=== PATIENT | female | born 1985 | race Caucasian/White ===

== ENCOUNTER → 2018-05-17 18:55 | Outpatient (CLI) | payer OTHER, SELFPAY ==
[2018-05-17 21:41] LABS: Chlamydia Trachomatis by PCR Negative (Negative); Neisserai gonorrhoeae by PCR Negative (Negative); Probe Check PASS; Sample Adequacy Control PASS; Specimen Processing Control PASS
[2018-05-26 11:52] LABS: HPV APTIMA, High Risk Positive (Negative)
== END ==
PROVIDERS: Family Provider Family Medicine; PCP Family Medicine; Visit Provider Nurse Practitioner Women's Health
DX: Z12.4 Encounter for screening for malignant neoplasm of cervix (principal); Z11.3 Encounter for screening for infections with a predominantly sexual mode of transmission
CPT/HCPCS: 87491; 87591; 88175; G0145

== ENCOUNTER → 2018-05-22 16:33 | Outpatient (CLI) | payer OTHER, SELFPAY ==
--- NOTE | 2018-05-22 16:36 | RAD_ITS ---
STUDY: X-RAY - ABDOMEN/PELVIS REASON FOR EXAM: Female, 33 years old. Lower abdominal pain. Bloating and cramping. TECHNIQUE: AP supine and upright views of the abdomen and pelvis. COMPARISON: None. FINDINGS: Normal visualized lung bases. There is an unremarkable bowel gas pattern. Air is seen throughout the colon. There is no small bowel dilatation. There is no demonstrated free abdominal air. The visualized liver, spleen and kidneys are grossly normal in size and morphology. Normal soft tissue structures. Normal visualized osseous structures. RAD/Abd Inc Decub and/or Erect IMPRESSION: Normal x-ray examination of the abdomen and pelvis. Electronically Signed: Vladimir Mead DO at 22:23 EDT Tel [phone], Service support ,
== END ==
PROVIDERS: Family Provider Family Medicine; PCP Family Medicine; Visit Provider Family Medicine
DX: K58.9 Irritable bowel syndrome, unspecified (principal)
CPT/HCPCS: 74019

== ENCOUNTER → 2018-06-23 14:40 | Outpatient (CLI) | payer OTHER, SELFPAY ==
--- NOTE | 2018-06-23 14:40 | CER_PTH ---
PATIENT: DEJA FRANZ LOC: [facility] U#:[id number] AGE/SX: 40/F ROOM: RE06/23/[address]: Dr. Sparkle Santiago MD : 1985 BED: DIS: SPEC #: [id number] RECD: 06/23/18 18:18 STATUS: DALTON BETO #: [id number] JULIAN: 06/23/18 14:[address]: Sparkle Santiago DEPT: SURGICAL PATHOLOGY RECD BY: Bao Del Angel ENTERED: 06/26/18 13:31 SP TYPE: CERV OTHR DR: Dr. Christian Roa MD Tissues: Endocervical Procedures: Surgery Specimen Level IV HEADER OPERATION: Colposcopy PRE-OP DIAGNOSIS: LGSIL TISSUE SUBMITTED: Cervical biopsy 6 o?clock MICROSCOPIC DIAGNOSIS Cervix at 6 o?clock, biopsy: Endocervix with squamous metaplasia and minimal chronic inflammation. No evidence of dysplasia. AM:jerica 06/27/18 MICROSCOPIC DESCRIPTION Slides are reviewed. GROSS DESCRIPTION Received in fixative is one container labeled with the patient's name and designated 6 o'clock. The specimen consists of two irregular fragments of light brennan soft tissue that in aggregate measure 0.3 x 0.3 x <0.1 cm. The specimen is totally submitted in one cassette. / AM:jerica 06/26/18 TC:5 CPT: 01679
== END ==
PROVIDERS: Family Provider Family Medicine; PCP Family Medicine; Visit Provider Obstetrics & Gynecology
DX: R87.622 Low grade squamous intraepithelial lesion on cytologic smear of vagina (LGSIL) (principal)
CPT/HCPCS: 88305

== ENCOUNTER 2018-08-13 17:47 | Emergency (ER) | payer OTHER, SELFPAY ==
[2018-08-13 17:47] VITALS: BP 107/64; PULSE 73; RESP 15; TEMP 36.7; O2SAT 98; BMI 22.8
--- NOTE | 2018-08-13 18:00 | RAD_ITS ---
STUDY: X-RAY LEFT FOOT, FIRST TOE REASON FOR EXAM: Female, 33 years old. Tripped TECHNIQUE: 3 view(s) of the toe were obtained. COMPARISON: None. FINDINGS: Normal visualized metatarsus. Normal metatarsophalangeal (M.T.P) joint. Normal interphalangeal joints. There is a indeterminate defect within the tuft of the distal phalanx. There is soft tissue swelling. RAD/Toe(s) Min 2 Views IMPRESSION: Possible distal phalanx tuft fracture. Electronically Signed: Norma Elizabeth MD at 19:01 EDT Tel , Service support ,
--- NOTE | 2018-08-13 19:28 | ED.DCSUM_ITS ---
- ER Visit Summary Date of Service: 08/13/18 Chief Complaint: [Injury to left great toe] History of Present Illness: The patient is a 33 F [presents the emergency department complaint of injury to her left great toe that occurred while she was at a jump yard. Patient was walking up some steps in her socks when she thinks she struck the stair with her foot and rolled the foot. Patient felt a pop or crack. Patient having a hard time bearing weight secondary to pain.] Physical Examination: [Left foot-patient has some tenderness palpation over the IP joint of the great toe. There is no obvious deformity. There is some faint erythema noted at the base of the nail. She is neurovascular intact.] Test Results: [X-rays of the left foot obtained showed a questionable fracture of the tuft of the left great toe.] Emergency Department Course and Treatment: [Patient was given crutches and a postop shoe and had the great toe brittany taped to the second toe.] Treatment Plan: [Patient to ice and elevate the extremity and follow-up with primary care physician in 5-7 days. Patient given a prescription for [place] for pain] Disposition: [Discharged home in stable condition] Impression: [Left great toe fracture] This note was generated with [employer] dictation software. It may contain incorrect words, spelling, and punctuation that were not noted in review of the chart prior to signing ED Disposition - Plan for ED Patient: Chief Complaint: Lower Extremity Injury Referrals: Christian Roa MD [Primary Care Provider] -
--- NOTE | 2018-08-13 19:28 | ED.DEP ---
ED Disposition - Plan for ED Patient: Chief Complaint: Lower Extremity Injury Instructions: ED Fx Toe Closed Prescriptions: Hydrocodone Bitart/Apap 5-325 [[place] 5MG-325MG] 1 tab PO Q4H PRN PRN 2 Days #10 tab PRN Reason: Pain Referrals: Christian Roa MD [Primary Care Provider] - 5-7 Days
[2018-08-13 19:45] VITALS: RESP 16
== END 2018-08-13 19:46 | disposition home or self-care (01) ==
LOC: ED 19:12
PROVIDERS: Emergency Provider Emergency Medicine; Family Provider Family Medicine; PCP Family Medicine
DX: S92.402A Displaced unspecified fracture of left great toe, initial encounter for closed fracture (principal); X50.1XXA Overexertion from prolonged static or awkward postures, initial encounter; Y93.9 Activity, unspecified; Y92.9 Unspecified place or not applicable
CPT/HCPCS: 73660; 99284

== ENCOUNTER → 2019-02-15 11:52 | Outpatient (CLI) | payer OTHER, SELFPAY ==
[2019-02-15 11:33] VITALS: BMI 22.8
[2019-02-15 12:09] LABS: Absolute Lymphocyte Count 2.43 X10^3/ul (0.83-4.51); Absolute Neutrophil Count 5.1 X10^3/uL (2.0-7.7); Basophil# 0.01 X10^3/uL; Basophil% 0.1 % (0-1); Eosinophil# 0.11 X10^3/uL; Eosinophils% 1.3 % (0-5); Hematocrit 37.9 % (37-47); Hemoglobin 12.1 g/dl (12.0-15.0); Lymphocyte # 2.43 X10^3/ul (4.0); Lymphocyte % 29.3 % (19-41); Mean Corp Hgb Conc 31.9 g/gl (32-36); Mean Corpuscular Hgb 25.4 pg (27.0-32.0); Mean Corpuscular Volume 79.6 fL (81-99); Mean Platelet Vol. 9.4 fl (6.2-12.0); Monocyte# 0.64 X10^3/uL; Monocyte% 7.7 % (0-10); Neutrophil % 61.5 % (47-70); Platelet Count 232 K/mm3 (150-450); RBC Distribution Width CV 13.1 % (11.6-14.6); RBC Distribution Width SD 37.8 fl (35.1-43.9); Red Blood Count 4.76 M/mm3 (4.2-5.4); White Blood Count 8.3 K/mm3 (4.4-11.0)
[2019-02-15 12:11] LABS: POSITIVE COUNT NO; POSITIVE DIFFERENTIAL NO; POSITIVE MORPHOLOGY NO
[2019-02-15 13:07] LABS: Thyroid Stim Hormone (TSH) 2.02 uIU/mL (0.358-3.74)
== END ==
PROVIDERS: Family Provider Family Medicine; PCP Family Medicine; Visit Provider Nurse Practitioner Women's Health
DX: R53.83 Other fatigue (principal)
CPT/HCPCS: 36415; 84443; 85025

== ENCOUNTER → 2019-02-16 | Outpatient (CLI) | payer OTHER, SELFPAY ==
[2019-02-15 11:33] VITALS: BMI 22.8
--- NOTE | 2019-02-16 16:42 | RAD_ITS ---
STUDY: X-RAY - LUMBAR SPINE REASON FOR EXAM: Female, 33 years old. Back pain TECHNIQUE: 5 view(s) of the lumbar spine were obtained. COMPARISON: None FINDINGS: Normal lumbar lordosis. There is no substantial scoliosis. There is a normal alignment of the vertebrae. Normal vertebral bodies and endplates. Normal disc space heights. The soft tissue structures are unremarkable. RAD/L/S Spine Min 4 Views IMPRESSION: Normal x-ray examination of the lumbar spine. Electronically Signed: Octavio Louise MD at 20:18 EDT Tel , Service support ,
== END | disposition home or self-care (01) ==
LOC: MTRAD 16:40
PROVIDERS: Family Provider Family Medicine; PCP Family Medicine; Referring Provider Family Medicine; Visit Provider Family Medicine
DX: M54.9 Dorsalgia, unspecified (principal)
CPT/HCPCS: 72110

== ENCOUNTER 2019-07-04 17:30 | Outpatient (RCR) | payer OTHER, SELFPAY ==
[2019-02-15 11:33] VITALS: BMI 22.8
--- NOTE | 2019-03-14 19:05 | HP.PTEVAL ---
Patient's Visit Information DEJA FRANZ is a 34 year old F referred to Physical Therapy by Christian Roa MD with a diagnosis of Back Pain. Date of Evaluation: 03/14/19 Physical Therapist: TEX Hinds - Visit Plan Frequency: 1-2x /Week Duration: 6 Weeks Plan: 1-2X/ week for 4-6 weeks for centralization of symptoms using extension principle, possible leg length, core stability, with HEP and postural exercises. - Subjective Findings: Her son was born in 2013 and breastfed for a year and she thinks that the culmination of positioning and not being as physically fit. She is sensitive when she pushe along her back/Psis area and along the the top of her hips and after she massages it, it hurts. Always a dull ache across her LB. She is in a car for 2 hours and 18 min per day. In the morning she feel that her back is so tight in the morning. SHe tries to stretch is and she does not get relief. She is on her feet constantly and she is shifting more through out the day to get relief. She did get an x-ray.... She has not seen a chiropractor. She has not run lately.... She has no N&T. She has no weakness in her legs. SHe wakes up with pain in her back at night and the pillow seems to help a little bit. - Pain back pain Pain Intensity (Out of 10): 3 - Objective Gait: Walks with a normal gait pattern. Trunk AROM: Flexion 100%, Ext 50%, SB B 100%, Rot B 100%. LE MMT: B hip flex 4-/5 B, B knee flex 4-/5, B knee ext 4/5, Pt is able to walk on heels and toes, B hip abd 4/5, B hip ext 4-/5. Tight B HS and HIp flexors. SLR: - B ( on the R she felt a little pulling when coming down from a SLR). SLUMP test: -B. Patellar DTR's 2+/3 B. Prone lying X 5 min: increase center of back pain after lying there. Prone lying to OSMANY X 10.... felt a little looser.... 2 X 10 additional she felt more of a grabbing sensation. Prone to press up 3 X 10.... when up at end range she feels pain that radiates into buttock and out laterally but when she comes back to prone lying she feels the pain just in the center of the back. Prone press ups 3 X 10 again..... L leg is slightly shorter than the R. - Goals Goal 1:: I HEP Goal Time Frame: 4-6 Weeks Goal 2:: Decrease LBP to 1/10 with ADL's Goal Time Frame: 4-6 Weeks Goal 3:: Be able to complete 3 X 10 press ups without pain. Goal Time Frame: 4-6 Weeks Goal 4:: Be able to drive to and from work without having back pain Goal Time Frame: 4-6 Weeks - Rehabilitation Potential Rehabilitation Potential: Good - Anticipated Interventions Patient/Client Instruction: Educate patient on: Condition, Plan of Care For the Purpose of:: To decrease pain, To increase ROM, To improve nutrient delivery to tissue, To improve muscle performance and motor function, To improve ability to perform ADL's, To increase tolerance to activity/condition/position, To improve performance and independence with ADL's Therapeutic Exercise to Include: Strength training, Postural training, Flexibilty training, Neuromotor development, Dynamic Lumbar Stabilization, Barron Exercises, Scapular Strength/Stabilization For the Purpose of:: To decrease pain, To decrease swelling/inflammation, To increase ROM, To improve nutrient delivery to tissue, To improve muscle performance and motor function, To improve ability to perform ADL's, To increase tolerance to activity/condition/position, To improve performance and independence with ADL's, To decrease level of supervision to perform tasks IF ES: Yes Cryotherapy (ice pack, ice massage): Yes Thermo therapy (hot pack): Yes Ultrasound (thermal/non thermal): Yes For the Purpose of:: To decrease pain, To decrease swelling/inflammation, To improve nutrient delivery to tissue Thank you for the opportunity to evaluate your patient. For Medicare and Medicare HMO plans, please review the plan of care and approve it. It will need to be FAXED BACK to us at [phone] for Medicare purposes. For Medicare only, by signing this I certify the plan of care. Please let me know if there are questions or concerns regarding this plan of care. Physician Signature: Date:
--- NOTE | 2019-07-04 17:53 | HP.PTDCSUM ---
HP - PT D/C Summary It has been my pleasure to treat DEJA FRANZ under orders from Christian Roa MD, for the diagnosis of Back Pain for a total of 19 visit(s). Discharge Date: 07/04/19 Please see the following information for a summary of their discharge status. - Subjective Subjective: Past 2 weeks have not been able to do much.... she is too exhausted with school done. Its a little bit tight but no pain. - Pain back pain Pain Intensity (Out of 10): 0 - Overall Improvement % Improvement: 95 - Objective Objective/Function: ALL PT goals have been met and pt is I with gym routine, only needs to find the time to do the exercises. - Goals Goal 1:: I HEP Goal Progress: Goal Met Goal 2:: Decrease LBP to 1/10 with ADL's Goal Progress: Goal Met Goal 3:: Be able to complete 3 X 10 press ups without pain. Goal Progress: Goal Met Goal 4:: Be able to drive to and from work without having back pain Goal Progress: Goal Met - Plan Plan: DC PT to - D/C Information Discharge Comments: DC PT to I gym routine If there are questions or concerns regarding this patient's physical therapy, please feel free to call me at [phone]. Thank you for the referral of this patient. Sincerely, Laura Melton, TEX
== END 2019-07-04 19:00 | disposition home or self-care (01) ==
LOC: PT 17:30
PROVIDERS: Family Provider Family Medicine; PCP Family Medicine; Visit Provider Family Medicine
DX: M54.9 Dorsalgia, unspecified (principal)
CPT/HCPCS: 97014; 97110; 97161; 97530; G0283

== ENCOUNTER → 2020-01-21 | Outpatient (CLI) | payer OTHER, SELFPAY ==
[2020-01-21 13:58] VITALS: BMI 22.8
[2020-01-21 18:21] LABS: Chlamydia Trachomatis by PCR Negative (Negative); Neisserai gonorrhoeae by PCR Negative (Negative); Probe Check PASS; Sample Adequacy Control PASS; Specimen Processing Control PASS
[2020-01-23 20:34] LABS: HPV APTIMA, High Risk Negative (Negative)
== END | disposition home or self-care (01) ==
LOC: LABSPEC 16:12
PROVIDERS: PCP Family Medicine; Visit Provider Nurse Practitioner Women's Health
DX: A64 Unspecified sexually transmitted disease (principal); Z12.4 Encounter for screening for malignant neoplasm of cervix
CPT/HCPCS: 87491; 87591; 87624; 88175; G0145

== ENCOUNTER 2020-02-06 17:53 | Emergency (ER) | payer OTHER, SELFPAY ==
[2020-01-21 13:58] VITALS: BMI 22.8
[2020-02-06 17:54] VITALS: BP 118/76; PULSE 70; RESP 15; TEMP 36.7; O2SAT 99; BMI 24.0
--- NOTE | 2020-02-06 18:01 | NURSING ---
NO OLD EKGS
--- NOTE | 2020-02-06 18:22 | EKG12_ITS ---
Test Reason : CP Blood Pressure : / mmHG Vent. Rate : 069 BPM Atrial Rate : 069 BPM P-R Int : 120 ms QRS Dur : 080 ms QT Int : 394 ms P-R-T Axes : 058 023 031 degrees QTc Int : 422 ms Normal sinus rhythm Normal ECG Confirmed by YANETH GILMORE, NADER ([id number]), purchasing expeditor DOYLE AUGUSTIN ([id number]) on 02/08/2020 9:36:56 AM Referred By: PEREZ Confirmed By:GUILLERMO WOLFE MD
--- NOTE | 2020-02-06 18:25 | ED.VISSUMM ---
- ER Visit Summary Date of Service: 02/06/20 Chief Complaint: Chest pain History of Present Illness: The patient is a 34 F who presents with chest pain that began yesterday. Patient states the pain is been waxing and waning since yesterday. Patient states it feels like a tightness. Patient states the pain is over the substernal area and radiates across his chest. Patient states nothing makes it better or worse. Patient admits to nausea but denies any vomiting. Patient admits to some shortness of breath and cough but denies any fevers. Patient admits to some lightheadedness but denies any palpitations or diaphoresis. Patient denies any cardiac or PE risk factors. Physical Examination: Vital signs are stable. Patient is afebrile. Patient is in no acute distress. Oral mucosa is pink and moist. Neck is supple. Trachea is midline. There is no JVD noted. Heart was regular rate and rhythm. Lungs are clear and equal bilaterally. Abdomen is soft. Bowel sounds are normal. There is no tenderness. There is no rebound or guarding noted. Skin is warm dry. Cranial nerves II through XII are intact. There are no focal motor or sensory deficits noted. Extremities are intact. There is no calf tenderness or edema. Test Results: EKG showed normal sinus rhythm with a rate of 69. There are no acute ST or T wave changes. Portable chest x-ray was obtained. There is no acute cardiopulmonary process. This was interpreted by the radiologist and myself. CBC, basic metabolic profile, and troponin were obtained within normal limits. Emergency Department Course and Treatment: Patient was given aspirin here. Patient was given 1 sublingual nitroglycerin tablet. Patient's blood pressure dropped to 88 but improved to 125. Patient developed a headache after the sublingual nitroglycerin but it resolved. Patient was feeling better on reevaluation. Patient was advised of her findings. Patient has a HEART score of 1. Patient has a MARIO risk score of 0. Patient was advised that this is low risk for acute cardiac event. Patient was instructed to follow-up with her primary care physician in 5 to 7 days. Patient understood and was agreeable with the plan. All questions were answered. Disposition: Discharge home Impression: Chest pain This note was generated with [employer] dictation software. It may contain incorrect words, spelling, and punctuation that were not noted in review of the chart prior to signing ED Disposition - Plan for ED Patient: Disposition: Home or Assisted Living Diagnosis: Chest pain of uncertain etiology Instructions: ED Chest Pain Atypical Unkn Cause Referrals: Christian Roa MD [Primary Care Provider] - 5-7 Days
[2020-02-06] MEDS: Aspirin 81 MG TAB.CHEW 324 MG PO (19:22)
[2020-02-06 19:23] VITALS: BP 128/83; PULSE 77
[2020-02-06] MEDS: Nitroglycerin SL (ED/IMG/CATH) 0.4 MG TABLET SUBLINGUAL (19:23)
[2020-02-06 19:28] VITALS: BP 128/83; PULSE 77; RESP 14; O2SAT 98
--- NOTE | 2020-02-06 19:32 | RAD_ITS ---
STUDY: X-RAY CHEST REASON FOR EXAM: Female, 34 years old. PT ARRIVES TO ED WITH CHEST PAIN THAT STARTED YESTERDAY. NO CARDIAC HX. MINIMAL CARDIAC RISK FACTORS. TECHNIQUE: Single frontal view of the chest. COMPARISON: None. FINDINGS: Lungs are hyperaerated. The lungs are clear and expanded. There is no demonstrated pleural abnormality. Normal size heart. Normal mediastinum and dimitris. Normal visualized pulmonary arteries. Normal visualized aortic arch and descending thoracic aorta. Normal visualized thoracic spine. Normal visualized ribs, clavicles, and shoulders. There is no demonstrated abnormality of the visualized soft tissue structures of the upper abdomen. RAD/Chest 1 View (Portable) IMPRESSION: Small airways disease Electronically Signed: Charanjit Silva MD at 19:48 EDT , Service support ,
[2020-02-06 19:38] VITALS: O2SAT 100
--- NOTE | 2020-02-06 19:39 | ED.RN ---
PATIENT'S PAIN REMAINS 5/10 AFTER 1ST NITRO, BP DROPS DOWN TO 84/73, DR. DURAN MADE AWARE, NO FURTHER ORDERS OBTAINED.
[2020-02-06 19:46] LABS: Absolute Lymphocyte Count 2.86 X10^3/uL (0.83-4.51); Absolute Neutrophil Count 3.9 X10^3/uL (2.0-7.7); Basophil# 0.02 X10^3/uL; Basophil% 0.3 % (0-1); Eosinophil# 0.17 X10^3/uL; Eosinophils% 2.3 % (0-5); Hematocrit 38.3 % (37-47); Hemoglobin 12.2 g/dL (12.0-15.0); Lymphocyte # 2.86 X10^3/ul (4.0); Mean Corp Hgb Conc 31.9 g/dL (32-36); Mean Corpuscular Hgb 25.7 pg (27.0-32.0); Mean Corpuscular Volume 80.6 fL (81-99); Monocyte# 0.61 X10^3/uL; Monocyte% 8.1 % (0-10); NRBC Flagged by Analyzer 0 % (0-5); Neutrophil # 3.85 X10^3/uL (2.7-7.7); Neutrophil % 51.2 % (47-70); Platelet Count 184 K/mm3 (150-450); RBC Distribution Width CV 14.6 % (11.6-14.6); RBC Distribution Width SD 42.5 fl (35.1-43.9); Red Blood Count 4.75 M/mm3 (4.2-5.4); White Blood Count 7.5 K/mm3 (4.4-11.0)
[2020-02-06 19:57] LABS: Anion Gap 3 (5-15); BUN 14 mg/dL (7-18); Calcium,Total 9.1 mg/dL (8.5-10.1); Chloride 109 mmol/L (98-107); Creatinine, Serum 0.88 mg/dL (0.55-1.02); EST Glomerular Filtration Rate 79 mL/min (>60); Est Glom Filt Rate - Afr Amer 95 mL/min (>60); Estimated Creatinine Clearance 78.52 ml/min; Glucose 91 mg/dL (74-106); Potassium 3.7 mmol/L (3.5-5.1); Sodium Level 140 mmol/L (136-145)
[2020-02-06 19:59] VITALS: BP 110/75; PULSE 64; RESP 13; O2SAT 100
[2020-02-06 20:48] VITALS: BP 125/76; PULSE 68; RESP 18; O2SAT 100
== END 2020-02-06 20:49 | disposition home or self-care (01) ==
PROVIDERS: Emergency Provider Emergency Medicine; PCP Family Medicine
DX: R07.89 Other chest pain (principal); R11.0 Nausea; R06.00 Dyspnea, unspecified; R05 Cough; R42 Dizziness and giddiness; J34.89 Other specified disorders of nose and nasal sinuses; J02.9 Acute pharyngitis, unspecified; R51 Headache; K58.9 Irritable bowel syndrome, unspecified
CPT/HCPCS: 71045; 80048; 84484; 85025; 93005; 99285

== ENCOUNTER 2020-04-13 15:56 | Emergency (ER) | payer OTHER, SELFPAY ==
[2020-04-13 15:57] VITALS: BP 133/84; PULSE 87; RESP 18; TEMP 36.2; O2SAT 97; BMI 23.6
--- NOTE | 2020-04-13 16:09 | RAD_ITS ---
STUDY: X-RAY - RIGHT ANKLE REASON FOR EXAM: Female, 35 years old. CAT BITE/SCRATCH ACROSS ANTERIOR PART OF ANKLE TECHNIQUE: 3 view(s) of the ankle. COMPARISON: None. FINDINGS: Normal visualized distal tibia and fibula. Normal medial and lateral malleoli. Normal tibiotalar articulation and ankle mortise. Normal visualized talus and calcaneus. The visualized subtalar, talonavicular, calcaneocuboid and tarsal articulations are normal. The soft tissue structures are unremarkable. RAD/Ankle min 3 Views IMPRESSION: Normal x-ray examination of the ankle. Electronically Signed: Arminda Webster, at 16:39 EDT Tel , Service support ,
--- NOTE | 2020-04-13 16:12 | ED.VIS.GEN ---
History of Present Illness Chief Complaint: Bite Informant: Patient Onset: Today Narrative: Patient states that she brought a cat into the house and the cat ended up scratching and biting her right ankle. Unknown last tetanus. Past Medical History - Allergies and Home Meds Allergies/Adverse Reactions: Allergies ceftriaxone [From Rocephin] Allergy (Mild, Verified 04/13/20 15:59) hives Latex, Natural Rubber Adverse Reaction (Unknown, Verified 04/13/20 15:59) itching/irritation Primary Care Physician: Christian Roa MD [Primary Care Provider] - As Needed Smoking Status: Never smoker Review of Systems General: Denies: Chills, Fever, Sweats Eyes: Denies: Visual changes - bilaterally, Diplopia ENT: Denies: Rhinorrhea, Sore throat Cardiovascular: Denies: Chest pain, Palpitations Respiratory: Denies: Dyspnea, Cough, Dyspnea on exertion Gastrointestinal: Denies: Abdominal pain, Nausea, Vomiting, Diarrhea, Melena, Hematochezia Genitourinary: Denies: Dysuria, Hematuria, Frequency Musculoskeletal: Denies: Back pain, Extremity Pain Skin: Denies: Rash, Wounds Neurological: Denies: Headache, Weakness, Numbness Physical Exam Vital Signs/Narrative: Vital Signs Temp Pulse Resp BP Pulse Ox 04/13/20 15:57 97.1 F L 87 18 133/84 H 97 General: Well nourished, Well developed, No Acute Distress Head: Normocephalic, Atraumatic Eyes: Perrl, EOMI ENT: Moist mucous membranes, No rhinorrhea Neck: Supple, Nontender Cardiovascular: Regular rate, Regular rhythm, No murmurs Respiratory: No distress, CTA bilaterally, Chest nontender Abdomen: Soft, Nontender, Nondistended, Normal bowel sounds Back: Nontender, Normal Inspection Extremities: No edema, Tenderness - There is tenderness around the cat scratches and the cat bite. There are bite guevara to both the medial and lateral aspects just anterior to the Achilles Skin: Normal color, No rash Neurological: Alert, Oriented x3, Cranial nerves II-XII grossly intact, Normal Strength, Normal Sensation Psychological: Normal affect, Normal Mood Diagnostic/Tx/Re-eval - Medical Decision Making X-rays of the ankle were obtained and no radiopaque foreign body were seen. Her tetanus was updated with Adacel. She will be placed on Augmentin. ED Disposition - Plan for ED Patient: Disposition: Home or Assisted Living Diagnosis: Cat bite of ankle Instructions: ED Bite Cat Prescriptions: Amox/Clavulanate Tablet [Augmentin Tablet] 875 mg PO Q12H #10 tab Transmission Status: Received by [id number] Referrals: Christian Roa MD [Primary Care Provider] - As Needed
[2020-04-13] MEDS: Diphth,Pertuss(Acell),Tet Vac 0.5 ML Vial IM (16:22)
[2020-04-13] MEDS: Amox/Clavulanate 875 MG Tablet PO (16:23)
== END 2020-04-13 16:52 | disposition home or self-care (01) ==
LOC: ED 16:42
PROVIDERS: Emergency Provider Emergency Medicine; PCP Family Medicine
DX: S90.571A Other superficial bite of ankle, right ankle, initial encounter (principal); W55.01XA Bitten by cat, initial encounter; Y93.9 Activity, unspecified; Y92.9 Unspecified place or not applicable
CPT/HCPCS: 73610; 90715; 99283

== ENCOUNTER → 2020-09-29 15:27 | Outpatient (CLI) | payer OTHER, SELFPAY ==
[2020-09-29 11:21] VITALS: BMI 23.1
== END ==
PROVIDERS: PCP Family Medicine; Referring Provider Obstetrics & Gynecology; Visit Provider Obstetrics & Gynecology
DX: N76.0 Acute vaginitis (principal); N39.0 Urinary tract infection, site not specified
CPT/HCPCS: 87070; 87086; 87205

== ENCOUNTER → 2020-11-06 | Outpatient (CLI) | payer OTHER, SELFPAY ==
[2020-09-29 11:21] VITALS: BMI 23.1
== END | disposition home or self-care (01) ==
LOC: LABSPEC 14:51
PROVIDERS: PCP Family Medicine; Referring Provider Family Medicine; Visit Provider Family Medicine
DX: U07.1 COVID-19 (principal)
CPT/HCPCS: 87635; U0005; U0003

== ENCOUNTER → 2021-01-21 | Outpatient (CLI) | payer OTHER, SELFPAY ==
[2021-01-21 14:42] VITALS: BMI 23.2
[2021-01-23 20:07] LABS: Chlamydia By Nucleic Acid AMP Negative (Negative)
[2021-01-23 20:39] LABS: Gonococcus By Nucleic Acid AMP Negative (Negative)
[2021-01-28 12:37] LABS: HPV APTIMA, High Risk Positive (Negative)
== END | disposition home or self-care (01) ==
LOC: LABSPEC 16:20
PROVIDERS: PCP Family Medicine; Referring Provider Nurse Practitioner Women's Health; Visit Provider Nurse Practitioner Women's Health
DX: Z11.3 Encounter for screening for infections with a predominantly sexual mode of transmission (principal); Z12.4 Encounter for screening for malignant neoplasm of cervix
CPT/HCPCS: 87491; 87591; 87624; 88175; G0145

== ENCOUNTER → 2021-03-12 | Outpatient (CLI) | payer OTHER, SELFPAY ==
--- NOTE | 2021-03-12 | CER_PTH ---
PATIENT: DEJA FRANZ LOC: [facility]#:[id number] AGE/SX: 35/F ROOM: RE03/12/[address]: Dr. Cecilia Luz MD : 1985 BED: DIS: 03/12/2021 SPEC #: [id number] RECD: 03/12/21 16:23 STATUS: DALTON RERamandeep #: [id number] JULIAN: 03/12/21 00:[address]: Cecilia Luz DEPT: SURGICAL PATHOLOGY RECD BY: Modesto Moody ENTERED: 03/13/21 08:17 SP TYPE: CERV OTHR DR: Dr. Christian Roa MD Tissues: A - Endocervical B - Uterine cervix, NOS Procedures: Surgery Specimen Level IV HEADER OPERATION: Colposcopy PRE-OP DIAGNOSIS: ASCUS, HPV positive TISSUE SUBMITTED: A ? ECC, B ? 3 & 9 o?clock MICROSCOPIC DIAGNOSIS A. ECC: Fragments of benign endocervical epithelium and desquamated benign squamous epithelial cells, negative for dysplasia. B. Cervix, 3 & 9 o?clock, biopsy: Fragments of benign ecto- and endocervical mucosa with acute and chronic inflammation. Negative for dysplasia. SJ:rg 03/16/2021 COMMENT Please make reference to previous specimen ([id number]) cervix at 6 o?clock, biopsy with diagnosis of ?endocervix with squamous metaplasia and minimal chronic inflammation and no evidence of dysplasia.? Case has been reviewed in consultation with Dr. Ortiz who concurs with the above diagnosis. IDC:AM MICROSCOPIC DESCRIPTION Slides are reviewed. GROSS DESCRIPTION A - Received in fixative is one container labeled with the patient's name and designated ECC. The specimen consists of a scant amount of soft tissue. The specimen is totally submitted for cell block preparation. B - Received in fixative is one container labeled with the patient's name and designated 3 & 9 o'clock. The specimen consists of multiple irregular fragments of brennan soft tissue that in aggregate measure 0.8 x 0.5 x 0.1 cm. The specimen is totally submitted in one cassette. / BERNADETTE:jerica 03/13/21 TC:3 CPT: 66114 x2
[2021-03-12 11:13] VITALS: BMI 23.6
== END | disposition home or self-care (01) ==
LOC: LABSPEC 16:29
PROVIDERS: PCP Family Medicine; Referring Provider Obstetrics & Gynecology; Visit Provider Obstetrics & Gynecology
DX: R87.620 Atypical squamous cells of undetermined significance on cytologic smear of vagina (ASC-US) (principal)
CPT/HCPCS: 88305

== ENCOUNTER → 2021-07-09 | Outpatient (CLI) | payer OTHER, SELFPAY | END | disposition home or self-care (01) | LOC: LABSPEC 15:16 | PROVIDERS: PCP Family Medicine; Referring Provider Family Medicine; Visit Provider Family Medicine | DX: Z71.89 Other specified counseling (principal) | CPT/HCPCS: 87635; U0005; U0003 ==

== ENCOUNTER → 2021-09-18 | Outpatient (CLI) | payer OTHER, SELFPAY | END | disposition home or self-care (01) | LOC: LABSPEC 09:26 | PROVIDERS: PCP Family Medicine; Visit Provider Family Medicine | DX: Z20.822 Contact with and (suspected) exposure to COVID-19 (principal) | CPT/HCPCS: 87635; U0005; U0003 ==

== ENCOUNTER 2021-11-19 11:52 | Outpatient (CLI) | payer OTHER, SELFPAY ==
[2021-11-23 02:06] LABS: Chlamydia By Nucleic Acid AMP Negative (Negative)
[2021-11-23 11:18] LABS: Gonococcus By Nucleic Acid AMP Negative (Negative)
== END 2021-11-19 23:59 | disposition short-term general hospital (02) ==
LOC: LABSPEC 11:54
PROVIDERS: PCP Family Medicine; Visit Provider Obstetrics & Gynecology
DX: N89.8 Other specified noninflammatory disorders of vagina (principal)
CPT/HCPCS: 87070; 87205; 87491; 87591

== ENCOUNTER 2022-01-06 16:49 | Outpatient (CLI) | payer OTHER, SELFPAY ==
--- NOTE | 2022-01-06 16:57 | US_ITS ---
STUDY: RENAL ULTRASOUND - COMPLETE REASON FOR EXAM: Female, 36 years old. back pain- r/o stones TECHNIQUE: Ultrasound evaluation of the kidneys was performed with real-time and static britton-scale imaging. COMPARISON: None. FINDINGS: RIGHT KIDNEY: Normal location of the right kidney, which is normal in size. The right kidney measures 9.7 x 4.7 cm. . There is a normal cortex of the right kidney. There is no right renal mass or cyst. There are no right renal calculi. There is no right hydronephrosis. DISTAL RIGHT URETER: There is non-visualization of the distal right ureter. There is no demonstrated right ureterovesical junction calculus. There is no demonstrated right ureteral jet. LEFT KIDNEY: Normal location of the left kidney, which is normal in size. The left kidney measures 11 x 4.4 cm. . There is a normal cortex of the left kidney. There is no left renal mass or cyst. There are no left renal calculi. There is no left hydronephrosis. DISTAL LEFT URETER: There is non-visualization of the distal left ureter. There is no demonstrated left ureterovesical junction calculus. There is no demonstrated left ureteral jet. AORTA: There is obscuration of the abdominal aorta by overlying bowel gas I.V.C.: It is not visualized. There is too much overlying bowel gas. BLADDER: The distended urinary bladder has a volume in cc of 59. There is a normal wall thickness of the distended urinary bladder. There is no demonstrated mass within the urinary bladder. There are no demonstrated bladder calculi. US/Kidney and Bladder IMPRESSION: No acute findings of the ultrasound of the kidneys and urinary bladder. Note: Renal size measurements and size measurements of other organs etc may vary depending on modality and strike off machine operator dependent variations in measurements. (i.e. Measuring a kidney on an US does not correlate with an exact same measurement on a CT.) Electronically Signed: Sai Peña MD at 19:05 EST ,
== END 2022-01-06 23:59 | disposition home or self-care (01) ==
PROVIDERS: PCP Family Medicine; Referring Provider Obstetrics & Gynecology; Visit Provider Obstetrics & Gynecology
DX: M54.50 Low back pain, unspecified (principal)
CPT/HCPCS: 76770; 76775; 87086; 87088

== ENCOUNTER 2022-01-21 08:10 | Outpatient (CLI) | payer OTHER, SELFPAY ==
[2022-01-21 14:47] LABS: Amphetamine Urine VISTA NEGATIVE (<1000 ng/mL); Barbiturate Urine VISTA NEGATIVE (< 200 ng/mL); Benzodiazepine Urine VISTA NEGATIVE (< 200 ng/mL); Cocaine Urine VISTA NEGATIVE (< 300 ng/mL); Ecstacy Urine VISTA NEGATIVE (< 500 ng/mL); Methadone Urine VISTA NEGATIVE (< 300 ng/mL); PCP Urine VISTA NEGATIVE (< 25 ng/mL); THC Urine VISTA NEGATIVE (< 50 ng/mL); Vista UDS pH Range 6
[2022-01-24 07:07] LABS: Chlamydia By Nucleic Acid AMP Negative (Negative)
[2022-01-24 09:24] LABS: Gonococcus By Nucleic Acid AMP Negative (Negative)
[2022-01-29 16:50] LABS: HPV APTIMA, High Risk Positive (Negative)
== END 2022-01-21 23:59 | disposition home or self-care (01) ==
PROVIDERS: PCP Family Medicine; Visit Provider Obstetrics & Gynecology
DX: Z34.90 Encounter for supervision of normal pregnancy, unspecified, unspecified trimester (principal)
CPT/HCPCS: 80307; 87086; 87491; 87591; 87624; 88175; G0145

== ENCOUNTER 2022-01-27 16:53 | Outpatient (CLI) | payer OTHER, SELFPAY ==
[2022-01-27 18:02] LABS: NATERA MAILED SPECIMEN
== END 2022-01-27 23:59 | disposition home or self-care (01) ==
PROVIDERS: PCP Family Medicine; Visit Provider Obstetrics & Gynecology
DX: R82.90 Unspecified abnormal findings in urine (principal)
CPT/HCPCS: 87086; 87088

== ENCOUNTER → 2022-02-26 | Outpatient (CLI) | payer OTHER, SELFPAY ==
[2022-02-26 15:22] LABS: Absolute Lymphocyte Count 2.59 X10^3/uL (0.83-4.51); Basophil# 0.03 X10^3/uL; Basophil% 0.3 % (0-1); Eosinophils% 0.9 % (0-5); Hemoglobin 12.4 g/dL (12.0-15.0); Lymphocyte # 2.59 X10^3/ul (0.83-4.51); Lymphocyte % 24.3 % (19-41); Mean Corp Hgb Conc 33.5 g/dL (32-36); Mean Corpuscular Hgb 28.2 pg (27.0-32.0); Mean Corpuscular Volume 84.3 fL (81-99); Mean Platelet Vol. 10.1 fl (6.2-12.0); Monocyte# 0.87 X10^3/uL; Monocyte% 8.2 % (0-10); NRBC Flagged by Analyzer 0 % (0-5); Neutrophil # 6.99 X10^3/uL (2.7-7.7); Neutrophil % 65.6 % (47-70); Platelet Count 190 K/mm3 (150-450); RBC Distribution Width CV 13.2 % (11.6-14.6); RBC Distribution Width SD 40.8 fl (35.1-43.9); Red Blood Count 4.39 M/mm3 (4.2-5.4); White Blood Count 10.7 K/mm3 (4.4-11.0)
[2022-03-01 09:52] LABS: HIV - WCH Non-Reactive (Nonreactive); Hepatitis B Surface Antigen Non-Reactive (Nonreactive); Hepatitis C Antibody Non-Reactive (Nonreactive); Rubella IgG Reactive (Nonreactive); Syphilis Antibodies Non-reactive
== END | disposition home or self-care (01) ==
LOC: LAB 14:39
PROVIDERS: PCP Family Medicine; Visit Provider Obstetrics & Gynecology
DX: Z34.90 Encounter for supervision of normal pregnancy, unspecified, unspecified trimester (principal)
CPT/HCPCS: 36415; 85025; 86703; 86762; 86780; 86803; 86850; 86900; 86901; 87340

== ENCOUNTER → 2022-05-20 | Outpatient (CLI) | payer OTHER, SELFPAY ==
[2022-05-20 10:32] LABS: Absolute Neutrophil Count 6.4 X10^3/uL (2.0-7.7); Basophil# 0.02 X10^3/uL; Basophil% 0.2 % (0-1); Hematocrit 34.1 % (37-47); Hemoglobin 11.3 g/dL (12.0-15.0); Lymphocyte % 27.6 % (19-41); Mean Corp Hgb Conc 33.1 g/dL (32-36); Mean Corpuscular Hgb 28.2 pg (27.0-32.0); Mean Platelet Vol. 9.6 fl (6.2-12.0); Monocyte% 6.9 % (0-10); NRBC Flagged by Analyzer 0 % (0-5); Neutrophil # 6.42 X10^3/uL (2.7-7.7); Neutrophil % 63.2 % (47-70); Platelet Count 170 K/mm3 (150-450); RBC Distribution Width CV 12.6 % (11.6-14.6); RBC Distribution Width SD 38.6 fl (35.1-43.9); Red Blood Count 4.01 M/mm3 (4.2-5.4); White Blood Count 10.2 K/mm3 (4.4-11.0)
[2022-05-20 10:47] LABS: Glucose Challenge Gest 1H 50g 107 mg/dL (70-140)
== END | disposition home or self-care (01) ==
LOC: PAVLAB 10:06
PROVIDERS: PCP Family Medicine; Referring Provider Obstetrics & Gynecology; Visit Provider Obstetrics & Gynecology
DX: O09.90 Supervision of high risk pregnancy, unspecified, unspecified trimester (principal); Z3A.00 Weeks of gestation of pregnancy not specified
CPT/HCPCS: 36415; 82950; 85025

== ENCOUNTER → 2022-07-28 | Outpatient (CLI) | payer OTHER, SELFPAY | END | disposition home or self-care (01) | PROVIDERS: PCP Family Medicine; Visit Provider Obstetrics & Gynecology | DX: O09.90 Supervision of high risk pregnancy, unspecified, unspecified trimester (principal); Z3A.00 Weeks of gestation of pregnancy not specified | CPT/HCPCS: 87081 ==

== ENCOUNTER → 2022-08-02 | Outpatient (CLI) | payer OTHER, SELFPAY ==
--- NOTE | 2022-08-02 08:00 | US_ITS ---
STUDY: SECOND AND THIRD TRIMESTER OBSTETRICAL ULTRASOUND - LIMITED REASON FOR EXAM: Female, 37 years old. growth. LMP: 11/16/2021. PRIOR ULTRASOUND: None. TECHNIQUE: Transabdominal TECHNICAL QUALITY: Adequate. FINDINGS: There is a single intrauterine fetus. The fetus is in a cephalic presentation. There is demonstrated cardiac activity with a heart rate of 143 bpm. There is a normal amniotic fluid volume. The largest amniotic fluid pocket measures 4.12 cm. The amniotic fluid index (RIKA) is 11.67 cm. The placenta is fundal in location. There are Grade 2 placental changes. The cervix is obscured. BIOMETRY: BPD: 8.98 cm: 36 weeks, 3 days HC: 32.34 cm: 36 weeks, 4 days AC: 33.47 cm: 37 weeks, 3 days FL: 6.41 cm: 33 weeks, 1 days Age by LMP: 37 weeks, 0 days. ZOEY by LMP: 08/23/2022. age by current US: 36 weeks, 0 days. ZOEY by current US: 08/30/2022. Estimated weight: 2880 grams, +/- 432 grams, 36 percentile. Gender: Indeterminant US/OB Limited With Biometrics IMPRESSION: 1. Live single intrauterine at 36 weeks, 0 days. ZOEY is 08/30/2022. This is a week behind expected gestational age by provided LMP. 2. EFW of 2880 g. 3. RIKA of 11.67 cm. 4. Fundal grade 2 placenta. 5. Vertex presentation. Electronically Signed: Vladimir Mead DO at 17:12 EDT ,
== END | disposition home or self-care (01) ==
PROVIDERS: PCP Family Medicine; Visit Provider Obstetrics & Gynecology
DX: O09.513 Supervision of elderly primigravida, third trimester (principal); Z3A.36 36 weeks gestation of pregnancy
CPT/HCPCS: 76816

== ENCOUNTER 2022-08-26 18:10 | Inpatient (IN) | payer OTHER, SELFPAY ==
[2022-08-26] VITALS (7 sets, daily range): BP systolic 124–142; BP diastolic 75–86; PULSE 68–101; TEMP 36.4–36.9; O2SAT 98–100; BMI 26.4
[2022-08-26] MEDS: Lactated Ringers 1,000 ML 50 ML IV (18:45)
[2022-08-26 19:13] LABS: Absolute Lymphocyte Count 2.38 X10^3/uL (0.83-4.51); Basophil# 0.03 X10^3/uL; Basophil% 0.3 % (0-1); Eosinophils% 1.1 % (0-5); Hematocrit 33.2 % (37-47); Lymphocyte # 2.38 X10^3/ul (0.83-4.51); Lymphocyte % 25.8 % (19-41); Mean Corp Hgb Conc 33.1 g/dL (32-36); Mean Corpuscular Hgb 26.1 pg (27.0-32.0); Mean Corpuscular Volume 78.9 fL (81-99); Monocyte% 7.6 % (0-10); NRBC Flagged by Analyzer 0 % (0-5); Neutrophil # 5.96 X10^3/uL (2.7-7.7); Neutrophil % 64.7 % (47-70); Platelet Count 148 K/mm3 (150-450); RBC Distribution Width CV 15.8 % (11.6-14.6); RBC Distribution Width SD 44.7 fl (35.1-43.9); Red Blood Count 4.21 M/mm3 (4.2-5.4); White Blood Count 9.2 K/mm3 (4.4-11.0)
[2022-08-26] MEDS: Oxytocin 15 Units/NS 250ml 15 UNITS/250 ML IV.SOLN 2 UNITS IV (19:24)
--- NOTE | 2022-08-26 22:23 | HP.PCM.OB_ITS ---
HPI - General General Date of Admission: 08/26/22 HPI Narrative SULTANA FRANZ, is a 37 F who presents for IOL secondary to oligo 4 cm in the office, no vb lof some dec fm no regular ctx. Maternal Data Information ZOEY Calculator Estimated Delivery Date Method Current WG Current Estimate 08/23/22 Ultrasound #1 40w 3d Other Estimates 08/30/22 LMP (Certain) 39w 3d PFSH PFSH Medical History (Updated 08/26/22 @ 22:[address] Sparkle Santiago MD) Anxiety ASCUS with positive high risk HPV cervical History of vaccination against human papillomavirus Home Medications prenat.vits,efra,tud-dwyd-yoipy 1 tab PO DAILY 01/11/22 [History Last Taken 08/26/22 07:00] sertraline 25 mg tablet (Zoloft) 25 mg PO QHS anxiety 08/26/22 [History Last Taken 08/25/22 22:00] Allergy/AdvReac Type Severity Reaction Status Date / Time ceftriaxone [From Rocephin] Allergy Mild hives Verified 08/26/22 18:32 Latex, Natural Rubber AdvReac Unknown itching/irr Verified 08/26/22 18:32 itation Family History Grandmother Diabetes CVA (cerebral vascular accident) Breast cancer Grandfather Myocardial infarction Aunt Ovarian cancer Breast cancer Skin cancer Father Diabetes Surgical History History of ankle surgery S/P lumpectomy, left breast [place] teeth extracted Social History Smoking Status: Never smoker alcohol intake: current alcohol intake frequency: holidays/special occasions only substance use type: does not use caffeine: Yes what type of physical activity do you participate in: running, aerobics and weight training frequency: 3-4 times per week seatbelt use: always do you feel safe at home: Yes additional social history: 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 Date Name GA/Weeks Outcome Route Bth Weight Infant Gen Labor Lgth Anesthesia Del Locatn Provider FOB 05/23/14 Ned 40 live - full term 7 lbs 14 oz Male 4 8 hours epidural [facility] Delivery Date: 05/23/14 Last Updated by: Naz Alonzo No issues during or delivery. Visit Details Expected Delivery Route/Plan Labor Preferences- labor support person: mom- Brittany, and FOB Hadley will be there unless he is difficult labor intervention preferences: prefers epidural pain management options preferred: prefer epidural cut cord/dad catch: NO : yes PP control planned: [] discussed possible routes of delivery and associated risks: [] special requests: [] Plans Covid status: discussed Flu vaccine: discussed Tdap vaccine: given Rhogam: na LARC form signed: movement and labor precautions reviewed. Problem list reviewed and updated with the most current plan of care details and appropriate orders placed. Relevant counseling for the gestational age provided. Continue routine care and follow up unless otherwise noted in visit notes/problem list details OB Flowsheet Initial Weight: Not Recorded Date -?-?-?-?-?-?-?-?--?-?-?-?- EGA Weight BP Urine Prot -?-?-?-?-?-?-?-?-?-?-?-?- Glucose FHR FuHt Pres Dilation -?-?-?-?-?-?-?-?-?-?-?-?- Effaced St Visit Note 01/21/22 -?-?-?-?-?-?-?-?-?-?-?-?- 9w 3d 137 lb 104/80 -?-?-?-?-?-?-?-?-?-?-?-?- 170 -?-?-?-?-?-?-?-?-?-?-?-?- SM- CRL NOT cons with LMP 2.69cm 01/27/22 -?-?-?-?-?-?-?-?-?-?-?-?- 10w 2d 137 lb 4 oz 120/80 Nega tive -?-?-?-?-?-?-?-?-?-?-?-?- Negative 163 -?-?-?-?-?-?-?-?-?-?-?-?- JV- no KIMBERLY on sc an today. patient reassured. rto in 4 weeks 02/26/22 -?-?-?-?-?-?-?-?--?-?-?-?- 14w 4d 138 lb 120/62 120/62 Negative -?-?-?-?-?-?-?-?-?-?-?-?- Negative 155 -?-?-?-?-?-?-?-?-?-?-?-?- SM- no vb lof go od fm n oregular ctx SM- no vb crmaping 03/25/22 -?-?-?-?-?-?-?-?-?-?-?-?- 18w 3d 140 lb -?-?-?-?-?-?-?-?-?-?-?-?- 154 -?-?-?-?-?-?-?-?-?-?-?-?- JV- here for col poscopy. needs anatomy ultrasound. order in 04/21/22 -?-?-?-?-?-?-?-?-?-?-?-?- 22w 2d 144 lb 110/80 Negative -?-?-?-?-?-?-?-?-?-?-?-?- Negative 155 -?-?-?-?-?-?-?-?-?-?-?-?- JV- fob not invo lved and giving her anxiety abut being involved. she may bring him with her next visit so we can drop hints about how to care for a baby and importance of maternal bonding/breast feeding. 05/20/22 -?-?-?-?-?-?-?-?-?-?-?-?- 26w 3d 146 lb 4 oz 128/66 Nega tive -?-?-?--?-?-?-?-?-?-?-?-?- Negative 156 -?-?-?-?-?-?-?-?-?-?-?-?- JV- FOB is here today and long discussion about bonding and breast feeding. Sultana feels as though he is being controlling and shows me txt messages from him asking her to switch to [facility] for peds. She is somewhat upset about some of the things said in the office but is not tearful. She is requesting some thing for anxiety and depression. starting zoloft low dose. 06/02/22 -?-?-?-?-?-?-?-?-?-?-?-?- 28w 2d 146 lb 4 oz 123/69 Nega tive -?-?-?-?-?-?-?-?-?-?-?-?- Negative 155 28 Cephalic -?-?-?-?-?-?-?-?-?-?-?-?- JV- no lof, vaga inal bleeding, or dec fm. 06/14/22 -?-?-?-?-?-?-?-?-?-?-?-?- 30w 0d 147 lb 120/62 Negative -?-?-?-?-?-?-?-?-?-?-?-?- Negative 145 31 Cephalic -?-?-?-?-?-?-?-?-?-?-?-?- SM- no vb lof go od fm no regular ctx 06/28/22 -?-?-?-?-?-?-?-?-?-?-?-?- 32w 0d 150 lb 118/64 Negative -?-?-?-?-?-?-?-?-?-?-?-?- Negative 145 32 Cephalic -?-?-?-?-?-?-?-?-?-?-?-?- SM- no vb lof go od fm no regular ctx 07/12/22 -?-?-?-?-?-?-?-?-?-?-?-?- 34w 0d 150 lb 6 oz 113/66 Nega tive -?-?-?-?-?-?-?-?-?-?-?-?- Negative 140 34 Cephalic -?-?-?-?-?-?-?-?-?-?-?-?- SM- no vb lof go od fm no regular ctx 07/28/22 -?-?-?-?-?-?-?-?-?-?-?-?- 36w 2d 152 lb 4 oz 118/68 Nega tive -?-?-?-?-?-?-?-?-?-?-?-?- Negative 135 36 Cephalic 1 .5 -?-?-?-?-?-?-?-?-?-?-?-?- 50 -3 JV- no lof ,v aginal bleeding, or dec fm. gbs collected. 08/03/22 -?-?-?-?-?-?-?-?-?-?-?-?- 37w 1d 154 lb 118/70 Negative -?-?-?-?-?-?-?-?-?-?-?-?- Negative 135 36 Cephalic 1 .5 -?-?-?-?-?-?-?-?-?-?-?-?- SM- no vb lof go od fm no regualr ctx 08/10/22 -?-?-?-?-?-?-?-?-?-?-?-?- 38w 1d 153 lb 120/78 Negative -?-?-?-?-?-?-?-?-?-?-?-?- Negative 135 36 Cephalic -?-?-?-?-?-?-?-?-?-?-?-?- LC- no vb.lof,ct x. good FM. LC- no vb.lof,ctx. good FM. discussed IOL for AMA, will have IOL between 40-[address] Gallagher who agrees with poc. declines VE today. 08/16/22 -?-?-?-?-?-?-?-?-?-?-?-?- 39w 0d 155 lb 6 oz 119/81 -?-?-?-?-?-?-?-?-?-?-?-?- 135 39 Cephalic -?-?-?-?-?-?-?-?-?-?-?-?- SM- no vb lof g ood fm no regular ctx 08/26/22 -?-?-?-?-?-?-?-?-?-?-?-?- 40w 3d 154 lb 120/62 Negative -?-?-?-?-?-?-?-?-?-?-?-?- Negative 135 40 Cephalic 2 .5 -?-?-?-?-?-?-?-?-?-?-?-?- 60 -2 SM- no vb lof good fm no regular ctx FH low and bedside RIKA only 4 cm recommend IOL for oligo 08/26/22 -?-?-?-?-?-?-?-?-?-?-?-?- 40w 3d 153 lb 9.6 oz 132/78 124/77 142/75 135/86 -?-?-?-?-?-?-?-?-?-?-?-?- -?-?-?--?-?-?-?-?-?-?-?-?- NST FHR Rate Baby A Baseline: 130 Variability:: Moderate Accelerations:: 15 x 15 Decelerations:: None NST Reactive:: Yes FHR Category:: Category I Uterine Activity:: irregular ROS Constitutional Constitutional: Reports systems reviewed and no addt'l complaints, except as d ocumented Eyes Eyes: Denies change in vision ENT HEENT: Reports systems reviewed and no addt'l complaints, except as documented; Denies headache(s) Cardiovascular Cardiovascular: Reports systems reviewed and no addt'l complaints, except as documented; Denies chest pain or dyspnea Respiratory/Chest Respiratory/Chest: Reports systems reviewed and no addt'l complaints, except as documented Gastrointestinal Gastrointestinal: Reports systems reviewed and no addt'l complaints, except as documented; Denies abdominal pain Genitourinary Genitourinary: Reports systems reviewed and no addt'l complaints, except as documented, contractions Details: present (irregular) and movement Details: present; Denies dysuria or genital lesions Musculoskeletal Musculoskeletal: Reports systems reviewed and no addt'l complaints, except as documented Neurologic Neurologic: Reports systems reviewed and no addt'l complaints, except as documented Endocrine Endocrinology: Reports systems reviewed and no addt'l complaints, except as documented Vital Signs Vital Signs Vital Signs: 08/26/22 19:10 08/26/22 19:12 08/26/22 19:12 Temperature 98.1 F Temperature Source Pulse Rate 82 Blood Pressure 132/78 H BP Systolic 132 BP Diastolic 78 Pulse Ox 08/26/22 19:10 08/26/22 19:10 08/26/22 19:10 Temperature Temperature Source Temporal Pulse Rate 101 H Blood Pressure BP Systolic BP Diastolic Pulse Ox 98 08/26/22 19:10 08/26/22 19:34 08/26/22 19:34 Temperature 98.0 F Temperature Source Pulse Rate 86 Blood Pressure 124/77 H BP Systolic 124 BP Diastolic 77 Pulse Ox 08/26/22 19:34 08/26/22 19:34 08/26/22 20:33 Temperature 98.4 F Temperature Source Pulse Rate Blood Pressure 142/75 H BP Systolic 142 BP Diastolic 75 Pulse Ox 100 08/26/22 20:33 08/26/22 20:33 08/26/22 20:33 Temperature 98.4 F Temperature Source Pulse Rate 79 Blood Pressure BP Systolic BP Diastolic Pulse Ox 100 08/26/22 21:21 08/26/22 21:21 08/26/22 21:20 Temperature Temperature Source Pulse Rate 79 Blood Pressure 135/86 H BP Systolic 135 BP Diastolic 86 Pulse Ox 100 08/26/22 21:20 Temperature 98.2 F Temperature Source Pulse Rate Blood Pressure BP Systolic BP Diastolic Pulse Ox Weight Weight: 153 lb 9.6 oz Body Mass Index (BMI) 26.4 Physical Exam Const alert, oriented x3, no apparent distress and healthy appearing HEENT normocephalic and moist oral mucous membranes Head and Scalp: atraumatic Neck full ROM, no lymphadenopathy, supple and thyroid normal General: trachea midline Lymph Lymphatic: no lymphadenopathy noted Chest inspection of chest normal Resp normal respiratory effort Cardio regular rate GI normal to inspection, nondistended, normoactive bowel sounds, soft to palpation and non-tender Inspection: gravid external exam normal Manual OB Exam: estimated gestational size appropriate, presentation cephalic, dilated, effaced and station Extremity normal to inspection General Extremity: Negative for edema Skin no rashes or lesions noted Neuro no focal motor deficits and deep tendon reflexes 2+ bilaterally Motor Exam: strength 5/5 throughout and clonus absent Psych mental status grossly normal Labs Labs Labs: Blood Type O POSITIVE Antibody Screen NEGATIVE Hct 33.2 % (37-47) L Hgb 11.0 g/dL (12.0-15.0) L Pap Smear Negative Obstetrics US Syphilis Total Ab Non-reactive Rubella IgG Antibody Reactive (Nonreactive) Hep Bs Antigen Non-Reactive (Nonreactive) Chlamydia DNA ([facility]YD) Negative (Negative) Neisseria gonorrhoeae DNA ([facility]YD) Negative (Negative) HIV 1&2 Antibody Non-Reactive (Nonreactive) Glucose 1 Hr 50 gm 107 mg/dL (70-140) Assessment & Plan (1) Family history of congenital heart defect: COMMENT: FOB niece. discussed anatomy scan with MFM planned. (2) Supervision of high risk , antepartum: COMMENT: PRR ZOEY:08/23/22. girl PC:Ned FOB:Hadley(unsure if will be involved) (3) Advanced maternal age in : COMMENT: NIPT low risk 36 week growth us and delivery by 39-40, 36 wk nl growth (4) : QUALIFIERS: Weeks of gestation: 40 weeks Qualified Code(s): Z3A.40 - 40 weeks gestation of COMMENT: GBS neg. DOESN'T WANT DAD TO CUT UMBILICAL CORD. nipt low risk. carrier and ntd declined. nl anatomy. (5) ROHAN I (cervical intraepithelial neoplasia I): COMMENT: 2018 LGSIL. 2019 neg pap and HPV. LGSIL HPV+ 2021-Arjay needed repeat pap post (6) Dysthymia: COMMENT: celexyasir in past, counseling (7) Oligohydramnios in third trimester: COMMENT: pit IOL epi PRN
[2022-08-26] MEDS: Sertraline 50 MG Tablet 25 MG PO (23:47)
[2022-08-27] VITALS (70 sets, daily range): BP systolic 98–150; BP diastolic 56–93; PULSE 41–123; RESP 16; TEMP 36.1–36.7; O2SAT 85–100
[2022-08-27] MEDS: LACTATED RINGERS 500 ML 999 ML IV (03:24)
[2022-08-27] MEDS: fentaNYL-bupivacaine (epidural) 100 ML BAG EPIDURAL (04:40)
[2022-08-27] MEDS: Ondansetron 4 MG/2 ML Vial IV (05:25)
--- NOTE | 2022-08-27 07:20 | NURSING ---
This RN in to adjust ultrasound. Patient states, I am going to throw this monitor out the window. Provided reassurance for patient and adjusted monitor.
--- NOTE | 2022-08-27 08:37 | EX.PCM.OBRPT ---
Assessment & Plan (1) Oligohydramnios in third trimester: COMMENT: pit IOL epi PRN (2) Dysthymia: COMMENT: celexa in past, counseling (3) ROHAN I (cervical intraepithelial neoplasia I): COMMENT: 2017 LGSIL. 2019 neg pap and HPV. LGSIL HPV+ 2021-[place] needed repeat pap post (4) : QUALIFIERS: Weeks of gestation: 40 weeks Qualified Code(s): Z3A.40 - 40 weeks gestation of COMMENT: GBS neg. DOESN'T WANT DAD TO CUT UMBILICAL CORD. nipt low risk. carrier and ntd declined. nl anatomy. (5) Advanced maternal age in : COMMENT: NIPT low risk 36 week growth us and delivery by 39-40, 36 wk nl growth (6) Supervision of high risk , antepartum: COMMENT: PRR ZOEY:08/23/22. girl PC:Ned FOB:Bill(unsure if will be involved) (7) Family history of congenital heart defect: COMMENT: FOB niece. discussed anatomy scan with MFM planned. (8) Vaginal delivery: COMMENT: iol oligo girl Jada 40 SM Maternal Data Information ZOEY Calculator Estimated Delivery Date Method Current WG Current Estimate 08/23/22 Ultrasound #1 40w 4d Other Estimates 08/30/22 LMP (Certain) 39w 4d Vaginal Delivery Operative Information Date of Procedure: 08/27/22 Pre-Operative Diagnosis: IOL Post-Operative Diagnosis: same Surgery / Procedure Performed: Spontaneous Vaginal Delivery Type of Anesthesia: Epidural Special Medications: none Estimated Blood Loss: 400 Fluids Replaced: crystalloid Findings Description of Procedure: Patient began pushing and delivered the head in the RIRI presentation. The head was delivered atraumatically. The anterior and posterior shoulders delivered without complication followed by the rest of the and the infant was placed on the maternal abdomen. Delayed cord clamping was employed for approximately 60 seconds. Cord was clamped and cut and gentle traction was applied to the cord and the placenta delivered spontaneously immediately following it was noted to be intact with three-vessel cord. The perineum and vagina were inspected and noted to have no laceration. EBL was 400. the cervix was noted to be very low and was evaluted for possible tear but was noted to be stable and WNL Patient and infant tolerated delivery well. Presentation: RIRI Amniotic Membrane Rupture Type: Artificial Amniotic Fluid Description: Clear Placental Delivery Description: Spontaneous Placenta Disposition: [facility] Cord Vessel Description: 3 Vessels Cord Entanglement: None Delayed Cord Clamping: Yes Post Vaginal Delivery Medications Given After Delivery: IV Pitocin Episiotomy Description: None Laceration: None Complication Complications: None Procedures Urinary/Genital [id number]: [id number] Vaginal Delivery [facility]
[2022-08-27] MEDS: 0.9% Saline Lock 10 ML Syringe IV ×2 (10:34→15:36)
[2022-08-27] MEDS: Prenatal Vits Tablet 1 TABLET PO (11:56)
--- NOTE | 2022-08-27 15:21 | NURSING ---
Report given to Lucas Buchanan, who will assume care of the patient at this time.
[2022-08-27] MEDS: Naproxen 500 MG Tablet PO (15:54)
[2022-08-27] MEDS: Acetaminophen 500 MG Tablet 1000 MG PO (17:00)
[2022-08-27] MEDS: Sertraline 50 MG Tablet 25 MG PO (21:50)
[2022-08-28] VITALS (10 sets, daily range): BP systolic 116–150; BP diastolic 68–83; PULSE 67–129; RESP 14–18; TEMP 36.3–36.6; O2SAT 98–99
--- NOTE | 2022-08-28 02:53 | NURSING ---
MOB stated that she was worried that the father of the knew she was on Zoloft. She did not want him to be able to use it against her in court because that is where she sees it going.
--- NOTE | 2022-08-28 06:32 | PCM.PN.OB ---
Subjective Subjective Patient doing well without complaints. Tolerating PO. Ambulating and voiding without difficulty. feeding well. Denies chest pain, shortness of breath, calf pain/swelling, fevers, chills, lightheadedness. Objective Data Objective Data Vital Signs: Vital Signs Temp Pulse Resp BP Pulse Ox O2 Del Method 97.3 F L 70 14 116/69 99 Room Air 08/28/22 03:52 08/28/22 03:52 08/28/22 03:52 08/28/22 03:52 08/28/22 03:52 08/28/22 03:52 Oxygen Delivery Method Room Air Weight: 153 lb 9.6 oz Body Mass Index (BMI) 26.4 Intake & Output: Intake and Output for Last 24 Hours 08/26/22 08/27/22 08/28/22 23:59 23:59 23:59 Intake Total 6.20 / 6.20 1444.63 / 1444.63 Output Total 1800 / 1800 Balance 6.20 / 6.20 -355.37 / -355.37 Lab / Micro Data Result Diagrams: 08/26/22 18:45 ROS Constitutional Constitutional: Reports systems reviewed and no addt'l complaints, except as documented Cardiovascular Cardiovascular: Reports systems reviewed and no addt'l complaints, except as documented Respiratory/Chest Respiratory/Chest: Reports systems reviewed and no addt'l complaints, except as documented Gastrointestinal Gastrointestinal: Reports systems reviewed and no addt'l complaints, except as documented Physical Exam Const alert, oriented x3 and no apparent distress HEENT Head and Scalp: atraumatic Resp normal respiratory effort GI soft to palpation and non-tender Bimanual Exam - Vag & Uterus: uterus non-tender Uterus Palpation: uterus fundus firm (below Umbilicus) Assessment & Plan (1) Vaginal delivery: COMMENT: iol oligo girl Jada 40 SM PLAN: Plan s/p PPD # 1 1. routine post delivery care 2. breast feeding- support given 3. rh positive 4. rubella immune
--- NOTE | 2022-08-28 06:33 | DCINST_ITS ---
Discharge Instructions Diet Discharge Diet: No restrictions Activity Discharge Activity: Return to Normal Activity, May Drive, May Shower and May Take a Tub Bath (in 4 weeks) May resume sexual activity in: 6-8 weeks (after seen by OB provider) Weight Bearing Status: Full weight bearing Lifting Restrictions: none Dressing / Incision Call your doctor if you observe: Fever of 101 or Higher, Inability to urinate, Using more than 1 pad per hour (for more than 2 hours in a row or more), Shortness of breath, Dizziness, Chest pain and - (headache not controlled with tylenol, change in vision) Follow Up Care When: in 6 weeks for visit, call the office to make the appointment. If you had elevated blood pressures call the office to be seen within 1 week. Test Results: Test results from this visit will be discussed in further detail at your follow- up appointment, if applicable. Discharge Plan Admission Admit Date/Time: 08/26/22 18:10 Attending Provider: Sparkle Santiago Primary Care Provider: Christian Roa Discharge Orders/Prescriptions Prescriptions: No Action prenat.vits,efra,ild-hsag-awsug Tablet 1 tab PO DAILY sertraline [Zoloft] 25 mg tablet 25 mg PO QHS Referrals / Follow Up: Christian Roa MD [Primary Care Provider] - Disposition Disposition (needs filled in before D/C Order can be placed): Home, Self Care
[2022-08-28] MEDS: Naproxen 500 MG Tablet PO (09:49)
--- NOTE | 2022-08-28 14:01 | CASEMGMT ---
Social Work Social Work Assessment Labor and Delivery Unit Date/Time of Referral: 08/27/22, 11:48am Referred by: Aaron Hawkins Reason for referral: history of maternal anxiety History obtained from: MOB, CHONG's mother in room also, asleep(snoring), MOB okay w/SW speaking w/her w/her mother present Household Composition: MOB, CHONG's first son Elvia(who is 8) and now this baby girl(name not yet determined) CHONG and KATHE Velez are not together. He has a house in [place] and is renting an apartment in [place] nearby Parent/Guardian Status: MOB is guardian of the baby Medical History: MOB--anxiety, ROHAN I, Baby: Born 08/27/22. 3360 grams, Apgars 8 and 9 at one and five minutes. 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 Financial Concerns: None. FOB also works, works for [employer] from home. CHONG does plan to return to work after 8 weeks of maternity leave. Infant Supplies: They have all needed supplies for baby including car seat, crib/bassinet, clothing, diapers, wipes. Childcare/Caregivers: CHONG states she and FOB are still working this out when she returns to work, so far they have not agreed on what to do. Once CHONG returns to work FOAri will have paternity leave, however MOB is concerned about FOB caring for child. She states that FOB is a first time dad and is concerned about if he can care for the baby. She is also concerned as KATHE has a Irish Pandey. Behavioral Health Issues: MOB--anxiety. FOB--MOB suspects he has anxiety, and may be a narcissist. Substance abuse history: MOB denies for FOB or MOB. Safety: MOB is not concerned for her safety, her concerns are again about whether or not FOB can care for their child. CHONG is in therapy at [facility], plans to return. She has not been there the last couple of weeks. MOB also on Zoloft through her OB. She has already spoken with her about increasing the dose if needed. CHONG reports that FOB is also in counseling. Family/Social Stressors: CHONG is very stressed in regard to care of child and FOB's involvement, and coming up with a plan together on how to coparent. Support Systems: MOB reports to have good support including her parents, cousin, aunt and sister. Depression and Anxiety/Shaken Baby/Safe Sleeping/[facility] Resources/Mental Health Resources/Crisis Hotline/Help Me Grow: SW gave information and reviewed information on all of these topics. SW reviewed in particular information about depression and anxiety, reviewed warning signs. Pt did not experience PPD with the first and . We spoke about her risk for this however, especially given her stress about the current circumstances. SW also pointed out the hotline number for [facility], and the Number for [facility] if any concerns about safety do arise. MOB states understanding. Assessment: MILLIE spoke w/CHONG at length in regard to relationship w/FOB. She explains they met online, have been on and off a couple of times over the last couple of years. CHONG explains that he is not always forthcoming in speaking w/her. For example, she is concerned about how FOB will manage the introduction of the baby to his Irish Pandey. Instead of explaining to her what his plan is, he tells her I got it and won't elaborate. MOB explains he is a first time dad and she is concerned about his ability to care for the baby on his own. She wants to control when he comes to visit, and for how long. She explains that he makes everything about him, she believes he is narcissistic. MOB explains that she needs to be the one in control as she is the baby's mom and primary machine learning intern. She states that both she and FOB have barmaid already, should it be needed. CHONG states they have not been able to agree on a name, let alone how to move forward with coming up with a coparenting plan. MOB seems to want to have full control of the situation, however MOB also describes that FOB is trying to control the situation. CHONG states that FOB won't listen to her. CHONG states she does try to include him, however it still is problematic. For example, she had an OB appt and invited him to come. The appt got changed and she let him know the new appt time, and he was upset w/her for not telling him sooner about the appt change. MILLIE suggested to her that they use a outpatient interviewing clerk or the attorneys to come up w/a plan together, as it does not seem from her description that they are going to be able to come to an agreement on how to coparent. MOB states understanding and does seem to acknowledge that this may be necessary. MOB seems very capable of caring for the baby but is definitely stressed due to the strained relationship with the FOB, and her concern about his ability to work with her to come up with a plan and his ability to care for the baby. MOB does plan to return to therapy, and will ask for an increase in medication if needed. She also is open to the idea of a outpatient interviewing clerk or of working with the attorneys if needed to come up with a plan to coparent. Plan: Baby to go home w/CHONG at discharge. No further social service needs anticipated at this time. CHRIS Mosqueda
== END 2022-08-28 22:05 | disposition home or self-care (01) | DRG 807 ==
PROVIDERS: Admitting Provider Obstetrics & Gynecology; PCP Family Medicine; Visit Provider Obstetrics & Gynecology
DX: O41.03X0 Oligohydramnios, third trimester, not applicable or unspecified (principal); Z37.0 Single live birth; O99.344 Other mental disorders complicating childbirth; F34.1 Dysthymic disorder; O48.0 Post-term pregnancy; Z3A.40 40 weeks gestation of pregnancy; N87.0 Mild cervical dysplasia
CPT/HCPCS: 59025; 59050; 85025; 86850; 86900; 86901; 99218; J7120; A4216; G0378; J2405

== ENCOUNTER → 2024-04-20 | Outpatient (CLI) | payer OTHER, SELFPAY ==
[2024-04-25 00:07] LABS: HPV APTIMA, High Risk Positive (Negative); HPV Genotype 16, Aptima Negative (Negative); HPV Genotype 18,45 Aptima Negative (Negative)
== END | disposition home or self-care (01) ==
LOC: LABSPEC 12:14
PROVIDERS: PCP Family Medicine; Referring Provider Nurse Practitioner Family; Visit Provider Nurse Practitioner Family
DX: N87.0 Mild cervical dysplasia (principal)
CPT/HCPCS: 87624; 88175; G0145

== ENCOUNTER → 2024-06-25 | Outpatient (CLI) | payer OTHER, SELFPAY ==
--- NOTE | 2024-06-25 | CER_PTH ---
PATIENT: DEJA FRANZ LOC: [facility] U#:[id number] AGE/SX: 39/F ROOM: RE06/25/[address]: Dr. Janet Gallagher DO : 1985 BED: DIS: 06/25/2024 SPEC #: [id number] RECD: 06/25/24 14:06 STATUS: NATHALIE PÉREZ #: [id number] JULIAN: 06/25/24 00:[address]: Janet Gallagher DEPT: SURGICAL PATHOLOGY RECD BY: Modesto Moody ENTERED: 06/26/24 09:50 SP TYPE: CERV OTHR DR: Dr. Christian Roa MD Tissues: A - Uterine cervix, NOS B - Endocervical Procedures: Surgery Specimen Level IV HEADER OPERATION: Colposcopy PRE-OP DIAGNOSIS: HPV+ TISSUE SUBMITTED: A- 7o'clock cervix, B- ECC ADDENDUM ADDENDUM ADDENDUM ADDENDUM ADDENDUM ADDENDUM ADDENDUM ADDENDUM ADDENDUM 06/28/2024 11:41 ADDENDUM 06/28/2024 11:41 ADDENDUM 06/28/2024 11:41 ADDENDUM 06/28/2024 11:41 ADDENDUM 06/28/2024 11:41 A. Cervix, 7o'clock, biopsy: Changes suspicious for HPV cytopathic effects. Chronic inflammation. See comment. B. Endocervix, curettings: Scant strips of benign superficial endocervix. No evidence of dysplasia. / 06/28/2024 MICROSCOPIC DIAGNOSIS A. 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 Chronic inflammation. See comment. B. Endocervix, curettings: Scant strips of benign superficial endocervix. No evidence of dysplasia. / 06/27/2024 COMMENT A. Immunohistochemistry ([id number]) for surrogate HPV marker (p16) supports the above diagnosis. Case has been reviewed in consultation with Dr. Truong who concurs with the above diagnosis. IDC:SJ MICROSCOPIC DESCRIPTION Slides are reviewed. GROSS DESCRIPTION A. Received in fixative is one container labeled with the patient's name and designated 7o'clock. The specimen consists of one irregular fragment of light brennan soft tissue that measures 0.4 x 0.4 x 0.1 cm. The specimen is totally submitted in one cassette. B. Received in fixative is a metallic brush with adherent minute fragments of brennan-red tissue and labeled with the patient's name and and designated per the requisition as ECC BRUSH. The material is dislodged from the brush and submitted for cell block preparation in one cassette. BERNADETTE/ 06/26/2024 TC:0CPT:[id number] ADDENDUM ADDENDUM ADDENDUM ADDENDUM ADDENDUM ADDENDUM ADDENDUM ADDENDUM ADDENDUM 06/28/2024 11:41 ADDENDUM 06/28/2024 11:41 ADDENDUM 06/28/2024 11:41 ADDENDUM 06/28/2024 11:41 ADDENDUM 06/28/2024 11:41 A. Cervix, 7o'clock, biopsy: Changes suspicious for HPV cytopathic effects. Chronic inflammation. See comment. B. Endocervix, curettings: Scant strips of benign superficial endocervix. No evidence of dysplasia. AM/mr 06/28/2024
--- NOTE | 2024-06-25 | IMM_PTH ---
PATIENT: DEJA FRANZ LOC: [facility] U#:[id number] AGE/SX: 39/F ROOM: RE06/25/[address]: Dr. Janet Gallagher DO : 1985 BED: DIS: 06/25/2024 SPEC #: [id number] RECD: 06/27/24 12:06 STATUS: DALTON RERamandeep #: [id number] JULIAN: 06/25/24 00:[address]: Janet Gallagher DEPT: IMMUNOHISTOCHEMISTRY RECD BY: Nasir Gore ENTERED: 06/27/24 12:06 SP TYPE: IMMUNO OTHR DR: Dr. Chritsian Roa MD Tissues: A - Uterine cervix, NOS Procedures: p16 (initial) KI-67 (add) PHYSICIAN & INSTITUTION [facility] [id number] SPECIMEN INFORMATION: Tissue Source: A- 7o'clock Clinical Info: HPV+ Specimen Number: [id number] CPT code: 02239,87447 METHODOLOGY: Deparaffinized sections of prefer/formalin-fixed tissue or PAP/DQ stained slides are incubated with monoclonal/polyclonal antibodies/oligonucleotide probes. Localization is made via biotin free immunoperoxidase method. Appropriate controls are performed and reacted as expected. Results on target cell population are indicated in the following table: RESULTS: ANTIBODY / CLONE RESULT Block A P16 (E6H4) positive, rare cells Ki-67 (30-9) positive, low These tests were developed and their performance characteristics determined by [facility]. They may not have been cleared or approved by the U.[place]. Food and Drug Administration. The FDA has determined that such clearance or approval is not necessary. The above immunohistochemical/dualISH markers are ordered and reviewed by the Pathologist. INTERPRETATION: A. Cervix, 7o'clock, biopsy: Suspicious for HPV cytopathic effects. AM/ 06/28/2024
--- NOTE | 2024-06-25 | CER_PTH ---
[facility]: [id number] AGE[facility]SX: 39/F ROOM: RE06/25/[address]: Dr. Janet Gallagher DO : 1985 BED: DIS: 06/25/2024 SPEC #: [id number] RECD: 06/25/24 14:06 STATUS: DALTON PÉREZ #: [id number] JULIAN: 06/25/24 00:[address]: Janet Gallagher DEPT: SURGICAL PATHOLOGY RECD BY: Modesto Moody ENTERED: 06/26/24 09:50 SP TYPE: CERV OTHR DR: Dr. Christian Roa MD Tissues: A - Uterine cervix, NOS B - Endocervical Procedures: Surgery Specimen Level IV HEADER OPERATION: Colposcopy PRE-OP DIAGNOSIS: HPV+ TISSUE SUBMITTED: A- 7o'clock cervix, B- ECC MICROSCOPIC DIAGNOSIS A. 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 Chronic inflammation. See comment. B. Endocervix, curettings: Scant strips of benign superficial endocervix. No evidence of dysplasia. AM/mr 06/27/2024 COMMENT A. Immunohistochemistry ([id number]) for surrogate HPV marker (p16) supports the above diagnosis. Case has been reviewed in consultation with Dr. Truong who concurs with the above diagnosis. IDC:SJ MICROSCOPIC DESCRIPTION Slides are reviewed. GROSS DESCRIPTION A. Received in fixative is one container labeled with the patient's name and designated 7o'clock. The specimen consists of one irregular fragment of light brennan soft tissue that measures 0.4 x 0.4 x 0.1 cm. The specimen is totally submitted in one cassette. B. Received in fixative is a metallic brush with adherent minute fragments of brennan-red tissue and labeled with the patient's name and and designated per the requisition as ECC BRUSH. The material is dislodged from the brush and submitted for cell block preparation in one cassette. BERNADETTE/ 06/26/2024 TC:0CPT:[id number]
--- NOTE | 2024-06-25 | CER_PTH ---
[facility]: [id number] AGE/SX: 39/F ROOM: RE06/25/[address]: Dr. Janet Gallagher DO : 1985 BED: DIS: 06/25/2024 SPEC #: [id number] RECD: 06/25/24 14:06 STATUS: DALTON PÉREZ #: [id number] JULIAN: 06/25/24 00:[address]: Janet Gallagher DEPT: SURGICAL PATHOLOGY RECD BY: Modesto Moody ENTERED: 06/26/24 09:50 SP TYPE: CERV OTHR DR: Dr. Christian Roa MD Tissues: A - Uterine cervix, NOS B - Endocervical Procedures: Surgery Specimen Level IV HEADER OPERATION: Colposcopy PRE-OP DIAGNOSIS: HPV+ TISSUE SUBMITTED: A- 7o'clock cervix, B- ECC MICROSCOPIC DIAGNOSIS A. Cervix, 7o'clock, biopsy: Changes suspicious for with HPV cytopathic effect. Chronic inflammation. See comment. B. Endocervix, curettings: Scant strips of benign superficial endocervix. No evidence of dysplasia. / 06/27/2024 COMMENT A. Immunohistochemistry ([id number]) for surrogate HPV marker (p16) supports the above diagnosis. Case has been reviewed in consultation with Dr. Truong who concurs with the above diagnosis. IDC:BERNADETTE MICROSCOPIC DESCRIPTION Slides are reviewed. GROSS DESCRIPTION A. Received in fixative is one container labeled with the patient's name and designated 7o'clock. The specimen consists of one irregular fragment of light brennan soft tissue that measures 0.4 x 0.4 x 0.1 cm. The specimen is totally submitted in one cassette. B. Received in fixative is a metallic brush with adherent minute fragments of brennan-red tissue and labeled with the patient's name and and designated per the requisition as ECC BRUSH. The material is dislodged from the brush and submitted for cell block preparation in one cassette. / 06/26/2024 TC:0CPT:[id number]
== END | disposition home or self-care (01) ==
LOC: LABSPEC 16:03
PROVIDERS: PCP Family Medicine; Referring Provider Obstetrics & Gynecology; Visit Provider Obstetrics & Gynecology
DX: Z11.51 Encounter for screening for human papillomavirus (HPV) (principal)
CPT/HCPCS: 88305; 88341; 88342

== ENCOUNTER → 2024-09-26 | Outpatient (CLI) | payer OTHER, SELFPAY ==
--- NOTE | 2024-09-26 14:37 | BI_ITS ---
MAMMOGRAPHY - BILATERAL DIAGNOSTIC REASON FOR EXAM: Female, 39 years old. Left breast and axillary pain PERTINENT HISTORY: Grandmother with breast cancer. Just stopped nursing 2 months ago TECHNIQUE: Digital examination. Mediolateral oblique (MLO) and craniocaudad (CC) views of both breasts were obtained, along with 3-D tomographic views. CAD: CAD was performed on this study. COMPARISON: 2010 FINDINGS: Breast Composition: The breasts are heterogeneously dense, which may obscure small masses. There are no dominant masses or suspicious calcifications. No other significant abnormalities are identified. There has been no significant change since the prior study. BI/DIAG MAMM W/CAD, BILAT IMPRESSION: Stable bilateral diagnostic mammogram. ASSESSMENT CATEGORY: BIRADS Category 2: Benign. A letter regarding these results will be sent to the patient by the facility within 30 days. FOLLOW UP RECOMMENDATION: Yearly follow up mammogram recommended. (A) Approximately 10% of breast cancers are not detected by mammography. A normal mammogram should not delay biopsy of a clinically suspicious abnormality. Electronically Signed: Wu Lopez MD at 15:11 EST ,
== END | disposition home or self-care (01) ==
PROVIDERS: PCP Family Medicine; Referring Provider Nurse Practitioner Women's Health; Visit Provider Nurse Practitioner Women's Health
DX: N64.4 Mastodynia (principal)
CPT/HCPCS: 77062; 77066; G0279

== ENCOUNTER → 2025-05-01 | Outpatient (CLI) | payer OTHER, SELFPAY ==
--- OUTSIDE RECORDS SUMMARY | 2025-05-01 21:33 | XMS RPT_ITS | CCD ---
Author Organization [facility] CliniSymd Care Team Providers Care Keno Attendant Name Role Phone Laura Palafox LPN Unavailable Unavailab le Laura Palafox LPN Unavailable Unavailab le MISSAEL JANETTE (IT GENERALIST) Unavailable Unavailable Janina, Dr. Gonzales Primary Care Provider Janina, Dr. Gonzales Referring Provider [phone] Janet Gallagher Attending Provider [phone] [place] BENNETT, MIGUEL Salmeron Attending Provider [phone] Dr. Sparkle Santiago Attending Provider [phone] Janina, Dr. Gonzales Primary Care Provider Janina, Dr. Gonzales Referring Provider [phone] Janet Gallagher Attending Provider [phone] Dr. Sparkle Santiago Attending Provider [phone] Janina, Dr. Gonzales Primary Care Provider Janina, Dr. Gonzales Referring Provider Dr. Janet Gallagher Attending Provider [phone] Dr. Sparkle Santiago Attending Provider [phone] Christian Roa Referring Unavailable Karo Heath Attending Unavailable Christian Roa Primary Care Unavailable Christian Roa Primary Care Unavailable Janet Gallagher Referring Unavaildavid e Janet Gallagher Attending Unavailabl e Janina, Christian Primary Care Unavailable Janet Gallagher Attending Unavaildavid e Christian Roa Referring Unavailable Janina, Christian Referring Unavailable Idalia Paulino Attending Unavailable Janina, Christian Primary Care Unavailable Janina, Christian Primary Care Unavailable Faviola Barahona NP Attending Unavailable RoaChristian ann Referring Unavailable [place] TREADLE CUT OFF SAW OPERATOR, Faviola Referring Unavailable [place] BENNETT, Faviola Attending Unavailable Christian Roa Primary Care Unavailable Janina GILMORE, Dr. Gonzales Primary Care Provider Dr. Christian Roa MD Referring Provider Kumar TREADLE CUT OFF SAW OPERATOR-C, Karo Attending Provider [phone] Allergies Allergy Classification Reported Allergen(s) Allergy Type Date of Onset Reaction(s) Facility (2 sources) ceftriaxone drug allergy 7 [facility] Work Phone: (8 sources) ceftriaxone; Translations: [CEFTRIAXONE] Drug Allergy 6 AOF, hives [facility] Repository (1 source) Latex; Translations: [LATEX] Propensity to adverse reactions to drug (disorder) 9 [facility] Repository (7 sources) natural latex rubber; Translations: [Latex, Natural Rubber] Propensity to adverse reactions 2 itching/irritat ion [facility] Repository Medications Current Medications Medication Drug Class(es) Dates Sig (Normalized) Sig (Original) ALPRAZolam 0.25 mg oral tablet (1 source) Benzodiazepine Start: 09-07-2022 take 1 tablet by mouth at bedtime as needed for anxiety Alprazolam (Xanax) 0.25 mg tablet Active 0.25 mg PO AT BEDTIME as needed for anxiety 20 0 September 07, 2022 1:00am Anxiety Anxiety disorder, unspecified [place] 0-Mec-Old-Fish Oil (1 source) Start: 10-26-2024 [place] 6-Ief-Vgr-Fish Oil (Fish Oil) 300-1,000 mg capsule Active 1 NMA PO daily October 26, 2024 1:00am lysine 1000 mg oral tablet (1 source) Start: 10-26-2024 take 1 tablet by mouth once daily Lysine 1,000 mg tablet Active 1000 mg PO daily October 26, 2024 1:00am Iwhiryku-Hle-Bmwq Fum-Folic Ac (One Daily Women's) 18 mg iron- 400 mcg tablet (1 source) Start: 05-01-2025 Avwqpqbd-Lqy-Ycry Fum-Folic Ac (One Daily Women's) 18 mg iron- 400 mcg tablet Active {tbl} PO May 01, 2025 12:00am Prenat.Vits,Efra,Mi y-Ifmp-Cvlep (5 sources) Start: 01-11-2022 take 1 tablet by mouth once daily Prenat.Vits,Efra,Min -Iron-Folic Active 1 TABLET PO DAILY January 11, 2022 4:14pm Start: 01-11-2022 take 1 tablet by laurent th once daily Prenat.Vits,Efra,Bef-Vuuw-Swzrf Active 1 TABLET PO DAILY January 11, 2022 12:00am sertraline 25 mg oral tablet (12 sources) Serotonin Reuptake Inhibitor Start: 05-20-2022 End: 10-26-2024 take 1 tablet by mouth once daily Sertraline 25 mg tablet Active 25 mg PO daily 15 September 25, 2024 1:00am thiamine 500 mg oral tablet (1 source) Start: 10-26-2024 take 1 tablet by mouth once daily Thiamine Hcl (Vitamin B1) 500 mg tablet Active 500 mg PO daily October 26, 2024 1:00am zinc gluconate 100 mg oral tablet (1 source) Start: 10-26-2024 take 1 tablet by mouth once daily Zinc Gluconate 100 mg tablet Active 100 mg PO daily October 26, 2024 1:00am Completed/Discontinued Medications Medication Drug Class(es) Dates Sig (Normalized) Sig (Original) acetaminophen 325 mg / HYDROcodone bitartrate 5 mg oral tablet (6 sources) Opioid Agonist Start: 08-13-2018 End: 08-15-2018 Hydrocodone-Acetami nophen 1 TABLET tablet Discontinued 1 {tbl} PO EVERY 4 HOURS NEEDED as needed for Pain August 13, 2018 12:00am August 14, 2018 12:00am August 15, 2018 12:08am Fracture of phalanx of toe of left foot Unspecified fracture of left toe(s), initial encounter for closed fracture Start: 08-13-2018 End: 08-15-2018 take 1 tablet by mouth every four hours as needed Hydrocodone-Acetaminophen Discontinued 1 TABLET PO EVERY 4 HOURS NEEDED 08 01August 13, 2018 12:00am August 15, 2018 12:08am amoxicillin 500 mg oral tablet (6 sources) Penicillin-class Antibacterial Start: 01-11-2022 End: 01-21-2022 take 1 tablet by mouth twice daily Amoxicillin 500 mg tablet Discontinued 500 mg PO TWICE A DAY January 11, 2022 12:00am January 21, 2022 9:30am amoxicillin 875 mg / clavulanate 125 mg oral tablet (6 sources) Penicillin-class Antibacterial Start: 04-13-2020 End: 09-29-2020 take 1 tablet by mouth every twelve hours Amoxicillin-Pot Clavulanate 875 MG tablet Discontinued 875 mg PO Q12H 10 0 April 13, 2020 12:00am September 29, 2020 12:29pm azithromycin 250 mg oral tablet (1 source) Macrolide Antimicrobial Start: 10-26-2024 End: 05-01-2025 Azithromycin 250 mg tablet Discontinued 0 PO .COMPLEX 6 0 October 26, 2024 1:00am May 01, 2025 9:25am Ethmoid sinusitis Chronic ethmoidal sinusitis For 250 mg dose pack: take 500 mg today (day 1), then 250 mg for 4 days (days 2-5) PO benzonatate 100 mg oral capsule (1 source) Non-narcotic Antitussive Start: 10-27-2024 End: 05-01-2025 take 1 capsule by mouth three times daily Benzonatate 100 mg capsule Discontinued 100 mg PO THREE TIMES A DAY October 27, 2024 1:00am May 01, 2025 9:25am cholecalciferol 0.025 mg oral capsule (6 sources) Vitamin D Start: 06-23-2018 End: 11-08-2018 take 1 capsule by mouth once daily Cholecalciferol (Vitamin D3) 1,000 unit capsule Discontinued 1000 U PO DAILY June 23, 2018 12:00am November 08, 2018 11:07am citalopram 40 mg oral tablet (18 sources) Serotonin Reuptake Inhibitor Start: 11-08-2018 End: 10-29-2019 Citalopram 40 mg tablet Discontinued 20 mg PO daily November 08, 2018 11:34am October 29, 2019 3:17pm Start: 11-08-2018 End: 10-29-2019 take 20 mg by mouth once daily Citalopram Discontinued 20 MG PO daily November 08, 2018 11:34am October 29, 2019 3:17pm Start: 07-24-2018 End: 11-08-2018 take 1 tablet by mouth once daily Citalopram 40 mg tablet Discontinued 40 mg PO daily 29 10July 24, 2018 1:06pm November 08, 2018 11:34am Start: 06-23-2018 End: 07-24-2018 take 1 tablet by mouth once daily Citalopram (Celexa) 20 mg tablet Discontinued 20 mg PO daily 30 June 23, 2018 12:00am July 24, 2018 1:07pm Levonorgestrel-Ethinyl Estrad (6 sources) Progestin, Estrogen, Progestin-containing Intrauterine Device Start: 11-08-2018 End: 10-29-2019 take 1 tablet by mouth once daily Levonorgestrel-Ethinyl Estrad (Aviane) 0.1-20 mg-mcg tablet Discontinued 1 TABLET PO daily 84 November 08, 2018 11:32am October 29, 2019 3:17pm Start: 11-08-2018 End: 10-29-2019 take 1 tablet by mouth once daily Levonorgestrel-Ethinyl Estrad (Aviane) 0.1-20 mg-mcg tablet Discontinued 1 {tbl} PO daily 84 2 November 08, 2018 1:00am October 29, 2019 3:17pm Start: 11-08-2018 End: 10-29-2019 take 1 tablet by mouth once daily Levonorgestrel-Ethinyl Estrad (Aviane) 0.1-20 mg-mcg tablet Discontinued 1 TABLET PO daily 84 November 08, 2018 1:00am October 29, 2019 3:17pm 168 hr ethinyl estradiol 0.68344 mg/hr / norelgestromin 0.70301 mg/hr transdermal system (18 sources) Progestin, Estrogen Start: 10-29-2019 End: 11-19-2021 Norelgestromin-Ethin.Estradi ol (Xulane) 150-35 mcg/24 hr patch weekly Discontinued 1 NMA TD EVERY WEEK 9 January 21, 2021 2:49pm November 19, 2021 11:27am apply once weekly for 3 weeks of a 4-week cycle Start: 10-29-2019 End: 11-19-2021 Norelgestromin-Ethin.Estradi ol (Xulane) 150-35 mcg/24 hr patch weekly Discontinued 1 PATCH TD EVERY WEEK January 21, 2021 2:49pm November 19, 2021 11:27am apply once weekly for 3 weeks of a 4-week cycle fluconazole 150 mg oral tablet (6 sources) Azole Antifungal Start: 09-29-2020 End: 01-21-2021 Fluconazole (Diflucan) 150 mg tablet Discontinued 150 mg PO Every 3 Days 2 0 0 September 29, 2020 1:00am January 21, 2021 2:45pm may repeat second dose 72 hrs after first dose if symptoms persist metroNIDAZOLE 500 mg oral tablet (6 sources) Nitroimidazole Antimicrobial Start: 11-23-2021 End: 01-11-2022 take 1 tablet by mouth twice daily Metronidazole 500 mg tablet Discontinued 500 mg PO TWICE A DAY 14 0 November 23, 2021 1:00am January 11, 2022 4:14pm Miconazole Nitrate (Monistat 7) 2 % (100 mg)- 2 % (9 gram) comb pack,prefill appl, cream (6 sources) Start: 09-29-2020 End: 01-21-2021 Miconazole Nitrate (Monistat 7) 2 % (100 mg)- 2 % (9 gram) comb pack,prefill appl, cream Discontinued EACH VAGINAL September 29, 2020 12:29pm January 21, 2021 2:45pm Start: 09-29-2020 End: 01-21-2021 Miconazole Nitrate (Monistat 7) 2 % (100 mg)- 2 % (9 gram) comb pack,prefill appl, cream Discontinued NMA VAGINAL September 29, 2020 1:00am January 21, 2021 2:45pm Start: 09-29-2020 End: 01-21-2021 Miconazole Nitrate (Monistat 7) 2 % (100 mg)- 2 % (9 gram) comb pack,prefill appl, cream Discontinued EACH VAGINAL September 29, 2020 1:00am January 21, 2021 2:45pm Multivitamin preparation (5 sources) Start: 05-17-2018 End: 11-08-2018 take 1 tablet by mouth once daily Multivitamin Discontinued 1 TABLET PO daily May 17, 2018 2:44pm November 08, 2018 11:07am Start: 05-17-2018 End: 11-08-2018 take 1 tablet by mouth once daily Multivitamin Discontinued 1 TABLET PO daily May 17, 2018 12:00am November 08, 2018 11:07am Multivitamin tablet (1 source) Start: 05-17-2018 End: 11-08-2018 Multivitamin tablet Discontinued 1 {tbl} PO daily May 17, 2018 12:00am November 08, 2018 11:07am Mushroom Complex (6 sources) Start: 02-06-2020 End: 09-29-2020 take 1 capsule by mouth once daily Mushroom Complex Discontinued 1 CAP PO DAILY February 06, 2020 7:25pm September 29, 2020 12:29pm Start: 02-06-2020 End: 09-29-2020 Mushroom Complex Discontinue d 1 NMA PO DAILY February 06, 2020 12:00am September 29, 2020 12:29pm Start: 02-06-2020 End: 09-29-2020 take 1 capsule by mouth once daily Mushroom Complex Discontinued 1 CAP PO DAILY February 06, 2020 12:00am September 29, 2020 12:29pm norethindrone 0.35 mg oral tablet (6 sources) Start: 05-17-2018 End: 11-08-2018 take 1 tablet by mouth once daily Norethindrone (Contraceptive) (Tangela) 0.35 mg tablet Discontinued 0.35 mg PO daily 27 10May 17, 2018 12:00am November 08, 2018 11:32am start day 1 of menstrual cycle [place]-3 Fatty Acids (5 sources) Start: 06-23-2018 End: 11-08-2018 take 1000 mg by mouth once daily [place]-3 Fatty Acids Discontinued 1000 MG PO DAILY June 23, 2018 3:02pm November 08, 2018 11:08am Start: 06-23-2018 End: 11-08-2018 take 1000 mg by mouth once daily [place]-3 Fatty Acids Discontinued 1000 MG PO DAILY June 23, 2018 12:00am November 08, 2018 11:08am [place]-3 Fatty Acids 1,000 mg capsule (1 source) Start: 06-23-2018 End: 11-08-2018 take 1 capsule by mouth once daily [place]-3 Fatty Acids 1,000 mg capsule Discontinued 1000 mg PO DAILY June 23, 2018 12:00am November 08, 2018 11:08am ondansetron 4 mg disintegrating oral tablet (6 sources) Serotonin-3 Receptor Antagonist Start: 01-21-2021 End: 11-19-2021 take 1 tablet by mouth every four hours as needed for nausea and vomiting Ondansetron 4 mg tablet,disintegrat ing Discontinued 4 mg PO Q4H as needed for nausea and vomiting 60 2 January 21, 2021 12:00am November 19, 2021 11:27am Prenat.Vits,Efra,Min-I megan-Folic tablet (1 source) Start: 01-11-2022 End: 05-01-2025 Prenat.Vits,Efra,Mi h-Tktk-Zuzbs tablet Discontinued 1 {tbl} PO DAILY January 11, 2022 12:00am May 01, 2025 9:25am Rhodiola Extract (6 sources) Start: 02-06-2020 End: 09-29-2020 take 340 mg by mouth once daily Rhodiola Extract Discontinued 340 MG PO DAILY February 06, 2020 7:25pm September 29, 2020 12:28pm Start: 02-06-2020 End: 09-29-2020 take 340 mg by mouth once daily Rhodiola Extract Discontinued 340 mg PO DAILY February 06, 2020 12:00am September 29, 2020 12:28pm Start: 02-06-2020 End: 09-29-2020 take 340 mg by mouth once daily Rhodiola Extract Discontinued 340 MG PO DAILY February 06, 2020 12:00September 29, 2020 12:28pm thioctic acid 600 mg oral capsule (6 sources) Start: 02-06-2020 End: 09-29-2020 take 1 capsule by mouth once daily Alpha Lipoic Acid 600 MG capsule Discontinued 600 mg PO DAILY February 06, 2020 12:00am September 29, 2020 12:29pm Threonine (6 sources) Start: 02-06-2020 End: 09-29-2020 take 200 g by mouth once daily Threonine Discontinued 200 GM PO DAILY February 06, 2020 7:pm September 29, 2020 12:28pm Start: 02-06-2020 End: 09-29-2020 take 50 g by mouth once daily Threonine 50 GM powder Discontinued 200 g PO DAILY February 06, 2020 12:00am September 29, 2020 12:28pm Start: 02-06-2020 End: 09-29-2020 take 200 g by mouth once daily Threonine Discontinued 200 GM PO DAILY February 06, 2020 12:00September 29, 2020 12:28pm Tumeric (6 sources) Start: 02-06-2020 End: 09-29-2020 take 1 tablet by mouth once daily Tumeric Discontinued 1 TABLET PO DAILY February 06, 2020 7:25pm September 29, 2020 12:28pm Start: 02-06-2020 End: 09-29-2020 Tumeric Discontinued 1 {tbl} PO DAILY February 06, 2020 12:00am September 29, 2020 12:28pm Start: 02-06-2020 End: 09-29-2020 take 1 tablet by mouth once daily Tumeric Discontinued 1 TABLET PO DAILY February 06, 2020 12:00am September 29, 2020 12:28pm ubidecarenone 100 mg oral capsule (6 sources) Start: 02-06-2020 End: 09-29-2020 take 10 capsules by mouth once daily Coenzyme Q10 100 MG capsule Discontinued 400 mg PO DAILY February 06, 2020 12:00am September 29, 2020 12:29pm Problems Active Problems Problem Classification Problem Date Documented Da te Episodic/Chronic Anxiety disorders (1 source) Anxiety; Translations: [Anxiety disorder, unspecified] 09-07-2022 Chronic Comment on above: low dose, infrequent use of xanax for occasional breakthrough anxiety. understands can make baby sleepy if she is using more than 3x a week. will return for 6 week pp visit. Cancer of cervix (20 sources) Atypical squamous cells of undetermined significance on cervical Papanicolaou smear; Translations: [Atypical squamous cells of undetermined significance on cytologic smear of cervix (ASC-US)] Episodic Comment on above: [place] 2020 negative. Pap in 2021 Mood disorders (20 sources) Premenstrual dysphoric disorder; Translations: [Premenstrual dysphoric disorder] Chronic Comment on above: tangela, celexa celexa in past, coun seling Nonmalignant breast conditions (2 sources) Mastodynia; Translations: [Pain of left breast] Onset: 4 09-05-2024 Episodic Nonspecific chest pain (6 sources) Chest pain; Translations: [Chest pain, unspecified] 02-07-2020 Episodic Open wounds of extremities (6 sources) Cat bite - wound; Translations: [Open bite, unspecified ankle, initial encounter] 04-14-2020 Episodic Other complications of ; puerperium affecting management of mother (20 sources) Advanced maternal age ; Translations: [Advanced maternal age during ] Episodic Comment on above: NIPT low risk 36 wee k growth us and delivery by 39-40, 36 wk nl growth Other complications of (6 sources) High risk ; Translations: [Supervision of high risk , unspecified, unspecified trimester] 08-28-2022 Episodic Comment on above: PRR ZOEY: 2. girl PC:Ned FOB:Bill(unsure if will be involved) Other complications of (20 sources) Supervision of high risk , unspecified, unspecified trimester; Translations: [Supervision of unspecified high-risk ] Episodic Other female genital disorders (6 sources) Cervical intraepithelial neoplasia grade 1; Translations: [Mild cervical dysplasia] 03-25-2022 Episodic Comment on above: 2018 LGSIL. 2020 neg pap and HPV. LGSIL HPV+ 2021-Scobey neededrepeat pap post Other female genital disorders (20 sources) Mild cervical dysplasia; Translations: [Mild dysplasia of cervix] Episodic Other gastrointestinal disorders (6 sources) Irritable bowel syndrome; Translations: [Irritable bowel syndrome without diarrhea] 01-21-2022 Chronic Other and delivery including normal (20 sources) ; Translations: [Encounter for supervision of normal , unspecified, unspecified trimester] Episodic Comment on above: iol oligo girl Jada 4 0 SM GBS neg. DOESN'T WAN T DAD TO CUT UMBILICAL CORD. nipt low risk. carrier and ntd declined. nl anatomy. Other upper respiratory infections (2 sources) Chronic ethmoidal sinusitis; Translations: [Ethmoidal sinusitis] Onset: 4 10-26-2024 Chronic Polyhydramnios and other problems of amniotic cavity (20 sources) Subchorionic hematoma; Translations: [Other specified disorders of amniotic fluid and membranes, unspecified trimester, not applicable or unspecified] Episodic Comment on above: pit IOL epi PRN 1.5cm seen over cerv ix, fu 1 week Residual codes; unclassified (12 sources) History of vaccination; Translations: [Personal history of other drug therapy] 01-21-2022 Episodic Residual codes; unclassified (5 sources) FH: Congenital heart disease; Translations: [Family history of other congenital malformations, deformations and chromosomal abnormalities] 08-28-2022 Episodic Comment on above: FOB niece. discussed anatomy scan with M planned. Residual codes; unclassified (20 sources) Family history of other congenital malformations, deformations and chromosomal abnormalities; Translations: [Family history of congenital anomalies] Episodic Sexually transmitted infections (not HIV or hepatitis) (1 source) Human papillomavirus deoxyribonucleic acid test positive, high risk on cervical specimen; Translations: [Cervical high risk human papillomavirus (HPV) DNA test positive] 06-25-2024 Episodic Spondylosis; intervertebral disc disorders; other back problems (1 source) Low back pain; Translations: [Lumbar back pain] 05-01-2025 Episodic Unclassified (2 sources) History and physical examination, school ; Translations: [Encounter for examination for admission to educational institution] Onset: 7 06-02-2017 Unclassified (1 source) Lumbar back pain Unclassified (2 sources) M54.50 - Low back pain, unspecified Past or Other Problems Problem Classification Problem Date Documented Date Episodic/Chronic Immunizations and screening for infectious disease (1 source) Encounter for screening for human papillomavirus (HPV); Translations: [Encounter for screening for human papillomavirus (HPV)] Onset: 07-05-2024 Episodic Other screening for suspected conditions (not mental disorders or infectious disease) (1 source) Other abnormal cytological findings on specimens from cervix uteri; Translations: [Other abnormal cytological findings on specimens from cervix uteri] Onset: 06-25-2024 Episodic Results Test Name Value Interpretation Reference Range Facility Urgent Care Visit Reporton 1 12-27-2023 Urgent Care Visit Report [facility] [address], [address] [place] [address] OFFICE VISIT Date of Service: 10/26/24 MR#: [id number] Acct: [id number] Name: SULTANA NAVARRETE Rep #: [id number] 16 : 1985 Provider: MIGUEL silverman Age/Sex: 39/F Location: [facility] Status: Signed Intake Vital Signs 09/05/24 15:10 10/26/24 17:30 Height 5 ft 4 in 5 ft 4 in Weight: 138 lb BMI 23.6 BP 124/60 H Blood Pressure Location Lt brachial Position Sitting Respiration 16 Pulse 85 Pulse Source NIBP Temp 98.6 F Temp Source Oral Pulse Oximetry (%) 97 Oxygen Delivery Method room air Intake Visit Reasons: CONCERN FOR UPPER Respiratory INFECTION Chief Complaint: chest congest, cough, fatigue, LEMUS, BA, ST Printing Table Hand Required: No Is patient in pain?: No Allergies ceftriaxone (From Rocephin) Allergy (Mild, Verified 10/26/24 16:59) hives Latex, Natural Rubber Adverse Reaction (Unknown, Verified 10/26/24 16:59) itching/irritation Medications ???Medication ???Instructions ???Recorded ???Confirmed ???Type prenat.vits,efra,min-iron -folic 1 tab PO DAILY 01/11/22 10/26/24 History alprazolam 0.25 mg tablet (Xanax) 0.25 mg PO QHS PRN anxiety #20 tabs 09/07/22 10/26/24 Rx sertraline 25 mg tablet 25 mg PO QDAY #15 tabs 09/25/24 10/26/24 Rx azithromycin 250 mg tablet See Rx Instructions PO .COMPLEX #6 10/26/24 10/26/24 Rx tabs lysine 1,000 mg tablet 1,000 mg PO QDAY 10/26/24 10/26/24 History omega 7-ewy-jjf-fish oil 300 1 cap PO QDAY 10/26/24 10/26/24 History mg-1,000 mg capsule (Fish Oil) thiamine HCl (vitamin B1) 500 mg 500 mg PO QDAY 10/26/24 10/26/24 History tablet zinc gluconate 100 mg tablet 100 mg PO QDAY 10/26/24 10/26/24 History Is last menstrual period known: No Post menopausal: No Patient : No Have you fallen in the past year?: No Nurse's Note: chest congest, cough, fatigue, LEMUS, BA, ST x 2 days after flying for the holidays. [facility] Medical History Anxiety History of vaccination against human papillomavirus ASCUS with positive high risk HPV cervical Surgical History History of ankle surgery S/P lumpectomy, left breast Garber teeth extracted Family History Grandmother Diabetes CVA (cerebral vascular accident) Breast cancer Grandfather Myocardial infarction Aunt Ovarian cancer Breast cancer Skin cancer Father Diabetes Social History Smoking Status: Never smoker alcohol intake: current alcohol intake frequency: holidays/special occasions only substance use type: does not use caffeine: Yes what type of physical activity do you participate in: running, aerobics and weight training frequency: 3-4 times per week seatbelt use: always do you feel safe at home: Yes 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 Patient reports for the last 2 weeks she has had congestion with yellow nasal drainage. Reports she has been blowing nose and noticing yellow chunks to discharge. The last two days she reports worsening of symptoms. Denies any fevers or SOB. 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 She has not tried any OTC. Denies any aggravating or alleviating factors. Denies any hx of asthma, she is not a smoker. ROS Const Constitutional: Positive for body ache, fatigue and headache(s) ENT ENT: Positive for headache(s) Resp Respiratory: Positive for cough and chest congestion Neuro Neurology: Positive for headache(s) Endo Endocrine: Positive for fatigue Exam Const General: cooperative, healthy appearing, comfortable and no acute distress HENMT Head: normal to inspection Ears: hearing grossly normal bilaterally and TM's normal bilaterally Nose: external nose normal and mucous membranes and turbinates abnormal erythematous bilaterally Face and sinus: sinus tenderness ethmoid Eyes General: appearance normal, both eyes and all related structures Chest Chest palpation inspection: normal inspection of the chest Resp Effort Inspection: normal respiratory effort, able to speak in complete sentences, symmetric chest movement, normal respiratory pattern, no audible wheezes and cough Quality of cough: dry Auscultation: Bilateral: Clear to Auscultation Cardio Rate: regular rate Rhythm: regular rhythm Heart Sounds: S1 normal and S2 normal Neuro (more content not included)... Normal [facility] DIAG MAMM W/CAD, [facility]AT[facility] DIAG MAMM W/CAD, BILAT [facility] Services [address] [place] [address] DIAG MAMM W/CAD, BILAT MR#: [id number] Acct: [id number] Name: SULTANA NAVARRETE Rep #: [id number] : 1985 F 39 From: Maciel Lopez MD PCP: Dr. Christian Roa MD Status: [facility] Study: DIAG MAMM W/CAD, BILAT Date of Exam: 09/26/24 Exam# [id number] Ordering Dr: Faviola Barahona TREADLE CUT OFF SAW OPERATOR TREADLE CUT OFF SAW OPERATOR -C [id number] MAMMOGRAPHY - BILATERAL DIAGNOSTIC REASON FOR EXAM: Female, 39 years old. Left breast and axillary pain PERTINENT HISTORY: Grandmother with breast cancer. Just stopped nursing 2 months ago TECHNIQUE: Digital examination. Mediolateral oblique (MLO) and craniocaudad (CC) views of both breasts were obtained, along with 3-D tomographic views. CAD: CAD was performed on this study. COMPARISON: 2010 FINDINGS: Breast Composition: The breasts are heterogeneously dense, which may obscure small masses. There are no dominant masses or suspicious calcifications. No other significant abnormalities are identified. There has been no significant change since the prior study. BI/DIAG MAMM W/CAD, BILAT IMPRESSION: Stable bilateral diagnostic mammogram. ASSESSMENT CATEGORY: BIRADS Category 2: Benign. A letter regarding these results will be sent to the patient by the facility within 30 days. FOLLOW UP RECOMMENDATION: Yearly follow up mammogram recommended. (A) Approximately 10% of breast cancers are not detected by mammography. A normal mammogram should not delay biopsy of a clinically suspicious abnormality. Electronically Signed: Wu Lopez MD at 15:11 EST , CC: MIGUEL Barahona; Dr. 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: Signed Normal [facility] Trophy Assembler Office Visit Reporton 09-05-2024 Trophy Assembler Office Visit Report [facility] [address], [address] [place] [address] OFFICE VISIT Date of Service: 09/05/24 MR#: [id number] Acct: [id number] Name: SULTANA NAVARRETE Rep #: [id number] : 1985 Provider: MIGUEL luna Age/Sex: 39/F [place] [facility] [place]: S[place] Intake Vital Signs 06/25/24 10:44 09/05/24 15:09 09/05/24 15:10 Height 5 ft 4 in 5 ft 4 in 5 ft 4 in Weight: 143 lb BMI 24.5 BP 107/71 Intake Visit Reasons: left breast pain Printing Table Hand Required: No Is patient in pain?: No Allergies ceftriaxone (From Rocephin) Allergy (Mild, Verified 09/05/24 15:09) hives Latex, Natural Rubber Adverse Reaction (Unknown, Verified 09/05/24 15:09) itching/irritation Medications ???Medication ???Instructions ???Recorded ???Confirmed ???Type prenat.vits,efra,min-iron -folic 1 tab PO DAILY 01/11/22 09/05/24 History alprazolam 0.25 mg tablet (Xanax) 0.25 mg PO QHS PRN anxiety #20 tabs 09/07/22 09/05/24 Rx sertraline 25 mg tablet (Zoloft) 25 mg PO QHS anxiety #90 tabs 04/30/24 09/05/24 Rx PFSH Medical History Anxiety History of vaccination against human papillomavirus ASCUS with positive high risk HPV cervical Surgical History History of ankle surgery S/P lumpectomy, left breast Garber teeth extracted Family History Grandmother Diabetes CVA (cerebral vascular accident) Breast cancer Grandfather Myocardial infarction Aunt Ovarian cancer Breast cancer Skin cancer Father Diabetes Social History Smoking Status: Never smoker alcohol intake: current alcohol intake frequency: holidays/special occasions only substance use type: does not use caffeine: Yes what type of physical activity do you participate in: running, aerobics and weight training frequency: 3-4 times per week seatbelt use: always do you feel safe at home: Yes 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 History 2 Elective abortions Hx Para 2 Spontaneous abortions Hx # Term Pregnancies Ectopic pregnancies Hx # Pregnancies Multiple births # of living children 2 Past Pregnancies Del. Date Name GA/Weeks Outcome Route Bth Weight Infant Gen Labor Lgth Anesthesia Del Locatn Provider FOB 05/23/14 Ned 40 live - full term 7 lbs 14 oz Male 48 hours ep idural [facility] 08/27/22 Ezlyn 40 live - full term 7lbs 7oz Female [facility] Laura guillen Delivery Date: 05/23/14 Last Updated by: Naz Alonzo No issues during or delivery. Delivery Date: 08/27/22 Last Updated by: Elizabeth Rivera IOL oligo SM ROS Const Constitutional: Reports system reviewed and no additional complaints, except as documented : Reports system reviewed and no additional complaints, except as documented Skin Skin/Breast: Reports as per HPI Psych Psych: Reports system reviewed and no additional complaints, except as documented Exam Const General: cooperative and no acute distress Orientation: oriented x3 HENMT Head: normal to inspection Neck Neck: normal visual inspection Chest Breast inspection: normal inspection of the breasts and normal inspection of the axillae Breast palpation: normal palpation of the breasts (right), normal palpation of the axillae (bilateral) and abnormal palpation of the breast (left outer lateral breast and tail up to axilla is tender to touch. ) Other: No masses are appreciated bilaterally. Resp Effort Inspection: normal respiratory effort Coding Level of Care Code Off vis,est,level 3 Diagnoses Breast pain, left N64.4 Assessment and Plan Assessment and Plan (1) Breast pain, left: Status: Acute Orders: Orders Breast Limited Unilateral Today N64.4 - Mastodynia DIAG MAMM W/CAD, BILAT Today N64.4 - Mastodynia Plan Imaging and management dependent on that We did discuss mirena vs paragard IUD for contraception and she will call if wishes to proceed. 09/05/24 1528 Date Faviola Borger TREADLE CUT OFF SAW OPERATOR TREADLE CUT OFF SAW OPERATOR-C Cosigner Signature: Date (if applicable) CC: Normal [facility] Trophy Assembler Office Visit Reporton 06-25-2024 Trophy Assembler Office Visit Report [facility] [address], [address] [place] [address] OFFICE VISIT Date of Service: 06/25/24 MR#: [id number] Acct: [id number] Name: SULTANA NAVARRETE Rep #: [id number] : 1985 Provider: Dr. Janet Floyd DO Age/Sex: 39/F [place] [facility] [place]: Signed Intake Vital Signs 04/20/24 09:59 06/25/24 10:44 06/25/24 10:44 Height 5 ft 4 in 5 ft 4 in 5 ft 4 in Weight: 139 lb 140 lb BMI 23.8 24.0 BP 112/74 121/87 H Blood Pressure Location Lt brachial Position Sitting Intake Visit Reasons: [place] Printing Table Hand Required: No Is patient in pain?: No Allergies ceftriaxone (From Rocephin) Allergy (Mild, Verified 06/25/24 10:44) hives Latex, Natural Rubber Adverse Reaction (Unknown, Verified 06/25/24 10:44) itching/irritation Medications ???Medication ???Instructions ???Recorded ???Confirmed ???Type prenat.vits,efra,min-iron -folic 1 tab PO DAILY 01/11/22 06/25/24 History alprazolam 0.25 mg tablet (Xanax) 0.25 mg PO QHS PRN anxiety #20 tabs 09/07/22 06/25/24 Rx sertraline 25 mg tablet (Zoloft) 25 mg PO QHS anxiety #90 tabs 04/30/24 06/25/24 Rx Post menopausal: No Patient : No : No PFSH PFSH Medical History Anxiety History of vaccination against human papillomavirus ASCUS with positive high risk HPV cervical Surgical History History of ankle surgery S/P lumpectomy, left breast Garber teeth extracted Family History Grandmother Diabetes CVA (cerebral vascular accident) Breast cancer Grandfather Myocardial infarction Aunt Ovarian cancer Breast cancer Skin cancer Father Diabetes Social History Smoking Status: Never smoker alcohol intake: current alcohol intake frequency: holidays/special occasions only substance use type: does not use caffeine: Yes what type of physical activity do you participate in: running, aerobics and weight training frequency: 3-4 times per week seatbelt use: always do you feel safe at home: Yes 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 Date Name GA/Weeks Outcome Route Bth Weight Infant Gen Labor Lgth Anesthesia Del Locatn Provider FOB 05/23/14 Ned 40 live - full term 7 lbs 14 oz Male 48 hours ep idural [facility] 08/27/22 Ezlyn 40 live - full term 7lbs 7oz Female [facility] Laura guillen Delivery Date: 05/23/14 Last Updated by: Naz Alonzo No issues during or delivery. Delivery Date: 08/27/22 Last Updated by: Elizabeth Rivera IOL oligo SM HPI [place] Details: SULTANA NAVARRETE is a 39 year old who presents for colposcopy for persistent positive HPV + normal pap. She would also like to have her 3rd HPV vaccine. ROS Const ROS Unobtainable: All systems reviewed are unremarkable except as noted in H Resp Resp: Reports system reviewed and no additional complaints, except as documented; Denies cough GI GI: Reports as per HPI Psych Psych: Reports system reviewed and no additional complaints, except as documented Exam Const General: cooperative, healthy appearing, comfortable and no acute distress Resp Effort Inspection: normal respiratory effort General: bimanual renal exam normal bilaterally External Female Exam: normal appearance of the urethra Urethra: normal appearance of the urethra Speculum Exam - Vagina: normal appearance of the vagina Speculum Exam - Cervix: normal appearance of the cervix Bimanual Exam- Adnexa, other: normal adnexae and normal Pelvic Support: normal Skin General: no rashes or lesions noted Psych Appearance: grossly normal Speech and Movement: speech and movement normal Office Procedures Colposcopy Colposcopy Reason for colposcopy: positive HR HPV types Pap/ROHAN history: no prior abnormal pap Consent Signed: Yes Time out performed: Yes Acetowhite epithelium (cervix): 6 o'clock, 7 o'clock, 8 o'clock, 11 o'clock and 12 o'clock Punctation (cervix): none Mosaicism (cervix): none Abnormal vessels (cervix): none Biopsies (cervix): 7 o'clock biopsy Details: an ECC was collected as well as biopsy at the 7:00 position after acetic acid was applied to the cervix. silver nitrite was used for hemostasis. Office Meds Gardasil 9 (PF) 0.5 mL intramuscular syringe Performing Provider: Janet Gallagher DO Performing Location: [facility] (more content not included)... Normal [facility] Surgery Specimen Level Becca 06-25-2024 Surgery Specimen Level IV Patient Age/Sex Location Account Attending Physician SULTANA NAVARRETE 39/F LABSPEC [id number] Dr. Janet Gallagher, [place] Specimen: [id number] Received: 06/25/24 Status: DALTON Reyes Num: [id number] Spec Type: CERV Subm Dr: Dr. Janet Gallagher, THIS IS A CORRECTED REPORT 06/28/241142 HEADER OPERATION: Colposcopy PRE-OP DIAGNOSIS: HPV+ TISSUE SUBMITTED: A- 7o'clock cervix, B- ECC MICROSCOPIC DIAGNOSIS A. Cervix, 7o'clock, biopsy: Changes suspicious for with HPV cytopathic effect. Chronic inflammation. See comment. B. Endocervix, curettings: Scant strips of benign superficial endocervix. No evidence of dysplasia. AM/mr 06/27/2024 COMMENT A. Immunohistochemistry ([id number]) for surrogate HPV marker (p16) supports the above diagnosis. Case has been reviewed in consultation with Dr. Truong who concurs with the above diagnosis. IDC:BERNADETTE MICROSCOPIC DESCRIPTION Slides are reviewed. GROSS DESCRIPTION A. Received in fixative is one container labeled with the patient's name and designated 7o'clock. The specimen consists of one irregular fragment of light brennan soft tissue that measures 0.4 x 0.4 x 0.1 cm. The specimen is totally submitted in one cassette. B. Received in fixative is a metallic brush with adherent minute fragments of brennan-red tissue and labeled with the patient's name and and designated per the requisition as ECC BRUSH. The material is dislodged from the brush and submitted for cell block preparation in one cassette. BERNADETTE/ 06/26/2024 [id number] Patient Age/Sex Location Account Attending Physician SULTANA NAVARRETE 39/F LABSPEC [id number] Kaz Meza Signed (signature on file) Dr. Orion Ortiz DO 06/28/24 1152 Normal [facility] Comment on above: Performed By: #### P SUIV #### [facility] [address] [place], [place], [address] p16 (initial)on 06-25-2024 p16 (initial) ---- Patient Age/Sex Location Account Attending Physician SULTANA NAVARRETE 39/F LABSPEC [id number] [place] Meza Specimen: [id number] Received: 08/28/24-1206 Status: DALTON Reyes Num: [id number] Spec Type: IMMUNO Subm Dr: Dr. Janet Gallagher, DO PHYSICIAN INSTITUTION [address] [address] SPECIMEN INFORMATION: Tissue Source: A- 7o'clock Clinical Info: HPV+ Specimen Number: [id number] CPT code: 38977,24232 METHODOLOGY: Deparaffinized sections of prefer/formalin-fixed tissue or PAP/DQ stained slides are incubated with monoclonal/polyclonal antibodies/oligonucleoti de probes. Localization is made via biotin free immunoperoxidase method. Appropriate controls are performed and reacted as expected. Results on target cell population are indicated in the following table: RESULTS: ANTIBODY / CLONE RESULT Block A P16 (E6H4) positive, rare cells Ki-67 (30-9) positive, low These tests were developed and their performance characteristics determined by [facility]. They may not have been cleared or approved by the U.S. Food and Drug Administration. The FDA has determined that such clearance or approval is not necessary. The above immunohistochemical/dual CLEMENTINE markers are ordered and reviewed by the Pathologist. INTERPRETATION: A. Cervix, 7o'clock, biopsy: Suspicious for HPV cytopathic effects. AM/mr 06/28/2024 Signed (signature on file) Dr. Orion Ortiz, DO 06/28/24 1138 Normal [facility] Comment on above: Performed By: #### P P16 #### [facility] [address] [place] [address], [address] Laboratory - Chemistry and C hemistry - challengeon 07-28-2022 Glucose Ql (U) Negative [facility] Work Phone: Laboratory - Urinalysison Protein Ql (U) Negative [facility] Work Phone: Laboratory - Chemistry and C hemistry - challengeon 07-12-2022 Glucose Ql (U) Negative [facility] Work Phone: [phone] Laboratory - Urinalysison Protein Ql (U) Negative [facility] Work Phone: Laboratory - Chemistry and C hemistry - challengeon 06-28-2022 Glucose Ql (U) Negative [facility] Work Phone: Laboratory - Urinalysison Protein Ql (U) Negative [facility] Work Phone: Laboratory - Chemistry and C hemistry - challengeon 06-14-2022 Glucose Ql (U) Negative [facility] Work Phone: Laboratory - Urinalysison Protein Ql (U) Negative [facility] Work Phone: Laboratory - Chemistry and C hemistry - challengeon 06-02-2022 Glucose Ql (U) Negative [facility] Work Phone: Laboratory - Urinalysison Protein Ql (U) Negative [facility] Work Phone: [phone] Absolute lymphocyte counton 05-20-2022 Lymphocytes Auto (Unsp spec) [#/Vol] 2.80 10*3/uL 0.83-4.51 [facility] Work Phone: [phone] Basophil percentageon 2021 Basophils/100 WBC (Bld) 0.2 % 0-1 [facility] Work Phone: [phone] Eosinophils/100 WBC (Bld) 1.0 % 0-5 [facility] Work Phone: [phone] Neutrophils (Bld) [#/Vol] 6.4 10*3/uL 2.0-7.7 [facility] Work Phone: Neutrophils/100 WBC (Bld) 63.2 % 47-70 [facility] Work Phone: WBC (Bld) [#/Vol] 10.2 10*3/uL 4.4-11.0 [facility] Work Phone: Blood erythrocytes count (nu mber/volume)on 05-20-2022 RBC (Bld) [#/Vol] 4.01 10*6/uL 4.2-5.4 [facility] Work Phone: Blood hemoglobin measurement (mass/volume)on 05-20-2022 Hemoglobin (Bld) [Mass/Vol] 11.3 g/dL 12.0-15.0 [facility] Work Phone: Blood lymphocytes/100 leukoc yteson 05-20-2022 Lymphocytes/100 WBC (Bld) 27.6 % 19-41 [facility] Work Phone: Blood monocytes/100 leukocyt eson 05-20-2022 Monocytes/100 WBC (Bld) 6.9 % 0-10 [facility] Work Phone: Blood platelet mean volumeon 05-20-2022 Platelet mean volume (Bld) [Entitic vol] 9.6 fL 6.2-12.0 [facility] Work Phone: Determination of erythrocyte mean corpuscular volume (MCV)on 05-20-2022 MCV (RBC) [Entitic vol] 85.0 fL 81-99 [facility] Work Phone: Gestational diabetes screen 1-hour screen with 50g oral glucose loadon 05-20-2022 Glucose 1 Hr post 50 g glucose PO [Mass/Vol] 107 mg/dL 70-140 [facility] Work Phone: Hematocrit Auto (Bld) [Volum e fraction]on 05-20-2022 Hematocrit (Bld) [Volume fraction] 34.1 % 37-47 [facility] Work Phone: Laboratory - Chemistry and C hemistry - challengeon 05-20-2022 Glucose Ql (U) Negative [facility] Work Phone: Laboratory - Hematology and Cell countson 05-20-2022 Erythrocyte distribution width (RBC) [Entitic vol] 38.6 fL 35.1-43.9 [facility] Work Phone: Erythrocyte distribution width (RBC) [Ratio] 12.6 % 11.6-14.6 [facility] Work Phone: Immature granulocytes/100 WBC (Bld) 1.100 % 0.0-0.9 [facility] Work Phone: Comment on above: IG% - Immature Granu locytes (promyelocytes, myelocytes and metamyelocytes) > 1% indicates that a LEFT SHIFT is Present. MCH (RBC) [Entitic mass] 28.2 pg 27.0-32.0 [facility] Work Phone: Nucleated RBC/100 WBC (Bld) [Ratio] 0 % 0-5 [facility] Work Phone: Laboratory - Urinalysison Protein Ql (U) Negative [facility] Work Phone: MCHC Auto (RBC) [Mass/Vol]on 05-20-2022 MCHC (RBC) [Mass/Vol] 33.1 g/dL 32-36 [facility] Work Phone: Platelets bldon 05-20-2022 Platelets (Bld) [#/Vol] 170 10*3/uL 150-450 [facility] Work Phone: Laboratory - Chemistry and C hemistry - challengeon 04-21-2022 Glucose Ql (U) Negative [facility] Work Phone: Laboratory - Urinalysison Protein Ql (U) Negative [facility] Work Phone: Absolute lymphocyte counton 02-26-2022 Lymphocytes Auto (Unsp spec) [#/Vol] 2.59 10*3/uL 0.83-4.51 [facility] Work Phone: [phone] Basophil percentageon 2021 Basophils/100 WBC (Bld) 0.3 % 0-1 [facility] Work Phone: [phone] Eosinophils/100 WBC (Bld) 0.9 % 0-5 [facility] Work Phone: Neutrophils (Bld) [#/Vol] 7.0 10*3/uL 2.0-7.7 [facility] Work Phone: Neutrophils/100 WBC (Bld) 65.6 % 47-70 [facility] Work Phone: WBC (Bld) [#/Vol] 10.7 10*3/uL 4.4-11.0 [facility] Work Phone: Blood erythrocytes count (nu mber/volume)on 02-26-2022 RBC (Bld) [#/Vol] 4.39 10*6/uL 4.2-5.4 [facility] Work Phone: Blood hemoglobin measurement (mass/volume)on 02-26-2022 Hemoglobin (Bld) [Mass/Vol] 12.4 g/dL 12.0-15.0 [facility] Work Phone: Blood lymphocytes/100 leukoc yteson 02-26-2022 Lymphocytes/100 WBC (Bld) 24.3 % 19-41 [facility] Work Phone: Blood monocytes/100 leukocyt eson 02-26-2022 Monocytes/100 WBC (Bld) 8.2 % 0-10 [facility] Work Phone: Blood platelet mean volumeon 02-26-2022 Platelet mean volume (Bld) [Entitic vol] 10.1 fL 6.2-12.0 [facility] Work Phone: Determination of erythrocyte mean corpuscular volume (MCV)on 02-26-2022 MCV (RBC) [Entitic vol] 84.3 fL 81-99 [facility] Work Phone: HIV 1 and HIV-2 antibody ass ay with HIV-1 p24 antigen detectionon 02-26-2022 HIV 1+2 Ab+HIV1 p24 Ag IA Ql Non-Reactive Nonreactive [facility] Work Phone: Hematocrit Auto (Bld) [Volum e fraction]on 02-26-2022 Hematocrit (Bld) [Volume fraction] 37.0 % 37-47 [facility] Work Phone: Laboratory - Chemistry and C hemistry - challengeon 02-26-2022 Glucose Ql (U) Negative [facility] Work Phone: Laboratory - Hematology and Cell countson 02-26-2022 Erythrocyte distribution width (RBC) [Entitic vol] 40.8 fL 35.1-43.9 [facility] Work Phone: Erythrocyte distribution width (RBC) [Ratio] 13.2 % 11.6-14.6 [facility] Work Phone: Immature granulocytes/100 WBC (Bld) 0.700 % 0.0-0.9 [facility] Work Phone: Comment on above: IG% - Immature Granu locytes (promyelocytes, myelocytes and metamyelocytes) > 1% indicates that a LEFT SHIFT is Present. MCH (RBC) [Entitic mass] 28.2 pg 27.0-32.0 [facility] Work Phone: Nucleated RBC/100 WBC (Bld) [Ratio] 0 % 0-5 [facility] Work Phone: Laboratory - Urinalysison Protein Ql (U) Negative [facility] Work Phone: MCHC Auto (RBC) [Mass/Vol]on 02-26-2022 MCHC (RBC) [Mass/Vol] 33.5 g/dL 32-36 [facility] Work Phone: No Panel Informationon 02-26 Hepatitis B Surface Antigen Non-Reactive Nonreactive [facility] Work Phone: Hepatitis C Antibody Non-Reactive Nonreactive [facility] Work Phone: Comment on above: Non Reactive: < 0.8 Equivocal: >/= 0.8 to < 1.0 Reactive: >/= 1.0The CDC recommends that a reactive/equivocal HCV antibody result be followed up by the HCV Nucleic Acid Amplificationtest (437380) Rubella IgG Antibody Reactive Nonreactive [facility] Work Phone: Comment on above: Antibody Results Int erpretation of Immune Status Non Reactive Presumed Non-Immune Equivocal Equivocal Reactive Presumed Immune Platelets bldon 02-26-2022 Platelets (Bld) [#/Vol] 190 10*3/uL 150-450 [facility] Work Phone: Serum Treponema species anti body detectionon 02-26-2022 Treponema sp Ab Ql (S) Non-Reactive [facility] Work Phone: Culture, urineon 01-27-2022 Bacteria identified Cx Nom (U) Positive [facility] Work Phone: Laboratory - Chemistry and C hemistry - challengeon 01-27-2022 Bilirubin Ql (U) Negative [facility] Work Phone: [phone] Glucose Ql (U) Negative [facility] Work Phone: Ketones Ql (U) Negative [facility] Work Phone: pH (U) 5.0 [pH] [facility] Work Phone: Specific gravity (U) [Rel density] 1.005 [facility] Work Phone: Urobilinogen (U) [Mass/Vol] 0.7192466 mg/dL [facility] Work Phone: Laboratory - Hematology and Cell countson 01-27-2022 Hemoglobin Ql (U) Negative [facility] Work Phone: Laboratory - Specimen inform ationon 01-27-2022 Clarity (U) Clear [facility] Work Phone: Color (U) Yellow [facility] Work Phone: Laboratory - Urinalysison Nitrite Ql (U) Negative [facility] Work Phone: Protein Ql (U) Negative [facility] Work Phone: No Panel Informationon 01-27 Miscellaneous Test Comment MAILED SPECIMEN [facility] Work Phone: Urine Leukocytes Negatve [facility] Work Phone: Cervical or vagninal specime n microscopic examination by cytology stain (reported ason 01-21-2022 Cytology report Cyto stain Doc (Cvx/Vag) Comment [facility] Work Phone: Comment on above: The Pap smear is a s creening test designed to aid in thedetection of premalignant and malignant conditions of theuterine cervix. It is not a diagnostic procedure andshould not be used as the sole means of detecting cervicalcancer. Both false-positive and false-negative reports dooccur. Chlamydia trachomatis rRNA d etection by probe and target amplification methodon 01-21-2022 C. trachomatis rRNA LOYD+probe Ql (Unsp spec) Negative Negative [facility] Work Phone: Culture, urineon 01-21-2022 Bacteria identified Cx Nom (U) Culture exhibits no growth. [facility] Work Phone: Detection in cervical specim en of any of human papilloma virus (HPV) 16, 18, 31, 33,on 01-21-2022 HPV 16+18+31+33+35+39+45+ 51+52+56+58+59+66+68 DNA Probe+sig amp Ql (Cvx) Positive Negative [facility] Work Phone: Comment on above: This nucleic acid am plification test detects fourteen high- risk HPV types (16,18,31,33,35,39,45,51,52,56,58,59,66,68)without differentiation.Performed at: - [facility] [id number] Director: Jelly Barnett MD, Phone: [phone] at: = - [facility] [id number] Director: Jelly Barnett MD, Phone: [phone] Laboratory - Cytologyon 12-30 Bottom Painter Cyto stain Nom (Cvx/Vag) [ID] Comment [facility] Work Phone: Comment on above: Emily Sarmiento, Cyto technologist (ASCP) Pathologist Cyto stain Nom (Cvx/Vag) [ID] Comment [facility] Work Phone: Comment on above: Jelly Barnett MD, Pathologist Recommended follow-up Cyto stain Nom (Cvx/Vag) Comment [facility] Work Phone: Comment on above: Suggest follow up as clinically appropriate. Laboratory - Drug toxicology on 01-21-2022 Amphetamines Ql (U) Negative [facility] Work Phone: Benzodiazepines Ql (U) Negative [facility] Work Phone: Cannabinoids Screen Ql (U) Negative [facility] Work Phone: Cocaine Ql (U) Negative [facility] Work Phone: Opiates Ql (U) Negative [facility] Work Phone: Laboratory - Microbiology an d Antimicrobial susceptibilityon 01-21-2022 N. gonorrhoeae DNA LOYD+probe Ql (Unsp spec) Negative Negative [facility] Work Phone: Comment on above: Performed at: =G - L [address] [id number] Director: Jelly Barnett MD, Phone: [phone] Laboratory - Miscellaneous t estson 01-21-2022 Service comment (Unsp spec) [Interp] Comment [facility] Work Phone: Comment on above: This liquid based Th inPrep(R) pap test was screened withthe use of an image guided system. Service comment (Unsp spec) [Interp] . [facility] Work Phone: No Panel Informationon 01-21 MDMA (Ecstasy) Screen Negative [facility] Work Phone: Pathology report final diagnosis Narrative Comment [facility] Work Phone: Comment on above: EPITHELIAL CELL ABNO RMALITY.LOW GRADE SQUAMOUS INTRAEPITHELIAL LESION (LSIL). R87.612 Urine Barbiturates Screen Negative [facility] Work Phone: Urine Drug Screen Comment [facility] Work Phone: Comment on above: CONFIRMATORY TESTING FOR ALL POSITIVE URINE DRUG SCREENRESULTS WILL ONLY BE SENT OUT UPON PHYSICIAN ORDER. VISTA Urine Drug Screen methods provide only preliminaryanalytical test results. A more specific alternate chemicalmethod must be used in order to obtain a confirmedanalytical result. Gas chromatography/mass spectrometery(GC/MS) is the preferred confirmatory method. Clinicalconsideration and professional judgement should be appliedto any drug of abuse test result, particularly whenpreliminary positive results are used. URINE TCA TESTING MUST BE ORDERED SEPARATELY. USE TESTMNEMONIC: [facility] Urine Methadone Screen Negative [facility] Work Phone: Urine phencyclidine (PCP) de tectionon 01-21-2022 Phencyclidine Ql (U) Negative [facility] Work Phone: Culture, urineon 01-06-2022 Bacteria identified Cx Nom (U) Positive [facility] Work Phone: Chlamydia trachomatis rRNA d etection by probe and target amplification methodon 11-19-2021 C. trachomatis rRNA LOYD+probe Ql (Unsp spec) Negative Negative [facility] Work Phone: Gram stain for investigation of transfusion reactionon 11-19-2021 Microscopic observation Gram stain Nom (Unsp spec) [facility] Work Phone: Laboratory - Microbiology an d Antimicrobial susceptibilityon 11-19-2021 N. gonorrhoeae DNA LOYD+probe Ql (Unsp spec) Negative Negative [facility] Work Phone: Comment on above: Performed at: =G - L [address] [id number] Director: Jelly Barnett MD, Phone: [phone] No Panel Informationon 11-19 POC Bacterial Vaginitis (Rapid) Negative [facility] Work Phone: POC Trichomonas (Rapid) Negative [facility] Work Phone: Thin prep Papanicolaou smear with manual screeningon 11-19-2021 Genital Culture G. vaginalis (Presumptive) [facility] Work Phone: Serum or plasma choriogonado tropin detectionon 11-17-2021 HCG ( test) Ql < 1 mIU/mL <4 [facility] Work Phone: Comment on above: hCG levels with Gest ational AgeGestational Age hCG mIU/mL (IU/L)0.2 - 1 week 5 - 501-2 weeks 50 - 5002-3 weeks 100 - 03790-4 weeks 500 - 843758-0 weeks 1000 - 993701-7 weeks 97437 - 100,0006-8 weeks 26505 - 200,0002-3 months 47470 - 100,000 Office Visit: [facility] [facility] 06-02-2017 blood in urine (hemoglobin) by dipstick Negative Invalid Interpretation Code [facility] Work Phone: Documentation of current medications (procedure) Done Invalid Interpretation Code [facility] Work Phone: [phone] Documentation of current medications (procedure) T Invalid Interpretation Code [facility] Work Phone: Fall risk assessment No Invalid Interpretation Code [facility] Work Phone: specific gravity, urine 1.010 Invalid Interpretation Code [facility] Work Phone: Tobacco use HS Never smoker Invalid Interpretation Code [facility] Work Phone: [phone] Urine, appearance clear Invalid Interpretation Code [facility] Work Phone: Urine, bilirubin presence Negative Invalid Interpretation Code [facility] Work Phone: Urine, color yellow Invalid Interpretation Code [facility] Work Phone: [phone] Urine, glucose presence Negative Invalid Interpretation Code [facility] Work Phone: [phone] Urine, ketones presence Negative Invalid Interpretation Code [facility] Work Phone: Urine, leukocyte esterase presence Negative Invalid Interpretation Code [facility] Work Phone: Urine, nitrite presence Negative Invalid Interpretation Code [facility] Work Phone: Urine, pH 5.0 [pH] Invalid Interpretation Code [facility] Work Phone: Urine, protein Negative Invalid Interpretation Code [facility] Work Phone: Urine, urobilinogen presence Negative Invalid Interpretation Code [facility] Work Phone: KIMOVon 04-27-2017 CNOV Office Visit (INTMWS) SULTANA NAVARRETE ([id number]) 1985 FDate Time Provider Department04/27/17 10:20 AM JANETTE CANAS (AMISH) INTMWS During your visit today, we recorded the following information about you: Temperature Pulse Respiration Blood pressure 97.1 degrees 89/minute 14/minute 104/60 Weight 54 kgNaz AMISH Canas 04/27/2017 11:13 AM SignedCC: Patient presents with:Sore ThroatHPI:Sultana Navarrete is a 32 year old female who presents to the office withcomplaint of sore throat since yesterday. Described as severe, hard to swallow.Other associated symptoms includes fatigue, post nasal drip, headache andfever. Denies cough, wheezing, SOB, nasal congestion or rhinorrhea. Treatmentstried include Acetaminophen and Ibuprofen with minor relief of symptoms.Sick contacts: no. without a history of seasonal allergies.The ROS is otherwise negative.The patient's pmh, medications, allergies, and past visits are reviewed.PHYSICAL EXAM:BP 104/60 Pulse 89 Temp 36.2 ?C (97.1 ?F) (Temporal Artery) Resp 14 Wt54 kg (119 lb) SpO2 97% BMI 20.81 kg/s5Pqalxgj appearance: tired/ill appearing, in no acute distressHead: NormocephalicEyes: conjunctiva pink and moist, no icterus, sclera white, non-injectedEars: Right ear: Normal, TM - clear with good landmarks, air/fluid interface.Left ear: Normal, TM - clear with good landmarksNose: clear.Oropharynx:moderat e erythema, with exudates present, tonsillar hypertrophy: 1+Neck:supple and positive findings: moderate tonsillar nodesHeart: Negative. RRR without obvious murmur, gallop, or rubs. No ectopy.Lungs: clear to auscultation, without rales or wheeze, good air exchangeASSESSMENT/PLAN: 1. Viral pharyngitis - ICD9: 462, ICD10: J02.9 (primary diagnosis)- suspect viral- Rapid Strep negative in the office today and Throat culture pending- Discussed supportive care treatment with fluids, rest and analgesia.- The patient may also use warm salt water gargles, throat lozenges and/or OTCthroat spray as needed.- The patient should follow up in 5-7 days if symptoms persist or worsen2. Sore throat - ICD9: 462, ICD10: J02.9As above- RAPID STREP TEST B/O- GROUP A STREPTOCOCCUS BY Javier Rdz CNP 04/27/2017 10:58 AM SignedGeneral:- Home care is usually sufficient.- Use gargles to relieve throat pain. Prepare double-strength tea, hot or cold,or a salt-water solution (1 teaspoon salt in 8 oz. warm water). Use to gargleas often as you wish.- Use a cool-mist, ultrasonic humidifier to increase air moisture. This willrelieve the dry, tight feeling in the throat. Clean humidifier daily.- Replace your toothbrush. It may harbor germs.- Until infection is gone, use separate washcloths; don't share food.- It is not abnormal for a viral infection to be symptomatic for a week.Medication:- For minor discomfort, you may use non-prescription drugs such asacetaminophen. Don't give aspirin to a child for any viral illness. Studieslink its use with the development of Ashtyn's syndrome.- Non-prescription throat lozenges may help ease discomfort.Activity:-Barrientos ited activity is necessary until symptoms disappear.Diet:- Extra fluids are necessary. Drink at least 8 glasses of fluid daily, more forhigh fevers.- If swallowing solid food is painful, try a liquid or soft diet for a few days.Notify our office if the following occur during treatment: breathing orswallowing difficulty, fever or severe headache, thick mucus drainage from thenose, skin rash, dark urine, chest pain, or cough that produces green, yellow,brown, or bloody sputum.Referring Provider: SELF [200]Allergies As of Date: 04/27/2017 Noted Allergy ReactionLATEX 11/27/2008 Comments: yeast infectionROCEPHIN (CEFTRIAXONE) 05/10/2006 4 - HivesDate Reviewed: 04/27/2017Reviewed by: Faviola Schaefer Assistant Broker - Fully AssessedReason for Visit: Sore Throat [200]Primary Visit Diagnosis:Viral pharyngitis [J02.9] Other Visit Diagnosis:Sore throat [J02.9]Order(s):RAPID STREP TEST B/O [8589752] Order #: [id number] GROUP A STREPTOCOCCUS BY PCR [SQGASPCR] Order #: [id number] List As Of Date 04/27/2017 Noted Resolved CONTRACEPT PILL SURVEILL [Z30.41] INVALID FOR* IRREGULAR MENSTRUATION [N92.6] INVALID FOR* Lump or mass in breast [N63] INVALID FOR* Other instructions from your clinician: General: - Home care is usually sufficient. - Use gargles to relieve throat pain. Prepare double-strength tea, hot or cold, or a salt-water solution (1 teaspoon salt in 8 oz. warm water). Use to gargle as often as you wish. - Use a cool-mist, ultrasonic humidifier to increase air moisture. This will relieve the dry, tight feeling in the throat. Clean humidifier daily. - Replace your toothbrush. It may harbor germs. - Until infection is gone, use separate washcloths; don't share food. - It is not abnormal for a viral infection to be symptomatic for a week. Medication: - For minor discomfort, you may use non-prescription drugs such as acetaminophen. Don't give aspirin to a child for any viral illness. Studies link its use with the development of Ashtyn's syndrome. - Non-prescription throat lozenges may help ease discomfort. Activity: -Limited activity is necessary until symptoms disappear. Diet: - Extra fluids are necessary. Drink at least 8 glasses of fluid daily, more for high fevers. - If swallowing solid food is painful, try a liquid or soft diet for a few days. Notify our office if the following occur during treatment: breathing or swallowing difficulty, fever or severe headache, thick mucus drainage from the nose, skin rash, dark urine, chest pain, or cough that produces green, yellow, brown, or bloody sputum. Status:Closed by JANETTE CANAS CNP on 04/27/17 Normal [facility] Group A Strep by PCRon 04-27 GAS Specimen Source Throat Swab Normal [facility] Comment on above: Performed By: #### G ASPCR ####[facility] [address] [place], [place] [phone] Group A Strep PCR Negative Normal [facility] Comment on above: Result Comment: This test was developed and its performance characteristics determined by [facility] [place] ([facility]).It has not been cleared or approved by the FDA. [facility] is regulated under CLIA as qualified to perform high-complexity testing. This test is used for clinical purposes. It should not be regarded as investigational or for research. Performed By: #### G ASPCR ####[facility] [address] [place], [place] [phone] PROGRESSon 04-27-2017 PROGRESS HNO ID: [id number]: Janette (Amish) MissaelService: (none)Author Type: Nurse PractitionerType: Progress NotesFiled: 04/27/2017 11:13 AMNote Text:CC: Patient presents with:Sore ThroatHPI:Sultana Navarrete is a 32 year old female who presents to the office withcomplaint of sore throat since yesterday. Described as severe, hard toswallow. Other associated symptoms includes fatigue, post nasal drip,headache and fever. Denies cough, wheezing, SOB, nasal congestion orrhinorrhea. Treatments tried include Acetaminophen and Ibuprofen withminor relief of symptoms.Sick contacts: no. without a history of seasonal allergies.The ROS is otherwise negative.The patient's pmh, medications, allergies, and past visits are reviewed.PHYSICAL EXAM:BP 104/60 Pulse 89 Temp 36.2 ?C (97.1 ?F) (Temporal Artery) Resp 14 Wt 54 kg (119 lb) SpO2 97% BMI 20.81 kg/n2Lodcdve appearance: tired/ill appearing, in no acute distressHead: NormocephalicEyes: conjunctiva pink and moist, no icterus, sclera white, non-injectedEars: Right ear: Normal, TM - clear with good landmarks, air/fluidinterface. Left ear: Normal, TM - clear with good landmarksNose: clear.Oropharynx:moderat e erythema, with exudates present, tonsillarhypertrophy: 1+Neck:supple and positive findings: moderate tonsillar nodesHeart: Negative. RRR without obvious murmur, gallop, or rubs. No ectopy.Lungs: clear to auscultation, without rales or wheeze, good air exchangeASSESSMENT/PLAN: 1. Viral pharyngitis - ICD9: 462, ICD10: J02.9 (primary diagnosis)- suspect viral- Rapid Strep negative in the office today and Throat culture pending- Discussed supportive care treatment with fluids, rest and analgesia.- The patient may also use warm salt water gargles, throat lozengesand/or OTC throat spray as needed.- The patient should follow up in 5-7 days if symptoms persist or worsen2. Sore throat - ICD9: 462, ICD10: J02.9As above- RAPID STREP TEST B/O- GROUP A STREPTOCOCCUS BY Nan Canas CNP Normal [facility] Culture, urine Bacteria identified Cx Nom (U) Positive [facility] Work Phone: No Panel Information Group B Streptococcus Culture Group B Beta Streptococcus is not isolated. [facility] Work Phone: Vital Signs Date Time Vital Sign Value Performing Clinician Lloyd crum 05-01-2025 09: Body height 162.[address] Christian Roa MD Work Phone: [facility] 05-01-2025 09: Body mass index (BMI) [Ratio] 25.6 kg/m2 Dr. Christian Roa MD Work Phone: [facility] 05-01-2025 09:040 Body weight 67.[address] Christian Roa MD Work Phone: [facility] 05-01-2025 09:21-0400 Diastolic blood pressure 73 mm[Hg] Dr. Christian Roa MD Work Phone: [facility] 05-01-2025 09:21-0400 Systolic blood pressure 108 mm[Hg] Dr. Christian Roa MD Work Phone: [facility] 08-03-2022 16:18-0400 Body height 162.[address] Christian Roa Work Phone: [facility] Work Phone: 08-03-2022 16:18-0400 Body mass index (BMI) [Ratio] 26.4 kg/m2 Dr. Christian Roa Work Phone: [facility] Work Phone: 08-03-2022 16:18-0400 Body weight 69.[address] Christian Roa Work Phone: [facility] Work Phone: 08-03-2022 16:18-0400 Diastolic blood pressure 70 mm[Hg] Dr. Christian Roa Work Phone: [facility] Work Phone: 08-03-2022 16:18-0400 Systolic blood pressure 118 mm[Hg] Dr. Christian Roa Work Phone: [facility] Work Phone: 07-28-2022 16:05-0400 Body height 162.[address] Christian Roa Work Phone: [facility] Work Phone: 07-28-2022 16:05-0400 Body mass index (BMI) [Ratio] 26.1 kg/m2 Dr. Christian Roa Work Phone: [facility] Work Phone: 07-28-2022 16:05-0400 Body weight 69.[address] Christian Roa Work Phone: [facility] Work Phone: 07-28-2022 16:05-0400 Diastolic blood pressure 68 mm[Hg] Dr. Christian Roa Work Phone: [facility] Work Phone: 07-28-2022 16:05-0400 Systolic blood pressure 118 mm[Hg] Dr. Christian Roa Work Phone: [facility] Work Phone: 07-12-2022 10:43-0400 Body mass index (BMI) [Ratio] 25.8 kg/m2 Dr. Christian Roa Work Phone: [facility] Work Phone: 07-12-2022 10:43-0400 Body weight 68.[address] Christian Roa Work Phone: [facility] Work Phone: 07-12-2022 10:43-0400 Diastolic blood pressure 66 mm[Hg] Dr. Christian Roa Work Phone: [facility] Work Phone: 07-12-2022 10:43-0400 Systolic blood pressure 113 mm[Hg] Dr. Christian Roa Work Phone: [facility] Work Phone: 06-28-2022 15:57-0400 Body mass index (BMI) [Ratio] 25.7 kg/m2 Dr. hCristian Roa Work Phone: [facility] Work Phone: 06-28-2022 15:57-0400 Body weight 68.[address] Christian Roa Work Phone: [facility] Work Phone: 06-28-2022 15:57-0400 Diastolic blood pressure 64 mm[Hg] Dr. Christian Roa Work Phone: [facility] Work Phone: 06-28-2022 15:57-0400 Systolic blood pressure 118 mm[Hg] Dr. Christian Roa Work Phone: [facility] Work Phone: 06-14-2022 14:07-0400 Body mass index (BMI) [Ratio] 25.2 kg/m2 Dr. Christian Roa Work Phone: [facility] Work Phone: 06-14-2022 14:07-0400 Body weight 66.[address] Christian Roa Work Phone: [facility] Work Phone: 06-14-2022 14:07-0400 Diastolic blood pressure 62 mm[Hg] Dr. Christian Roa Work Phone: [facility] Work Phone: 06-14-2022 14:07-0400 Systolic blood pressure 120 mm[Hg] Dr. Christian Roa Work Phone: [facility] Work Phone: 06-02-2022 10:32-0400 Body mass index (BMI) [Ratio] 25.1 kg/m2 Dr. Christian Roa Work Phone: [facility] Work Phone: 06-02-2022 10:32-0400 Body weight 66.[address] Christian Roa Work Phone: [facility] Work Phone: 06-02-2022 10:32-0400 Diastolic blood pressure 69 mm[Hg] Dr. Christian Roa Work Phone: [facility] Work Phone: 06-02-2022 10:32-0400 Systolic blood pressure 123 mm[Hg] Dr. Christian Roa Work Phone: [facility] Work Phone: 05-20-2022 10:27-0400 Body height 162.[address] Christian Roa Work Phone: [facility] Work Phone: 05-20-2022 10:27-0400 Body mass index (BMI) [Ratio] 25.1 kg/m2 Dr. Christian Roa Work Phone: [facility] Work Phone: 05-20-2022 10:27-0400 Body weight 66.[address] Christian Roa Work Phone: [facility] Work Phone: 05-20-2022 10:27-0400 Diastolic blood pressure 66 mm[Hg] Dr. Christian Roa Work Phone: [facility] Work Phone: 05-20-2022 10:27-0400 Systolic blood pressure 128 mm[Hg] Dr. Christian oRa Work Phone: [facility] Work Phone: 04-21-2022 10:57-0400 Body mass index (BMI) [Ratio] 24.7 kg/m2 Dr. Christian Roa Work Phone: [facility] Work Phone: 04-21-2022 10:57-0400 Body weight 65.[address] Christian Roa Work Phone: [facility] Work Phone: 04-21-2022 10:57-0400 Diastolic blood pressure 80 mm[Hg] Dr. Christian Roa Work Phone: [facility] Work Phone: 04-21-2022 10:57-0400 Systolic blood pressure 110 mm[Hg] Dr. Christian Roa Work Phone: [facility] Work Phone: 03-25-2022 15:04-0400 Body mass index (BMI) [Ratio] 24 kg/m2 Dr. Christian Roa Work Phone: [facility] Work Phone: 03-25-2022 15:04-0400 Body weight 63.[address] Christian Roa Work Phone: [facility] Work Phone: 02-26-2022 14:33-0400 Body mass index (BMI) [Ratio] 23.6 kg/m2 Dr. Christian Roa Work Phone: [facility] Work Phone: 02-26-2022 14:33-0400 Diastolic blood pressure 62 mm[Hg] Dr. Christian Roa Work Phone: [facility] Work Phone: 02-26-2022 14:33-0400 Systolic blood pressure 120 mm[Hg] Dr. Christian Roa Work Phone: [facility] Work Phone: 02-26-2022 14:33-0400 Body mass index (BMI) [Ratio] 23.6 kg/m2 Dr. Christian Roa Work Phone: [facility] Work Phone: 02-26-2022 14:33-0400 Diastolic blood pressure 62 mm[Hg] Dr. Christian Roa Work Phone: [facility] Work Phone: 02-26-2022 14:33-0400 Systolic blood pressure 120 mm[Hg] Dr. Christian Roa Work Phone: [facility] Work Phone: 02-26-2022 14:02-0400 Body weight 62.[address] Christian Roa Work Phone: [facility] Work Phone: 02-26-2022 14:02-0400 Body height 162.[address] Christian Roa Work Phone: [facility] Work Phone: 02-26-2022 14:02-0400 Body weight 62.[address] Christian Roa Work Phone: [facility] Work Phone: 01-27-2022 16:25-0400 Body mass index (BMI) [Ratio] 23.6 kg/m2 Dr. Christian Roa Work Phone: [facility] Work Phone: 01-27-2022 16:25-0400 Body weight 62.[address] Christian Roa Work Phone: [facility] Work Phone: 01-27-2022 16:25-0400 Diastolic blood pressure 80 mm[Hg] Dr. Christian Roa Work Phone: [facility] Work Phone: 01-27-2022 16:25-0400 Systolic blood pressure 120 mm[Hg] Dr. Christian Roa Work Phone: [facility] Work Phone: 01-27-2022 16:25-0400 Body height 162.[address] Christian Roa Work Phone: [facility] Work Phone: 01-27-2022 16:25-0400 Body mass index (BMI) [Ratio] 23.6 kg/m2 Dr. Christian Roa Work Phone: [facility] Work Phone: 01-27-2022 16:25-0400 Body weight 62.[address] Christian Roa Work Phone: [facility] Work Phone: 01-27-2022 16:25-0400 Diastolic blood pressure 80 mm[Hg] Dr. Christian Roa Work Phone: [facility] Work Phone: 01-27-2022 16:25-0400 Systolic blood pressure 120 mm[Hg] Dr. Christian Roa Work Phone: [facility] Work Phone: 01-21-2022 09:30-0400 Body mass index (BMI) [Ratio] 23.5 kg/m2 Dr. Christian Roa Work Phone: [facility] Work Phone: 01-21-2022 09:30-0400 Body weight 62.[address] Christian Roa Work Phone: [facility] Work Phone: 01-21-2022 09:30-0400 Diastolic blood pressure 80 mm[Hg] Dr. Christian Roa Work Phone: [facility] Work Phone: 01-21-2022 09:30-0400 Systolic blood pressure 104 mm[Hg] Dr. Christian Roa Work Phone: [facility] Work Phone: 01-06-2022 08:15-0500 Body mass index (BMI) [Ratio] 24 kg/m2 Dr. Christian Roa Work Phone: [facility] Work Phone: 01-06-2022 08:15-0500 Body weight 63.[address] Christian Roa Work Phone: [facility] Work Phone: 01-06-2022 08:15-0500 Diastolic blood pressure 80 mm[Hg] Dr. Christian Roa Work Phone: [facility] Work Phone: 01-06-2022 08:15-0500 Systolic blood pressure 124 mm[Hg] Dr. Christian Roa Work Phone: [facility] Work Phone: 11-19-2021 08:52-0500 Body mass index (BMI) [Ratio] 23.3 kg/m2 Dr. Christian Roa Work Phone: [facility] Work Phone: 11-19-2021 08:52-0500 Body weight 61.[address] Christian Roa Work Phone: [facility] Work Phone: 11-19-2021 08:52-0500 Diastolic blood pressure 70 mm[Hg] Dr. Christian Roa Work Phone: [facility] Work Phone: 11-19-2021 08:52-0500 Systolic blood pressure 114 mm[Hg] Dr. Christian Roa Work Phone: [facility] Work Phone: 06-02-2017 16:25-0400 BMI (Body Mass Index) 20.66 kg/m2 Laura Palafox LPN [facility] Work Phone: 06-02-2017 16:25-0400 Body Temperature 98.5 [degF] Laura Palafox [facility] Work Phone: 06-02-2017 16:25-0400 BP Diastolic 78 mm[Hg] Laura Palafox LPN [facility] Work Phone: 06-02-2017 16:25-0400 BP Systolic 130 mm[Hg] Laura Palafox LPN [facility] Work Phone: 06-02-2017 16:25-0400 Height 162.56 cm Laura Palafox LPN [facility] Work Phone: 06-02-2017 16:25-0400 Pulse (Heart Rate) 75 /min Laura Palafox LPN [facility] Work Phone: 06-02-2017 16:25-0400 Respiratory Rate 12 /min Laura Palafox LPN [facility] Work Phone: 06-02-2017 16:25-0400 Weight 54.61 kg Laura Palafox LPN [facility] Work Phone: Encounters Encounter Date Encounter Type Care Provider Facility Start: 05-01-2025 End: 05-01-2025 Patient encounter procedure Karo RIVERA -[facility] Work Phone: Start: 05-01-2025 End: 05-01-2025 Patient encounter status Karo RIVERA [facility] Start: 05-01-2025 End: 05-01-2025 ambulatory Christian Roa Facility:[facility] Start: 10-26-2024 End: 10-26-2024 ambulatory Christian Roa Facility:[facility] Start: 09-26-2024 End: 09-26-2024 ambulatory Faviola Barahona DONALD Facility:[facility] Start: 09-05-2024 End: 09-05-2024 ambulatory Christian Roa Facility:[facility] Start: 06-25-2024 End: 06-25-2024 ambulatory Christian Roa Facility:[facility] Start: 06-25-2024 End: 06-25-2024 ambulatory Christian Roa Facility:[facility] Start: 08-03-2022 End: 08-03-[address] Christian Roa Work Phone: [facility] Start: 08-02-2022 End: 08-02-[address] Christian Roa Work Phone: [facility] Work Phone: Start: 08-02-2022 End: 08-02-[address] Christian Roa Work Phone: [facility]-Ultrasound, [facility] Start: 07-28-2022 End: 07-28-[address] Christian Roa Work Phone: [facility] Work Phone: Start: 07-28-2022 End: 07-28-[address] Christian Roa Work Phone: [facility]-Laboratory, Specimen Start: 07-28-2022 End: 07-28-[address] Christian Roa Work Phone: [facility] Start: 07-12-2022 End: 07-12-[address] Christian Roa Work Phone: [facility] Start: 06-28-2022 End: 06-28-[address] Christian Roa Work Phone: [facility] Start: 06-14-2022 End: 06-14-[address] Christian Roa Work Phone: [facility] Start: 06-02-2022 End: 06-02-[address] Christian Roa Work Phone: [facility] Start: 05-20-2022 End: 05-20-[address] Christian Roa Work Phone: [facility] Start: 04-21-2022 End: 04-21-[address] Christian Roa Work Phone: [facility] Start: 03-25-2022 End: 03-25-[address] Christian Roa Work Phone: [facility] Start: 02-26-2022 End: 02-26-[address] Christian Roa Work Phone: [facility] Start: 01-27-2022 End: 01-27-[address] Christian Roa Work Phone: [facility] Start: 01-21-2022 End: 01-21-[address] Christian Roa Work Phone: [facility]-Laboratory, Specimen Start: 01-11-2022 Non-patient / Non-visit Dr. Shayne Roa Work Phone: [facility] Start: 01-06-2022 End: 01-06-[address] Christian Roa Work Phone: [facility]Ultrasound, [facility] Start: 01-06-2022 End: 01-06-[address] Christian Roa Work Phone: [facility] Start: 11-19-2021 End: 11-19-[address] Christian Roa Work Phone: [facility]-Laboratory, Specimen Start: 11-19-2021 End: 11-19-[address] Christian Roa Work Phone: [facility] Start: 11-17-2021 End: 11-17-[address] Christian Roa Work Phone: [facility] Start: 04-27-2017 End: 04-28-2017 Ambulatory JANETTE (IT GENERALIST) [facility] Blank Procedures Date Procedure Procedure Detail Performing Clinician Start: 08-02-2022 Ultrasound scan for growth Dr. Christian Roa Work Phone: Start: 01-27-[address] Christian Roa Work Phone: Start: 01-21-[address] Christian Roa Work Phone: Start: 01-06-[address] Shayne Roa Work Phone: Start: 01-06-[address] Christian Roa Work Phone: Start: 11-19-2021 Cytopathology proced ure, preparation of smear, genital source Dr. Christian Roa Work Phone: Start: 11-19-2021 Investigation of transfusion reaction Dr. Christian Roa Work Phone: Group B Streptococcu s Culture Dr. Christian Roa Work Phone: Urine culture Dr. Christian Muro en Work Phone: Plan of Treatment Date Care Activity Detail Author Start: 01-27-2022 Bacteria identified in Urine by Culture Urine Culture [facility] Work Phone: Start: 06-02-2017 End: 06-02-2017 Appointment Appointment [facility] Work Phone: Liquid based cervica l cytology screening [facility] MG Breast - bilatera l Screening [facility] Ultrasound scan for growth [facility] Work Phone: [facility] Work Phone: Immunizations Immunization Date Immunization Notes Care Provider Fa alin 06-28-2022 tetanus toxoid, redu philippe diphtheria toxoid, and acellular pertussis vaccine, adsorbed Dr. Christian Roa Work Phone: [facility] 07-01-2021 HPV, unspecified formulation Dr. Christian Roa Work Phone: [facility] Work Phone: 01-15-2021 Covid (Pfizer) Dr. Christian petit MD Work Phone: [facility] 12-25-2020 Covid (Pfizer) Dr. Christian petit MD Work Phone: [facility] 04-13-2020 tetanus toxoid, redu philippe diphtheria toxoid, and acellular pertussis vaccine, adsorbed Dr. Christian Roa Work Phone: [facility] Payers Date Payer Category Payer Self-pay [id number] 2024 Unknown [id number] [id number] Unknown [id number] Unknown [id number] [id number] Unknown [id number] Unknown [id number] Unknown [id number] Social History Date Type Detail Facility Start: 01-27-2022 End: 08-03-2022 Tobacco smoking status NHIS Unknown if ever smoked [facility] Work Phone: Start: 1985 Sex Assigned At Female W [facility] Start: 09-07-2022 Tobacco smoking stat us NHIS Never smoked tobacco (finding) [facility] Clinical Note 01-21-2022 Note Date & Type Note Facility 01-21-2022 Note [facility] Work Phone: Pap Smear Specimen Adequacy January 21, 2022 2:28pm Comment Satisfactory for evaluation. Endocervical and/or squamous metaplasticcells (endocervical component) are present. Comment on above: Satisfactory for beronica luation. Endocervical and/or squamous metaplasticcells (endocervical component) are present. Evaluation note Note Date & Type Note Facility Evaluation note Diagnosis Onset Date Advanced maternal age in acute ASCUS with positive high risk HPV cervical acute ROHAN I (cervical intraepithelial neoplasia I) acute Dysthymia acute acute Subchorionic hematoma acute Supervision of high risk pre gnancy, antepartum acute Advanced maternal age in acute ASCUS with positive high risk HPV cervical acute ROHAN I (cervical intraepithelial neoplasia I) acute Dysthymia acute acute Subchorionic hematoma acute Supervision of high risk pre gnancy, antepartum acute [facility] Work Phone: Evaluation note Note Date & Type Note Facility Evaluation note Diagnosis Onset Date Advanced maternal age in acute ASCUS with positive high risk HPV cervical acute ROHAN I (cervical intraepithelial neoplasia I) acute Dysthymia acute acute Subchorionic hematoma acute Supervision of high risk pre gnancy, antepartum acute Advanced maternal age in acute ASCUS with positive high risk HPV cervical acute ROHAN I (cervical intraepithelial neoplasia I) acute Dysthymia acute acute Subchorionic hematoma acute Supervision of high risk pre gnancy, antepartum acute Advanced maternal age in acute ASCUS with positive high risk HPV cervical acute ROHAN I (cervical intraepithelial neoplasia I) acute Dysthymia acute Family history of congenital heart defect acute acute Subchorionic hematoma acute Supervision of high risk pre gnancy, antepartum acute [facility] Work Phone: Evaluation note Note Date & Type Note Facility Evaluation note Diagnosis Onset Date Advanced maternal age in acute ASCUS with positive high risk HPV cervical acute ROHAN I (cervical intraepithelial neoplasia I) acute Dysthymia acute acute Subchorionic hematoma acute Supervision of high risk pre gnancy, antepartum acute Advanced maternal age in acute ASCUS with positive high risk HPV cervical acute ROHAN I (cervical intraepithelial neoplasia I) acute Dysthymia acute Family history of congenital heart defect acute acute Subchorionic hematoma acute Supervision of high risk pre gnancy, antepartum acute Advanced maternal age in acute ASCUS with positive high risk HPV cervical acute ROHAN I (cervical intraepithelial neoplasia I) acute Dysthymia acute Family history of congenital heart defect acute acute Subchorionic hematoma acute Supervision of high risk pre gnancy, antepartum acute Advanced maternal age in acute ASCUS with positive high risk HPV cervical acute ROHAN I (cervical intraepithelial neoplasia I) acute Dysthymia acute Family history of congenital heart defect acute acute Subchorionic hematoma acute Supervision of high risk pre gnancy, antepartum acute Advanced maternal age in acute ASCUS with positive high risk HPV cervical acute ROHAN I (cervical intraepithelial neoplasia I) acute Dysthymia acute Family history of congenital heart defect acute acute Subchorionic hematoma acute Supervision of high risk pre gnancy, antepartum acute [facility] Work Phone: Evaluation note Note Date & Type Note Facility Evaluation note Diagnosis Onset Date Advanced maternal age in acute ROHAN I (cervical intraepithelial neoplasia I) acute Dysthymia acute Family history of congenital heart defect acute acute Supervision of high risk pre gnancy, antepartum acute ASCUS with positive high risk HPV cervical resolved Subchorionic hematoma resolv ed Advanced maternal age in acute ROHAN I (cervical intraepithelial neoplasia I) acute Dysthymia acute Family history of congenital heart defect acute acute Supervision of high risk pre gnancy, antepartum acute ASCUS with positive high risk HPV cervical resolved Subchorionic hematoma resolv ed Advanced maternal age in acute ROHAN I (cervical intraepithelial neoplasia I) acute Dysthymia acute Family history of congenital heart defect acute acute Supervision of high risk pre gnancy, antepartum acute ASCUS with positive high risk HPV cervical resolved Subchorionic hematoma resolv ed Advanced maternal age in acute ROHAN I (cervical intraepithelial neoplasia I) acute Dysthymia acute Family history of congenital heart defect acute acute Supervision of high risk pre gnancy, antepartum acute Advanced maternal age in acute ROHAN I (cervical intraepithelial neoplasia I) acute Dysthymia acute Family history of congenital heart defect acute acute Supervision of high risk pre gnancy, antepartum acute Advanced maternal age in acute ROHAN I (cervical intraepithelial neoplasia I) acute Dysthymia acute Family history of congenital heart defect acute acute Supervision of high risk pre gnancy, antepartum acute Advanced maternal age in acute ROHAN I (cervical intraepithelial neoplasia I) acute Dysthymia acute Family history of congenital heart defect acute acute Supervision of high risk pre gnancy, antepartum acute [facility] Work Phone: Evaluation note Note Date & Type Note Facility Evaluation note Diagnosis Onset Date Advanced maternal age in acute ROHAN I (cervical intraepithelial neoplasia I) acute Dysthymia acute Family history of congenital heart defect acute acute Supervision of high risk pre gnancy, antepartum acute ASCUS with positive high risk HPV cervical resolved Subchorionic hematoma resolv ed Advanced maternal age in acute ROHAN I (cervical intraepithelial neoplasia I) acute Dysthymia acute Family history of congenital heart defect acute acute Supervision of high risk pre gnancy, antepartum acute ASCUS with positive high risk HPV cervical resolved Subchorionic hematoma resolv ed Advanced maternal age in acute ROHAN I (cervical intraepithelial neoplasia I) acute Dysthymia acute Family history of congenital heart defect acute acute Supervision of high risk pre gnancy, antepartum acute ASCUS with positive high risk HPV cervical resolved Subchorionic hematoma resolv ed Advanced maternal age in acute ROHAN I (cervical intraepithelial neoplasia I) acute Dysthymia acute Family history of congenital heart defect acute acute Supervision of high risk pre gnancy, antepartum acute Advanced maternal age in acute ROHAN I (cervical intraepithelial neoplasia I) acute Dysthymia acute Family history of congenital heart defect acute acute Supervision of high risk pre gnancy, antepartum acute Advanced maternal age in acute ROHAN I (cervical intraepithelial neoplasia I) acute Dysthymia acute Family history of congenital heart defect acute acute Supervision of high risk pre gnancy, antepartum acute Advanced maternal age in acute ROHAN I (cervical intraepithelial neoplasia I) acute Dysthymia acute Family history of congenital heart defect acute acute Supervision of high risk pre gnancy, antepartum acute Advanced maternal age in acute ROHAN I (cervical intraepithelial neoplasia I) acute Dysthymia acute Family history of congenital heart defect acute acute Supervision of high risk pre gnancy, antepartum acute [facility] Work Phone: Evaluation note Note Date & Type Note Facility Evaluation note Diagnosis Onset Date Resolution Encounter for routine gynecological examination noneactive May 01, 2025 9:18am [facility] Work Phone: Hospital Discharge instructions Note Date & Type Note Facility Hospital Discharge instructions Ambulatory OrdersPhysical Therapy Referral Location: None Selected [facility] Work Phone: Summary Purpose Family History Relationship Condition Age at Onset Recorded Date/[place] grandmother Diabetes mellitus Unknown Cerebrovascular accident (CVA) Unknown Malignant neoplasm of breast Unknown grandfather Myocardial infarction Unknown aunt Malignant neoplasm of ovary Unknown Malignant neoplasm of skin Unknown father Diabetes mellitus Unknown Advance Directives Advance Directive Response Recorded Date/ Time Living Will No April 13, 2020 4:50pm Power of Assembler For Puller Over Machine No April 13 0 4:50pm Chief Complaint and Reason for Visit Chief Complaint STD screening dysuria, lower back pain R/O KIDNEY STONE Amb Documentation NOB LMP 11/23/21 est ob f/u u/s per SM ALSO E ORDERS Reason for Visit Advanced maternal ag e in ASCUS with positive high risk HPV cervical ROHAN I (cervical intraepithelial neoplasia I) Dysthymia Subchorionic hematoma Supervision of high risk , antepartum Advanced maternal age in ASCUS with positive high risk HPV cervical ROHAN I (cervical intraepithelial neoplasia I) Dysthymia Subchorionic hematoma Supervision of high risk , antepartum Chief Complaint STD screening dysuria, lower back pain R/O KIDNEY STONE Amb Documentation NOB LMP 11/23/21 est ob f/u u/s per SM ALSO E ORDERS OB E [id number] Reason for Visit Advanced maternal ag e in ASCUS with positive high risk HPV cervical ROHAN I (cervical intraepithelial neoplasia I) Dysthymia Subchorionic hematoma Supervision of high risk , antepartum Advanced maternal age in ASCUS with positive high risk HPV cervical ROHAN I (cervical intraepithelial neoplasia I) Dysthymia Subchorionic hematoma Supervision of high risk , antepartum Advanced maternal age in ASCUS with positive high risk HPV cervical ROHAN I (cervical intraepithelial neoplasia I) Dysthymia Family history of congenital heart defect Subchorionic hematoma Supervision of high risk , antepartum Chief Complaint est ob f/u u/s per S M ALSO E ORDERS OB E [id number] 18WK OB / COLPOSCOPY 22 WK OB 26 WK OB Reason for Visit Advanced maternal ag e in ASCUS with positive high risk HPV cervical ROHAN I (cervical intraepithelial neoplasia I) Dysthymia Subchorionic hematoma Supervision of high risk , antepartum Advanced maternal age in ASCUS with positive high risk HPV cervical ROHAN I (cervical intraepithelial neoplasia I) Dysthymia Family history of congenital heart defect Subchorionic hematoma Supervision of high risk , antepartum Advanced maternal age in ASCUS with positive high risk HPV cervical ROHAN I (cervical intraepithelial neoplasia I) Dysthymia Family history of congenital heart defect Subchorionic hematoma Supervision of high risk , antepartum Advanced maternal age in ASCUS with positive high risk HPV cervical ROHAN I (cervical intraepithelial neoplasia I) Dysthymia Family history of congenital heart defect Subchorionic hematoma Supervision of high risk , antepartum Advanced maternal age in ASCUS with positive high risk HPV cervical ROHAN I (cervical intraepithelial neoplasia I) Dysthymia Family history of congenital heart defect Subchorionic hematoma Supervision of high risk , antepartum Chief Complaint 22 WK OB 26 WK OB 28 WK OB 30 WK OB 32 WK OB 34 WK OB 36 WK OB Reason for Visit Advanced maternal ag e in ROHAN I (cervical intraepithelial neoplasia I) Dysthymia Family history of congenital heart defect Supervision of high risk , antepartum ASCUS with positive high risk HPV cervical Subchorionic hematoma Advanced maternal age in ROHAN I (cervical intraepithelial neoplasia I) Dysthymia Family history of congenital heart defect Supervision of high risk , antepartum ASCUS with positive high risk HPV cervical Subchorionic hematoma Advanced maternal age in ROHAN I (cervical intraepithelial neoplasia I) Dysthymia Family history of congenital heart defect Supervision of high risk , antepartum ASCUS with positive high risk HPV cervical Subchorionic hematoma Advanced maternal age in ROHAN I (cervical intraepithelial neoplasia I) Dysthymia Family history of congenital heart defect Supervision of high risk , antepartum Advanced maternal age in ROHAN I (cervical intraepithelial neoplasia I) Dysthymia Family history of congenital heart defect Supervision of high risk , antepartum Advanced maternal age in ROHAN I (cervical intraepithelial neoplasia I) Dysthymia Family history of congenital heart defect Supervision of high risk , antepartum Advanced maternal age in ROHAN I (cervical intraepithelial neoplasia I) Dysthymia Family history of congenital heart defect Supervision of high risk , antepartum Chief Complaint 22 WK OB 26 WK OB 28 WK OB 30 WK OB 32 WK OB 34 WK OB 36 WK OB GROWTH 37 WK OB Reason for Visit Advanced maternal ag e in ROHNA I (cervical intraepithelial neoplasia I) Dysthymia Family history of congenital heart defect Supervision of high risk , antepartum ASCUS with positive high risk HPV cervical Subchorionic hematoma Advanced maternal age in [place]OH[place] I (cervical intraepithelial neoplasia I) Dysthymia Family history of congenital heart defect Supervision of high risk , antepartum ASCUS with positive high risk HPV cervical Subchorionic hematoma Advanced maternal age in [place] I (cervical intraepithelial neoplasia I) Dysthymia Family history of congenital heart defect Supervision of high risk , antepartum ASCUS with positive high risk HPV cervical Subchorionic hematoma Advanced maternal age in [place] I (cervical intraepithelial neoplasia I) Dysthymia Family history of congenital heart defect Supervision of high risk , antepartum Advanced maternal age in [place] I (cervical intraepithelial neoplasia I) Dysthymia Family history of congenital heart defect Supervision of high risk , antepartum Advanced maternal age in [place] I (cervical intraepithelial neoplasia I) Dysthymia Family history of congenital heart defect Supervision of high risk , antepartum Advanced maternal age in [place] I (cervical intraepithelial neoplasia I) Dysthymia Family history of congenital heart defect Supervision of high risk , antepartum Advanced maternal age in [place] I (cervical intraepithelial neoplasia I) Dysthymia Family history of congenital heart defect Supervision of high risk , antepartum Chief Complaint Admit Date 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) May 01, 2025 9:18a m Reason for Visit Admit Date Encounter for routine gynecological exam ination May 01, 2025 9:18am Additional Source Comments INFORMATION SOURCE (unrecogn ized section and content) DATE CREATED AUTHOR 04/26/2018 [facility] DATE CREATED AUTHOR AUTHOR'S ORGANIZ ATION 04/25/2025 [facility] Goals (unrecognized section and content) Goals may be documented in a n alternate sectionGoals may be documented in an alternate sectionGoals may be documented in an alternate sectionGoals may be documented in an alternate sectionGoals may be documented in an alternate sectionGoals may be documented in an alternate section Care Teams (unrecognized sec tion and content) Team Status: Active Member Role/Relationship Status Dates Dr. Christian Roa MD Family Provider Active Dr. Christian Roa MD Primary Care Provider Active Team Status: Inactive Member Role/Relationship Status Dates Dr. Christian Roa MD Primary Care Provider Active Start: May 01, 2025 End: May 01, 2025 Dr. Christian Roa MD Referring Provider Active Start: May 01, 2025 End: May 01, 2025 MIGUEL Murguia Attending Provider Active Start: May 01, 2025 End: May 01, 2025 FOR RECORDS PERTAINING TO PATIENTS WHO ARE OR HAVE BEEN ENROLLED IN A CHEMICAL DEPENDENCY/SUBSTANCEABUSE PROGRAM, SOME INFORMATION MAY BE OMITTED. This clinical summary was aggregated from multiple sources. Caution should be exercised in using it in the provision of clinical care. This summary normalizes information from multiple sources, and as a consequence, information in this document may materially change the coding, format and clinical context of patient data. In addition, data may be omitted in some cases. CLINICAL DECISIONS SHOULD BE BASED ON THE PRIMARY CLINICAL RECORDS. [facility] [employer], [facility]. provides no warranty or guarantee of the accuracy or completeness of information in this document.
--- OUTSIDE RECORDS SUMMARY | 2025-05-01 21:33 | XMS RPT_ITS | CCD ---
Author Organization [facility] CliniSyak Care Team Providers Care Water Resource Engineer Name Role Phone Laura Palafox LPN Unavailable Unavailab le Laura Palafox LPN Unavailable Unavailab le MISSAEL JANETTE (TYPE INSPECTOR) Unavailable Unavailable Janina, Dr. Gonzales Primary Care Provider Janina, Dr. Gonzales Referring Provider Dr. Janet Gallagher Attending Provider [phone] [place] BENNETT, MIGUEL Salmeron Attending Provider [phone] Dr. Sparkle Santiago Attending Provider [phone] Janina, Dr. Gonzales Primary Care Provider Janina, Dr. Gonzales Referring Provider Dr. Janet Gallagher Attending Provider [phone] Dr. Sparkle Santiago Attending Provider [phone] Janina, Dr. Gonzales Primary Care Provider [phone] Janina, Dr. Gonzales Referring Provider Dr. Janet Gallagher Attending Provider [phone] Dr. Sparkle Santiago Attending Provider [phone] Christian Roa Referring Unavailable Karo Heath Attending [...] Attending Unavailable RoaChristian ann Referring Unavailable Brooklyn CONTACT LENS CURVE GRINDER, Faviola Referring Unavailable [place] BENNETT, Faviola Attending Unavailable Christian Roa Primary Care Unavailable Janina GILMORE, Dr. Gonzales Primary Care Provider [phone] Dr. Christian Roa MD Referring Provider [phone] Kumar CONTACT LENS CURVE GRINDER-C, Karo Attending Provider Allergies Allergy Classification Reported Allergen(s) Allergy Type Date of Onset Reaction(s) Facility (2 sources) ceftriaxone drug allergy 7 [facility] Work Phone: (8 sources) ceftriaxone; Translations: [CEFTRIAXONE] Drug Allergy 6 AOF, hives [facility] Repository (1 source) Latex; Translations: [LATEX] Propensity to adverse reactions to drug (disorder) 9 [facility] Repository (7 sources) natural latex rubber; Translations: [Latex, Natural Rubber] Propensity to adverse reactions 2 itching/irritat ion [facility] Repository Medications Current Medications Medication Drug Class(es) Dates Sig (Normalized) Sig (Original) ALPRAZolam 0.25 mg oral tablet (1 source) Benzodiazepine Start: 09-07-2022 take 1 tablet by mouth at bedtime as needed for anxiety Alprazolam (Xanax) 0.25 mg tablet Active 0.25 mg PO AT BEDTIME as needed for anxiety 20 0 September 07, 2022 1:00am Anxiety Anxiety disorder, unspecified Alder 8-Nbt-Lob-Fish Oil (1 source) Start: 10-26-2024 Alder 6-Gqa-Ekv-Fish Oil (Fish Oil) 300-1,000 mg capsule Active 1 NMA PO daily October 26, 2024 1:00am lysine 1000 mg oral tablet (1 source) Start: 10-26-2024 take 1 tablet by mouth once daily Lysine 1,000 mg tablet Active 1000 mg PO daily October 26, 2024 1:00am Blyxhpkz-Xlq-Zlfk Fum-Folic Ac (One Daily Women's) 18 mg iron- 400 mcg tablet (1 source) Start: 05-01-2025 Flsuyivm-Xon-Jyrn Fum-Folic Ac (One Daily Women's) 18 mg iron- 400 mcg tablet Active {tbl} PO May 01, 2025 12:00am Prenat.Vits,Efra,Mi k-Vaiq-Hrzte (5 sources) Start: 01-11-2022 take 1 tablet by mouth once daily Prenat.Vits,Efra,Min -Iron-Folic Active 1 TABLET PO DAILY January 11, 2022 4:14pm Start: 01-11-2022 take 1 tablet by laurent th once daily Prenat.Vits,Efra,Jkg-Jees-Hzghk Active 1 TABLET PO DAILY January 11, [...] 29, 2019 3:17pm 168 hr ethinyl estradiol 0.70015 mg/hr / norelgestromin 0.13330 mg/hr transdermal system (18 sources) Progestin, Estrogen [...] 11:32am start day 1 of menstrual cycle Alder-3 Fatty Acids (5 sources) Start: 06-23-2018 End: 11-08-2018 take 1000 mg by mouth once daily Alder-3 Fatty Acids Discontinued 1000 MG PO DAILY June 23, 2018 3:02pm November 08, 2018 11:08am Start: 06-23-2018 End: 11-08-2018 take 1000 mg by mouth once daily Alder-3 Fatty Acids Discontinued 1000 MG PO DAILY June 23, 2018 12:00am November 08, 2018 11:08am Alder-3 Fatty Acids 1,000 mg capsule (1 source) Start: 06-23-2018 End: 11-08-2018 take 1 capsule by mouth once daily Alder-3 Fatty Acids 1,000 mg capsule Discontinued 1000 [...] (1 source) Start: 01-11-2022 End: 05-01-2025 Prenat.Vits,Efra,Mi q-Vsdk-Lueuo tablet Discontinued 1 {tbl} PO DAILY January [...] of cervix (ASC-US)] Episodic Comment on above: [place] 2020 negative. Pap in 2021 Mood disorders [...] 2020 neg pap and HPV. LGSIL HPV+ 2021-[place] neededrepeat pap post Other female genital disorders [...] Reporton 1 12-27-2023 Urgent Care Visit Report [facility] [address], [address] [place] [address] OFFICE VISIT Date of Service: 10/26/24 MR#: [id number] Acct: [id number] Name: SULTANA NAVARRETE Rep #: [id number] : 1985 Provider: MIGUEL silverman Age/Sex: 39/F Location[place] [facility] [place] Status: Signed Intake Vital Signs 09/05/24 15:10 [...] chest congest, cough, fatigue, LEMUS, BA, ST Manufacturing Production Technician Required: No Is patient in pain?: No [...] mg PO QDAY 10/26/24 10/26/24 History omega 0-fyh-zsm-fish oil 300 1 cap PO QDAY 10/26/24 [...] 2 days after flying for the holidays. 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 Normal [facility] DIAG MAMM W/CAD, BILATogenia DIAG MAMM W/CAD, BILAT [facility] [address] [place] [address] DIAG MAMM W/CAD, BILAT MR#: [id number] Acct: [id number] Name: SULTANA NAVARRETE Rep #: [id number] : 1985 F 39 From: Maciel Lopez MD PCP: Dr. Christian Roa MD Status: [facility] Study: DIAG MAMM W/CAD, BILAT Date of Exam: 09/26/24 Exam# [id number] Ordering Dr: Faviola Barahona CONTACT LENS CURVE GRINDER CONTACT LENS CURVE GRINDER -C [id number] MAMMOGRAPHY - BILATERAL DIAGNOSTIC REASON FOR EXAM: [...] CC: MIGUEL Barahona; Dr. Christian Roa MD Applications Analyst: Signed Normal [facility] X Ray Tech Office Visit Reporton 09-05-2024 X Ray Tech Office Visit Report [facility] [address], [address] [place] [address] OFFICE VISIT Date of Service: 09/05/24 MR#: [id number] Acct: [id number] Name: SULTANA NAVARRETE Rep #: [id number] : 1985 Provider: MIGUEL luna Age/Sex: 39/F [place] [facility] [place]: Signed Intake Vital Signs 06/25/24 10:44 09/05/24 15:09 09/05/24 15:10 Height 5 ft 4 in 5 ft 4 in 5 ft 4 in Weight: 143 lb BMI 24.5 BP 107/71 Intake Visit Reasons: left breast pain Manufacturing Production Technician Required: No Is patient in pain?: No [...] of ankle surgery S/P lumpectomy, left breast Catherine teeth extracted Family History Grandmother Diabetes CVA [...] home: Yes 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 09/05/24 1528 Date Faviola [place] CONTACT LENS CURVE GRINDER CONTACT LENS CURVE GRINDER-C Cosigner Signature: Date (if applicable) CC: Normal [facility] X Ray Tech Office Visit Reporton 06-25-2024 X Ray Tech Office Visit Report [facility] [address], [address] [place] [address] OFFICE VISIT Date of Service: 06/25/24 MR#: [id number] Acct: [id number] Name: SULTANA NAVARRETE Rep #: [id number] : 1985 Provider: Dr. 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 Date Name GA/Weeks Outcome Route Bth Weight Infant Gen Labor Lgth Anesthesia Del Locatn Provider FOB 05/23/14 Ned 40 live - full term 7 lbs 14 oz Male 48 hours ep idural [facility] 08/27/22 Ezlyn 40 live - full term 7lbs 7oz Female [facility] Laura guillen Delivery Date: 05/23/14 Last Updated by: Naz Alonzo No issues during or delivery. Delivery Date: 08/27/22 Last Updated by: Elizabeth Rivera IOL oligo SM HPI [place] Details: SULTANA NAVARRETE is a 39 year [...] Performing Provider: Janet Gallagher DO Performing Location: [facility] (more content not included)... Normal [facility] Surgery Specimen Level Bceca 06-25-2024 Surgery Specimen Level IV Patient Age/Sex Location Account Attending Physician SULTANA NAVARRETE 39/F [facility] [id number] Dr. Janet Gallagher, Kaz Specimen: [id number] Received: 06/25/24 Status: DALTON Reyes Num: [id number] Spec Type: CERV Subm Dr: Dr. Janet Gallagher, THIS IS A CORRECTED REPORT 06/28/241141 HEADER OPERATION: Colposcopy PRE-OP DIAGNOSIS: HPV+ TISSUE SUBMITTED: A- 7o'clock cervix, B- ECC MICROSCOPIC DIAGNOSIS A. Cervix, 7o'clock, biopsy: Changes suspicious for with HPV cytopathic effect. Chronic inflammation. See comment. B. Endocervix, curettings: Scant strips of benign superficial endocervix. No evidence of dysplasia. AM/mr 06/27/2024 COMMENT A. Immunohistochemistry ([id number]) for surrogate HPV marker (p16) supports the [...] block preparation in one cassette. BERNADETTE/ 06/26/2024 [id number] Patient Age/Sex Location Account Attending Physician SULTANA NAVARRETE 39/F [facility] [id number] Kaz Meza Signed (signature on file) Dr. Orion Ortiz DO 06/28/24 1152 Normal [facility] Comment on above: Performed By: #### P SUIV #### [facility] [address] [place], [place], [address] p16 (initial)on 06-25-2024 p16 (initial) ---- Patient Age/Sex Location Account Attending Physician SULTANA NAVARRETE 39/F [facility] [id number] Kaz Meza Specimen: [id number] Received: 08/28/24-1206 Status: DALTON Reyes Num: [id number] Spec Type: IMMUNO Subm Dr: Dr. Janet Gallagher, DO [facility]YS[facility] INSTIT[facility] [address] [address] SPECIMEN INFORMATION: Tissue Source: A- 7o'clock Clinical Info: HPV+ Specimen Number: [id number] CPT code: 85264,86751 METHODOLOGY: Deparaffinized sections of prefer/formalin-fixed tissue or [...] developed and their performance characteristics determined by [facility]. They may not have been [...] Dr. Orion Ortiz, DO 06/28/24 1138 Normal [facility] Comment on above: Performed By: #### P P16 #### [facility] [address] [place] [address], [address] Laboratory - Chemistry and C hemistry - challengeon 07-28-2022 Glucose Ql (U) Negative [facility] Work Phone: Laboratory - Urinalysison Protein Ql (U) Negative [facility] Work Phone: Laboratory - Chemistry and C hemistry - challengeon 07-12-2022 Glucose Ql (U) Negative [facility] Work Phone: [phone] Laboratory - Urinalysison Protein Ql (U) Negative [facility] Work Phone: [phone] Laboratory - Chemistry and C hemistry - challengeon 06-28-2022 Glucose Ql (U) Negative [facility] Work Phone: Laboratory - Urinalysison Protein Ql (U) Negative [facility] Work Phone: Laboratory - Chemistry and C hemistry - challengeon 06-14-2022 Glucose Ql (U) Negative [facility] Work Phone: Laboratory - Urinalysison Protein Ql (U) Negative [facility] Work Phone: Laboratory - Chemistry and C hemistry - challengeon 06-02-2022 Glucose Ql (U) Negative [facility] Work Phone: Laboratory - Urinalysison Protein Ql (U) Negative [facility] Work Phone: Absolute lymphocyte counton 05-20-2022 Lymphocytes Auto (Unsp spec) [#/Vol] 2.80 10*3/uL 0.83-4.51 [facility] Work Phone: Basophil percentageon 2021 Basophils/100 WBC (Bld) 0.2 % 0-1 [facility] Work Phone: [phone] Eosinophils/100 WBC (Bld) 1.0 % 0-5 [facility] Work Phone: [phone] Neutrophils (Bld) [#/Vol] 6.4 10*3/uL 2.0-7.7 [facility] Work Phone: Neutrophils/100 WBC (Bld) 63.2 % 47-70 [facility] Work Phone: WBC (Bld) [#/Vol] 10.2 10*3/uL 4.4-11.0 [facility] Work Phone: Blood erythrocytes count (nu mber/volume)on 05-20-2022 RBC (Bld) [#/Vol] 4.01 10*6/uL 4.2-5.4 [facility] Work Phone: Blood hemoglobin measurement (mass/volume)on 05-20-2022 Hemoglobin (Bld) [Mass/Vol] 11.3 g/dL 12.0-15.0 [facility] Work Phone: Blood lymphocytes/100 leukoc yteson 05-20-2022 Lymphocytes/100 WBC (Bld) 27.6 % 19-41 [facility] Work Phone: Blood monocytes/100 leukocyt eson 05-20-2022 Monocytes/100 WBC (Bld) 6.9 % 0-10 [facility] Work Phone: Blood platelet mean volumeon 05-20-2022 Platelet mean volume (Bld) [Entitic vol] 9.6 fL 6.2-12.0 [facility] Work Phone: Determination of erythrocyte mean corpuscular volume (MCV)on 05-20-2022 MCV (RBC) [Entitic vol] 85.0 fL 81-99 [facility] Work Phone: Gestational diabetes screen 1-hour screen with 50g oral glucose loadon 05-20-2022 Glucose 1 Hr post 50 g glucose PO [Mass/Vol] 107 mg/dL 70-140 [facility] Work Phone: Hematocrit Auto (Bld) [Volum e fraction]on 05-20-2022 Hematocrit (Bld) [Volume fraction] 34.1 % 37-47 [facility] Work Phone: Laboratory - Chemistry and C hemistry - challengeon 05-20-2022 Glucose Ql (U) Negative [facility] Work Phone: Laboratory - Hematology and Cell countson 05-20-2022 Erythrocyte distribution width (RBC) [Entitic vol] 38.6 fL 35.1-43.9 [facility] Work Phone: Erythrocyte distribution width (RBC) [Ratio] 12.6 % 11.6-14.6 [facility] Work Phone: Immature granulocytes/100 WBC (Bld) 1.100 % 0.0-0.9 [facility] Work Phone: Comment on above: IG% - Immature Granu locytes (promyelocytes, myelocytes and metamyelocytes) > 1% indicates that a LEFT SHIFT is Present. MCH (RBC) [Entitic mass] 28.2 pg 27.0-32.0 [facility] Work Phone: Nucleated RBC/100 WBC (Bld) [Ratio] 0 % 0-5 [facility] Work Phone: Laboratory - Urinalysison Protein Ql (U) Negative [facility] Work Phone: MCHC Auto (RBC) [Mass/Vol]on 05-20-2022 MCHC (RBC) [Mass/Vol] 33.1 g/dL 32-36 [facility] Work Phone: Platelets bldon 05-20-2022 Platelets (Bld) [#/Vol] 170 10*3/uL 150-450 [facility] Work Phone: Laboratory - Chemistry and C hemistry - challengeon 04-21-2022 Glucose Ql (U) Negative [facility] Work Phone: Laboratory - Urinalysison Protein Ql (U) Negative [facility] Work Phone: Absolute lymphocyte counton 02-26-2022 Lymphocytes Auto (Unsp spec) [#/Vol] 2.59 10*3/uL 0.83-4.51 [facility] Work Phone: [phone] Basophil percentageon 2021 Basophils/100 WBC (Bld) 0.3 % 0-1 [facility] Work Phone: [phone] Eosinophils/100 WBC (Bld) 0.9 % 0-5 [facility] Work Phone: Neutrophils (Bld) [#/Vol] 7.0 10*3/uL 2.0-7.7 [facility] Work Phone: Neutrophils/100 WBC (Bld) 65.6 % 47-70 [facility] Work Phone: WBC (Bld) [#/Vol] 10.7 10*3/uL 4.4-11.0 [facility] Work Phone: Blood erythrocytes count (nu mber/volume)on 02-26-2022 RBC (Bld) [#/Vol] 4.39 10*6/uL 4.2-5.4 [facility] Work Phone: Blood hemoglobin measurement (mass/volume)on 02-26-2022 Hemoglobin (Bld) [Mass/Vol] 12.4 g/dL 12.0-15.0 [facility] Work Phone: Blood lymphocytes/100 leukoc yteson 02-26-2022 Lymphocytes/100 WBC (Bld) 24.3 % 19-41 [facility] Work Phone: Blood monocytes/100 leukocyt eson 02-26-2022 Monocytes/100 WBC (Bld) 8.2 % 0-10 [facility] Work Phone: Blood platelet mean volumeon 02-26-2022 Platelet mean volume (Bld) [Entitic vol] 10.1 fL 6.2-12.0 [facility] Work Phone: Determination of erythrocyte mean corpuscular volume (MCV)on 02-26-2022 MCV (RBC) [Entitic vol] 84.3 fL 81-99 [facility] Work Phone: HIV 1 and HIV-2 antibody ass ay with HIV-1 p24 antigen detectionon 02-26-2022 HIV 1+2 Ab+HIV1 p24 Ag IA Ql Non-Reactive Nonreactive [facility] Work Phone: Hematocrit Auto (Bld) [Volum e fraction]on 02-26-2022 Hematocrit (Bld) [Volume fraction] 37.0 % 37-47 [facility] Work Phone: Laboratory - Chemistry and C hemistry - challengeon 02-26-2022 Glucose Ql (U) Negative [facility] Work Phone: Laboratory - Hematology and Cell countson 02-26-2022 Erythrocyte distribution width (RBC) [Entitic vol] 40.8 fL 35.1-43.9 [facility] Work Phone: Erythrocyte distribution width (RBC) [Ratio] 13.2 % 11.6-14.6 [facility] Work Phone: Immature granulocytes/100 WBC (Bld) 0.700 % 0.0-0.9 [facility] Work Phone: Comment on above: IG% - Immature Granu locytes (promyelocytes, myelocytes and metamyelocytes) > 1% indicates that a LEFT SHIFT is Present. MCH (RBC) [Entitic mass] 28.2 pg 27.0-32.0 [facility] Work Phone: Nucleated RBC/100 WBC (Bld) [Ratio] 0 % 0-5 [facility] Work Phone: Laboratory - Urinalysison Protein Ql (U) Negative [facility] Work Phone: MCHC Auto (RBC) [Mass/Vol]on 02-26-2022 MCHC (RBC) [Mass/Vol] 33.5 g/dL 32-36 [facility] Work Phone: No Panel Informationon 02-26 Hepatitis B Surface Antigen Non-Reactive Nonreactive [facility] Work Phone: Hepatitis C Antibody Non-Reactive Nonreactive [facility] Work Phone: Comment on above: Non Reactive: < 0.8 Equivocal: >/= 0.8 to < 1.0 Reactive: >/= 1.0The CDC recommends that a reactive/equivocal HCV antibody result be followed up by the HCV Nucleic Acid Amplificationtest (515532) Rubella IgG Antibody Reactive Nonreactive [facility] Work Phone: Comment on above: Antibody Results Int erpretation of Immune Status Non Reactive Presumed Non-Immune Equivocal Equivocal Reactive Presumed Immune Platelets bldon 02-26-2022 Platelets (Bld) [#/Vol] 190 10*3/uL 150-450 [facility] Work Phone: Serum Treponema species anti body detectionon 02-26-2022 Treponema sp Ab Ql (S) Non-Reactive [facility] Work Phone: Culture, urineon 01-27-2022 Bacteria identified Cx Nom (U) Positive [facility] Work Phone: Laboratory - Chemistry and C hemistry - challengeon 01-27-2022 Bilirubin Ql (U) Negative [facility] Work Phone: Glucose Ql (U) Negative [facility] Work Phone: Ketones Ql (U) Negative [facility] Work Phone: pH (U) 5.0 [pH] [facility] Work Phone: Specific gravity (U) [Rel density] 1.005 [facility] Work Phone: Urobilinogen (U) [Mass/Vol] 0.9110497 mg/dL [facility] Work Phone: Laboratory - Hematology and Cell countson 01-27-2022 Hemoglobin Ql (U) Negative [facility] Work Phone: Laboratory - Specimen inform ationon 01-27-2022 Clarity (U) Clear [facility] Work Phone: Color (U) Yellow [facility] Work Phone: Laboratory - Urinalysison Nitrite Ql (U) Negative [facility] Work Phone: [phone] Protein Ql (U) Negative [facility] Work Phone: No Panel Informationon 01-27 Miscellaneous Test Comment MAILED SPECIMEN [facility] Work Phone: Urine Leukocytes Negatve [facility] Work Phone: Cervical or vagninal specime n microscopic examination by cytology stain (reported ason 01-21-2022 Cytology report Cyto stain Doc (Cvx/Vag) Comment [facility] Work Phone: Comment on above: The [...] rRNA LOYD+probe Ql (Unsp spec) Negative Negative [facility] Work Phone: Culture, urineon 01-21-2022 Bacteria identified Cx Nom (U) Culture exhibits no growth. [facility] Work Phone: Detection in cervical specim en of any of human papilloma virus (HPV) 16, 18, 31, 33,on 01-21-2022 HPV 16+18+31+33+35+39+45+ 51+52+56+58+59+66+68 DNA Probe+sig amp Ql (Cvx) Positive Negative [facility] Work Phone: Comment on above: This nucleic acid am plification test detects fourteen high- risk HPV types (16,18,31,33,35,39,45,51,52,56,58,59,66,68)without differentiation.Performed at: - [facility] [id number] Director: Jelly Barnett MD, Phone: [phone] at: = - [facility] [id number] Director: Jelly Barnett MD, Phone: [phone] Laboratory - Cytologyon 12-30 [employer] Cyto stain Nom (Cvx/Vag) [ID] Comment [facility] Work Phone: Comment on above: Emily Sarmiento, Cyto technologist (ASCP) Pathologist Cyto stain Nom (Cvx/Vag) [ID] Comment [facility] Work Phone: Comment on above: Jelly Barnett MD, Pathologist Recommended follow-up Cyto stain Nom (Cvx/Vag) Comment [facility] Work Phone: Comment on above: Suggest follow up as clinically appropriate. Laboratory - Drug toxicology on 01-21-2022 Amphetamines Ql (U) Negative [facility] Work Phone: Benzodiazepines Ql (U) Negative [facility] Work Phone: Cannabinoids Screen Ql (U) Negative [facility] Work Phone: Cocaine Ql (U) Negative [facility] Work Phone: Opiates Ql (U) Negative [facility] Work Phone: Laboratory - Microbiology an d Antimicrobial susceptibilityon 01-21-2022 N. gonorrhoeae DNA LOYD+probe Ql (Unsp spec) Negative Negative [facility] Work Phone: Comment on above: Performed at: =G - L [address] [id number] Director: Jelly Barnett MD, Phone: [phone] Laboratory - Miscellaneous t estson 01-21-2022 Service comment (Unsp spec) [Interp] Comment [facility] Work Phone: Comment on above: This liquid based Th inPrep(R) pap test was screened withthe use of an image guided system. Service comment (Unsp spec) [Interp] . [facility] Work Phone: No Panel Informationon 01-21 MDMA (Ecstasy) Screen Negative [facility] Work Phone: Pathology report final diagnosis Narrative Comment [facility] Work Phone: Comment on above: EPITHELIAL CELL ABNO RMALITY.LOW GRADE SQUAMOUS INTRAEPITHELIAL LESION (LSIL). R87.612 Urine Barbiturates Screen Negative [facility] Work Phone: Urine Drug Screen Comment [facility] Work Phone: Comment on above: CONFIRMATORY [...] USE TESTMNEMONIC: [facility] Urine Methadone Screen Negative [facility] Work Phone: Urine phencyclidine (PCP) de tectionon 01-21-2022 Phencyclidine Ql (U) Negative [facility] Work Phone: Culture, urineon 01-06-2022 Bacteria identified Cx Nom (U) Positive [facility] Work Phone: Chlamydia trachomatis rRNA d etection by probe and target amplification methodon 11-19-2021 C. trachomatis rRNA LOYD+probe Ql (Unsp spec) Negative Negative [facility] Work Phone: Gram stain for investigation of transfusion reactionon 11-19-2021 Microscopic observation Gram stain Nom (Unsp spec) [facility] Work Phone: Laboratory - Microbiology an d Antimicrobial susceptibilityon 11-19-2021 N. gonorrhoeae DNA LOYD+probe Ql (Unsp spec) Negative Negative [facility] Work Phone: Comment on above: Performed at: =G - L [address] [id number] Director: Jelly Barnett MD, Phone: [phone] No Panel Informationon 11-19 POC Bacterial Vaginitis (Rapid) Negative [facility] Work Phone: POC Trichomonas (Rapid) Negative [facility] Work Phone: Thin prep Papanicolaou smear with manual screeningon 11-19-2021 Genital Culture G. vaginalis (Presumptive) [facility] Work Phone: Serum or plasma choriogonado tropin detectionon 11-17-2021 HCG ( test) Ql < 1 mIU/mL <4 [facility] Work Phone: Comment on above: hCG levels with Gest ational AgeGestational Age hCG mIU/mL (IU/L)0.2 - 1 week 5 - 501-2 weeks 50 - 5002-3 weeks 100 - 56145-7 weeks 500 - 601057-2 weeks 1000 - 162085-3 weeks 22184 - 100,0006-8 weeks 45091 - 200,0002-3 months 23190 - 100,000 Office Visit: [facility] [employer] merissa 06-02-2017 blood in urine (hemoglobin) by dipstick Negative Invalid Interpretation Code [facility] Work Phone: Documentation of current medications (procedure) Done Invalid Interpretation Code [facility] Work Phone: [phone] Documentation of current medications (procedure) T Invalid Interpretation Code [facility] Work Phone: Fall risk assessment No Invalid Interpretation Code [facility] Work Phone: specific gravity, urine 1.010 Invalid Interpretation Code [facility] Work Phone: Tobacco use HS Never smoker Invalid Interpretation Code [facility] Work Phone: [phone] Urine, appearance clear Invalid Interpretation Code [facility] Work Phone: Urine, bilirubin presence Negative Invalid Interpretation Code [facility] Work Phone: Urine, color yellow Invalid Interpretation Code [facility] Work Phone: [phone] Urine, glucose presence Negative Invalid Interpretation Code [facility] Work Phone: [phone] Urine, ketones presence Negative Invalid Interpretation Code [facility] Work Phone: Urine, leukocyte esterase presence Negative Invalid Interpretation Code [facility] Work Phone: Urine, nitrite presence Negative Invalid Interpretation Code [facility] Work Phone: Urine, pH 5.0 [pH] Invalid Interpretation Code [facility] Work Phone: Urine, protein Negative Invalid Interpretation Code [facility] Work Phone: Urine, urobilinogen presence Negative Invalid Interpretation Code [facility] Work Phone: KIMOVon 04-27-2017 CNOV Office Visit (INTMWS) SULTANA NAVARRETE ([id number]) 1985 FDate Time Provider Department04/27/17 10:20 AM [...] kg (119 lb) SpO2 97% BMI 20.81 kg/j3Hfukqec appearance: tired/ill appearing, in no acute distressHead: [...] - HivesDate Reviewed: 04/27/2017Reviewed by: Faviola Schaefer Brick Carrier - Fully AssessedReason for Visit: Sore Throat [200]Primary Visit Diagnosis:Viral pharyngitis [J02.9] Other Visit Diagnosis:Sore throat [J02.9]Order(s):RAPID STREP TEST B/O [7531354] Order #: [id number] GROUP A STREPTOCOCCUS BY PCR [SQGASPCR] Order #: [id number] List As Of Date 04/27/2017 Noted Resolved [...] by JANETTE CANAS CNP on 04/27/17 Normal [facility] Group A Strep by PCRon 04-27 GAS Specimen Source Throat Swab Normal [facility] Comment on above: Performed By: #### G ASPCR ####[facility] [address] [place], [place] [phone] Group A Strep PCR Negative Normal [facility] Comment on above: Result Comment: This test was developed and its performance characteristics determined by [facility]'s [facility] [place] ([facility]).It has not been cleared or approved by the FDA. [facility] is regulated under CLIA as qualified to perform high-complexity testing. This test is used for clinical purposes. It should not be regarded as investigational or for research. Performed By: #### G ASPCR ####[facility] [address] [place], [place] [phone] PROGRESSon 04-27-2017 PROGRESS HNO ID: [id number]: Janette (Amish) MissaelService: (none)Author Type: Nurse PractitionerType: [...] kg (119 lb) SpO2 97% BMI 20.81 kg/s8Vttsxpc appearance: tired/ill appearing, in no acute distressHead: [...] A STREPTOCOCCUS BY Nan Canas CNP Normal [facility] Culture, urine Bacteria identified Cx Nom (U) Positive [facility] Work Phone: No Panel Information Group B Streptococcus Culture Group B Beta Streptococcus is not isolated. [facility] Work Phone: Vital Signs Date Time Vital Sign Value Performing Clinician Lloyd crum 05-01-2025 09: Body height 162.[address] Christian Roa MD Work Phone: [facility] 05-01-2025 09: Body mass index (BMI) [Ratio] 25.6 kg/m2 Dr. Christian Roa MD Work Phone: [facility] 05-01-2025 09:040 Body weight 67.[address] Christian Roa MD Work Phone: [facility] 05-01-2025 09:21-0400 Diastolic blood pressure 73 mm[Hg] Dr. Christian Roa MD Work Phone: [facility] 05-01-2025 09:21-0400 Systolic blood pressure 108 mm[Hg] Dr. Christian Roa MD Work Phone: [facility] 08-03-2022 16:18-0400 Body height 162.[address] Christian Roa Work Phone: [facility] Work Phone: 08-03-2022 16:18-0400 Body mass index (BMI) [Ratio] 26.4 kg/m2 Dr. Christian Roa Work Phone: [facility] Work Phone: 08-03-2022 16:18-0400 Body weight 69.[address] Christian Roa Work Phone: [facility] Work Phone: 08-03-2022 16:18-0400 Diastolic blood pressure 70 mm[Hg] Dr. Christian Roa Work Phone: [facility] Work Phone: 08-03-2022 16:18-0400 Systolic blood pressure 118 mm[Hg] Dr. Christian Roa Work Phone: [facility] Work Phone: 07-28-2022 16:05-0400 Body height 162.[address] Christian Roa Work Phone: [facility] Work Phone: 07-28-2022 16:05-0400 Body mass index (BMI) [Ratio] 26.1 kg/m2 Dr. Christian Roa Work Phone: [facility] Work Phone: 07-28-2022 16:05-0400 Body weight 69.[address] Christian Roa Work Phone: [facility] Work Phone: 07-28-2022 16:05-0400 Diastolic blood pressure 68 mm[Hg] Dr. Christian Roa Work Phone: [facility] Work Phone: 07-28-2022 16:05-0400 Systolic blood pressure 118 mm[Hg] Dr. Christian Roa Work Phone: [facility] Work Phone: 07-12-2022 10:43-0400 Body mass index (BMI) [Ratio] 25.8 kg/m2 Dr. Christian Roa Work Phone: [facility] Work Phone: 07-12-2022 10:43-0400 Body weight 68.[address] Christian Roa Work Phone: [facility] Work Phone: 07-12-2022 10:43-0400 Diastolic blood pressure 66 mm[Hg] Dr. Christian Roa Work Phone: [facility] Work Phone: 07-12-2022 10:43-0400 Systolic blood pressure 113 mm[Hg] Dr. Christian Roa Work Phone: [facility] Work Phone: 06-28-2022 15:57-0400 Body mass index (BMI) [Ratio] 25.7 kg/m2 Dr. Christian Roa Work Phone: [facility] Work Phone: 06-28-2022 15:57-0400 Body weight 68.[address] Christian Roa Work Phone: [facility] Work Phone: 06-28-2022 15:57-0400 Diastolic blood pressure 64 mm[Hg] Dr. Christian Roa Work Phone: [facility] Work Phone: 06-28-2022 15:57-0400 Systolic blood pressure 118 mm[Hg] Dr. Christian Roa Work Phone: [facility] Work Phone: 06-14-2022 14:07-0400 Body mass index (BMI) [Ratio] 25.2 kg/m2 Dr. Christian Roa Work Phone: [facility] Work Phone: 06-14-2022 14:07-0400 Body weight 66.[address] Christian Roa Work Phone: [facility] Work Phone: 06-14-2022 14:07-0400 Diastolic blood pressure 62 mm[Hg] Dr. Christian Roa Work Phone: [facility] Work Phone: 06-14-2022 14:07-0400 Systolic blood pressure 120 mm[Hg] Dr. Christian Roa Work Phone: [facility] Work Phone: 06-02-2022 10:32-0400 Body mass index (BMI) [Ratio] 25.1 kg/m2 Dr. Christian Roa Work Phone: [facility] Work Phone: 06-02-2022 10:32-0400 Body weight 66.[address] Christian Roa Work Phone: [facility] Work Phone: 06-02-2022 10:32-0400 Diastolic blood pressure 69 mm[Hg] Dr. Christian Roa Work Phone: [facility] Work Phone: 06-02-2022 10:32-0400 Systolic blood pressure 123 mm[Hg] Dr. Christian Roa Work Phone: [facility] Work Phone: 05-20-2022 10:27-0400 Body height 162.[address] Christian Roa Work Phone: [facility] Work Phone: 05-20-2022 10:27-0400 Body mass index (BMI) [Ratio] 25.1 kg/m2 Dr. Christian Roa Work Phone: [facility] Work Phone: 05-20-2022 10:27-0400 Body weight 66.[address] Christian Roa Work Phone: [facility] Work Phone: 05-20-2022 10:27-0400 Diastolic blood pressure 66 mm[Hg] Dr. Christian Roa Work Phone: [facility] Work Phone: 05-20-2022 10:27-0400 Systolic blood pressure 128 mm[Hg] Dr. Christian Roa Work Phone: [facility] Work Phone: 04-21-2022 10:57-0400 Body mass index (BMI) [Ratio] 24.7 kg/m2 Dr. Christian Roa Work Phone: [facility] Work Phone: 04-21-2022 10:57-0400 Body weight 65.[address] Christian Roa Work Phone: [facility] Work Phone: 04-21-2022 10:57-0400 Diastolic blood pressure 80 mm[Hg] Dr. Christian Roa Work Phone: [facility] Work Phone: 04-21-2022 10:57-0400 Systolic blood pressure 110 mm[Hg] Dr. Christian Roa Work Phone: [facility] Work Phone: 03-25-2022 15:04-0400 Body mass index (BMI) [Ratio] 24 kg/m2 Dr. Christian Roa Work Phone: [facility] Work Phone: 03-25-2022 15:04-0400 Body weight 63.[address] Christian Roa Work Phone: [facility] Work Phone: 02-26-2022 14:33-0400 Body mass index (BMI) [Ratio] 23.6 kg/m2 Dr. Christian Roa Work Phone: [facility] Work Phone: 02-26-2022 14:33-0400 Diastolic blood pressure 62 mm[Hg] Dr. Christian Roa Work Phone: [facility] Work Phone: 02-26-2022 14:33-0400 Systolic blood pressure 120 mm[Hg] Dr. Christian Roa Work Phone: [facility] Work Phone: 02-26-2022 14:33-0400 Body mass index (BMI) [Ratio] 23.6 kg/m2 Dr. Christian Roa Work Phone: [facility] Work Phone: 02-26-2022 14:33-0400 Diastolic blood pressure 62 mm[Hg] Dr. Christian Roa Work Phone: [facility] Work Phone: 02-26-2022 14:33-0400 Systolic blood pressure 120 mm[Hg] Dr. Christian Roa Work Phone: [facility] Work Phone: 02-26-2022 14:02-0400 Body weight 62.[address] Christian Roa Work Phone: [facility] Work Phone: 02-26-2022 14:02-0400 Body height 162.[address] Christian Roa Work Phone: [facility] Work Phone: 02-26-2022 14:02-0400 Body weight 62.[address] Christian Roa Work Phone: [facility] Work Phone: 01-27-2022 16:25-0400 Body mass index (BMI) [Ratio] 23.6 kg/m2 Dr. Christian Roa Work Phone: [facility] Work Phone: 01-27-2022 16:25-0400 Body weight 62.[address] Christian Roa Work Phone: [facility] Work Phone: 01-27-2022 16:25-0400 Diastolic blood pressure 80 mm[Hg] Dr. Christian Roa Work Phone: [facility] Work Phone: 01-27-2022 16:25-0400 Systolic blood pressure 120 mm[Hg] Dr. Christian Roa Work Phone: [facility] Work Phone: 01-27-2022 16:25-0400 Body height 162.[address] Christian Roa Work Phone: [facility] Work Phone: 01-27-2022 16:25-0400 Body mass index (BMI) [Ratio] 23.6 kg/m2 Dr. Christian Roa Work Phone: [facility] Work Phone: 01-27-2022 16:25-0400 Body weight 62.[address] Christian Roa Work Phone: [facility] Work Phone: 01-27-2022 16:25-0400 Diastolic blood pressure 80 mm[Hg] Dr. Christian Roa Work Phone: [facility] Work Phone: 01-27-2022 16:25-0400 Systolic blood pressure 120 mm[Hg] Dr. Christian Roa Work Phone: [facility] Work Phone: 01-21-2022 09:30-0400 Body mass index (BMI) [Ratio] 23.5 kg/m2 Dr. Christian Roa Work Phone: [facility] Work Phone: 01-21-2022 09:30-0400 Body weight 62.[address] Christian Roa Work Phone: [facility] Work Phone: 01-21-2022 09:30-0400 Diastolic blood pressure 80 mm[Hg] Dr. Christian Roa Work Phone: [facility] Work Phone: 01-21-2022 09:30-0400 Systolic blood pressure 104 mm[Hg] Dr. Christian Roa Work Phone: [facility] Work Phone: 01-06-2022 08:15-0500 Body mass index (BMI) [Ratio] 24 kg/m2 Dr. Christian Roa Work Phone: [facility] Work Phone: 01-06-2022 08:15-0500 Body weight 63.[address] Christian Roa Work Phone: [facility] Work Phone: 01-06-2022 08:15-0500 Diastolic blood pressure 80 mm[Hg] Dr. Christian Roa Work Phone: [facility] Work Phone: 01-06-2022 08:15-0500 Systolic blood pressure 124 mm[Hg] Dr. Christian Roa Work Phone: [facility] Work Phone: 11-19-2021 08:52-0500 Body mass index (BMI) [Ratio] 23.3 kg/m2 Dr. Christian Roa Work Phone: [facility] Work Phone: 11-19-2021 08:52-0500 Body weight 61.[address] Christian Roa Work Phone: [facility] Work Phone: 11-19-2021 08:52-0500 Diastolic blood pressure 70 mm[Hg] Dr. Christian Roa Work Phone: [facility] Work Phone: 11-19-2021 08:52-0500 Systolic blood pressure 114 mm[Hg] Dr. Christian Roa Work Phone: [facility] Work Phone: 06-02-2017 16:25-0400 BMI (Body Mass Index) 20.66 kg/m2 Laura Palafox LPN [facility] Work Phone: 06-02-2017 16:25-0400 Body Temperature 98.5 [degF] Laura Palafox [facility] Work Phone: 06-02-2017 16:25-0400 BP Diastolic 78 mm[Hg] Laura Palafox LPN [facility] Work Phone: 06-02-2017 16:25-0400 BP Systolic 130 mm[Hg] Laura Palafox LPN [facility] Work Phone: 06-02-2017 16:25-0400 Height 162.56 cm Laura Palafox LPN [facility] Work Phone: 06-02-2017 16:25-0400 Pulse (Heart Rate) 75 /min Laura Palafox LPN [facility] Work Phone: 06-02-2017 16:25-0400 Respiratory Rate 12 /min Laura Palafox LPN [facility] Work Phone: 06-02-2017 16:25-0400 Weight 54.61 kg Laura Palafox LPN [facility] Work Phone: Encounters Encounter Date Encounter Type Care Provider Facility Start: 05-01-2025 End: 05-01-2025 Patient encounter procedure Karo RIVERA [facility] Work Phone: Start: 05-01-2025 End: 05-01-2025 Patient encounter status Karo RIVERA [facility] Start: 05-01-2025 End: 05-01-2025 ambulatory Christian Roa Facility:[facility] Start: 10-26-2024 End: 10-26-2024 ambulatory Christian Roa Facility:[facility] Start: 09-26-2024 End: 09-26-2024 ambulatory Faviola Barahona DONALD Facility:[facility] Start: 09-05-2024 End: 09-05-2024 ambulatory Christian Roa Facility:[facility] Start: 06-25-2024 End: 06-25-2024 ambulatory Christian Roa Facility:[facility] Start: 06-25-2024 End: 06-25-2024 ambulatory Christian Roa Facility:[facility] Start: 08-03-2022 End: 08-03-[address] Christian Roa Work Phone: [facility] Start: 08-02-2022 End: 08-02-[address] Christian Roa Work Phone: [facility] Work Phone: Start: 08-02-2022 End: 08-02-[address] Christian Roa Work Phone: [facility] Start: 07-28-2022 End: 07-28-[address] Christian Roa Work Phone: [facility] Work Phone: Start: 07-28-2022 End: 07-28-[address] Christian Roa Work Phone: [facility]-Laboratory, Specimen Start: 07-28-2022 End: 07-28-[address] Christian Roa Work Phone: [facility] Start: 07-12-2022 End: 07-12-[address] Christian Roa Work Phone: [facility] Start: 06-28-2022 End: 06-28-[address] Christian Roa Work Phone: [facility] Start: 06-14-2022 End: 06-14-[address] Christian Roa Work Phone: [facility] Start: 06-02-2022 End: 06-02-[address] Christian Roa Work Phone: [facility] Start: 05-20-2022 End: 05-20-[address] Christian Roa Work Phone: [facility] Start: 04-21-2022 End: 04-21-[address] Christian Roa Work Phone: [facility] Start: 03-25-2022 End: 03-25-[address] Christian Roa Work Phone: [facility] Start: 02-26-2022 End: 02-26-[address] Christian Roa Work Phone: [facility] Start: 01-27-2022 End: 01-27-[address] Christian Roa Work Phone: [facility] Start: 01-21-2022 End: 01-21-[address] Christian Roa Work Phone: [facility]Laboratory, Specimen Start: 01-11-2022 Non-patient / Non-visit Dr. Shayne Roa Work Phone: [facility] Start: 01-06-2022 End: 01-06-[address] Christian Roa Work Phone: [facility] Start: 01-06-2022 End: 01-06-[address] Christian Roa Work Phone: [facility] Start: 11-19-2021 End: 11-19-[address] Christian Roa Work Phone: [facility]-Laboratory, Specimen Start: 11-19-2021 End: 11-19-[address] Christian Roa Work Phone: [facility] Start: 11-17-2021 End: 11-17-[address] Christian Roa Work Phone: [facility] Start: 04-27-2017 End: 04-28-2017 Ambulatory JANETTE (TYPE INSPECTOR) OLDER [facility] Blank Procedures Date Procedure Procedure Detail [...] identified in Urine by Culture Urine Culture [facility] Work Phone: Start: 06-02-2017 End: 06-02-2017 Appointment Appointment [facility] Work Phone: Liquid based cervica l cytology screening [facility] MG Breast - bilatera l Screening [facility] Ultrasound scan for growth [facility] Work Phone: [facility] Work Phone: Immunizations Immunization Date Immunization Notes Care Provider Fa alin 06-28-2022 tetanus toxoid, redu philippe diphtheria toxoid, and acellular pertussis vaccine, adsorbed Dr. Christian Roa Work Phone: [facility] 07-01-2021 HPV, unspecified formulation Dr. Christian Roa Work Phone: [facility] Work Phone: 01-15-2021 Covid (Pfizer) Dr. Christian petit MD Work Phone: [facility] 12-25-2020 Covid (Pfizer) Dr. Christian petit MD Work Phone: [facility] 04-13-2020 tetanus toxoid, redu philippe diphtheria toxoid, and acellular pertussis vaccine, adsorbed Dr. Christian Roa Work Phone: [facility] Payers Date Payer Category Payer Self-pay [id number] 2024 Unknown [id number] Unknown [id number] Unknown [id number] [id number] [id number] Unknown [id number] [id number] Unknown [id number] [id number] [id number] Unknown [id number] [id number] [id number] Unknown [id number] [id number] [id number] Unknown [id number] [id number] [id number] Social History Date Type Detail Facility Start: 01-27-2022 End: 08-03-2022 Tobacco smoking status NHIS Unknown if ever smoked [facility] Work Phone: Start: 1985 Sex Assigned At Female [facility] Start: 09-07-2022 Tobacco smoking stat us NHIS Never smoked tobacco (finding) [facility] Clinical Note 01-21-2022 Note Date & Type Note Facility 01-21-2022 Note [facility] Work Phone: Pap Smear Specimen Adequacy [...] of high risk pre gnancy, antepartum acute [facility] Work Phone: Evaluation note Note Date [...] of high risk pre gnancy, antepartum acute [facility] Work Phone: Evaluation note Note Date [...] of high risk pre gnancy, antepartum acute [facility] Work Phone: Evaluation note Note Date [...] of high risk pre gnancy, antepartum acute [facility] Work Phone: Evaluation note Note Date [...] of high risk pre gnancy, antepartum acute [facility] Work Phone: Evaluation note Note Date & Type Note Facility Evaluation note Diagnosis Onset Date Resolution Encounter for routine gynecological examination noneactive May 01, 2025 9:18am [facility] Work Phone: Hospital Discharge instructions Note Date & Type Note Facility Hospital Discharge instructions Ambulatory OrdersPhysical Therapy Referral Location: None Selected [facility] Work Phone: Summary Purpose Family History Relationship Condition Age at Onset Recorded Date/T ryland grandmother Diabetes mellitus Unknown Cerebrovascular accident (CVA) Unknown Malignant neoplasm of breast Unknown grandfather Myocardial infarction Unknown aunt Malignant neoplasm of ovary Unknown Malignant neoplasm of skin Unknown father Diabetes mellitus Unknown Advance Directives Advance Directive Response Recorded Date/ Time Living Will No April 13, 2020 4:50pm Power of Associate Financial Advisor No April 13 0 4:50pm Chief Complaint [...] , antepartum Chief Complaint Admit Date Annual (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 [facility] [employer], [facility]. provides no warranty or guarantee of the accuracy or completeness of information in this document.
[2025-05-06 14:08] LABS: HPV APTIMA, High Risk Negative (Negative)
== END | disposition home or self-care (01) ==
LOC: LABSPEC 10:27
PROVIDERS: PCP Family Medicine; Visit Provider Nurse Practitioner Family
DX: Z12.4 Encounter for screening for malignant neoplasm of cervix (principal)
CPT/HCPCS: 87624; 88175; G0145

== ENCOUNTER 2025-07-19 07:00 | Outpatient (RCR) | payer OTHER, SELFPAY ==
--- NOTE | 2025-05-09 13:01 | HP.PTEVAL ---
Patient's Visit Information Visit Information Visit Information: DEJA FRANZ is a 40 year old F referred to Physical Therapy by MIGUEL Murguia with a diagnosis of LBP. Date of Evaluation: 05/09/25 Physical Therapist: Sai Archuleta, PT, ATC Visit Plan Frequency: 1x/Week Duration: 2 Weeks Plan: Pt was sent home with prone prop progression at this time. Pt was educated on proper posture and body biomechanics. Plan to schedule a followup with Che Higgins PT next visit. Subjective Subjective: Pt reports she has had LBP for approximately 3 weeks. Pt notes she was exercising at that time and wonders if that has been the cause of her pain. Pt reports sleep difficulty at this time secondary to pain. Pt reports sitting for prolonged periods increases her pain. Pt denies any B LE radiculopathy at this time. Pt reports stretching her trunk and LE's tends to aid with decreasing her pain. Pt reports she has had LBP episodes in the past. Pt notes her sx's also seemed worse while she was on her cycle, but then let up some when it was over. Pt reports no Dx testing of her LB recently. Pt notes she has a 2 year old which she has difficulty at times trying to lift her up. Pt reports she is always more stiff when she wakes up in the morning. Pt reports her LBP level is 5/10 while sitting here in the clinic, but elevates to 9/10 at worst. Pain LBP: Pain Intensity (Out of 10): 5 Pain Intensity Range: 9 Objective Objective: Neuro: B LE sensation is WNL to light touch. MMT: B LE's are grossly 5/5 and equal compared bilaterally. ROM: Pt is moderately limited with extension of the L/S. All other motions are WNL Repeated movements: RFIS 10x1 increased pain on lateral hips. SEAN 10x1 increased central LBP. Prone prop progression and REIL 10x2 increased central LBP Special tests: all neg Balance/Special Test Scores Oswestry Low Back Score: 28 Goals Goal 1:: Decrease LBP x 50% to aid with sleep Goal Time Frame: 2-4 Weeks Goal 2:: I with HEP Goal Time Frame: 2-4 Weeks Goal 3:: Increase L/S extension ROM x 1 grade to aid with decreasing LBP Goal Time Frame: 2-4 Weeks Rehabilitation Potential Physical Therapy Diagnosis: Pt has LBP and sleep difficulty secondary to L/S disc pathology Rehabilitation Potential: Good Anticipated Interventions Patient/Client Instruction: Educate patient on: Condition and Plan of Care For the Purpose of:: To improve self management Therapeutic Exercise to Include: Strength training, Body mechanics, Postural training, Active ROM, Dynamic Lumbar Stabilization and Barron Exercises For the Purpose of:: To decrease pain, To increase ROM and To improve muscle performance and motor function Text: Thank you for the opportunity to evaluate your patient. For Medicare and Medicare HMO plans, please review the plan of care and approve it. It will need to be FAXED BACK to us at [phone] for Medicare purposes. For Medicare only, by signing this I certify the plan of care. Please let me know if there are questions or concerns regarding this plan of care. Physician Signature: Date:
--- NOTE | 2025-05-14 11:52 | HP.PTREVAL_ITS ---
Re-Evaluation Intro: Karo Heath, DONALD-C, It has been my pleasure to treat DEJA FRANZ over the last 2 visits for LBP. Please see the progress note below for an update on the physical therapy plan of care! Subjective Subjective: PATIENT REPORTS COMPLIANCE WITH HOME INSTRUCTIONS FROM LAST VISIT AND SHE IS NB AND NW. REPORTS A HISTORY OF LOW BACK PAIN AFTER FIRST ABOUT 11 YEARS AGO TREATED WITH PT HERE AT [facility]. REPORTS HAVING CHIROPRACTIC ADJUSTMENTS AND STRETCHING INST 2X'S A WK X 8 MO'S STARTING JUST BEFORE SECOND AND CONTINUING DURING . DID GLOW BODY 12 WK PROGRAM FOR 3 FINGER WIDTH DIASTASIS RECTI AFTER AND WONDERING IF SHE DID TOO MUCH TOO FAST. REPORTS SOME H/O HIP TIGHTNESS FOR QUITE A WHILE BUT ONSET OF LBP JUST 4-6 WKS AGO FOR NO APPARENT REASON. REPORTS PAIN IS CURRENTLY CONSTANT RANGING 2-9/10. WORSE WITH BENDING. NOT GOOD STILL IN ANY POSITION BUT EVEN WORSE INITIATING MVMT AFTER BEING STILL. STATES TYLONOL AND IBUPROFEN DO NOT HELP. GETTING IN THE POOL GAVE SOME RELIEF BUT STATES HASN'T REALLY TRIED MUCH TO RELIEVE IT AND JUST PUSHES THROUGH AND KEEPS GOING. STATES NIGHT IS REALLY BAD. Objective Objective/Function: UPON EXAM TODAY: SENSATION: AIXA LE LIGHT TOUCH SENSATION GROSSLY INTACT AND SYMMETRICAL. LUMBAR MVMT LOSS: FLEX - MIN - INCREASES LBP - W EXT - MOD - INCREASES LBP - W R SG - MIN L SG - MOD - INCREASES LBP - W DURAL SIGNS: POSITIVE R, NEGATIVE LLE. OTHER: ABLE TO TEMPORARILY DECREASE C/O LBP TO 1-2/10 PRONE LYING AND TO 2/10 IN SITTING WITH USE OF LUMBAR SUPPORT BUT DID NOT REMAIN BETTER A RESULT. TREATMENT: REVIEW OF PRIOR HOME INST GIVEN BY TEX WEBER AT [facility] LAST VISIT: PATIENT DEMO'S SQUAT TO BEND VS LUMBAR FLEXION, ERECT SITTING POSTURE VS SLOUCH AND PRONE PROP UP STATING SHE IS DOING THIS FOR ONE MINUTE EVERY TWO HOURS AND THESE ARE THE HOME CHANGES SHE HAS MADE SINCE LAST VISIT. STATES IT IS REALLY UNCOMFORTABLE IN PRONE PROP BUT NO WORSE OVER-ALL SINCE STARTING IT. AFTER FURTHER ASSESSMENT, EDUCATED PATIENT IN POSSIBLE LUMBAR DISC INVOLVEMENT AND INFLAMMATION. RECOMMENDED USE OF LUMBAR SUPPORT IN SITTING, MINIMIZING SITTING, BENDING, LIFTING AND TWISITNG INCLUDING INST IN PROPER BODY MECHANICS FOR ADL'S. ALSO RECOMMENDED PERIODIC UNLOADING IN LYING AND OTHER APPROPRIATE ACTIVITY MODIFICATIONS ABLE TO TRY TO PROMOTE HEALING AND DECREASING INFLAMMATION AND PAIN. PATIENT DEMONSTRATED/COMMUNICATED A GOOD UNDERSTANDING OF ALL INSTRUCTIONS AFTER GIVEN TODAY. Plan Plan Plan: CONT PT 2X'S A WK X 3-4 WKS - PATIENT AGREEABLE. MODALITIES NEEDED (PATIENT HAS TENS UNIT AND MAY BRING FOR USE INST). POSTURE CORRECTION/STRENGTHENING, INSTRUCTION IN APPROPRIATE BODY MECHANICS AND ACTIVITY MODIFICATIONS. DLS STARTING WITH A NEUTRAL SPINE PROGRESSING ROM TOLERATED. AIXA LE ROM, STRETCHING AND STRENGTHENING. HEP INSTRUCTION. Balance/Gait/Functional tests Balance/Special Test Scores Oswestry Low Back Score: 28 Goals Goals Goal 1:: Decrease LBP x 50% to aid with sleep Goal Time Frame: 2-4 Weeks Goal 2:: I with HEP Goal Time Frame: 2-4 Weeks Goal 3:: Increase L/S extension ROM x 1 grade to aid with decreasing LBP Goal Time Frame: 2-4 Weeks Anticipated Interventions Anticipated Interventions Patient/Client Instruction: Educate patient on: Condition and Plan of Care For the Purpose of:: To improve self management Therapeutic Exercise to Include: Strength training, Body mechanics, Postural training, Active ROM, Dynamic Lumbar Stabilization and Barron Exercises For the Purpose of:: To decrease pain, To increase ROM and To improve muscle performance and motor function Manual Therapy Techniques to Include: Mobilization For the Purpose of:: To decrease pain, To increase ROM, To increase tolerance to activity/condition/position and To improve ability of physical actions for home/community/work/leisure TENS: Yes IF ES: Yes Cryotherapy (ice pack, ice massage): Yes Thermo therapy (hot pack): Yes Ultrasound (thermal/non thermal): Yes For the Purpose of:: To decrease pain, To decrease swelling/inflammation and To improve nutrient delivery to tissue Re-Evaluation Ending Re-evaluation ending: Please do not hesitate to contact me at [phone] by phone or if you have questions or concerns regarding this new plan of care! Sincerely, Che Higgins, PT, Cert MDT
--- NOTE | 2025-07-19 09:00 | HP.PTDCSUM_ITS ---
Discharge Summary D/C summary: It has been my pleasure to treat DEJA FRANZ referred by MIGUEL Murguia, with the diagnosis of LBP for a total of 12 visit(s). Discharge Date: 07/19/25 Please see the following information for a summary of their discharge status. Subjective Subjective: PATIENT REPORTS HER PAIN IS NOW RANGING 0-5/10. THE PAIN IS NO LONGER DISTRUBING HER SLEEP. SHE REPORTS SHE IS USING BETTER BODY MECHANICS AND MOVING DIFFERENT BUT BENDING AND LIFTING STILL INCREASES HER PAIN. SHE STATES IF SHE SITS ON THE FLOOR TOO LONG IT IS HARD TO GET UP AND SHE IS REALLY STIFF AFTER. SHE REPORTS THE POOL HAS HELPED AND THE PAIN ISN'T INTENSE BUT IT IS UNCOMFORTABLE MOST OF THE TIME. PATIENT REPORTS HER BACK IS DEFINATELY BETTER BUT NOT HEALED ALL THE WAY AND SHE HAS NOT BEEN ABLE TO RETURN TO HER NORMAL ACTIVITIES THAT SHE WAS DOING BEFORE THIS FLARE UP STARTED IN MARCH 2025. Pain LBP: Pain Intensity (Out of 10): 2 Overall Improvement % Improvement: 20 Objective Objective/Function: PATIENT WAS SEEN TODAY FOR RE-ASSESSMENT OF PROGRESS TOWARD THE SET PT GOALS AND THE NEED FOR FURTHER PHYSICAL THERAPY VS READINESS FOR DISCHARGE. THIS PATIENT HAS BENEFITED FROM PHYSICAL THERAPY (BACK OSWESTRY SCORE HAS IMPROVED FROM (28 TO 12 AND SUBJECTIVE PAIN SCALE HAS IMPROVED FROM 2- 9/10 TO 0-4 OR 5/10. LUMBAR ROM HAS ALSO IMPROVED WITH LESS PAIN AND IRRITABILITY) BUT CONTINUES TO HAVE SIGNIFICANT FUNCTIONAL LIMITATIOINS AND HAS BEEN UNABLE TO RETURN TO HER PRIOR LEVEL OF FUNCTION. SHE IS MANAGING HER CONDITION MUCH BETTER THAN WHEN SHE STARTED PT BUT HER SX'S HAVE NOT RESOLVED. PHYSICIAN RE-ASSESSMENT RECOMMENDED. PATIENT AGREEABLE. SHE IS INDEP WITH BOTH WATER AND HOME EX PROGRAMS. UPON EXAM TODAY: LUMBAR MVMT LOSS: FLEX - NIL - INCREASES LBP - NW EXT - MOD - INCREASES LBP - W R SG - MIN L SG - MOD - INCREASES LBP - NW DURAL SIGNS: POSITIVE R, NEGATIVE LLE. Goals Goal 1:: Decrease LBP x 50% to aid with sleep Goal Progress: Goal Met Goal 2:: I with HEP Goal Progress: Goal Met Goal 3:: Increase L/S extension ROM x 1 grade to aid with decreasing LBP Goal Progress: Not Progressing Plan Plan: D/C D/C Information d/c sentence: If there are questions or concerns regarding this patient's physical therapy, please feel free to call me at [phone]. Thank you for the referral of this patient. Sincerely, Che Higgins, PT, Cert MDT Balance/Gait/Functional tests Balance/Special Test Scores Oswestry Low Back Score: 12 Improvement % Improvement: 20
== END 2025-07-19 09:07 | disposition home or self-care (01) ==
LOC: PT 07:00
PROVIDERS: PCP Family Medicine; Referring Provider Nurse Practitioner Family; Visit Provider Nurse Practitioner Family
DX: M54.50 Low back pain, unspecified (principal)
CPT/HCPCS: 97035; 97113; 97161; 97530

== ENCOUNTER → 2025-08-05 | Outpatient (CLI) | payer OTHER, SELFPAY ==
--- NOTE | 2025-08-05 08:53 | RAD_ITS ---
PROCEDURE: L/S SPINE MIN 4 VIEWS 08/05/2025 REASON FOR EXAM: BACK PAIN TECHNIQUE: Procedure Code: [id number] Modality: DX Procedure: L/S SPINE MIN 4 VIEWS FINDINGS: No evidence acute fracture or dislocation. The intervertebral disc spaces and vertebral body heights are maintained. No visualized pars defects. Normal alignment. RAD/L/S Spine Min 4 Views IMPRESSION: No significant abnormality. Reading Location: [id number]
--- OUTSIDE RECORDS SUMMARY | 2025-08-05 09:41 | XMS RPT_ITS | CCD ---
Author Organization [facility] Care Team Providers Care Rag Production Worker Name Role Phone Javy BRIQUETTE MOLDER, Laura N Unavailable Unavailab le Javy LPN, Laura N Unavailable Unavailab le MISSAEL, JANETTE (LOOM FIXER) Unavailable Unavailable Dr. Christian Roa Primary Care Provider Janina, Dr. Gonzales Referring Provider Dr. Janet Gallagher Attending Provider [phone] Brooklyn BENNETT, SALES TEACHER-C Faviola Attending Provider Dr. Sparkle Santiago Attending Provider Dr. Christian Roa Primary Care Provider Dr. Christian Roa Referring Provider Dr. Janet Gallagher Attending Provider Dr. Sparkle Santiago Attending Provider Dr. Christian Roa Primary Care Provider Dr. Christian Roa Referring Provider Dr. Janet Gallagher Attending Provider Dr. Sparkle Santiago Attending Provider [phone] Dr. Christian Roa MD Primary Care Provider [phone] Dr. Christian Roa MD Referring Provider Kumar BENNETT-CKaro Attending Provider Christian Roa Primary Care Unavailable Christian Roa Referring Unavailable Karo Heath Attending Unavailable Christian Roa Primary Care Unavailable Janina, Christian Referring Unavailable Idalia Paulino Attending Unavailable Christian Roa Primary Care Unavailable Christian Roa Referring Unavailable Faviola Barahona NP Attending Unavailable Christian Roa Primary Care Unavailable Karo Heath Attending Unavailable Karo Heath Referring Unavailable Christian Roa Primary Care Unavailable Karo Heath Attending Unavailable Christian Roa Primary Care Unavailable Brooklyn SALES TEACHER, Faviola Attending Unavailable Faviola Barahona NP Referring Unavailable Dr. Christian Roa MD Primary Care Physician [phone] Kumar RIVERA, Karo Attending Physician [phone] Kumar BENNETT-C, Karo Referring Provider [phone] Allergies Allergy Classification Reported Allergen(s) Allergy Type Date of Onset Reaction(s) Facility (2 sources) ceftriaxone drug allergy 7 [facility] Work Phone: (10 sources) ceftriaxone; Translations: [CEFTRIAXONE] Drug Allergy 6 AOF, hives [facility] Repository (1 source) Latex; Translations: [LATEX] Propensity to adverse reactions to drug (disorder) 9 [facility] Repository (9 sources) natural latex rubber; Translations: [Latex, Natural Rubber] Propensity to adverse reactions 2 itching/irritat [facility] Medications Current Medications Medication Drug Class(es) Dates Sig (Normalized) Sig (Original) ALPRAZolam 0.25 mg oral tablet (3 sources) Benzodiazepine Start: 09-07-2022 take 1 tablet by mouth at bedtime as needed for anxiety Sherman 4-Rom-Epa-Fish Oil (3 sources) Start: 10-26-2024 Start: 10-26-2024 Sherman 3-Dha-Ep a-Fish Oil (Fish Oil) 300-1,000 mg capsule Active 1 NMA PO daily October 26, 2024 1:00am lysine 1000 mg oral tablet (3 sources) Start: 10-26-2024 take 1 tablet by laurent th once daily Pswyhhgh-Jjb-Xdcl Fum-Folic Ac (One Daily Women's) 18 mg iron- 400 mcg tablet (3 sources) Start: 05-01-2025 Start: 05-01-2025 Cnrnhxzg-Ihx-C megan Fum-Folic Ac (One Daily Women's) 18 mg iron- 400 mcg tablet Active {tbl} PO May 01, 2025 12:00am Prenat.Vits,Efra,Ijy-Xzba-Nfi ic (5 sources) Start: 01-11-2022 take 1 tablet by mouth once daily Prenat.Vits,Efra,Xmp-Kyas-Ruaea Active 1 TABLET PO DAILY January 11, 2022 4:14pm Start: 01-11-2022 take 1 tablet by laurent th once daily Prenat.Vits,Efra,Hhw-Pxqw-Twizk Active 1 TABLET PO DAILY January 11, 2022 12:00am sertraline 25 mg oral tablet (20 sources) Serotonin Reuptake Inhibitor Start: 05-20-2022 End: 06-17-2025 take 1 tablet by mouth at bedtime for anxiety thiamine 500 mg oral tablet (3 sources) Start: 10-26-2024 take 1 tablet by mouth once daily zinc gluconate 100 mg oral tablet (3 sources) Start: 10-26-2024 take 1 tablet by mouth once daily Completed/Discontinued Medications Medication Drug Class(es) Dates Sig (Normalized) Sig (Original) acetaminophen 325 mg / HYDROcodone bitartrate 5 mg oral tablet (8 sources) Opioid Agonist Start: 08-13-2018 End: 08-15-2018 [...] 2018 12:08am amoxicillin 500 mg oral tablet (8 sources) Penicillin-class Antibacterial Start: 01-11-2022 End: 01-21-2022 take 1 tablet by mouth twice daily Amoxicillin 500 mg tablet Discontinued 500 mg PO TWICE A DAY January 11, 2022 12:00am January 21, 2022 9:30am amoxicillin 875 mg / clavulanate 125 mg oral tablet (8 sources) Penicillin-class Antibacterial Start: 04-13-2020 End: 09-29-2020 take 1 tablet by mouth every twelve hours Amoxicillin-Pot Clavulanate 875 MG tablet Discontinued 875 mg PO Q12H 10 0 April 13, 2020 12:00am September 29, 2020 12:29pm azithromycin 250 mg oral tablet (3 sources) Macrolide Antimicrobial Start: 10-26-2024 End: 05-01-2025 Azithromycin 250 mg tablet Discontinued 0 PO .COMPLEX 6 0 October 26, 2024 1:00am May 01, 2025 9:25am Ethmoid sinusitis Chronic ethmoidal sinusitis For 250 mg dose pack: take 500 mg today (day 1), then 250 mg for 4 days (days 2-5) PO benzonatate 100 mg oral capsule (3 sources) Non-narcotic Antitussive Start: 10-27-2024 End: 05-01-2025 take 1 capsule by mouth three times daily Benzonatate 100 mg capsule Discontinued 100 mg PO THREE TIMES A DAY 20 October 27, 2024 1:00am May 01, 2025 9:25am cholecalciferol 0.025 mg oral capsule (8 sources) Vitamin D Start: 06-23-2018 End: 11-08-2018 take 1 capsule by mouth once daily Cholecalciferol (Vitamin D3) 1,000 unit capsule Discontinued 1000 U PO DAILY June 23, 2018 12:00am November 08, 2018 11:07am citalopram 40 mg oral tablet (20 sources) Serotonin Reuptake Inhibitor Start: 11-08-2018 End: [...] mg tablet Discontinued 20 mg PO daily 29 10June 23, 2018 12:00am July 24, 2018 1:07pm Levonorgestrel-Ethinyl Estrad (8 sources) Progestin, Estrogen, Progestin-containing Intrauterine Device Start: [...] 29, 2019 3:17pm 168 hr ethinyl estradiol 0.40890 mg/hr / norelgestromin 0.93614 mg/hr transdermal system (20 sources) Progestin, Estrogen Start: 10-29-2019 End: 11-19-2021 [...] 4-week cycle fluconazole 150 mg oral tablet (8 sources) Azole Antifungal Start: 09-29-2020 End: 01-21-2021 Fluconazole (Diflucan) 150 mg tablet Discontinued 150 mg PO Every 3 Days 2 0 0 September 29, 2020 1:00am January 21, 2021 2:45pm may repeat second dose 72 hrs after first dose if symptoms persist metroNIDAZOLE 500 mg oral tablet (8 sources) Nitroimidazole Antimicrobial Start: 11-23-2021 End: 01-11-2022 take 1 tablet by mouth twice daily Metronidazole 500 mg tablet Discontinued 500 mg PO TWICE A DAY 14 0 November 23, 2021 1:00am January 11, 2022 4:14pm Miconazole Nitrate (Monistat 7) 2 % (100 mg)- 2 % (9 gram) comb pack,prefill appl, cream (8 sources) Start: 09-29-2020 End: 01-21-2021 Miconazole Nitrate [...] 12:00am November 08, 2018 11:07am Multivitamin tablet (3 sources) Start: 05-17-2018 End: 11-08-2018 Multivitamin tablet Discontinued 1 {tbl} PO daily May 17, 2018 12:00am November 08, 2018 11:07am Mushroom Complex (8 sources) Start: 02-06-2020 End: 09-29-2020 take 1 [...] 2020 12:29pm norethindrone 0.35 mg oral tablet (8 sources) Start: 05-17-2018 End: 11-08-2018 take 1 tablet by mouth once daily Norethindrone (Contraceptive) (Tangela) 0.35 mg tablet Discontinued 0.35 mg PO daily 27 10May 17, 2018 12:00am November 08, 2018 11:32am start day 1 of menstrual cycle Sherman-3 Fatty Acids (5 sources) Start: 06-23-2018 End: 11-08-2018 take 1000 mg by mouth once daily Sherman-3 Fatty Acids Discontinued 1000 MG PO DAILY June 23, 2018 3:02pm November 08, 2018 11:08am Start: 06-23-2018 End: 11-08-2018 take 1000 mg by mouth once daily Sherman-3 Fatty Acids Discontinued 1000 MG PO DAILY June 23, 2018 12:00am November 08, 2018 11:08am Sherman-3 Fatty Acids 1,000 mg capsule (3 sources) Start: 06-23-2018 End: 11-08-2018 take 1 capsule by mouth once daily Sherman-3 Fatty Acids 1,000 mg capsule Discontinued 1000 mg PO DAILY June 23, 2018 12:00am November 08, 2018 11:08am ondansetron 4 mg disintegrating oral tablet (8 sources) Serotonin-3 Receptor Antagonist Start: 01-21-2021 End: 11-19-2021 take 1 tablet by mouth every four hours as needed for nausea and vomiting Ondansetron 4 mg tablet,disintegrat ing Discontinued 4 mg PO Q4H as needed for nausea and vomiting 60 2 January 21, 2021 12:00am November 19, 2021 11:27am Prenat.Vits,Efra,Min-I megan-Folic tablet (3 sources) Start: 01-11-2022 End: 05-01-2025 Prenat.Vits,Efra,Mi v-Atrg-Anrfs tablet Discontinued 1 {tbl} PO DAILY January 11, 2022 12:00am May 01, 2025 9:25am Rhodiola Extract (8 sources) Start: 02-06-2020 End: 09-29-2020 take 340 mg by mouth once daily Rhodiola Extract Discontinued 340 MG PO DAILY February 06, 2020 7:pm September 29, 2020 12:28pm Start: 02-06-2020 End: 09-29-2020 take 340 mg by mouth once daily Rhodiola Extract Discontinued 340 mg PO DAILY February 06, 2020 12:00September 29, 2020 12:28pm Start: 02-06-2020 End: 09-29-2020 take 340 mg by mouth once daily Rhodiola Extract Discontinued 340 MG PO DAILY February 06, 2020 12:00September 29, 2020 12:28pm thioctic acid 600 mg oral capsule (8 sources) Start: 02-06-2020 End: 09-29-2020 take 1 capsule by mouth once daily Alpha Lipoic Acid 600 MG capsule Discontinued 600 mg PO DAILY February 06, 2020 12:00September 29, 2020 12:29pm Threonine (8 sources) Start: 02-06-2020 End: 09-29-2020 take 200 g by mouth once daily Threonine Discontinued 200 GM PO DAILY February 06, 2020 7:pm September 29, 2020 12:28pm Start: 02-06-2020 End: 09-29-2020 take 50 g by mouth once daily Threonine 50 GM powder Discontinued 200 g PO DAILY February 06, 2020 12:00September 29, 2020 12:28pm Start: 02-06-2020 End: 09-29-2020 take 200 g by mouth once daily Threonine Discontinued 200 GM PO DAILY February 06, 2020 12:September 29, 2020 12:28pm Tumeric (8 sources) Start: 02-06-2020 End: 09-29-2020 take 1 tablet by mouth once daily Tumeric Discontinued 1 TABLET PO DAILY February 06, 2020 7:25pm September 29, 2020 12:28pm Start: 02-06-2020 End: 09-29-2020 Tumeric Discontinued 1 {tbl} PO DAILY February 06, 2020 12:00September 29, 2020 12:28pm Start: 02-06-2020 End: 09-29-2020 take 1 tablet by mouth once daily Tumeric Discontinued 1 TABLET PO DAILY February 06, 2020 12:00am September 29, 2020 12:28pm ubidecarenone 100 mg oral capsule (8 sources) Start: 02-06-2020 End: 09-29-2020 take 10 capsules by mouth once daily Coenzyme Q10 100 MG capsule Discontinued 400 mg PO DAILY February 06, 2020 12:00am September 29, 2020 12:29pm Problems Active Problems Problem Classification Problem Date Documented Da te Episodic/Chronic Anxiety disorders (3 sources) Anxiety; Translations: [Anxiety disorder, unspecified] 09-07-2022 Chronic [...] of cervix (ASC-US)] Episodic Comment on above: [place] 2020 negative. Pap in 2021 Mood disorders (20 sources) Premenstrual dysphoric disorder; Translations: [Premenstrual dysphoric disorder] Chronic Comment on above: tangela, celexa celexa in past, coun seling Nonspecific chest pain (8 sources) Chest pain; Translations: [Chest pain, unspecified] 02-07-2020 Episodic Open wounds of extremities (8 sources) Cat bite - wound; Translations: [Open bite, unspecified ankle, initial encounter] 04-14-2020 Episodic Other complications of ; puerperium affecting management of mother (20 sources) Advanced maternal age ; Translations: [Advanced maternal age during ] Episodic Comment on above: NIPT low risk 36 wee k growth us and delivery by 39-40, 36 wk nl growth Other complications of (8 sources) High risk ; Translations: [Supervision of high risk , unspecified, unspecified trimester] 08-28-2022 Episodic Comment on above: PRR ZOEY: 2. girl PC:Ned FOB:Bill(unsure if will be involved) Other complications of (20 sources) Supervision of high risk , unspecified, unspecified trimester; Translations: [Supervision of unspecified high-risk ] Episodic Other female genital disorders (10 sources) Cervical intraepithelial neoplasia grade 1; Translations: [Mild cervical dysplasia] 03-25-2022 Episodic Comment on above: 2018 LGSIL. 2019 neg pap and HPV. LGSIL HPV+ 2021-[place] neededrepeat pap post Other female genital disorders (20 sources) Mild cervical dysplasia; Translations: [Mild dysplasia of cervix] Episodic Other gastrointestinal disorders (8 sources) Irritable bowel syndrome; Translations: [Irritable bowel syndrome without diarrhea] 01-21-2022 Chronic Other nutritional; endocrine; and metabolic disorders (4 sources) Weight increased; Translations: [Abnormal weight gain] 05-01-2025 Episodic Other and delivery including normal (20 sources) ; Translations: [Encounter for supervision of normal , unspecified, unspecified trimester] Episodic Comment on above: iol oligo girl Jada 4 0 SM GBS neg. DOESN'T WAN T DAD TO CUT UMBILICAL CORD. nipt low risk. carrier and ntd declined. nl anatomy. Other screening for suspected conditions (not mental disorders or infectious disease) (2 sources) Encounter for screening for malignant neoplasm of cervix; Translations: [Encounter for screening mammogram for malignant neoplasm of breast] Onset: 5 Episodic Other upper respiratory infections (4 sources) Ethmoidal sinusitis; Translations: [Chronic ethmoidal sinusitis] Onset: 4 10-26-2024 Chronic Polyhydramnios and other problems of amniotic cavity (20 sources) Subchorionic hematoma; Translations: [Other specified disorders of amniotic fluid and membranes, unspecified trimester, not applicable or unspecified] Episodic Comment on above: pit IOL epi PRN 1.5cm seen over cerv ix, fu 1 week Residual codes; unclassified (16 sources) History of vaccination; Translations: [Personal history of other drug therapy] 01-21-2022 Episodic Residual codes; unclassified (7 sources) FH: Congenital heart disease; Translations: [Family history of other congenital malformations, deformations and chromosomal abnormalities] 08-28-2022 Episodic Comment on above: FOB niece. discussed anatomy scan with MFM planned. Residual codes; unclassified (20 sources) Family history of other congenital malformations, deformations and chromosomal abnormalities; Translations: [Family history of congenital anomalies] Episodic Sexually transmitted infections (not HIV or hepatitis) (3 sources) Human papillomavirus deoxyribonucleic acid test positive, high risk on cervical specimen; Translations: [Cervical high risk human papillomavirus (HPV) DNA test positive] 06-25-2024 Episodic Spondylosis; intervertebral disc disorders; other back problems (6 sources) Low back pain; Translations: [Lumbar back pain] 05-01-2025 Episodic Unclassified (2 sources) History and physical examination, school ; Translations: [Encounter for examination for admission to educational institution] Onset: 7 06-02-2017 Unclassified (2 sources) Lumbar back pain Unclassified (5 sources) M54.50 - Low back pain, unspecified Unclassified (1 source) Low back pain, unspecified; Translations: [Low back pain, unspecified] Onset: 5 Past or Other Problems Problem Classification Problem Date Documented Da te Episodic/Chronic Nonmalignant breast conditions (4 sources) Mastodynia; Translations: [Pain of left breast] Onset: 10-26-2024 09-05-2024 Episodic Results Test Name Value Interpretation Reference Range Facility PT D/C Summary (1)on 025 PT D/C Summary (1) [facility] [address] [place] [address] / REHABILITATION SERVICES DISCHARGE SUMMARY MR#: [id number] Acct: [id number] Name: SULTANA NAVARRETE Rep #: [id number] : 1985 40 From: Che Higgins PT, Cert. MDT Referring Dr.: MIGUEL Heath Status: REG RCR Insurance: [facility] SELF PAY INSURANCE Discharge Summary D/C summary: It has been my pleasure to treat SULTANA NAVARRETE referred by MIGUEL Murguia, with the diagnosis of LBP for a total of 12 visit(s). Discharge Date: 07/19/25 Please see the following information for a summary of their discharge status. Subjective Subjective: PATIENT REPORTS HER PAIN IS NOW RANGING 0-5/10. THE PAIN IS NO LONGER DISTRUBING HER SLEEP. SHE REPORTS SHE IS USING BETTER BODY MECHANICS AND MOVING DIFFERENT BUT BENDING AND LIFTING STILL INCREASES HER PAIN. SHE STATES IF SHE SITS ON THE FLOOR TOO LONG IT IS HARD TO GET UP AND SHE IS REALLY STIFF AFTER. SHE REPORTS THE POOL HAS HELPED AND THE PAIN ISN'T INTENSE BUT IT IS UNCOMFORTABLE MOST OF THE TIME. PATIENT REPORTS HER BACK IS DEFINATELY BETTER BUT NOT HEALED ALL THE WAY AND SHE HAS NOT BEEN ABLE TO RETURN TO HER NORMAL ACTIVITIES THAT SHE WAS DOING BEFORE THIS FLARE UP STARTED IN MARCH 2025. Pain LBP: Pain Intensity (Out of 10): 2 Overall Improvement % Improvement: 20 Objective Objective/Function: PATIENT WAS SEEN TODAY FOR RE-ASSESSMENT OF PROGRESS TOWARD THE SET PT GOALS AND THE NEED FOR FURTHER PHYSICAL THERAPY VS READINESS FOR DISCHARGE. THIS PATIENT HAS BENEFITED FROM PHYSICAL THERAPY (BACK OSWESTRY SCORE HAS IMPROVED FROM (28 TO 12 AND SUBJECTIVE PAIN SCALE HAS IMPROVED FROM 2-9/10 TO 0-4 OR 5/10. LUMBAR ROM HAS ALSO IMPROVED WITH LESS PAIN AND IRRITABILITY) BUT CONTINUES TO HAVE SIGNIFICANT FUNCTIONAL LIMITATIOINS AND HAS BEEN UNABLE TO RETURN TO HER PRIOR LEVEL OF FUNCTION. SHE IS MANAGING HER CONDITION MUCH BETTER THAN WHEN SHE STARTED PT BUT HER SX'S HAVE NOT RESOLVED. PHYSICIAN RE-ASSESSMENT RECOMMENDED. PATIENT AGREEABLE. SHE IS INDEP WITH BOTH WATER AND HOME EX PROGRAMS. UPON EXAM TODAY: LUMBAR MVMT LOSS: FLEX - NIL - INCREASES LBP - NW EXT - MOD - INCREASES LBP - W R SG - MIN L SG - MOD - INCREASES LBP - NW DURAL SIGNS: POSITIVE R, NEGATIVE LLE. Goals Goal 1:: Decrease LBP x 50% to aid with sleep Goal Progress: Goal Met Goal 2:: I with HEP Goal Progress: Goal Met Goal 3:: Increase L/S extension ROM x 1 grade to aid with decreasing LBP Goal Progress: Not Progressing Plan Plan: D/C D/C Information d/c sentence: If there are questions or concerns regarding this patient's physical therapy, please feel free to call me at [phone]. Thank you for the referral of this patient. Sincerely, Che Higgins, PT, Cert MDT Balance/Gait/Functional tests Balance/Special Test Scores Oswestry Low Back Score: 12 Improvement % Improvement: 20 07/19/25 0901 CC: MIGUEL Heath; Dr. Christian Roa MD EDILMA Signed Normal [facility] Re-Evaluation - PT (1)on Re-Evaluation - PT (1) [facility] [address] [place] [address] / REEVALUATION / MEDICARE RECERTIFICATION PHYSICAL THERAPY MR#: [id number] Acct: [id number] Name: SULTANA NAVARRETE Rep #: [id number] : 1985 40 From: Che Higgins PT, Cert. MDT Referring Dr.: MIGUEL Heath Status:REG RCR Insurance: [facility] SELF PAY INSURANCE Re-Evaluation Intro: MIGUEL Murguia, It has been my pleasure to treat SULTANA NAVARRETE over the last 2 visits for LBP. Please see the progress note below for an update on the physical therapy plan of care! Subjective Subjective: PATIENT REPORTS COMPLIANCE WITH HOME INSTRUCTIONS FROM LAST VISIT AND SHE IS NB AND NW. REPORTS A HISTORY OF LOW BACK PAIN AFTER FIRST ABOUT 11 YEARS AGO TREATED WITH PT HERE AT [facility]. REPORTS HAVING CHIROPRACTIC ADJUSTMENTS AND STRETCHING INST 2X'S A WK X 8 MO'S STARTING JUST BEFORE SECOND AND CONTINUING DURING . DID GLOW BODY 12 WK PROGRAM FOR 3 FINGER WIDTH DIASTASIS RECTI AFTER AND WONDERING IF SHE DID TOO MUCH TOO FAST. REPORTS SOME H/O HIP TIGHTNESS FOR QUITE A WHILE BUT ONSET OF LBP JUST 4-6 WKS AGO FOR NO APPARENT REASON. REPORTS PAIN IS CURRENTLY CONSTANT RANGING 2-9/10. WORSE WITH BENDING. NOT GOOD STILL IN ANY POSITION BUT EVEN WORSE INITIATING MVMT AFTER BEING STILL. STATES TYLONOL AND IBUPROFEN DO NOT HELP. GETTING IN THE POOL GAVE SOME RELIEF BUT STATES HASN'T REALLY TRIED MUCH TO RELIEVE IT AND JUST PUSHES THROUGH AND KEEPS GOING. STATES NIGHT IS REALLY BAD. Objective Objective/Function: UPON EXAM TODAY: SENSATION: AIXA LE LIGHT TOUCH SENSATION GROSSLY INTACT AND SYMMETRICAL. LUMBAR MVMT LOSS: FLEX - MIN - INCREASES LBP - W EXT - MOD - INCREASES LBP - W R SG - MIN L SG - MOD - INCREASES LBP - W DURAL SIGNS: POSITIVE R, NEGATIVE LLE. OTHER: ABLE TO TEMPORARILY DECREASE C/O LBP TO 1-2/10 PRONE LYING AND TO 2/10 IN SITTING WITH USE OF LUMBAR SUPPORT BUT DID NOT REMAIN BETTER A RESULT. TREATMENT: REVIEW OF PRIOR HOME INST GIVEN BY TEX WEBER AT [facility] LAST VISIT: PATIENT DEMO'S SQUAT TO BEND VS LUMBAR FLEXION, ERECT SITTING POSTURE VS SLOUCH AND PRONE PROP UP STATING SHE IS DOING THIS FOR ONE MINUTE EVERY TWO HOURS AND THESE ARE THE HOME CHANGES SHE HAS MADE SINCE LAST VISIT. STATES IT IS REALLY UNCOMFORTABLE IN PRONE PROP BUT NO WORSE OVER-ALL SINCE STARTING IT. AFTER FURTHER ASSESSMENT, EDUCATED PATIENT IN POSSIBLE LUMBAR DISC INVOLVEMENT AND INFLAMMATION. RECOMMENDED USE OF LUMBAR SUPPORT IN SITTING, MINIMIZING SITTING, BENDING, LIFTING AND TWISITNG INCLUDING INST IN PROPER BODY MECHANICS FOR ADL'S. ALSO RECOMMENDED PERIODIC UNLOADING IN LYING AND OTHER APPROPRIATE ACTIVITY MODIFICATIONS ABLE TO TRY TO PROMOTE HEALING AND DECREASING INFLAMMATION AND PAIN. PATIENT DEMONSTRATED/COMMUNICATE D A GOOD UNDERSTANDING OF ALL INSTRUCTIONS AFTER GIVEN TODAY. Plan Plan Plan: CONT PT 2X'S A WK X 3-4 WKS - PATIENT AGREEABLE. MODALITIES NEEDED (PATIENT HAS TENS UNIT AND MAY BRING FOR USE INST). POSTURE CORRECTION/STRENGTHENING , INSTRUCTION IN APPROPRIATE BODY MECHANICS AND ACTIVITY MODIFICATIONS. DLS STARTING WITH A NEUTRAL SPINE PROGRESSING ROM TOLERATED. AIXA LE ROM, ST RETCHING AND STRENGTHENING. HEP INSTRUCTION. Balance/Gait/Functional tests Balance/Special Test Scores Oswestry Low Back Score: 28 Goals Goals Goal 1:: Decrease LBP x 50% to aid with sleep Goal Time Frame: 2-4 Weeks Goal 2:: I with HEP Goal Time Frame: 2-4 Weeks Goal 3:: Increase L/S extension ROM x 1 grade to aid with decreasing LBP Goal Time Frame: 2-4 Weeks Anticipated Interventions Anticipated Interventions Patient/Client Instruction: Educate patient on: Condition and Plan of Care For the Purpose of:: To improve self management Therapeutic Exercise to Include: Strength training, Body mechanics, Postural training, Active ROM, Dynamic Lumbar Stabilization and Barron Exercises For the Purpose of:: To decrease pain, To increase ROM and To improve muscle performance and motor function Manual Therapy Techniques to Include: Mobilization For the Purpose of:: To decrease pain, To increase ROM, To increase tolerance to activity/condition/posit ion and To improve ability of physical actions for home/community/work/leis ure TENS: Yes IF ES: Yes Cryotherapy (ice pack, ice massage): Yes Thermo therapy (hot pack): Yes Ultrasound (thermal/non thermal): Yes For the Purpose of:: To decrease pain, To decrease swelling/inflammation and To improve nutrient delivery to tissue Re-Evaluation Ending Re-evaluation ending: Please do not hesitate to contact me at [phone] by phone or if you have questions or concerns regarding this new plan of care! Sincerely, Che Higgins, PT, Cert MDT 05/14/25 1019 (more content not included)... Normal [facility] Inital Evaluation (1) - PTon 05-09-2025 Inital Evaluation (1) - PT [facility] [address] [place] [address] / REHABILITATION SERVICES INITIAL EVALUATION MR#: [id number] Acct: [id number] Name: SULTANA NAVARRETE Rep #: [id number] : 1985 40 From: Sai Archuleta PT, ATC Referring Dr.: MIGUEL Murguia Status: REG RCR Insurance: [facility] SELF PAY INSURANCE Patient's Visit Information Visit Information Visit Information: SULTANA NAVARRETE is a 40 year old F referred to Physical Therapy by MIGUEL Murguia with a diagnosis of LBP. Date of Evaluation: 05/09/25 Physical Therapist: Sai Archuleta PT, ATC Visit Plan Frequency: 1x/Week Duration: 2 Weeks Plan: Pt was sent home with prone prop progression at this time. Pt was educated on proper posture and body biomechanics. Plan to schedule a followup with Che Higgins PT next visit. Subjective Subjective: Pt reports she has had LBP for approximately 3 weeks. Pt notes she was exercising at that time and wonders if that has been the cause of her pain. Pt reports sleep difficulty at this time secondary to pain. Pt reports sitting for prolonged periods increases her pain. Pt denies any B LE radiculopathy at this time. Pt reports stretching her trunk and LE's tends to aid with decreasing her pain. Pt reports she has had LBP episodes in the past. Pt notes her sx's also seemed worse while she was on her cycle, but then let up some when it was over. Pt reports no Dx testing of her LB recently. Pt notes she has a 2 year old which she has difficulty at times trying to lift her up. Pt reports she is always more stiff when she wakes up in the morning. Pt reports her LBP level is 5/10 while sitting here in the clinic, but elevates to 9/10 at worst. Pain LBP: Pain Intensity (Out of 10): 5 Pain Intensity Range: 9 Objective Objective: Neuro: B LE sensation is WNL to light touch. MMT: B LE's are grossly 5/5 and equal compared bilaterally. ROM: Pt is moderately limited with extension of the L/S. All other motions are WNL Repeated movements: RFIS 10x1 increased pain on lateral hips. SEAN 10x1 increased central LBP. Prone prop progression and REIL 10x2 increased central LBP Special tests: all neg Balance/Special Test Scores Oswestry Low Back Score: 28 Goals Goal 1:: Decrease LBP x 50% to aid with sleep Goal Time Frame: 2-4 Weeks Goal 2:: I with HEP Goal Time Frame: 2-4 Weeks Goal 3:: Increase L/S extension ROM x 1 grade to aid with decreasing LBP Goal Time Frame: 2-4 Weeks Rehabilitation Potential Physical Therapy Diagnosis: Pt has LBP and sleep difficulty secondary to L/S disc pathology Rehabilitation Potential: Good Anticipated Interventions Patient/Client Instruction: Educate patient on: Condition and Plan of Care For the Purpose of:: To improve self management Therapeutic Exercise to Include: Strength training, Body mechanics, Postural training, Active ROM, Dynamic Lumbar Stabilization and Barron Exercises For the Purpose of:: To decrease pain, To increase ROM and To improve muscle performance and motor function Text: Thank you for the opportunity to evaluate your patient. For Medicare and Medicare HMO plans, please review the plan of care and approve it. It will need to be FAXED BACK to us at [phone] for Medicare purposes. For Medicare only, by signing this I certify the plan of care. Please let me know if there are questions or concerns regarding this plan of care. Physician Signature: Date: ____ 05/09/25 1301 CC: MIGUEL Heath; Dr. Christian Roa MD [facility] Signed Normal [facility] PAP IG HPV APTIMA 16/18,45on 05-06-2025 ADEQ Comment Normal . [facility] Comment on above: Order Comment: Speci men Comment: [id number] Specimen Comment: No. of containers..01 ThinPrep Vial Result Comment: Sati sfactory for evaluation. Endocervical and/or squamous metaplastic cells (endocervical component) are present. Performed By: #### L 7400.0280 #### [facility] [address] [place], [address] COMM . Normal . [facility] Comment on above: Order Comment: Speci men Comment: [id number] Specimen Comment: No. of containers..01 ThinPrep Vial Performed By: #### L 7400.0280 #### [facility] [address] [place], [address] COMMENT Comment Normal . [facility] Comment on above: Order Comment: Speci men Comment: [id number] Specimen Comment: No. of containers..01 ThinPrep Vial Result Comment: This liquid based ThinPrep(R) pap test was screened with the use of an image guided system. Performed By: #### L 7400.0280 #### [facility] [address] [place], [address] DIAG Comment Normal . [facility] Comment on above: Order Comment: Speci men Comment: [id number] Specimen Comment: No. of containers..01 ThinPrep Vial Result Comment: NEGA TIVE FOR INTRAEPITHELIAL LESION OR MALIGNANCY. Performed By: #### L 7400.0280 #### [facility] [address] [place], [address] HPV APTIMA, HR Negative Normal Negative [facility] Comment on above: Order Comment: Speci men Comment: [id number] Specimen Comment: No. of containers..01 ThinPrep Vial Result Comment: This nucleic acid amplification test detects fourteen high- risk HPV types (16,18,31,33,35,39,45,51,52,56,58,59,66,68) without differentiation. Performed By: #### L 7400.0280 #### [facility] [address] [place], [address] HPV Kylah Rfx Comment Normal . [facility] Comment on above: Order Comment: Speci men Comment: [id number] Specimen Comment: No. of containers..01 ThinPrep Vial Result Comment: Crit eria not met, HPV Genotype not performed. Performed at: [facility] [address] [place] [id number] Sports Athletic Trainer: Matt Wisdom MD, Phone: [phone] Performed at: - [address] [id number] Sports Athletic Trainer: Jelly Barnett MD, Phone: [phone] Performed at: = - [facility] [id number] Sports Athletic Trainer: Jelly Barnett MD, Phone: [phone] Performed By: #### L 7400.0280 #### [facility] [address] [place], [address] PAPSMR Comment Normal . [facility] Comment on above: Order Comment: Speci men Comment: [id number] Specimen Comment: No. of containers..01 ThinPrep Vial Result Comment: The Pap smear is a screening test designed to aid in the detection of premalignant and malignant conditions of the uterine cervix. It is not a diagnostic procedure and should not be used as the sole means of detecting cervical cancer. Both false-positive and false-negative reports do occur. Performed By: #### L 7400.0280 #### [facility] [address] [place], [address] PERFORM Comment Normal . [facility] Comment on above: Order Comment: Speci men Comment: [id number] Specimen Comment: No. of containers..01 ThinPrep Vial Result Comment: Geoffrey Claire, Auto Locator (ASCP) Performed By: #### L 7400.0280 #### [facility] [address] [place], [address] Cervical or vaginal specimen microscopic examination by liquid based cytology (reportOrdered By: Karo Heath on 05-01-2025 Cytology report Cyto stain.thin prep Doc (Cvx/Vag) Comment . [facility] Comment on above: Criteria not met, HP V Genotype not performed.Performed at: [facility] [address] [place], [place] [id number] Director: Matt Wisdom MD, Phone: [phone] at: [address] [id number] Director: Jelly Barnett MD, Phone: [phone] at: = - [facility] [id number] Director: Jelly Barnett MD, Phone: [phone] Cervical or vagninal specime n microscopic examination by cytology stain (reported asOrdered By: Karo Heath on 05-01-2025 Cytology report Cyto stain Doc (Cvx/Vag) Comment . [facility] Comment on above: The Pap smear is a s creening test designed to aid in thedetection of premalignant and malignant conditions of theuterine cervix. It is not a diagnostic procedure andshould not be used as the sole means of detecting cervicalcancer. Both false-positive and false-negative reports dooccur. Detection in cervical specim en of any of human papilloma virus (HPV) 16, 18, 31, 33,Ordered By: Karo Heath on 05-01-2025 HPV 16+18+31+33+35+39+45+ 51+52+56+58+59+66+68 DNA Probe+sig amp Ql (Cvx) Negative Negative [facility] Comment on above: This nucleic acid am plification test detects fourteen high- risk HPV types (16,18,31,33,35,39,45,51,52,56,58,59,66,68)without differentiation. Laboratory - CytologyOrdered By: Karo Heath on 05-01-2025 Auto Locator Cyto stain Nom (Cvx/Vag) [ID] Comment . [facility] Comment on above: Werner Padgett tologist (ASCP) Laboratory - Miscellaneous t estsOrdered By: Karo Heath on 05-01-2025 Service comment (Unsp spec) [Interp] . . [facility] No Panel InformationOrdered By: Karo Heath on 05-01-2025 Pap Smear Specimen Adequacy Comment . [facility] Comment on above: Satisfactory for beronica luation. Endocervical and/or squamous metaplasticcells (endocervical component) are present. Signal Person Office Visit Reporton 05-01-2025 Signal Person Office Visit Report [facility] [address], [address] [place] [address] OFFICE VISIT Date of Service: 05/01/25 MR#: [id number] Acct: [id number] Name: SULTANA NAVARRETE Rep #: [id number] : 1985 Provider: MIGUEL Lance Age/Sex: 40/F Location[place] [facility] [place] Status: Signed Intake Vital Signs 10/26/24 17:30 05/01/25 09:21 Height 5 ft 4 in 5 ft 4 in Weight: 138 lb 149 lb 2 oz BMI 23.6 25.6 BP 124/60 H 108/73 Blood Pressure Location Lt brachial Position Sitting Respiration 16 Pulse 85 Pulse Source NIBP Temp 98.6 F Pulse Oximetry (%) 97 Oxygen Delivery Method room air 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) Dough Panner Required: No Is patient in pain?: No Allergies ceftriaxone (From Rocephin) Allergy (Mild, Verified 05/01/25 09:19) hives Latex, Natural Rubber Adverse Reaction (Unknown, Verified 05/01/25 09:19) itching/irritation Medications ???Medication ???Instructions ???Recorded ???Confirmed ???Type alprazolam 0.25 mg tablet (Xanax) 0.25 mg PO QHS PRN anxiety #20 ta bs 09/07/22 05/01/25 Rx sertraline 25 mg tablet 25 mg PO QDAY #15 tabs 09/25/24 Rx lysine 1,000 mg tablet 1,000 mg PO QDAY 10/26/24 05/01/25 History omega 4-kfb-fdu-fish oil 300 1 cap PO QDAY 10/26/24 05/01/25 Hi story mg-1,000 mg capsule (Fish Oil) thiamine HCl (vitamin B1) 500 mg 500 mg PO QDAY 10/26/24 05/01/25 H istory tablet zinc gluconate 100 mg tablet 100 mg PO QDAY 10/26/24 05/01/25 H istory ghwmxnzscxcx-pwtemhsx-ab on tab PO 05/01/25 05/01/25 History fumarate 18 mg-folic acid 400 mcg tablet (One Daily Women[facility]) Is last menstrual period known: Yes Last Menstrual Period: 04/06/25 Post menopausal: No Patient : No : No Control Method: none PFSH Medical History Anxiety History of vaccination against human papillomavirus ASCUS with positive high risk HPV cervical Surgical History History of ankle surgery S/P lumpectomy, left breast [place] teeth extracted Family History Grandmother Diabetes CVA [...] home: Yes additional 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 Date Name GA/Weeks Outcome Route Bth Weight Gen Labor Lgth Anesthesia Del Locatn Provider FOB 05/23/14 Nde 40 live - full term 7 lbs 14 oz Male 48 hours ep idural [facility] 08/27/22 Ezlyn 40 live - full term 7lbs 7oz Female [facility] Laura guillen Delivery Date: 05/23/14 Last Updated by: Naz Alonzo No issues during or delivery. Delivery Date: 08/27/22 Last Updated by: Elizabeth Rivera IOL oligo SM HPI Encounter for routine gynecological examination Details: SULTANA NAVARRETE is a 40 year old who presents for annual exam. She reports she feels her pelvic floor is a problem. She states since having children she has a lower back pain. She has done exercises at home for this; does not seem to be helping. Has also concern for resistant weight loss. Reports her diet is healthy; is trying to get back into doing exercise. Last PAP: 2023; normal. HPV pos. History of abnormal PAP: no. Last mammogram: 2023; normal. History of abnormal mammogram: no. Colon cancer screening: age 46. Other preventative health care screenings: Christian Roa; PCP. Female Reproductive History Last Menstrual Period: 04/06/25 Cycle Length: 21-35 Bleeding Duration: 5 Questions: metorrhagia: No, sexually active: Yes (condoms), dyspareunia: No and PCB: No ROS Const Constitutional: Reports weight gain (resistant to weight loss); Denies chills, fatigue, fever(s), headache(s) or weight loss Eyes Eyes: Denies change in vision ENT ENT: Denies dizziness Resp Resp: Denies cough or dyspnea GI GI: Denies abdominal pain, constipation or nausea : Denies difficulty voiding, dysuria, hematuria, nipple discharge, pelvic pain, (more content not included)... Normal [facility]gent Care Visit Reporton 1 12-27-2023 Urgent Care Visit Report [facility] [address] , [address] [place], [place] [address] OFFICE VISIT Date of Service: 10/26/24 MR#: [id number] Acct: [id number] Name: SULTANA NAVARRETE Rep #: [id number] : 1985 Provider: MIGUEL silverman Age/Sex: 39/F Location[place] [facility] [place] Status: Signed Intake Vital Signs 09/05/24 15:10 [...] chest congest, cough, fatigue, LEMUS, BA, ST Dough Panner Required: No Is patient in pain?: No [...] mg PO QDAY 10/26/24 10/26/24 History omega 2-lth-rzr-fish oil 300 1 cap PO QDAY 10/26/24 [...] 2 days after flying for the holidays. 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 Patient reports for the last 2 weeks she has had congestion with yellow nasal drainage. Reports she has been blowing nose and noticing yellow "chunks" to discharge. The last two days she [...] healthy appearing, comfortable and no acute distress [facility] Head: normal to inspection Ears: hearing grossly [...] normal Neuro (more content not included)... Normal [facility] DIAG MAMM W/CAD, BILATon DIAG MAMM W/CAD, BILAT [facility] [address] [place], [place] [address] DIAG MAMM W/CAD, BILAT MR#: [id number] Acct: [id number] Name: SULTANA NAVARRETE Rep #: [id number] : 1985 F 39 From: Maciel Lopez MD PCP: Dr. 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 Restaurant: Signed Normal [facility] Signal Person Office Visit Reporton 09-05-2024 Signal Person Office Visit Report [facility] [address], [address] [place] [address] OFFICE VISIT Date of Service: 09/05/24 MR#: [id number] Acct: [id number] Name: SULTANA NAVARRETE Rep #: [id number] : 1985 Provider: MIGUEL luna Age/Sex: 39/F Location: [facility] [place] Status: Signed Intake Vital Signs 06/25/24 10:44 09/05/24 15:09 09/05/24 15:10 Height 5 ft 4 in 5 ft 4 in 5 ft 4 in Weight: 143 lb BMI 24.5 BP 107/71 Intake Visit Reasons: left breast pain Dough Panner Required: No Is patient in pain?: No [...] of ankle surgery S/P lumpectomy, left breast [place] teeth extracted Family History Grandmother Diabetes CVA [...] home: Yes 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 09/05/24 1528 Date Faviola Barahona NP, NP-C Dmitryigner Signature: Date (if applicable) CC: Normal [facility] - Chemistry and C hemistry - challengeon 07-28-2022 Glucose Ql (U) Negative [facility] Work Phone: Laboratory - Urinalysison Protein Ql (U) Negative [facility] Work Phone: Laboratory - Chemistry and C hemistry - challengeon 07-12-2022 Glucose Ql (U) Negative [facility] Work Phone: Laboratory - Urinalysison Protein Ql (U) Negative [facility] Work Phone: Laboratory - Chemistry and C hemistry - challengeon 06-28-2022 Glucose Ql (U) Negative [facility] Work Phone: [phone] Laboratory - Urinalysison Protein Ql (U) Negative [facility] Work Phone: Laboratory - Chemistry and C hemistry - challengeon 06-14-2022 Glucose Ql (U) Negative [facility] Work Phone: Laboratory - Urinalysison Protein Ql (U) Negative [facility] Work Phone: [phone] Laboratory - Chemistry and C hemistry - challengeon 06-02-2022 Glucose Ql (U) Negative [facility] Work Phone: Laboratory - Urinalysison Protein Ql (U) Negative [facility] Work Phone: Absolute lymphocyte counton 05-20-2022 Lymphocytes Auto (Unsp spec) [#/Vol] 2.80 10*3/uL 0.83-4.51 [facility] Work Phone: [phone] Basophil percentageon 2021 Basophils/100 WBC (Bld) 0.2 % 0-1 [facility] Work Phone: [phone] Eosinophils/100 WBC (Bld) 1.0 % 0-5 [facility] Work Phone: [phone] Neutrophils (Bld) [#/Vol] 6.4 10*3/uL 2.0-7.7 [facility] Work Phone: [phone] Neutrophils/100 WBC (Bld) 63.2 % 47-70 [facility] Work Phone: WBC (Bld) [#/Vol] 10.2 10*3/uL 4.4-11.0 [facility] Work Phone: [phone] Blood erythrocytes count (nu mber/volume)on 05-20-2022 RBC (Bld) [#/Vol] 4.01 10*6/uL 4.2-5.4 [facility] Work Phone: Blood hemoglobin measurement (mass/volume)on 05-20-2022 Hemoglobin (Bld) [Mass/Vol] 11.3 g/dL 12.0-15.0 [facility] Work Phone: Blood lymphocytes/100 leukoc yteson 05-20-2022 Lymphocytes/100 WBC (Bld) 27.6 % 19-41 [facility] Work Phone: Blood monocytes/100 leukocyt eson 05-20-2022 Monocytes/100 WBC (Bld) 6.9 % 0-10 [facility] Work Phone: Blood platelet mean volumeon 05-20-2022 Platelet mean volume (Bld) [Entitic vol] 9.6 fL 6.2-12.0 [facility] Work Phone: Determination of erythrocyte mean corpuscular volume (MCV)on 05-20-2022 MCV (RBC) [Entitic vol] 85.0 fL 81-99 [facility] Work Phone: Gestational diabetes screen 1-hour screen with 50g oral glucose loadon 05-20-2022 Glucose 1 Hr post 50 g glucose PO [Mass/Vol] 107 mg/dL 70-140 [facility] Work Phone: Hematocrit Auto (Bld) [Volum e fraction]on 05-20-2022 Hematocrit (Bld) [Volume fraction] 34.1 % 37-47 [facility] Work Phone: Laboratory - Chemistry and C hemistry - challengeon 05-20-2022 Glucose Ql (U) Negative [facility] Work Phone: Laboratory - Hematology and Cell countson 05-20-2022 Erythrocyte distribution width (RBC) [Entitic vol] 38.6 fL 35.1-43.9 [facility] Work Phone: Erythrocyte distribution width (RBC) [Ratio] 12.6 % 11.6-14.6 [facility] Work Phone: Immature granulocytes/100 WBC (Bld) 1.100 % 0.0-0.9 [facility] Work Phone: Comment on above: IG% - Immature Granu locytes (promyelocytes, myelocytes and metamyelocytes) > 1% indicates that a LEFT SHIFT is Present. MCH (RBC) [Entitic mass] 28.2 pg 27.0-32.0 [facility] Work Phone: Nucleated RBC/100 WBC (Bld) [Ratio] 0 % 0-5 [facility] Work Phone: Laboratory - Urinalysison Protein Ql (U) Negative [facility] Work Phone: MCHC Auto (RBC) [Mass/Vol]on 05-20-2022 MCHC (RBC) [Mass/Vol] 33.1 g/dL 32-36 [facility] Work Phone: Platelets bldon 05-20-2022 Platelets (Bld) [#/Vol] 170 10*3/uL 150-450 [facility] Work Phone: Laboratory - Chemistry and C hemistry - challengeon 04-21-2022 Glucose Ql (U) Negative [facility] Work Phone: Laboratory - Urinalysison Protein Ql (U) Negative [facility] Work Phone: Absolute lymphocyte counton 02-26-2022 Lymphocytes Auto (Unsp spec) [#/Vol] 2.59 10*3/uL 0.83-4.51 [facility] Work Phone: Basophil percentageon 2021 Basophils/100 WBC (Bld) 0.3 % 0-1 [facility] Work Phone: Eosinophils/100 WBC (Bld) 0.9 % 0-5 [facility] Work Phone: Neutrophils (Bld) [#/Vol] 7.0 10*3/uL 2.0-7.7 [facility] Work Phone: Neutrophils/100 WBC (Bld) 65.6 % 47-70 [facility] Work Phone: WBC (Bld) [#/Vol] 10.7 10*3/uL 4.4-11.0 [facility] Work Phone: Blood erythrocytes count (nu mber/volume)on 02-26-2022 RBC (Bld) [#/Vol] 4.39 10*6/uL 4.2-5.4 [facility] Work Phone: Blood hemoglobin measurement (mass/volume)on 02-26-2022 Hemoglobin (Bld) [Mass/Vol] 12.4 g/dL 12.0-15.0 [facility] Work Phone: Blood lymphocytes/100 leukoc yteson 02-26-2022 Lymphocytes/100 WBC (Bld) 24.3 % 19-41 [facility] Work Phone: Blood monocytes/100 leukocyt eson 02-26-2022 Monocytes/100 WBC (Bld) 8.2 % 0-10 [facility] Work Phone: Blood platelet mean volumeon 02-26-2022 Platelet mean volume (Bld) [Entitic vol] 10.1 fL 6.2-12.0 [facility] Work Phone: Determination of erythrocyte mean corpuscular volume (MCV)on 02-26-2022 MCV (RBC) [Entitic vol] 84.3 fL 81-99 [facility] Work Phone: HIV 1 and HIV-2 antibody ass ay with HIV-1 p24 antigen detectionon 02-26-2022 HIV 1+2 Ab+HIV1 p24 Ag IA Ql Non-Reactive Nonreactive [facility] Work Phone: Hematocrit Auto (Bld) [Volum e fraction]on 02-26-2022 Hematocrit (Bld) [Volume fraction] 37.0 % 37-47 [facility] Work Phone: Laboratory - Chemistry and C hemistry - challengeon 02-26-2022 Glucose Ql (U) Negative [facility] Work Phone: Laboratory - Hematology and Cell countson 02-26-2022 Erythrocyte distribution width (RBC) [Entitic vol] 40.8 fL 35.1-43.9 [facility] Work Phone: Erythrocyte distribution width (RBC) [Ratio] 13.2 % 11.6-14.6 [facility] Work Phone: Immature granulocytes/100 WBC (Bld) 0.700 % 0.0-0.9 [facility] Work Phone: Comment on above: IG% - Immature Granu locytes (promyelocytes, myelocytes and metamyelocytes) > 1% indicates that a LEFT SHIFT is Present. MCH (RBC) [Entitic mass] 28.2 pg 27.0-32.0 [facility] Work Phone: Nucleated RBC/100 WBC (Bld) [Ratio] 0 % 0-5 [facility] Work Phone: Laboratory - Urinalysison Protein Ql (U) Negative [facility] Work Phone: MCHC Auto (RBC) [Mass/Vol]on 02-26-2022 MCHC (RBC) [Mass/Vol] 33.5 g/dL 32-36 [facility] Work Phone: No Panel Informationon 02-26 Hepatitis B Surface Antigen Non-Reactive Nonreactive [facility] Work Phone: Hepatitis C Antibody Non-Reactive Nonreactive [facility] Work Phone: Comment on above: Non Reactive: < 0.8 Equivocal: >/= 0.8 to < 1.0 Reactive: >/= 1.0The CDC recommends that a reactive/equivocal HCV antibody result be followed up by the HCV Nucleic Acid Amplificationtest (651200) Rubella IgG Antibody Reactive Nonreactive [facility] Work Phone: Comment on above: Antibody Results Int erpretation of Immune Status Non Reactive Presumed Non-Immune Equivocal Equivocal Reactive Presumed Immune Platelets bldon 02-26-2022 Platelets (Bld) [#/Vol] 190 10*3/uL 150-450 [facility] Work Phone: Serum Treponema species anti body detectionon 02-26-2022 Treponema sp Ab Ql (S) Non-Reactive [facility] Work Phone: Culture, urineon 01-27-2022 Bacteria identified Cx Nom (U) Positive [facility] Work Phone: Laboratory - Chemistry and C hemistry - challengeon 01-27-2022 Bilirubin Ql (U) Negative [facility] Work Phone: Glucose Ql (U) Negative [facility] Work Phone: Ketones Ql (U) Negative [facility] Work Phone: pH (U) 5.0 [pH] [facility] Work Phone: Specific gravity (U) [Rel density] 1.005 [facility] Work Phone: Urobilinogen (U) [Mass/Vol] 0.5421374 mg/dL [facility] Work Phone: Laboratory - Hematology and Cell countson 01-27-2022 Hemoglobin Ql (U) Negative [facility] Work Phone: Laboratory - Specimen inform ationon 01-27-2022 Clarity (U) Clear [facility] Work Phone: Color (U) [facility] Work Phone: Laboratory - Urinalysison Nitrite Ql (U) Negative [facility] Work Phone: Protein Ql (U) Negative [facility] Work Phone: No Panel Informationon 01-27 Miscellaneous Test Comment MAILED SPECIMEN [facility] Work Phone: Urine Leukocytes Negatve [facility] Work Phone: Cervical or vagninal specime n microscopic examination by cytology stain (reported ason 01-21-2022 Cytology report Cyto stain Doc (Cvx/Vag) Comment [facility] Work Phone: Comment on above: The [...] rRNA LOYD+probe Ql (Unsp spec) Negative Negative [facility] Work Phone: Culture, urineon 01-21-2022 Bacteria identified Cx Nom (U) Culture exhibits no growth. [facility] Work Phone: Detection in cervical specim en of any of human papilloma virus (HPV) 16, 18, 31, 33,on 01-21-2022 HPV 16+18+31+33+35+39+45+ 51+52+56+58+59+66+68 DNA Probe+sig amp Ql (Cvx) Positive Negative [facility] Work Phone: Comment on above: This nucleic acid am plification test detects fourteen high- risk HPV types (16,18,31,33,35,39,45,51,52,56,58,59,66,68)without differentiation.Performed at: [facility] [id number] Director: Jelly Barnett MD, Phone: [phone] at: =[facility] [id number] Director: Jelly Barnett MD, Phone: [phone] Laboratory - Cytologyon 12-30 Auto Locator Cyto stain Nom (Cvx/Vag) [ID] Comment [facility] Work Phone: Comment on above: Emily Sarmiento, Cyto technologist (ASCP) Pathologist Cyto stain Nom (Cvx/Vag) [ID] Comment [facility] Work Phone: Comment on above: Jelly Barnett MD, Pathologist Recommended follow-up Cyto stain Nom (Cvx/Vag) Comment [facility] Work Phone: Comment on above: Suggest follow up as clinically appropriate. Laboratory - Drug toxicology on 03-24-2022 Amphetamines Ql (U) Negative [facility] Work Phone: Benzodiazepines Ql (U) Negative [facility] Work Phone: [phone] Cannabinoids Screen Ql (U) Negative [facility] Work Phone: Cocaine Ql (U) Negative [facility] Work Phone: Opiates Ql (U) Negative [facility] Work Phone: Laboratory - Microbiology an d Antimicrobial susceptibilityon 01-21-2022 N. gonorrhoeae DNA LOYD+probe Ql (Unsp spec) Negative Negative [facility] Work Phone: Comment on above: Performed at: =[facility] [address] [id number] Director: Jelly Barnett MD, Phone: [phone] Laboratory - Miscellaneous t estson 01-21-2022 Service comment (Unsp spec) [Interp] Comment [facility] Work Phone: Comment on above: This liquid based Th inPrep(R) pap test was screened withthe use of an image guided system. Service comment (Unsp spec) [Interp] . [facility] Work Phone: No Panel Informationon 01-21 MDMA (Ecstasy) Screen Negative [facility] Work Phone: Pathology report final diagnosis Narrative Comment [facility] Work Phone: Comment on above: EPITHELIAL CELL ABNO RMALITY.LOW GRADE SQUAMOUS INTRAEPITHELIAL LESION (LSIL). R87.612 Urine Barbiturates Screen Negative [facility] Work Phone: Urine Drug Screen Comment [facility] Work Phone: Comment on above: CONFIRMATORY [...] USE TESTMNEMONIC: [facility] Urine Methadone Screen Negative [facility] Work Phone: Urine phencyclidine (PCP) de tectionon 01-21-2022 Phencyclidine Ql (U) Negative [facility] Work Phone: Culture, urineon 01-06-2022 Bacteria identified Cx Nom (U) Positive [facility] Work Phone: Chlamydia trachomatis rRNA d etection by probe and target amplification methodon 11-19-2021 C. trachomatis rRNA LOYD+probe Ql (Unsp spec) Negative Negative [facility] Work Phone: Gram stain for investigation of transfusion reactionon 11-19-2021 Microscopic observation Gram stain Nom (Unsp spec) [facility] Work Phone: Laboratory - Microbiology an d Antimicrobial susceptibilityon 11-19-2021 N. gonorrhoeae DNA LOYD+probe Ql (Unsp spec) Negative Negative [facility] Work Phone: Comment on above: Performed at: =[address] [id number] Director: Jelly Barnett MD, Phone: [phone] No Panel Informationon 11-19 POC Bacterial Vaginitis (Rapid) Negative [facility] Work Phone: POC Trichomonas (Rapid) Negative [facility] Work Phone: Thin prep Papanicolaou smear with manual screeningon 11-19-2021 Genital Culture G. vaginalis (Presumptive) [facility] Work Phone: Serum or plasma choriogonado tropin detectionon 11-17-2021 HCG ( test) Ql < 1 mIU/mL <4 [facility] Work Phone: Comment on above: hCG levels with Gest ational AgeGestational Age hCG mIU/mL (IU/L)0.2 - 1 week 5 - 501-2 weeks 50 - 5002-3 weeks 100 - 43270-3 weeks 500 - 945894-3 weeks 1000 - 444280-7 weeks 55995 - 100,0006-8 weeks 20966 - 200,0002-3 months 35208 - 100,000 Office Visit: Jimmy craven 06-02-2017 blood in urine (hemoglobin) by dipstick Negative Invalid Interpretation Code [facility] Work Phone: Documentation of current medications (procedure) Done Invalid Interpretation Code [facility] Work Phone: [phone] Documentation of current medications (procedure) T Invalid Interpretation Code [facility] Work Phone: Fall risk assessment No Invalid Interpretation Code [facility] Work Phone: specific gravity, urine 1.010 Invalid Interpretation Code [facility] Work Phone: [phone] Tobacco use CPHS Never smoker Invalid Interpretation Code [facility] Work Phone: [phone] Urine, appearance clear Invalid Interpretation Code [facility] Work Phone: [phone] Urine, bilirubin presence Negative Invalid Interpretation Code [facility] Work Phone: Urine, color yellow Invalid Interpretation Code [facility] Work Phone: Urine, glucose presence Negative Invalid Interpretation Code [facility] Work Phone: Urine, ketones presence Negative Invalid Interpretation Code [facility] Work Phone: [phone] Urine, leukocyte esterase presence Negative Invalid Interpretation Code [facility] Work Phone: [phone] Urine, nitrite presence Negative Invalid Interpretation Code [facility] Work Phone: [phone] Urine, pH 5.0 [pH] Invalid Interpretation Code [facility] Work Phone: [phone] Urine, protein Negative Invalid Interpretation Code [facility] Work Phone: [phone] Urine, urobilinogen presence Negative Invalid Interpretation Code [facility] Work Phone: CNOVon 04-27-2017 CNOV Office Visit (INTMWS) SULTANA NAVARRETE ([id number]) 1985 FDate Time Provider Department04/27/17 10:20 AM OLDERJANETTE (AMISH) INTMWS During your visit today, we [...] kg (119 lb) SpO2 97% BMI 20.81 kg/l6Ehfgyii appearance: tired/ill appearing, in no acute distressHead: [...] - HivesDate Reviewed: 04/27/2017Reviewed by: Faviola Schaefer Income Tax Administrator - Fully AssessedReason for Visit: Sore Throat [200]Primary Visit Diagnosis:Viral pharyngitis [J02.9] Other Visit Diagnosis:Sore throat [J02.9]Order(s):RAPID STREP TEST B/O [[id number]] Order #: [id number] GROUP A STREPTOCOCCUS BY PCR [SQGASPCR] Order #: [id number] List As Of Date 04/27/2017 Noted Resolved [...] by JANETTE CANAS CNP on 04/27/17 Normal [facility] Group A Strep by PCRon 04-27 GAS Specimen Source Throat Swab Normal [facility] Comment on above: Performed By: #### G ASPCR ####[facility] [address] [place], [place] [phone] Group A Strep PCR Negative Normal [facility] Comment on above: Result Comment: This test was developed and its performance characteristics determined by [facility]'s Nathanael Gould [facility] [place] ([facility]).It has not been cleared or approved by the FDA. -[facility] is regulated under CLIA as qualified to perform high-complexity testing. This test is used for clinical purposes. It should not be regarded as investigational or for research. Performed By: #### G ASPCR ####[facility] [place], [place] [phone] PROGRESSon 04-27-2017 PROGRESS HNO ID: [id number]: Janette (Plastic Molding Operator) OlderService: (none)Author Type: Nurse PractitionerType: Progress NotesFiled: 04/27/2017 [...] kg (119 lb) SpO2 97% BMI 20.81 kg/d4Iafnbqw appearance: tired/ill appearing, in no acute distressHead: [...] TEST B/O- GROUP A STREPTOCOCCUS BY Nan Canas, LOOM FIXER Normal [facility] Culture, urine Bacteria identified Cx Nom (U) Positive [facility] Work Phone: No Panel Information Group B Streptococcus Culture Group B Beta Streptococcus is not isolated. [facility] Work Phone: Vital Signs Date Time Vital Sign Value Performing Clinician Faci lity 05-01-2025 09:21-0400 Body height 162.[address] Christian Roa MD Work Phone: [facility] 05-01-2025 09:21-0400 Body mass index (BMI) [Ratio] 25.6 kg/m2 Dr. Christian Roa MD Work Phone: [facility] 05-01-2025 09:21-0400 Body weight 67.[address] Christian Roa MD Work Phone: [facility] 05-01-2025 09:21-0400 Diastolic blood pressure 73 mm[Hg] Dr. Christian Roa MD Work Phone: [facility] 05-01-2025 09:21-0400 Systolic blood pressure 108 mm[Hg] Dr. Christian Roa MD Work Phone: [facility] 08-03-2022 16:18-0400 Body height 162.[address] Christian Roa Work Phone: [facility] Work Phone: 08-03-2022 16:18-0400 Body mass index (BMI) [Ratio] 26.4 kg/m2 Dr. Christian Roa Work Phone: [facility] Work Phone: 08-03-2022 16:18-0400 Body weight 69.[address] Christian Roa Work Phone: [facility] Work Phone: 08-03-2022 16:18-0400 Diastolic blood pressure 70 mm[Hg] Dr. Christian Roa Work Phone: [facility] Work Phone: 08-03-2022 16:18-0400 Systolic blood pressure 118 mm[Hg] Dr. Christian Roa Work Phone: [facility] Work Phone: 07-28-2022 16:05-0400 Body height 162.[address] Christian Roa Work Phone: [facility] Work Phone: 07-28-2022 16:05-0400 Body mass index (BMI) [Ratio] 26.1 kg/m2 Dr. Christian Roa Work Phone: [facility] Work Phone: 07-28-2022 16:05-0400 Body weight 69.[address] Christian Roa Work Phone: [facility] Work Phone: 07-28-2022 16:05-0400 Diastolic blood pressure 68 mm[Hg] Dr. Christian Roa Work Phone: [facility] Work Phone: 07-28-2022 16:05-0400 Systolic blood pressure 118 mm[Hg] Dr. Christian Roa Work Phone: [facility] Work Phone: 07-12-2022 10:43-0400 Body mass index (BMI) [Ratio] 25.8 kg/m2 Dr. Christian Roa Work Phone: [facility] Work Phone: 07-12-2022 10:43-0400 Body weight 68.[address] Christian Roa Work Phone: [facility] Work Phone: 07-12-2022 10:43-0400 Diastolic blood pressure 66 mm[Hg] Dr. Christian Roa Work Phone: [facility] Work Phone: 07-12-2022 10:43-0400 Systolic blood pressure 113 mm[Hg] Dr. Christian Roa Work Phone: [facility] Work Phone: 06-28-2022 15:57-0400 Body mass index (BMI) [Ratio] 25.7 kg/m2 Dr. Christian Roa Work Phone: [facility] Work Phone: 06-28-2022 15:57-0400 Body weight 68.[address] Christian Roa Work Phone: [facility] Work Phone: 06-28-2022 15:57-0400 Diastolic blood pressure 64 mm[Hg] Dr. Christian Roa Work Phone: [facility] Work Phone: 06-28-2022 15:57-0400 Systolic blood pressure 118 mm[Hg] Dr. Christian Roa Work Phone: [facility] Work Phone: 06-14-2022 14:07-0400 Body mass index (BMI) [Ratio] 25.2 kg/m2 Dr. Christian Roa Work Phone: [facility] Work Phone: 06-14-2022 14:07-0400 Body weight 66.[address] Christian Roa Work Phone: [facility] Work Phone: 06-14-2022 14:07-0400 Diastolic blood pressure 62 mm[Hg] Dr. Christian Roa Work Phone: [facility] Work Phone: 06-14-2022 14:07-0400 Systolic blood pressure 120 mm[Hg] Dr. Christian Roa Work Phone: [facility] Work Phone: 06-02-2022 10:32-0400 Body mass index (BMI) [Ratio] 25.1 kg/m2 Dr. Christian Roa Work Phone: [facility] Work Phone: 06-02-2022 10:32-0400 Body weight 66.[address] Christian Roa Work Phone: [facility] Work Phone: 06-02-2022 10:32-0400 Diastolic blood pressure 69 mm[Hg] Dr. Christian Roa Work Phone: [facility] Work Phone: 06-02-2022 10:32-0400 Systolic blood pressure 123 mm[Hg] Dr. Christian Roa Work Phone: [facility] Work Phone: 05-20-2022 10:27-0400 Body height 162.[address] Christian Roa Work Phone: [facility] Work Phone: 05-20-2022 10:27-0400 Body mass index (BMI) [Ratio] 25.1 kg/m2 Dr. Christian Roa Work Phone: [facility] Work Phone: 05-20-2022 10:27-0400 Body weight 66.[address] Christian Roa Work Phone: [facility] Work Phone: 05-20-2022 10:27-0400 Diastolic blood pressure 66 mm[Hg] Dr. Christian Roa Work Phone: [facility] Work Phone: 05-20-2022 10:27-0400 Systolic blood pressure 128 mm[Hg] Dr. Christian Roa Work Phone: [facility] Work Phone: 04-21-2022 10:57-0400 Body mass index (BMI) [Ratio] 24.7 kg/m2 Dr. Christian Roa Work Phone: [facility] Work Phone: 04-21-2022 10:57-0400 Body weight 65.[address] Christian Roa Work Phone: [facility] Work Phone: 04-21-2022 10:57-0400 Diastolic blood pressure 80 mm[Hg] Dr. Christian Roa Work Phone: [facility] Work Phone: 04-21-2022 10:57-0400 Systolic blood pressure 110 mm[Hg] Dr. Christian Roa Work Phone: [facility] Work Phone: 03-25-2022 15:04-0400 Body mass index (BMI) [Ratio] 24 kg/m2 Dr. Christian Roa Work Phone: [facility] Work Phone: 03-25-2022 15:04-0400 Body weight 63.[address] Christian Roa Work Phone: [facility] Work Phone: 02-26-2022 14:33-0400 Body mass index (BMI) [Ratio] 23.6 kg/m2 Dr. Christian Roa Work Phone: [facility] Work Phone: 02-26-2022 14:33-0400 Diastolic blood pressure 62 mm[Hg] Dr. Christian Roa Work Phone: [facility] Work Phone: 02-26-2022 14:33-0400 Systolic blood pressure 120 mm[Hg] Dr. Christian Roa Work Phone: [facility] Work Phone: 02-26-2022 14:33-0400 Body mass index (BMI) [Ratio] 23.6 kg/m2 Dr. Christian Roa Work Phone: [facility] Work Phone: 02-26-2022 14:33-0400 Diastolic blood pressure 62 mm[Hg] Dr. Christian Roa Work Phone: [facility] Work Phone: 02-26-2022 14:33-0400 Systolic blood pressure 120 mm[Hg] Dr. Christian Roa Work Phone: [facility] Work Phone: 02-26-2022 14:02-0400 Body weight 62.[address] Christian Roa Work Phone: [facility] Work Phone: 02-26-2022 14:02-0400 Body height 162.[address] Christian Roa Work Phone: [facility] Work Phone: 02-26-2022 14:02-0400 Body weight 62.[address] Christian Roa Work Phone: [facility] Work Phone: 01-27-2022 16:25-0400 Body mass index (BMI) [Ratio] 23.6 kg/m2 Dr. Christian Roa Work Phone: [facility] Work Phone: 01-27-2022 16:25-0400 Body weight 62.[address] Christian Roa Work Phone: [facility] Work Phone: 01-27-2022 16:25-0400 Diastolic blood pressure 80 mm[Hg] Dr. Christian Roa Work Phone: [facility] Work Phone: 01-27-2022 16:25-0400 Systolic blood pressure 120 mm[Hg] Dr. Christian Roa Work Phone: [facility] Work Phone: 01-27-2022 16:25-0400 Body height 162.[address] Christian Roa Work Phone: [facility] Work Phone: 01-27-2022 16:25-0400 Body mass index (BMI) [Ratio] 23.6 kg/m2 Dr. Christian Roa Work Phone: [facility] Work Phone: 01-27-2022 16:25-0400 Body weight 62.[address] Christian Roa Work Phone: [facility] Work Phone: 01-27-2022 16:25-0400 Diastolic blood pressure 80 mm[Hg] Dr. Christian Roa Work Phone: [facility] Work Phone: 01-27-2022 16:25-0400 Systolic blood pressure 120 mm[Hg] Dr. Christian Roa Work Phone: [facility] Work Phone: 01-21-2022 09:30-0400 Body mass index (BMI) [Ratio] 23.5 kg/m2 Dr. Christian Roa Work Phone: [facility] Work Phone: 01-21-2022 09:30-0400 Body weight 62.[address] Christian Roa Work Phone: [facility] Work Phone: 01-21-2022 09:30-0400 Diastolic blood pressure 80 mm[Hg] Dr. Christian Roa Work Phone: [facility] Work Phone: 01-21-2022 09:30-0400 Systolic blood pressure 104 mm[Hg] Dr. Christian Roa Work Phone: [facility] Work Phone: 01-06-2022 08:15-0500 Body mass index (BMI) [Ratio] 24 kg/m2 Dr. Christian Roa Work Phone: [facility] Work Phone: 01-06-2022 08:15-0500 Body weight 63.[address] Christian Roa Work Phone: [facility] Work Phone: 01-06-2022 08:15-0500 Diastolic blood pressure 80 mm[Hg] Dr. Christian Roa Work Phone: [facility] Work Phone: 01-06-2022 08:15-0500 Systolic blood pressure 124 mm[Hg] Dr. Christian Roa Work Phone: [facility] Work Phone: 11-19-2021 08:52-0500 Body mass index (BMI) [Ratio] 23.3 kg/m2 Dr. Christian Roa Work Phone: [facility] Work Phone: 11-19-2021 08:52-0500 Body weight 61.[address] Christian Roa Work Phone: [facility] Work Phone: 11-19-2021 08:52-0500 Diastolic blood pressure 70 mm[Hg] Dr. Christian Roa Work Phone: [facility] Work Phone: 11-19-2021 08:52-0500 Systolic blood pressure 114 mm[Hg] Dr. Christian Roa Work Phone: [facility] Work Phone: 06-02-2017 16:25-0400 BMI (Body Mass Index) 20.66 kg/m2 Laura Palafox LPN [facility] Work Phone: 06-02-2017 16:25-0400 Body Temperature 98.5 [degF] Laura Palafox LPN [facility] Work Phone: 06-02-2017 16:25-0400 BP Diastolic 78 mm[Hg] Laura Palafox LPN [facility] Work Phone: 06-02-2017 16:25-0400 BP Systolic 130 mm[Hg] Laura Palafox LPN [facility] Work Phone: 06-02-2017 16:25-0400 Height 162.56 cm Laura Palafox LPN [facility] Work Phone: 06-02-2017 16:25-0400 Pulse (Heart Rate) 75 /min Laura Palafox LPN [facility] Work Phone: 06-02-2017 16:25-0400 Respiratory Rate 12 /min Laura Palafox LPN [facility] Work Phone: 06-02-2017 16:25-0400 Weight 54.61 kg Laura Palafox LPN [facility] Work Phone: Encounters Encounter Date Encounter Type Care Provider Facility Start: 07-19-2025 End: 07-19-2025 ambulatory Christian Roa Facility:[facility] Start: 07-19-2025 End: 07-19-2025 Discharged Recurring Karo RIVERA -Physical Therapy Work Phone: Start: 05-01-2025 End: 05-01-[address] Christian Roa MD Work Phone: -Laboratory Specimen Start: 05-01-2025 End: 05-01-2025 Patient encounter procedure Karo RIVERA -Laboratory Specimen Work Phone: Start: 05-01-2025 End: 05-01-2025 Patient encounter procedure Karo RIVERA -[facility] Work Phone: Start: 05-01-2025 End: 05-01-2025 Patient encounter [facility] Start: 05-01-2025 End: 05-01-[address] Christian Roa MD Work Phone: [facility] Start: 05-01-2025 End: 05-01-2025 ambulatory Christian Roa Facility:[facility] Start: 10-26-2024 End: 10-26-2024 ambulatory Christian Roa Facility:[facility] Start: 09-26-2024 End: 09-26-2024 ambulatory Christian Roa Facility:[facility] Start: 09-05-2024 End: 09-05-2024 ambulatory Christian Roa Facility:[facility] Start: 08-03-2022 End: 08-03-[address] Christian Roa Work Phone: [facility] Start: 08-02-2022 End: 08-02-[address] Christian Roa Work Phone: [facility] Work Phone: Start: 08-02-2022 End: 08-02-[address] [facility] Start: 07-28-2022 End: 07-28-[address] Christian Roa Work Phone: [facility] Work Phone: Start: 07-28-2022 End: 07-28-[address] Christian Roa Work Phone: [facility]-Laboratory, Specimen Start: 07-28-2022 End: 07-28-[address] Christian Roa Work Phone: [facility] Start: 07-12-2022 End: 07-12-[address] Christian Roa Work Phone: [facility] Start: 06-28-2022 End: 06-28-[address] Christian Roa Work Phone: [facility] Start: 06-14-2022 End: 06-14-[address] Christian Roa Work Phone: [facility] Start: 06-02-2022 End: 06-02-[address] Christian Roa Work Phone: [facility] Start: 05-20-2022 End: 05-20-[address] Christian Roa Work Phone: [facility] Start: 04-21-2022 End: 04-21-[address] Christian Roa Work Phone: [facility] Start: 03-25-2022 End: 03-25-[address] Christian Roa Work Phone: [facility] Start: 02-26-2022 End: 02-26-[address] Christian Roa Work Phone: [facility] Start: 01-27-2022 End: 01-27-[address] Christian Roa Work Phone: [facility] Start: 01-21-2022 End: 01-21-[address] Christian Roa Work Phone: [facility]-Laboratory, Specimen Start: 01-11-2022 Non-patient / Non-visit Dr. Shayne Roa Work Phone: [facility] Start: 01-06-2022 End: 01-06-[address] Christian Roa Work Phone: [facility]-Ultrasound, [facility] Start: 01-06-2022 End: 01-06-[address] Christian Roa Work Phone: [facility] Start: 11-19-2021 End: 11-19-[address] Christian Roa Work Phone: [facility]-Laboratory, Specimen Start: 11-19-2021 End: 11-19-[address] Christian Roa Work Phone: [facility] Start: 11-17-2021 End: 11-17-[address] Christian Roa Work Phone: [facility] Start: 04-27-2017 End: 04-28-2017 Ambulatory JANETTE (LOOM FIXER) [facility] Blank Procedures Date Procedure Procedure Detail Performing Clinician Start: 05-01-2025 Liquid based cervica l cytology screening Dr. Christian Roa MD Work Phone: Comment on above: NEGATIVE FOR INTRAEP ITHELIAL LESION OR MALIGNANCY. This liquid based Th inPrep(R) pap test was screened withthe use of an image guided system. Start: 08-02-2022 Ultrasound scan for growth Dr. [...] Roa Work Phone: Start: 11-19-2021 Investigation of tra nsfusion reaction Dr. Christian Roa Work Phone: Group B Streptococcu s Culture Dr. Christian Roa Work Phone: Urine culture Dr. Christian sweet Work Phone: Plan of Treatment Date Care Activity Detail Author Start: 01-27-2022 Bacteria identified in Urine by Culture Urine Culture [facility] Work Phone: Start: 06-02-2017 End: 06-02-2017 Appointment Appointment [facility] Work Phone: Liquid based cervica l cytology screening [facility] MG Breast - bilatera l Screening [facility] Ultrasound scan for growth [facility] Work Phone: [facility] Work Phone: Immunizations Immunization Date Immunization Notes Care Provider Fa cility 06-28-2022 tetanus toxoid, redu philippe diphtheria toxoid, and acellular pertussis vaccine, adsorbed Dr. Christian Roa Work Phone: [facility] [facility], [address] Christian Roa Work Phone: [facility] Work Phone: 01-15-2021 Covid (Pfizer) Dr. Christian petit MD Work Phone: [facility] 12-25-2020 Covid (Pfizer) Dr. Christian petit MD Work Phone: [facility] 04-13-2020 tetanus toxoid, redu philippe diphtheria toxoid, and acellular pertussis vaccine, adsorbed Dr. Christian Rao Work Phone: [facility] Payers Date Payer Category Payer Self-pay [id number] Unknown [id number] Unknown [id number] Unknown [id number] 2.16.8 [id number] Unknown [id number] 2.16.8 [id number] Unknown [id number] 2.16.8 [id number] Unknown [id number] 2.16.8 [id number] Unknown [id number] 2.16.8 [id number] Unknown [id number] 2.16.8 [id number] Social History Date Type Detail Facility Start: 01-27-2022 End: 08-03-2022 Tobacco smoking status NHIS Unknown if ever smoked [facility] Work Phone: Start: 1985 Sex Assigned At Female [facility] Start: 09-07-2022 Tobacco smoking stat us NHIS Never smoked tobacco (finding) [facility] Sex Female [facility] Clinical Notes 01-21-2022 to 07-19-2025 Note Date & Type Note Facility 07-19-2025 Discharge summary [facility] 05-01-2025 Evaluation note Diagnosis Onset Date Resolution ROHAN I (cervical intraepithelial neoplasia I) acute May 01, 2025 9:18am Lumbar back pain acute April 9:18am Weight gain acute May 01 9:18am Encounter for routine gynecological examination noneactive May 012024 9:18am [facility] Work Phone: 1(227) 829-480003-24-2022 NotePap Smear Specimen AdequacyMarch 2021 2:28pmCommentSatisfactory for evaluation. Endocervical and/or squamous metaplasticcells (endocervical component)are present.[id number] Work Phone: Comment on above:Satisfactory for evaluation. Endocervical and/or squamous metaplasticcells (endocervical component)are present.Discharge summary Author Che Higgins [facility] Note Date/Time July 19, 2025 9:01am [facility] Physical Therapy [facility] [address] [place] [address] [address] [place] [address] / REHABILITATION SERVICES DISCHARGE SUMMARY MR#: [id number] Acct: [id number] Name: SULTANA NAVARRETE Rep #: [id number] : 1985 40 From: Che Higgins PT, Cert. MDT Referring Dr.: MIGUEL Heath Status: REG RCR Insurance: [facility] SELF PAY INSURANCE Discharge Summary D/C summary: It has been my pleasure to treat SULTANA NAVARRETE referred by MIGUEL Murguia, with the diagnosis of LBP for a total of 12 visit(s). Discharge Date: 07/19/25 Please see the following information for a summary of their discharge status. Subjective Subjective: PATIENT REPORTS HER PAIN IS NOW RANGING 0-5/10. THE PAIN IS NO LONGER DISTRUBING HER SLEEP. SHE REPORTS SHE IS USING BETTER BODY MECHANICS ANDMOVING DIFFERENT BUT BENDING AND LIFTING STILL INCREASES HER PAIN. SHE STATES IF SHE SITS ON THE FLOOR TOO LONG IT IS HARD TO GET UP AND SHE IS REALLY STIFF AFTER. SHE REPORTS THE POOL HAS HELPED AND THE PAIN ISN'T INTENSE BUT IT IS UNCOMFORTABLE MOST OF THE TIME. PATIENT REPORTS HER BACK IS DEFINATELY BETTER BUT NOT HEALED ALL THE WAY AND SHE HAS NOT BEEN ABLE TO RETURN TO HER NORMAL ACTIVITIES THAT SHE WAS DOING BEFORE THIS FLARE UP STARTED IN MARCH 2025. Pain LBP: Pain Intensity (Out of 10): 2 Overall Improvement % Improvement: 20 Objective Objective/Function: PATIENT WAS SEEN TODAY FOR RE-ASSESSMENT OF PROGRESS TOWARD THE SET PT GOALS AND THE NEED FOR FURTHER PHYSICAL THERAPY VS READINESS FOR DISCHARGE. THIS PATIENT HAS BENEFITED FROM PHYSICAL THERAPY (BACK OSWESTRY SCORE HAS IMPROVED FROM (28 TO 12 AND SUBJECTIVE PAIN SCALE HAS IMPROVED FROM 2-9/10 TO 0-4 OR 5/10. LUMBAR ROM HAS ALSO IMPROVED WITH LESS PAIN AND IRRITABILITY) BUT CONTINUES TO HAVE SIGNIFICANT FUNCTIONAL LIMITATIOINS AND HAS BEEN UNABLE TO RETURN TO HER PRIOR LEVEL OF FUNCTION. SHE IS MANAGING HER CONDITION MUCH BETTER THAN WHEN SHE STARTED PT BUT HER SX'S HAVE NOT RESOLVED. PHYSICIAN RE-ASSESSMENT RECOMMENDED. PATIENT AGREEABLE. SHE IS INDEP WITH BOTH WATER AND HOME EX PROGRAMS. UPON EXAM TODAY: LUMBAR MVMT LOSS: FLEX - NIL - INCREASES LBP - NW EXT - MOD - INCREASES LBP - W R SG - MIN L SG - MOD - INCREASES LBP - NW DURAL SIGNS: POSITIVE R, NEGATIVE LLE. Goals Goal 1:: Decrease LBP x 50% to aid with sleep Goal Progress: Goal Met Goal 2:: I with HEP Goal Progress: Goal Met Goal 3:: Increase L/S extension ROM x 1 grade to aid with decreasing LBP Goal Progress: Not Progressing Plan Plan: D/C D/C Information d/c sentence: If there are questions or concerns regarding this patient's physical therapy, please feel free to call me at [phone]. Thank you for the referral of thispatient. Sincerely, Che Higgins, PT, Cert MDT Balance/Gait/Functional tests Balance/Special Test Scores Oswestry Low Back Score: 12 Improvement % Improvement: 20 <Electronically signed by Che Higgins PT Cert. MDT> 07/19/25 0901 CC: MIGUEL Heath; Dr. Christian Roa MD ~ EDILMA Signed [facility] Work Phone: Evaluation note* Diagnosis Onset Date Resolution Status Advanced maternal age in acute ASCUS with positive high risk HPV cervical acute ROHAN I (cervical intraepithelial neoplasia I) acute Dysthymia acute acute Subchorionic hematoma acute Supervision of high risk , antepartum acute Advanced maternal age in acute ASCUS with positive high risk HPV cervical acute ROHAN I (cervical intraepithelial neoplasia I) acute Dysthymia acute acute Subchorionic hematoma acute Supervision of high risk , antepartum acute [facility] Work Phone: Evaluation note* Diagnosis Onset Date Resolution Status Advanced maternal age in acute ASCUS with positive high risk HPV cervical acute ROHAN I (cervical intraepithelial neoplasia I) acute Dysthymia acute acute Subchorionic hematoma acute Supervision of high risk , antepartum acute Advanced maternal age in acute ASCUS with positive high risk HPV cervical acute ROHAN I (cervical intraepithelial neoplasia I) acute Dysthymia acute acute Subchorionic hematoma acute Supervision of high risk , antepartum acute Advanced maternal age in acute ASCUS with positive high risk HPV cervical acute ROHAN I (cervical intraepithelial neoplasia I) acute Dysthymia acute Family history of congenital heart defect acute acute Subchorionic hematoma acute Supervision of high risk , antepartum acute [facility] Work Phone: Evaluation note* Diagnosis Onset Date Resolution Status Advanced maternal age in acute ASCUS with positive high risk HPV cervical acute ROHAN I (cervical intraepithelial neoplasia I) acute Dysthymia acute acute Subchorionic hematoma acute Supervision of high risk , antepartum acute Advanced maternal age in acute ASCUS with positive high risk HPV cervical acute ROHAN I (cervical intraepithelial neoplasia I) acute Dysthymia acute Family history of congenital heart defect acute acute Subchorionic hematoma acute Supervision of high risk , antepartum acute Advanced maternal age in acute ASCUS with positive high risk HPV cervical acute ROHAN I (cervical intraepithelial neoplasia I) acute Dysthymia acute Family history of congenital heart defect acute acute Subchorionic hematoma acute Supervision of high risk , antepartum acute Advanced maternal age in acute ASCUS with positive high risk HPV cervical acute ROHAN I (cervical intraepithelial neoplasia I) acute Dysthymia acute Family history of congenital heart defect acute acute Subchorionic hematoma acute Supervision of high risk , antepartum acute Advanced maternal age in acute ASCUS with positive high risk HPV cervical acute ROHAN I (cervical intraepithelial neoplasia I) acute Dysthymia acute Family history of congenital heart defect acute acute Subchorionic hematoma acute Supervision of high risk , antepartum acute [facility] Work Phone: Evaluation note* Diagnosis Onset Date Resolution Status Advanced maternal age in acute ROHAN I (cervical intraepithelial neoplasia I) acute Dysthymia acute Family history of congenital heart defect acute acute Supervision of high risk , antepartum acute ASCUS with positive high risk HPV cervical resolved Subchorionic hematoma resolv ed Advanced maternal age in acute ROHAN I (cervical intraepithelial neoplasia I) acute Dysthymia acute Family history of congenital heart defect acute acute Supervision of high risk , antepartum acute ASCUS with positive high risk HPV cervical resolved Subchorionic hematoma resolv ed Advanced maternal age in acute ROHAN I (cervical intraepithelial neoplasia I) acute Dysthymia acute Family history of congenital heart defect acute acute Supervision of high risk , antepartum acute ASCUS with positive high risk HPV cervical resolved Subchorionic hematoma resolv ed Advanced maternal age in acute ROHAN I (cervical intraepithelial neoplasia I) acute Dysthymia acute Family history of congenital heart defect acute acute Supervision of high risk , antepartum acute Advanced maternal age in acute ROHAN I (cervical intraepithelial neoplasia I) acute Dysthymia acute Family history of congenital heart defect acute acute Supervision of high risk , antepartum acute Advanced maternal age in acute ROHAN I (cervical intraepithelial neoplasia I) acute Dysthymia acute Family history of congenital heart defect acute acute Supervision of high risk , antepartum acute Advanced maternal age in acute ROHAN I (cervical intraepithelial neoplasia I) acute Dysthymia acute Family history of congenital heart defect acute acute Supervision of high risk , antepartum acute [facility] Work Phone: Evaluation note* Diagnosis Onset Date Resolution Status Advanced maternal age in acute ROHAN I (cervical intraepithelial neoplasia I) acute Dysthymia acute Family history of congenital heart defect acute acute Supervision of high risk , antepartum acute ASCUS with positive high risk HPV cervical resolved Subchorionic hematoma resolv ed Advanced maternal age in acute ROHAN I (cervical intraepithelial neoplasia I) acute Dysthymia acute Family history of congenital heart defect acute acute Supervision of high risk , antepartum acute ASCUS with positive high risk HPV cervical resolved Subchorionic hematoma resolv ed Advanced maternal age in acute ROHAN I (cervical intraepithelial neoplasia I) acute Dysthymia acute Family history of congenital heart defect acute acute Supervision of high risk , antepartum acute ASCUS with positive high risk HPV cervical resolved Subchorionic hematoma resolv ed Advanced maternal age in acute ROHAN I (cervical intraepithelial neoplasia I) acute Dysthymia acute Family history of congenital heart defect acute acute Supervision of high risk , antepartum acute Advanced maternal age in acute ROHAN I (cervical intraepithelial neoplasia I) acute Dysthymia acute Family history of congenital heart defect acute acute Supervision of high risk , antepartum acute Advanced maternal age in acute ROHAN I (cervical intraepithelial neoplasia I) acute Dysthymia acute Family history of congenital heart defect acute acute Supervision of high risk , antepartum acute Advanced maternal age in acute ROHAN I (cervical intraepithelial neoplasia I) acute Dysthymia acute Family history of congenital heart defect acute acute Supervision of high risk , antepartum acute Advanced maternal age in acute ROHAN I (cervical intraepithelial neoplasia I) acute Dysthymia acute Family history of congenital heart defect acute acute Supervision of high risk , antepartum acute [facility] Work Phone: Evaluation note* Diagnosis Onset Date Resolution Status Admit Date Encounter for routine gynecological examination noneactive May 012024 9:18am [facility] Work Phone: Hospital Discharge instructionsAmbulatory Orders* Physical Therapy Referral Location: None Selected [facility] Work Phone: Summary Purpose Family History Relationship Condition Age at Onset Recorded Date/T [place] grandmother Diabetes mellitus Unknown Cerebrovascular accident (CVA) Unknown Malignant neoplasm of breast Unknown grandfather Myocardial infarction Unknown aunt Malignant neoplasm of ovary Unknown Malignant neoplasm of skin Unknown father Diabetes mellitus Unknown Advance Directives Advance Directive Response Recorded Date/ Time Living Will No April 13, 2020 4:50pm Power of Clinical Research Coordinator No April 13 4:50pm Chief Complaint and Reason for Visit Chief Complaint Admit Date 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, 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 9:18a m LBP RX HERE July 19, 2025 7:00am Reason for Visit Admit Date ROHAN I (cervical intraepithelial neoplasi a I) May 01, 2025 9:18am Lumbar back pain May 01, 2025 9:18a m Weight gain May 01, 2025 9:18a m Encounter for routine gynecological exam ination May 01, 2025 9:18am Chief Complaint Admit Date 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, 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 m Reason for Visit Admit Date ROHAN I (cervical intraepithelial neoplasi a I) May 01, 2025 9:18am Lumbar back pain May 01, 2025 9:18a m Weight gain May 01, 2025 9:18a m Encounter for routine gynecological exam ination May 01, 2025 9:18am Chief Complaint STD screening dysuria, lower back [...] defect Supervision of high risk , antepartum Reason for Visit Admit Date Encounter for routine gynecological exam ination May 01, 2025 9:18am Chief Complaint Admit Date 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, 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 9:18a m LBP RX HERE July 19, 2025 7:00am Additional Source Comments INFORMATION SOURCE (unrecogn ized section and content) DATE CREATED AUTHOR 04/26/2018 [facility] DATE CREATED AUTHOR AUTHOR'S ORGANIZ ATION 07/20/2025 [facility] Goals (unrecognized section and content) Type Care Experience svdLabor Preferences -labor support person: mom- Brittany, and FOAri Butcher will be there unless he is difficultlabor intervention preferences: prefers epiduralpain management options preferred: prefer epiduralcut cord/dad catch: NObreastfeeding: yes PP control planned: []discussed possible routes of delivery and associated risks: []special requests: [] Care Teams (unrecognized sec tion and content) [...] May 01, 2025 End: May 01, 2025 Team Status: Active Member Role/Relationship Status Dates Dr. Christian Roa MD Primary Care Provider Active Team Status: Inactive Member Role/Relationship Status Dates Dr. Christian Roa MD Primary Care Provider Active Start: May 01, 2025 End: May 01, 2025 MIGUEL Murguia Attending Provider Active Start: May 01, 2025 End: May 01, 2025 Team Status: Active Member Role/Relationship Status Dates Dr. Christian Roa MD Primary care physician Active Team Status: Inactive Member Role/Relationship Status Dates Dr. Christian Roa MD Primary care physician Active Start: May 01, 2025 End: May 01, 2025 Dr. Christian Roa MD Referring Provider Active Start: May 01, 2025 End: May 01, 2025 MIGUEL Murguia Attending physician Active Start: May 01, 2025 End: May 01, 2025 Team Status: Inactive Member Role/Relationship Status Dates Dr. Christian Roa MD Primary care physician Active Start: May 01, 2025 End: May 01, 2025 MIGUEL Murguia Attending physician Active Start: May 01, 2025 End: May 01, 2025 Team Status: Inactive Member Role/Relationship Status Dates Dr. Christian Roa MD Primary care physician Active Start: July 19, 2025 End: July 19, 2025 MIGUEL Murguia Attending physician Active Start: July 19, 2025 End: July 19, 2025 MIGUEL Murguia Referring Provider Active Start: July 19, 2025 End: July 19, 2025 FOR RECORDS PERTAINING TO PATIENTS WHO [...] BE BASED ON THE PRIMARY CLINICAL RECORDS. [facility] [employer] provides no warranty or guarantee of the accuracy or completeness of information in this document.
== END | disposition home or self-care (01) ==
LOC: MTRAD 08:50
PROVIDERS: PCP Family Medicine; Referring Provider Family Medicine; Visit Provider Family Medicine
DX: M54.9 Dorsalgia, unspecified (principal)
CPT/HCPCS: 72110

== ENCOUNTER → 2025-09-27 | Outpatient (CLI) | payer OTHER, SELFPAY ==
--- NOTE | 2025-09-27 08:45 | BI_ITS ---
EXAM: SCRN MAMM (CAD)W/RON BILAT DATE: 09/27/2025 CLINICAL HISTORY: F, Age 40 y/o , SCREEN FOR BREAST CANCER TECHNIQUE: Procedure Code: [id number] Modality: MG Procedure: SCRN MAMM (CAD)W/RON BILAT COMPARISON: Prior exam(s) dated 09/26/2024. FINDINGS: TISSUE DENSITY: There are scattered areas of fibroglandular density. Bilateral Breast Mammographic Findings: There are no suspicious masses, suspicious clustered microcalcifications, architectural distortion or secondary signs of malignancy identified in either breast. Benign-appearing round microcalcifications are seen in both breasts. BI/SCRN MAMM (CAD)W/RON BILAT IMPRESSION: Benign screening mammogram OVERALL FINAL ASSESSMENT BI-RADS 2: BENIGN RECOMMENDATION: Routine annual follow-up in 1 Year Additional Recommendation none A letter with findings and recommendations will be mailed to the patient. Reading Location: [id number]
--- OUTSIDE RECORDS SUMMARY | 2025-09-27 09:07 | XMS RPT_ITS | CCD ---
Author Organization [facility] Care Team Providers Care Cushion Stuffer Name Role Phone Javy NICOLE, Laura Ray Unavailable Unavailab le Laura Palafox LPN Unavailable Unavailab Dr. Christian Marlow Primary Care Provider Dr. Christian Franklin Referring Provider Dr. Janet Gallagher Attending Provider [phone] Brooklyn BENNETT, SOUND INSTALLATION WORKER-C Faviola Attending Provider [phone] Dr. Sparkle Santiago Attending Provider Dr. Christian Franklin Primary Care Provider Dr. Christian Franklin Referring Provider Dr. Janet Gallagher Attending Provider [phone] Dr. Sparkle Santiago Attending Provider [phone] Dr. Christian Franklin Primary Care Provider Dr. Christian Franklin Referring Provider Dr. Janet Gallagher Attending Provider [phone] Dr. Sparkle Santiago Attending Provider Dr. Christian Franklin MD Primary Care Provider Dr. Christian Franklin MD Referring Provider Karo Matthew Attending Provider [phone] Christian Franklin MD Primary Care Physician Karo Matthew Attending Physician [phone] Karo Matthew Referring Provider [phone] CHRISTIAN FRANKLIN Primary Care Unavailable YASMINE KATZ Attending Unavailable YASMINE KATZ Referring Unavailable CHRISTIAN FRANKLIN Primary Care Unavailable Franklin, Christian Attending Unavailable Franklin, Christian Referring Unavailable Franklin, Christian Primary Care Unavailable Franklin, Christian Primary Care Unavailable Franklin, Christian Attending Unavailable Franklin, Christian Referring Unavailable Franklin, Christian Primary Care Unavailable Idalia Paulino Attending Unavailable Franklin, Christian Referring Unavailable Karo Heath Attending Unavailable Franklin, Christian Primary Care Unavailable Franklin, Christian Referring Unavailable Brooklyn SOUND INSTALLATION WORKER, Faviola Attending Unavailable [place] SOUND INSTALLATION WORKER, Faviola Referring Unavailable Franklin, Christian Primary Care Unavailable Karo Heath Attending Unavailable Franklin, Christian Primary Care Unavailable MoosemanKaro Attending Unavailable Franklin, Christian Primary Care Unavailable Barkman, Karo Referring Unavailable Barkman, Karo Referring Unavailable Franklin, Christian Primary Care Unavailable BarkmanAngeloKaro Attending Unavailable Allergies Allergy Classification Reported Allergen(s) Allergy Type Date of Onset Reaction(s) Facility (2 sources) ceftriaxone drug allergy 7 [facility] Work Phone: (9 sources) cefTRIAXone; Translations: [CEFTRIAXONE] Drug Allergy 6 [facility] (9 sources) natural latex rubber; Translations: [Latex, Natural Rubber] Propensity to adverse reactions 2 itching/irritat ion [facility] (1 source) Latex; Translations: [LATEX] Propensity to adverse reactions to drug (disorder) 9 [facility] (1 source) cefTRIAXone Drug Allergy 5 [facility] Medications Current Medications Medication Drug Class(es) Dates Sig (Normalized) Sig (Original) ALPRAZolam 0.25 mg oral tablet (3 sources) Benzodiazepine Start: 09-07-2022 take 1 tablet by mouth at bedtime as needed for anxiety [place] 0-Jtw-Ffe-Fish Oil (3 sources) Start: 10-26-2024 Start: 10-26-2024 [place] 3-Dha-Ep a-Fish Oil (Fish Oil) 300-1,000 mg capsule Active 1 NMA PO daily October 26, 2024 1:00am lysine 1000 mg oral tablet (3 sources) Start: 10-26-2024 take 1 tablet by laurent th once daily Lhxusiif-Tjx-Ssxg Fum-Folic Ac (One Daily Women's) 18 mg iron- 400 mcg tablet (3 sources) Start: 05-01-2025 Start: 05-01-2025 Idydrrje-Eto-I megan Fum-Folic Ac (One Daily Women's) 18 mg iron- 400 mcg tablet Active {tbl} PO May 01, 2025 12:00am Prenat.Vits,Efra,Hze-Ksdg-Wdd ic (5 sources) Start: 01-11-2022 take 1 tablet by mouth once daily Prenat.Vits,Efra,Nso-Fqwg-Ttida Active 1 TABLET PO DAILY January 11, 2022 4:14pm Start: 01-11-2022 take 1 tablet by laurent th once daily Prenat.Vits,Efra,Xfw-Stah-Ipnpf Active 1 TABLET PO DAILY January 11, [...] mg PO THREE TIMES A DAY 20 0 October 27, 2024 1:00am May 01, 2025 [...] mg tablet Discontinued 40 mg PO daily 30 July 24, 2018 1:06pm November 08, 2018 11:34am [...] mg-mcg tablet Discontinued 1 TABLET PO daily November 08, 2018 11:32am October 29, 2019 3:17pm Start: 11-08-2018 End: 10-29-2019 take 1 tablet by mouth once daily Levonorgestrel-Ethinyl Estrad (Aviane) 0.1-20 mg-mcg tablet Discontinued 1 {tbl} PO daily 84 November 08, 2018 1:00am October 29, 2019 3:17pm Start: 11-08-2018 End: 10-29-2019 take 1 tablet by mouth once daily Levonorgestrel-Ethinyl Estrad (Aviane) 0.1-20 mg-mcg tablet Discontinued 1 TABLET PO daily November 08, 2018 1:00am October 29, 2019 3:17pm 168 hr ethinyl estradiol 0.76726 mg/hr / norelgestromin 0.04698 mg/hr transdermal system (20 sources) Progestin, Estrogen Start: 10-29-2019 End: 11-19-2021 Norelgestromin-Ethin.Estradi ol (Xulane) 150-35 mcg/24 hr patch weekly Discontinued 1 NMA TD EVERY WEEK 07 04January 21, 2021 2:49pm November 19, 2021 11:27am [...] 11:32am start day 1 of menstrual cycle Cuba-3 Fatty Acids (5 sources) Start: 06-23-2018 End: 11-08-2018 take 1000 mg by mouth once daily [place]-3 Fatty Acids Discontinued 1000 MG PO DAILY June 23, 2018 3:02pm November 08, 2018 11:08am Start: 06-23-2018 End: 11-08-2018 take 1000 mg by mouth once daily Cuba-3 Fatty Acids Discontinued 1000 MG PO DAILY June 23, 2018 12:00am November 08, 2018 11:08am Cuba-3 Fatty Acids 1,000 mg capsule (3 sources) Start: 06-23-2018 End: 11-08-2018 take 1 capsule by mouth once daily [place]-3 Fatty Acids 1,000 mg capsule Discontinued 1000 [...] (3 sources) Start: 01-11-2022 End: 05-01-2025 Prenat.Vits,Efra,Mi w-Itgs-Gfaoo tablet Discontinued 1 {tbl} PO DAILY January [...] 2020 12:00am September 29, 2020 12:29pm Threonine (8 sources) Start: 02-06-2020 End: 09-29-2020 take 200 g by mouth once daily Threonine Discontinued 200 GM PO DAILY February 06, 2020 7:25pm September 29, 2020 12:28pm Start: 02-06-2020 End: 09-29-2020 take 50 g by mouth once daily Threonine 50 GM powder Discontinued 200 g PO DAILY February 06, 2020 12:00September 29, 2020 12:28pm Start: 02-06-2020 End: 09-29-2020 take 200 g by mouth once daily Threonine Discontinued 200 GM PO DAILY February 06, 2020 12:00September 29, 2020 12:28pm Tumeric (8 sources) Start: [...] of cervix (ASC-US)] Episodic Comment on above: [place] 2020 negative. Pap in 2021 Chronic obstructive pulmonary disease and bronchiectasis (1 source) Bronchitis, not specified as acute or chronic; Translations: [Sinobronchitis] Onset: 5 Episodic Mood disorders (20 sources) Premenstrual dysphoric disorder; [...] 2019 neg pap and HPV. LGSIL HPV+ 2021-[place] neededrepeat pap post Other female genital disorders [...] conditions (not mental disorders or infectious disease) (3 sources) Encounter for screening mammogram for malignant neoplasm of breast; Translations: [Encounter for screening for malignant neoplasm of cervix] Onset: 5 Episodic Other upper respiratory infections (5 sources) Ethmoidal sinusitis; Translations: [Chronic ethmoidal sinusitis] [...] Spondylosis; intervertebral disc disorders; other back problems (8 sources) Low back pain; Translations: [Lumbar back pain] Onset: 5 05-01-2025 Episodic Unclassified (2 sources) History and physical examination, school ; Translations: [Encounter for examination for admission to educational institution] Onset: 7 06-02-2017 Unclassified (2 sources) Lumbar back pain Unclassified (5 sources) M54.50 - Low back pain, unspecified Unclassified (1 source) Subacute cough; Translations: [Subacute cough] Onset: 5 Unclassified (1 source) Low back pain, unspecified; Translations: [Low back pain, unspecified] Onset: 5 Past or Other Problems Problem Classification Problem Date Documented Da te Episodic/Chronic Nonmalignant breast conditions (4 sources) Mastodynia; Translations: [Pain of left breast] Onset: 10-26-2024 09-05-2024 Episodic Results Test Name Value Interpretation Reference Range Facility CNOVon 08-21-2025 CNOV Office Visit ([facility]) -------- SULTANA NAVARRETE ([id number]) 1985 F Date Time Provider Department 08/21/25 12:45 PM YASMINE KATZ During your visit today, we recorded the following information about you: Temperature Pulse Respiration Blood pressure 98 degrees 73/minute 19/minute 100/80 Weight Last Period 71.1 kg 08/04/25 Yasmine Katz PA 08/21/2025 1:00 PM Signed [facility] Carmine Navarrete is a 40 year old female. Patient presents with: Cough: Chest congestion, fatigue, drainage, sore throat, sob(winded), mucus x 2.5 months on and off HPI The patient is a 40-year-old female presenting with persistent upper respiratory symptoms. 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 - Initial symptoms: sore throat, postnasal drip, congestion, laryngitis, and cough. - Symptoms subsided but never fully resolved; persistent congestion. - Recent exacerbation since mid-last week: sore throat, increased postnasal drip, congestion, cough, and raspy voice. - Describes cough as deep, with difficulty raising voice or laughing without triggering intense coughing fits. - Occasional production of yellow-green mucus; nasal discharge varies from clear to yellow-green. - Denies sinus headaches, sinus pressure, or fevers. - Reports fatigue by the end of the day. - No history of COPD or asthma. - Previous use of Tessalon Perles provided relief for cough. - Experiences dyspnea with activities that previously did not cause shortness of breath. - Difficulty taking deep breaths. - Reports ears feeling itchy and some facial pressure. PAST MEDICAL HISTORY Diagnosis Date PMH - PAST MEDICAL HISTORY OF Color Vision - Normal PMH - PAST MEDICAL HISTORY OF acne PAST SURGICAL HISTORY Procedure Laterality Date EXC CYST/ABERRANT BREAST TISSUE OPEN 1/> LESION -03-10 LEFT PAST SURGICAL HISTORY OF dental PAST SURGICAL HISTORY OF 04/06 left ankle repair ALLERGIES Latex and Rocephin [Ceftriaxone] MEDICATIONS meloxicam (MOBIC) 15 mg tablet Take 1 tablet by mouth once daily. sertraline (ZOLOFT) 25 mg tablet TAKE 1 TABLET AT BEDTIME FOR ANXIETY cyclobenzaprine (FLEXERIL) 5 mg tablet Take 5 mg by mouth three times a day as needed. doxycycline monohydrate 100 mg tablet Take 1 tablet by mouth two times a day for 5 days. predniSONE (DELTASONE) 20 mg tablet Take 2 tablets by mouth once daily for 5 days. benzonatate (TESSALON PERLE) 100 mg capsule Take 1 capsule by mouth three times a day as needed. albuterol HFA (PROVENTIL HFA, VENTOLIN HFA) 90 mcg/actuation inhaler Inhale 2 puffs as instructed every 4 hours as needed for wheezing/shortness of breath. FAMILY HISTORY Problem Relation Age of Onset Heart Paternal Grandfather Heart Paternal Grandmother benign tumor =left eye Allergies Mother Breast Cancer Maternal Grandmother Coronary Artery Disease Paternal Grandfather Hypertension Father Hypertension Paternal Grandfather Psychiatry Paternal Grandfather Stroke Paternal Grandmother SOCIAL HISTORY[1] Review of Systems Constitutional: (+) fatigue, (-) fever Head: (+) facial pain, (-) headache Ears/Nose/Mouth/Throat: (+) sore throat, (+) postnasal drip, (+) nasal congestion, (+) hoarseness, (+) ear pruritus, (-) sinus pressure Respiratory: (+) cough, (+) productive sputum, (+) dyspnea on exertion, (+) difficulty taking deep breath Objective BP 100/80 Pulse 73 Temp 36.7 ?C (98 ?F) Resp 19 Wt 71.1 kg (156 lb 12 oz) LMP 08/04/2025 SpO2 99% Physical Exam General: Not in acute distress, normal appearance, well-developed, not toxic-appearing HEENT - Eyes: Conjunctivae normal - Ears: Right ear: Tympanic membrane normal, ear canal normal; Left ear: Tympanic membrane normal, ear canal normal - Nose/Sinuses: Nasal mucosa inflamed , Maxillary sinus tenderness - Oropharynx: Mucous membranes moist, oropharynx clear, uvula midline Cardiovascular - Rate/Rhythm: Normal rate and regular rhythm - Heart Sounds: Normal heart sounds Pulmonary - Lung Sounds: Normal breath sounds - Respiratory Effort: Pulmonary effort normal Neurologic - Mental Status: Alert Skin: Skin warm and dry Lymphatic - Cervical: No cervical adenopathy { 1. Subacute cough (R05.2) 2. Sinobronchitis (J32.9) - Symptoms and exam findings consistent with ongoing upper respiratory infection vs back to back viral illnesses and bronchitis - Ordered chest X-ray to rule out pneumonia. - Start doxycycline for suspected sinobronchitis. - Start prednisone for airway inflammation. - Start Tessalon Perles for cough suppression. - Start albuterol inhaler for bronchospasm. - Will contact patient with chest X-ray results and adjust treatment if necessary. and Recording using ambient Tapingo software for draft documentation of the visit was discussed wi (more content not included)... Normal [facility] XR CHEST 2V FRONTAL/LATon XR CHEST 2V FRONTAL/LAT * * *Final Report* * * DATE OF EXAM: Aug 21 2025 1:29PM WOX 5291 - XR CHEST 2V FRONTAL/LAT / PROCEDURE REASON: Subacute cough * * * * Physician Interpretation * * * * EXAMINATION: CHEST RADIOGRAPH (2 VIEW FRONTAL and LATERAL) CLINICAL HISTORY: Subacute cough MQ: [id number] EXAM DATE/TIME: 08/21/2025 1:29 PM COMPARISON: No relevant prior studies available. RESULT: Lines, tubes, and devices: None. Lungs and pleura: No consolidation. No lung mass. No pleural effusion. No pneumothorax. Cardiomediastinal silhouette: Normal cardiomediastinal silhouette. Bones and soft tissues: Unremarkable. IMPRESSION: No acute radiographic abnormality. Office Services Assistant: PSCB Transcribe Date/Time: Aug 21 2025 2:02P Dictated by : MAHENDRA SALGADO MD This examination was interpreted and the report reviewed and electronically signed by: MAHENDRA SALGADO MD on Aug 21 2025 2:02PM EST [id number] Normal [facility] L/S Spine Min 4 Viewson 10 L/S Spine Min 4 Views [facility] Imaging Services [address] [place], [place] [address] L/S Spine Min 4 Views MR#: [id number] Acct: [id number] Name: SULTANA NAVARRETE Rep #: [id number] : 1985 F 40 From: Jesus Leonardo MD PCP: Dr. Christian Franklin MD Status: REG CLI Study: L/S Spine Min 4 Views Date of Exam: 08/05/25 Exam# [id number] Ordering Dr: Christian Franklin MD PROCEDURE: L/S SPINE MIN 4 VIEWS 08/05/2025 REASON FOR EXAM: BACK PAIN TECHNIQUE: Procedure Code: RADSPLS Modality: DX Procedure: L/S SPINE MIN 4 VIEWS FINDINGS: No evidence acute fracture or dislocation. The intervertebral disc spaces and vertebral body heights are maintained. No visualized pars defects. Normal alignment. RAD/L/S Spine Min 4 Views IMPRESSION: No significant abnormality. Reading Location: [id number] CC: Dr. Christian Franklin MD Office Services Assistant: Signed Normal [facility] PT D/C Summary (1)on 025 PT D/C Summary (1) [facility] [address] [place] [address] / REHABILITATION SERVICES DISCHARGE SUMMARY MR#: [id number] Acct: [id number] Name: SULTANA NAVARRETE Rep #: [id number] : 1985 40 From: Che Higgins PT, Cert. T Referring Dr.: MIGUEL Heath Status: REG RCR Insurance: [facility] SELF PAY INSURANCE Discharge Summary D/C [...] please feel free to call me at [phone]. Thank you for the referral of this patient. Sincerely, Che Higgins PT, Cert MDT Balance/Gait/Functional tests Balance/Special Test Scores Oswestry Low Back Score: 12 Improvement % Improvement: 20 07/19/25 0901 CC: MIGUEL Heath; Dr. Christian Franklin MD EDILMA Signed Normal [facility] Re-Evaluation - PT (1)on Re-Evaluation - PT (1) [facility] [place] [address] / REEVALUATION / MEDICARE RECERTIFICATION PHYSICAL THERAPY MR#: [id number] Acct: [id number] Name: SULTANA NAVARRETE Rep #: [id number] : 1985 40 From: Che Higgins PT, Cert. MDT Referring Dr.: MIGUEL Heath Status:REG RCR Insurance: [facility] SELF PAY INSURANCE Re-Evaluation Intro: Karo Heath, SOUND INSTALLATION WORKER-C, It has been my pleasure to treat [...] YEARS AGO TREATED WITH PT HERE AT [facility]. REPORTS HAVING CHIROPRACTIC ADJUSTMENTS AND STRETCHING [...] HOME INST GIVEN BY TEX WEBER AT [facility] LAST VISIT: PATIENT DEMO'S SQUAT TO BEND [...] do not hesitate to contact me at [phone] by phone or if you have questions or concerns regarding this new plan of care! Sincerely, Che Higgins, PT, Cert MDT 05/14/25 7701 (more content not included)... Normal [facility] Inital Evaluation (1) - PTon 05-09-2025 Inital Evaluation (1) - PT [facility] [address] [place] [address] / REHABILITATION SERVICES INITIAL EVALUATION MR#: [id number] Acct: [id number] Name: SULTANA NAVARRETE Rep #: [id number] : 1985 40 From: Sai Archuleta PT, ATC Referring Dr.: MIGUEL Murguia Status: REG RCR Insurance: [facility] SELF PAY INSURANCE Patient's Visit Information Visit Information Visit Information: SULTANA NAVARRETE is a 40 year old F referred to Physical Therapy by MIGUEL Murguia with a diagnosis of LBP. Date of Evaluation: 05/09/25 Physical Therapist: Sai Archuleta, PT, ATC Visit Plan Frequency: 1x/Week Duration: [...] to be FAXED BACK to us at [phone] for Medicare purposes. For Medicare only, by signing this I certify the plan of care. Please let me know if there are questions or concerns regarding this plan of care. Physician Signature: Date: ____ 05/09/25 1301 CC: MIGUEL Heath; Dr. Christian Franklin MD [facility] Signed Normal [facility] PAP IG HPV APTIMA 16/18,45on 05-06-2025 ADEQ Comment Normal . [facility] Comment on above: Order Comment: Speci men Comment: [id number] Specimen Comment: No. of containers..01 ThinPrep Vial Result Comment: Sati sfactory for evaluation. Endocervical and/or squamous metaplastic cells (endocervical component) are present. Performed By: #### L 7400.0280 #### [facility] [address] [place], [address] COMM . Normal . [facility] Comment on above: Order Comment: Speci men Comment: [id number] Specimen Comment: No. of containers..01 ThinPrep Vial Performed By: #### L 7400.0280 #### [facility] [address] [place], [address] COMMENT Comment Normal . [facility] Comment on above: Order Comment: Speci men Comment: [id number] Specimen Comment: No. of containers..01 ThinPrep Vial Result Comment: This liquid based ThinPrep(R) pap test was screened with the use of an image guided system. Performed By: #### L 7400.0280 #### [facility] [address] [place], [address] DIAG Comment Normal . [facility] Comment on above: Order Comment: Speci men Comment: [id number] Specimen Comment: No. of containers..01 ThinPrep Vial Result Comment: NEGA TIVE FOR INTRAEPITHELIAL LESION OR MALIGNANCY. Performed By: #### L 7400.0280 #### [facility] [address] [place], [address] HPV APTIMA, HR Negative Normal Negative [facility] Comment on above: Order Comment: Speci men Comment: [id number] Specimen Comment: No. of containers..01 ThinPrep Vial Result Comment: This nucleic acid amplification test detects fourteen high- risk HPV types (16,18,31,33,35,39,45,51,52,56,58,59,66,68) without differentiation. Performed By: #### L 7400.0280 #### [facility] [address] [place], [address] HPV Kylah Rfx Comment Normal . [facility] Comment on above: Order Comment: Speci men Comment: [id number] Specimen Comment: No. of containers..01 ThinPrep Vial Result Comment: Crit anabell not met, HPV Genotype not performed. Performed at: [facility] [address] [address] [place], [place] [id number] Loop Drier Operator: Matt Wisdom MD, Phone: [phone] Performed at: - [address] [id number] Loop Drier Operator: Jelly Barnett MD, Phone: [phone] Performed at: = - [address] [id number] Loop Drier Operator: Jelly Barnett MD, Phone: [phone] Performed By: #### L 7400.0280 #### [facility] [address] [place], [address] PAPSMR Comment Normal . [facility] Comment on above: Order Comment: Speci men Comment: [id number] Specimen Comment: No. of containers..01 ThinPrep Vial Result Comment: The Pap smear is a screening test designed to aid in the detection of premalignant and malignant conditions of the uterine cervix. It is not a diagnostic procedure and should not be used as the sole means of detecting cervical cancer. Both false-positive and false-negative reports do occur. Performed By: #### L 7400.0280 #### [facility] [address] [place], [place], [id number] PERFORM Comment Normal . [facility] Comment on above: Order Comment: Speci men Comment: [id number] Specimen Comment: No. of containers..01 ThinPrep Vial Result Comment: Geoffrey Claire Mobile Unit Assistant (ASCP) Performed By: #### L 7400.0280 #### [facility] [address] [place], [place], [id number] Cervical or vaginal specimen microscopic examination by liquid based cytology (reportOrdered By: Karo Heath on 05-01-2025 Cytology report Cyto stain.thin prep Doc (Cvx/Vag) Comment . [facility] Comment on above: Criteria not met, HP V Genotype not performed.Performed at: [facility] [id number] [place], [place] [id number] Director: Matt Wisdom MD, Phone: [phone] at: - [facility] [id number] Director: Jelly Barnett MD, Phone: [phone] at: = - [facility] [id number] Director: Jelly Barnett MD, Phone: [phone] Cervical or vagninal specime n microscopic examination by cytology stain (reported asOrdered By: Karo Heath on 05-01-2025 Cytology report Cyto stain Doc (Cvx/Vag) Comment . [facility] Comment on above: The Pap smear [...] DNA Probe+sig amp Ql (Cvx) Negative Negative [facility] Comment on above: This nucleic acid am plification test detects fourteen high- risk HPV types (16,18,31,33,35,39,45,51,52,56,58,59,66,68)without differentiation. Laboratory - CytologyOrdered By: Karo Heath on 05-01-2025 Mobile Unit Assistant Cyto stain Nom (Cvx/Vag) [ID] Comment . [facility] Comment on above: Werner Padgett (ASCP) Laboratory - Miscellaneous t estsOrdered By: Karo Heath on 05-01-2025 Service comment (Unsp spec) [Interp] . . [facility] No Panel InformationOrdered By: Karo Heath on 05-01-2025 Pap Smear Specimen Adequacy Comment . [facility] Comment on above: Satisfactory for beronica luation. Endocervical and/or squamous metaplasticcells (endocervical component) are present. Desk Director Office Visit Reporton 05-01-2025 Desk Director Office Visit Report [facility] [address] [place] [address] OFFICE VISIT Date of Service: 05/01/25 MR#: [id number] Acct: [id number] Name: SULTANA NAVARRETE Rep #: [id number] : 1985 Provider: MIGUEL Lance Age/Sex: 40/F [place] [facility] [place] Signed Intake Vital Signs 10/26/24 17:30 05/01/25 09:21 Height 5 ft 4 in 5 ft 4 in Weight: 138 lb 149 lb 2 oz BMI 23.6 25.6 BP 124/60 H 108/73 Blood Pressure Location Lt brachial Position Sitting Respiration 16 Pulse 85 Pulse Source NIBP Temp 98.6 F Pulse Oximetry (%) 97 Oxygen Delivery Method room air 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) 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 Tender Required: No Is patient in pain?: No [...] mg PO QDAY 10/26/24 05/01/25 History omega 1-wzy-hwv-fish oil 300 1 cap PO QDAY 10/26/24 05/01/25 Hi story mg-1,000 mg capsule (Fish Oil) thiamine HCl (vitamin B1) 500 mg 500 mg PO QDAY 10/26/24 05/01/25 H istory tablet zinc gluconate 100 mg tablet 100 mg PO QDAY 10/26/24 05/01/25 H istory moeazzsxltnt-nzhpegmh-ci on tab PO 05/01/25 05/01/25 History fumarate [...] of ankle surgery S/P lumpectomy, left breast [place] teeth extracted Family History Grandmother Diabetes CVA [...] home: Yes additional social history: 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 Date Name GA/Weeks Outcome Route Bth Weight Gen Labor Lgth Anesthesia Del Locatn Provider FOB 05/23/14 Ned 40 live - full term 7 lbs 14 oz Male 48 hours ep idural [facility] 08/27/22 Ezlyn 40 live - full term 7lbs 7oz Female [facility] Laura guillen Delivery Date: 05/23/14 Last [...] 46. Other preventative health care screenings: Christian Franklin; PCP. Female Reproductive History Last Menstrual Period: [...] pelvic pain, (more content not included)... Normal [facility] Visit Reporton 1 12-27-2023 Urgent Care Visit Report [facility] [address], [address] [place] [address] OFFICE VISIT Date of Service: 10/26/24 MR#: [id number] Acct: [id number] Name: SULTANA NAVARRETE Rep #: [id number] : 1985 Provider: MIGUEL silverman Age/Sex: 39/F Location: [facility] Status: Signed Intake Vital Signs 09/05/24 15:10 [...] chest congest, cough, fatigue, LEMUS, BA, ST Chute Tender Required: No Is patient in pain?: No [...] mg PO QDAY 10/26/24 10/26/24 History omega 0-mmd-gol-fish oil 300 1 cap PO QDAY 10/26/24 [...] days after flying for the holidays. 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 Normal [facility] DIAG MAMM W/CAD BILCarmel DIAG MAMM W/CAD, [facility] Imaging Services [address], [place] [id number] DIAG MAMM W/CAD, BILAT MR#: [id number] Acct: [id number] Name: SULTANA NAVARRETE Rep #: [id number] : 1985 F 39 From: Maciel Lopez MD PCP: Dr. 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 Christian Franklin MD Office Services Assistant: Signed Normal [facility] Laboratory - Chemistry and C hemistry - challengeon 07-28-2022 Glucose Ql (U) Negative [facility] Work Phone: Laboratory - Urinalysison Protein Ql (U) Negative [facility] Work Phone: Laboratory - Chemistry and C hemistry - challengeon 07-12-2022 Glucose Ql (U) Negative [facility] Work Phone: Laboratory - Urinalysison Protein Ql (U) Negative [facility] Work Phone: Laboratory - Chemistry and C hemistry - challengeon 06-28-2022 Glucose Ql (U) Negative [facility] Work Phone: Laboratory - Urinalysison Protein Ql (U) Negative [facility] Work Phone: Laboratory - Chemistry and C hemistry - challengeon 06-14-2022 Glucose Ql (U) Negative [facility] Work Phone: Laboratory - Urinalysison Protein Ql (U) Negative [facility] Work Phone: Laboratory - Chemistry and C hemistry - challengeon 06-02-2022 Glucose Ql (U) Negative [facility] Work Phone: Laboratory - Urinalysison Protein Ql (U) Negative [facility] Work Phone: Absolute lymphocyte counton 05-20-2022 Lymphocytes Auto (Unsp spec) [#/Vol] 2.80 10*3/uL 0.83-4.51 [facility] Work Phone: Basophil percentageon 2021 Basophils/100 WBC (Bld) 0.2 % 0-1 [facility] Work Phone: Eosinophils/100 WBC (Bld) 1.0 % 0-5 [facility] Work Phone: Neutrophils (Bld) [#/Vol] 6.4 10*3/uL 2.0-7.7 [facility] Work Phone: [phone] Neutrophils/100 WBC (Bld) 63.2 % 47-70 [facility] Work Phone: WBC (Bld) [#/Vol] 10.2 10*3/uL 4.4-11.0 [facility] Work Phone: Blood erythrocytes count (nu mber/volume)on 05-20-2022 RBC (Bld) [#/Vol] 4.01 10*6/uL 4.2-5.4 [facility] Work Phone: Blood hemoglobin measurement (mass/volume)on 05-20-2022 Hemoglobin (Bld) [Mass/Vol] 11.3 g/dL 12.0-15.0 [facility] Work Phone: Blood lymphocytes/100 leukoc yteson 05-20-2022 Lymphocytes/100 WBC (Bld) 27.6 % 19-41 [facility] Work Phone: Blood monocytes/100 leukocyt eson 05-20-2022 Monocytes/100 WBC (Bld) 6.9 % 0-10 [facility] Work Phone: Blood platelet mean volumeon 05-20-2022 Platelet mean volume (Bld) [Entitic vol] 9.6 fL 6.2-12.0 [facility] Work Phone: Determination of erythrocyte mean corpuscular volume (MCV)on 05-20-2022 MCV (RBC) [Entitic vol] 85.0 fL 81-99 [facility] Work Phone: Gestational diabetes screen 1-hour screen with 50g oral glucose loadon 05-20-2022 Glucose 1 Hr post 50 g glucose PO [Mass/Vol] 107 mg/dL 70-140 [facility] Work Phone: Hematocrit Auto (Bld) [Volum e fraction]on 05-20-2022 Hematocrit (Bld) [Volume fraction] 34.1 % 37-47 [facility] Work Phone: Laboratory - Chemistry and C hemistry - challengeon 05-20-2022 Glucose Ql (U) Negative [facility] Work Phone: Laboratory - Hematology and Cell countson 05-20-2022 Erythrocyte distribution width (RBC) [Entitic vol] 38.6 fL 35.1-43.9 [facility] Work Phone: [phone] Erythrocyte distribution width (RBC) [Ratio] 12.6 % 11.6-14.6 [facility] Work Phone: [phone] Immature granulocytes/100 WBC (Bld) 1.100 % 0.0-0.9 [facility] Work Phone: Comment on above: IG% - Immature Granu locytes (promyelocytes, myelocytes and metamyelocytes) > 1% indicates that a LEFT SHIFT is Present. MCH (RBC) [Entitic mass] 28.2 pg 27.0-32.0 [facility] Work Phone: [phone] Nucleated RBC/100 WBC (Bld) [Ratio] 0 % 0-5 [facility] Work Phone: Laboratory - Urinalysison Protein Ql (U) Negative [facility] Work Phone: MCHC Auto (RBC) [Mass/Vol]on 05-20-2022 MCHC (RBC) [Mass/Vol] 33.1 g/dL 32-36 [facility] Work Phone: Platelets bldon 05-20-2022 Platelets (Bld) [#/Vol] 170 10*3/uL 150-450 [facility] Work Phone: Laboratory - Chemistry and C hemistry - challengeon 04-21-2022 Glucose Ql (U) Negative [facility] Work Phone: Laboratory - Urinalysison Protein Ql (U) Negative [facility] Work Phone: Absolute lymphocyte counton 02-26-2022 Lymphocytes Auto (Unsp spec) [#/Vol] 2.59 10*3/uL 0.83-4.51 [facility] Work Phone: Basophil percentageon 2021 Basophils/100 WBC (Bld) 0.3 % 0-1 [facility] Work Phone: Eosinophils/100 WBC (Bld) 0.9 % 0-5 [facility] Work Phone: Neutrophils (Bld) [#/Vol] 7.0 10*3/uL 2.0-7.7 [facility] Work Phone: Neutrophils/100 WBC (Bld) 65.6 % 47-70 [facility] Work Phone: WBC (Bld) [#/Vol] 10.7 10*3/uL 4.4-11.0 [facility] Work Phone: Blood erythrocytes count (nu mber/volume)on 02-26-2022 RBC (Bld) [#/Vol] 4.39 10*6/uL 4.2-5.4 [facility] Work Phone: Blood hemoglobin measurement (mass/volume)on 02-26-2022 Hemoglobin (Bld) [Mass/Vol] 12.4 g/dL 12.0-15.0 [facility] Work Phone: Blood lymphocytes/100 leukoc yteson 02-26-2022 Lymphocytes/100 WBC (Bld) 24.3 % 19-41 [facility] Work Phone: Blood monocytes/100 leukocyt eson 02-26-2022 Monocytes/100 WBC (Bld) 8.2 % 0-10 [facility] Work Phone: Blood platelet mean volumeon 02-26-2022 Platelet mean volume (Bld) [Entitic vol] 10.1 fL 6.2-12.0 [facility] Work Phone: [phone] Determination of erythrocyte mean corpuscular volume (MCV)on 02-26-2022 MCV (RBC) [Entitic vol] 84.3 fL 81-99 [facility] Work Phone: HIV 1 and HIV-2 antibody ass ay with HIV-1 p24 antigen detectionon 02-26-2022 HIV 1+2 Ab+HIV1 p24 Ag IA Ql Non-Reactive Nonreactive [facility] Work Phone: Hematocrit Auto (Bld) [Volum e fraction]on 02-26-2022 Hematocrit (Bld) [Volume fraction] 37.0 % 37-47 [facility] Work Phone: Laboratory - Chemistry and C hemistry - challengeon 02-26-2022 Glucose Ql (U) Negative [facility] Work Phone: Laboratory - Hematology and Cell countson 02-26-2022 Erythrocyte distribution width (RBC) [Entitic vol] 40.8 fL 35.1-43.9 [facility] Work Phone: Erythrocyte distribution width (RBC) [Ratio] 13.2 % 11.6-14.6 [facility] Work Phone: Immature granulocytes/100 WBC (Bld) 0.700 % 0.0-0.9 [facility] Work Phone: Comment on above: IG% - Immature Granu locytes (promyelocytes, myelocytes and metamyelocytes) > 1% indicates that a LEFT SHIFT is Present. MCH (RBC) [Entitic mass] 28.2 pg 27.0-32.0 [facility] Work Phone: Nucleated RBC/100 WBC (Bld) [Ratio] 0 % 0-5 [facility] Work Phone: Laboratory - Urinalysison Protein Ql (U) Negative [facility] Work Phone: MCHC Auto (RBC) [Mass/Vol]on 02-26-2022 MCHC (RBC) [Mass/Vol] 33.5 g/dL 32-36 [facility] Work Phone: No Panel Informationon 02-26 Hepatitis B Surface Antigen Non-Reactive Nonreactive [facility] Work Phone: Hepatitis C Antibody Non-Reactive Nonreactive [facility] Work Phone: Comment on above: Non Reactive: < 0.8 Equivocal: >/= 0.8 to < 1.0 Reactive: >/= 1.0The [facility] recommends that a reactive/equivocal HCV antibody result be followed up by the HCV Nucleic Acid Amplificationtest (431974) Rubella IgG Antibody Reactive Nonreactive [facility] Work Phone: Comment on above: Antibody Results Int erpretation of Immune Status Non Reactive Presumed Non-Immune Equivocal Equivocal Reactive Presumed Immune Platelets bldon 02-26-2022 Platelets (Bld) [#/Vol] 190 10*3/uL 150-450 [facility] Work Phone: Serum Treponema species anti body detectionon 02-26-2022 Treponema sp Ab Ql (S) Non-Reactive [facility] Work Phone: Culture, urineon 01-27-2022 Bacteria identified Cx Nom (U) Positive [facility] Work Phone: Laboratory - Chemistry and C hemistry - challengeon 01-27-2022 Bilirubin Ql (U) Negative [facility] Work Phone: Glucose Ql (U) Negative [facility] Work Phone: Ketones Ql (U) Negative [facility] Work Phone: pH (U) 5.0 [pH] [facility] Work Phone: Specific gravity (U) [Rel density] 1.005 [facility] Work Phone: Urobilinogen (U) [Mass/Vol] 0.8027914 mg/dL [facility] Work Phone: Laboratory - Hematology and Cell countson 01-27-2022 Hemoglobin Ql (U) Negative [facility] Work Phone: Laboratory - Specimen inform ationon 01-27-2022 Clarity (U) Clear [facility] Work Phone: Color (U) Yellow [facility] Work Phone: Laboratory - Urinalysison Nitrite Ql (U) Negative [facility] Work Phone: Protein Ql (U) Negative [facility] Work Phone: No Panel Informationon 01-27 Miscellaneous Test Comment MAILED SPECIMEN [facility] Work Phone: Urine Leukocytes Negatve [facility] Work Phone: Cervical or vagninal specime n microscopic examination by cytology stain (reported ason 01-21-2022 Cytology report Cyto stain Doc (Cvx/Vag) Comment [facility] Work Phone: Comment on above: The [...] rRNA LOYD+probe Ql (Unsp spec) Negative Negative [facility] Work Phone: Culture, urineon 01-21-2022 Bacteria identified Cx Nom (U) Culture exhibits no growth. [facility] Work Phone: Detection in cervical specim en of any of human papilloma virus (HPV) 16, 18, 31, 33,on 01-21-2022 HPV 16+18+31+33+35+39+45+ 51+52+56+58+59+66+68 DNA Probe+sig amp Ql (Cvx) Positive Negative [facility] Work Phone: Comment on above: This nucleic acid am plification test detects fourteen high- risk HPV types (16,18,31,33,35,39,45,51,52,56,58,59,66,68)without differentiation.Performed at: [address] [id number] Director: Jelly Barnett MD, Phone: [phone] at: =G - [facility] [id number] [place], [place] [id number] Director: Jelly Barnett MD, Phone: [phone] Laboratory - Cytologyon 12-30 Mobile Unit Assistant Cyto stain Nom (Cvx/Vag) [ID] Comment [facility] Work Phone: Comment on above: Emily Sarmiento, Cyto technologist (ASCP) Pathologist Cyto stain Nom (Cvx/Vag) [ID] Comment [facility] Work Phone: Comment on above: Jelly Barnett MD, Pathologist Recommended follow-up Cyto stain Nom (Cvx/Vag) Comment [facility] Work Phone: Comment on above: Suggest follow up as clinically appropriate. Laboratory - Drug toxicology on 01-21-2022 Amphetamines Ql (U) Negative [facility] Work Phone: Benzodiazepines Ql (U) Negative [facility] Work Phone: Cannabinoids Screen Ql (U) Negative [facility] Work Phone: Cocaine Ql (U) Negative [facility] Work Phone: Opiates Ql (U) Negative [facility] Work Phone: Laboratory - Microbiology an d Antimicrobial susceptibilityon 01-21-2022 N. gonorrhoeae DNA LOYD+probe Ql (Unsp spec) Negative Negative [facility] Work Phone: Comment on above: Performed at: =G - [facility] [id number] [place], [place] [id number] Director: Jelly Barnett MD, Phone: [phone] Laboratory - Miscellaneous t estson 01-21-2022 Service comment (Unsp spec) [Interp] Comment [facility] Work Phone: Comment on above: This liquid based Th inPrep(R) pap test was screened withthe use of an image guided system. Service comment (Unsp spec) [Interp] . [facility] Work Phone: No Panel Informationon 01-21 MDMA (Ecstasy) Screen Negative [facility] Work Phone: Pathology report final diagnosis Narrative Comment [facility] Work Phone: Comment on above: EPITHELIAL CELL ABNO RMALITY.LOW GRADE SQUAMOUS INTRAEPITHELIAL LESION (LSIL). R87.612 Urine Barbiturates Screen Negative [facility] Work Phone: Urine Drug Screen Comment [facility] Work Phone: Comment on above: CONFIRMATORY [...] USE TESTMNEMONIC: [facility] Urine Methadone Screen Negative [facility] Work Phone: Urine phencyclidine (PCP) de tectionon 01-21-2022 Phencyclidine Ql (U) Negative [facility] Work Phone: Culture, urineon 01-06-2022 Bacteria identified Cx Nom (U) Positive [facility] Work Phone: Chlamydia trachomatis rRNA d etection by probe and target amplification methodon 11-19-2021 C. trachomatis rRNA LOYD+probe Ql (Unsp spec) Negative Negative [facility] Work Phone: Gram stain for investigation of transfusion reactionon 11-19-2021 Microscopic observation Gram stain Nom (Unsp spec) [facility] Work Phone: Laboratory - Microbiology an d Antimicrobial susceptibilityon 11-19-2021 N. gonorrhoeae DNA LOYD+probe Ql (Unsp spec) Negative Negative [facility] Work Phone: Comment on above: Performed at: = [facility] [address] [place] [id number] Director: Jelly Barnett MD, Phone: [phone] No Panel Informationon 11-19 POC Bacterial Vaginitis (Rapid) Negative [facility] Work Phone: POC Trichomonas (Rapid) Negative [facility] Work Phone: Thin prep Papanicolaou smear with manual screeningon 11-19-2021 Genital Culture G. vaginalis (Presumptive) [facility] Work Phone: Serum or plasma choriogonado tropin detectionon 11-17-2021 HCG ( test) Ql < 1 mIU/mL <4 [facility] Work Phone: Comment on above: hCG levels with Gest ational AgeGestational Age hCG mIU/mL (IU/L)0.2 - 1 week 5 - 501-2 weeks 50 - 5002-3 weeks 100 - 40933-0 weeks 500 - 614218-2 weeks 1000 - 381750-0 weeks 16485 - 100,0006-8 weeks 76209 - 200,0002-3 months 11345 - 100,000 Office Visit: [facility] 06-02-2017 blood in urine (hemoglobin) by dipstick Negative Invalid Interpretation Code [facility] Work Phone: Documentation of current medications (procedure) Done Invalid Interpretation Code [facility] Work Phone: Documentation of current medications (procedure) T Invalid Interpretation Code [facility] Work Phone: Fall risk assessment No Invalid Interpretation Code [facility] Work Phone: specific gravity, urine 1.010 Invalid Interpretation Code [facility] Work Phone: Tobacco use CPHS Never smoker Invalid Interpretation Code [facility] Work Phone: [phone] Urine, appearance clear Invalid Interpretation Code [facility] Work Phone: [phone] Urine, bilirubin presence Negative Invalid Interpretation Code [facility] Work Phone: [phone] Urine, color yellow Invalid Interpretation Code [facility] Work Phone: [phone] Urine, glucose presence Negative Invalid Interpretation Code [facility] Work Phone: Urine, ketones presence Negative Invalid Interpretation Code [facility] Work Phone: Urine, leukocyte esterase presence Negative Invalid Interpretation Code [facility] Work Phone: Urine, nitrite presence Negative Invalid Interpretation Code [facility] Work Phone: [phone] Urine, pH 5.0 [pH] Invalid Interpretation Code [facility] Work Phone: Urine, protein Negative Invalid Interpretation Code [facility] Work Phone: Urine, urobilinogen presence Negative Invalid Interpretation Code [facility] Work Phone: Culture, urine Bacteria identified Cx Nom (U) Positive [facility] Work Phone: No Panel Information Group B Streptococcus Culture Group B Beta Streptococcus is not isolated. [facility] Work Phone: Vital Signs Date Time Vital Sign Value Performing Clinician Faci lity 05-01-2025 09:21-0400 Body height 162.[address] Christian Franklin MD Work Phone: [facility] 05-01-2025 09:21-0400 Body mass index (BMI) [Ratio] 25.6 kg/m2 Dr. Christian Franklin MD Work Phone: [facility] 05-01-2025 09:21-0400 Body weight 67.[address] Christian Franklin MD Work Phone: [facility] 05-01-2025 09:21-0400 Diastolic blood pressure 73 mm[Hg] Dr. Christian Franklin MD Work Phone: [facility] 05-01-2025 09:21-0400 Systolic blood pressure 108 mm[Hg] Dr. Christian Franklin MD Work Phone: [facility] 08-03-2022 16:18-0400 Body height 162.[address] Christian Franklin Work Phone: [facility] Work Phone: 08-03-2022 16:18-0400 Body mass index (BMI) [Ratio] 26.4 kg/m2 Dr. Christian Franklin Work Phone: [facility] Work Phone: 08-03-2022 16:18-0400 Body weight 69.[address] Christian Franklin Work Phone: [facility] Work Phone: 08-03-2022 16:18-0400 Diastolic blood pressure 70 mm[Hg] Dr. Christian Franklin Work Phone: [facility] Work Phone: 08-03-2022 16:18-0400 Systolic blood pressure 118 mm[Hg] Dr. Christian Franklin Work Phone: [facility] Work Phone: 07-28-2022 16:05-0400 Body height 162.[address] Christian Franklin Work Phone: [facility] Work Phone: 07-28-2022 16:05-0400 Body mass index (BMI) [Ratio] 26.1 kg/m2 Dr. Christian Franklin Work Phone: [facility] Work Phone: 07-28-2022 16:05-0400 Body weight 69.[address] Christian Franklin Work Phone: [facility] Work Phone: 07-28-2022 16:05-0400 Diastolic blood pressure 68 mm[Hg] Dr. Christian Franklin Work Phone: [facility] Work Phone: 07-28-2022 16:05-0400 Systolic blood pressure 118 mm[Hg] Dr. Christian Franklin Work Phone: [facility] Work Phone: 07-12-2022 10:43-0400 Body mass index (BMI) [Ratio] 25.8 kg/m2 Dr. Christian Franklin Work Phone: [facility] Work Phone: 07-12-2022 10:43-0400 Body weight 68.[address] Christian Franklin Work Phone: [facility] Work Phone: 07-12-2022 10:43-0400 Diastolic blood pressure 66 mm[Hg] Dr. Christian Franklin Work Phone: [facility] Work Phone: 07-12-2022 10:43-0400 Systolic blood pressure 113 mm[Hg] Dr. Christian Franklin Work Phone: [facility] Work Phone: 06-28-2022 15:57-0400 Body mass index (BMI) [Ratio] 25.7 kg/m2 Dr. Christian Franklin Work Phone: [facility] Work Phone: 06-28-2022 15:57-0400 Body weight 68.[address] Christian Franklin Work Phone: [facility] Work Phone: 06-28-2022 15:57-0400 Diastolic blood pressure 64 mm[Hg] Dr. Christian Franklin Work Phone: [facility] Work Phone: 06-28-2022 15:57-0400 Systolic blood pressure 118 mm[Hg] Dr. Christian Franklin Work Phone: [facility] Work Phone: 06-14-2022 14:07-0400 Body mass index (BMI) [Ratio] 25.2 kg/m2 Dr. Christian Franklin Work Phone: [facility] Work Phone: 06-14-2022 14:07-0400 Body weight 66.[address] Christian Franklin Work Phone: [facility] Work Phone: 06-14-2022 14:07-0400 Diastolic blood pressure 62 mm[Hg] Dr. Christian Franklin Work Phone: [facility] Work Phone: 06-14-2022 14:07-0400 Systolic blood pressure 120 mm[Hg] Dr. Christian Franklin Work Phone: [facility] Work Phone: 06-02-2022 10:32-0400 Body mass index (BMI) [Ratio] 25.1 kg/m2 Dr. Christian Franklin Work Phone: [facility] Work Phone: 06-02-2022 10:32-0400 Body weight 66.[address] Christian Franklin Work Phone: [facility] Work Phone: 06-02-2022 10:32-0400 Diastolic blood pressure 69 mm[Hg] Dr. Christian Franklin Work Phone: [facility] Work Phone: 06-02-2022 10:32-0400 Systolic blood pressure 123 mm[Hg] Dr. Christian Franklin Work Phone: [facility] Work Phone: 05-20-2022 10:27-0400 Body height 162.[address] Christian Franklin Work Phone: [facility] Work Phone: 05-20-2022 10:27-0400 Body mass index (BMI) [Ratio] 25.1 kg/m2 Dr. Christian Franklin Work Phone: [facility] Work Phone: 05-20-2022 10:27-0400 Body weight 66.[address] Christian Franklin Work Phone: [facility] Work Phone: 05-20-2022 10:27-0400 Diastolic blood pressure 66 mm[Hg] Dr. Christian Franklin Work Phone: [facility] Work Phone: 05-20-2022 10:27-0400 Systolic blood pressure 128 mm[Hg] Dr. Christian Franklin Work Phone: [facility] Work Phone: 04-21-2022 10:57-0400 Body mass index (BMI) [Ratio] 24.7 kg/m2 Dr. Christian Franklin Work Phone: [facility] Work Phone: 04-21-2022 10:57-0400 Body weight 65.[address] Christian Franklin Work Phone: [facility] Work Phone: 04-21-2022 10:57-0400 Diastolic blood pressure 80 mm[Hg] Dr. Christian Franklin Work Phone: [facility] Work Phone: 04-21-2022 10:57-0400 Systolic blood pressure 110 mm[Hg] Dr. Christian Franklin Work Phone: [facility] Work Phone: 03-25-2022 15:04-0400 Body mass index (BMI) [Ratio] 24 kg/m2 Dr. Christian Franklin Work Phone: [facility] Work Phone: 03-25-2022 15:04-0400 Body weight 63.[address] Christian Franklin Work Phone: [facility] Work Phone: 02-26-2022 14:33-0400 Body mass index (BMI) [Ratio] 23.6 kg/m2 Dr. Christian Franklin Work Phone: [facility] Work Phone: 02-26-2022 14:33-0400 Diastolic blood pressure 62 mm[Hg] Dr. Christian Franklin Work Phone: [facility] Work Phone: 02-26-2022 14:33-0400 Systolic blood pressure 120 mm[Hg] Dr. Christian Franklin Work Phone: [facility] Work Phone: 02-26-2022 14:33-0400 Body mass index (BMI) [Ratio] 23.6 kg/m2 Dr. Christian Franklin Work Phone: [facility] Work Phone: 02-26-2022 14:33-0400 Diastolic blood pressure 62 mm[Hg] Dr. Christian Franklin Work Phone: [facility] Work Phone: 02-26-2022 14:33-0400 Systolic blood pressure 120 mm[Hg] Dr. Christian Franklin Work Phone: [facility] Work Phone: 02-26-2022 14:02-0400 Body weight 62.[address] Christian Franklin Work Phone: [facility] Work Phone: 02-26-2022 14:02-0400 Body height 162.[address] Christian Franklin Work Phone: [facility] Work Phone: 02-26-2022 14:02-0400 Body weight 62.[address] Christian Farnklin Work Phone: [facility] Work Phone: 01-27-2022 16:25-0400 Body mass index (BMI) [Ratio] 23.6 kg/m2 Dr. Christian Franklin Work Phone: [facility] Work Phone: 01-27-2022 16:25-0400 Body weight 62.[address] Christian Franklin Work Phone: [facility] Work Phone: 01-27-2022 16:25-0400 Diastolic blood pressure 80 mm[Hg] Dr. Christian Franklin Work Phone: [facility] Work Phone: 01-27-2022 16:25-0400 Systolic blood pressure 120 mm[Hg] Dr. Chirstian Franklin Work Phone: [facility] Work Phone: 01-27-2022 16:25-0400 Body height 162.56 cm Dr. Christian Franklin Work Phone: [facility] Work Phone: 01-27-2022 16:25-0400 Body mass index (BMI) [Ratio] 23.6 kg/m2 Dr. Christian Franklin Work Phone: [facility] Work Phone: 01-27-2022 16:25-0400 Body weight 62.[address] Christian Franklin Work Phone: [facility] Work Phone: 01-27-2022 16:25-0400 Diastolic blood pressure 80 mm[Hg] Dr. Christian Franklin Work Phone: [facility] Work Phone: 01-27-2022 16:25-0400 Systolic blood pressure 120 mm[Hg] Dr. Christian Franklin Work Phone: [facility] Work Phone: 01-21-2022 09:30-0400 Body mass index (BMI) [Ratio] 23.5 kg/m2 Dr. Christian Franklin Work Phone: [facility] Work Phone: 01-21-2022 09:30-0400 Body weight 62.[address] Christian Franklin Work Phone: [facility] Work Phone: 01-21-2022 09:30-0400 Diastolic blood pressure 80 mm[Hg] Dr. Christian Franklin Work Phone: [facility] Work Phone: 01-21-2022 09:30-0400 Systolic blood pressure 104 mm[Hg] Dr. Christian Franklin Work Phone: [facility] Work Phone: 01-06-2022 08:15-0500 Body mass index (BMI) [Ratio] 24 kg/m2 Dr. Christian Farnklin Work Phone: [facility] Work Phone: 01-06-2022 08:15-0500 Body weight 63.[address] Christian Franklin Work Phone: [facility] Work Phone: 01-06-2022 08:15-0500 Diastolic blood pressure 80 mm[Hg] Dr. Chirstian Franklin Work Phone: [facility] Work Phone: 01-06-2022 08:15-0500 Systolic blood pressure 124 mm[Hg] Dr. Christian Franklin Work Phone: [facility] Work Phone: 11-19-2021 08:52-0500 Body mass index (BMI) [Ratio] 23.3 kg/m2 Dr. Christian Franklin Work Phone: [facility] Work Phone: 11-19-2021 08:52-0500 Body weight 61.[address] Christian Franklin Work Phone: [facility] Work Phone: 11-19-2021 08:52-0500 Diastolic blood pressure 70 mm[Hg] Dr. Christian Franklin Work Phone: [facility] Work Phone: 11-19-2021 08:52-0500 Systolic blood pressure 114 mm[Hg] Dr. Christian Franklin Work Phone: [facility] Work Phone: 06-02-2017 16:25-0400 BMI (Body Mass Index) 20.66 kg/m2 Laura Palafox LPN [facility] Work Phone: 06-02-2017 16:25-0400 Body Temperature 98.5 [degF] Laura Palafox LPN [facility] Work Phone: 06-02-2017 16:25-0400 BP Diastolic 78 mm[Hg] Laura Palafox LPN [facility] Work Phone: 06-02-2017 16:25-0400 BP Systolic 130 mm[Hg] Laura Palafox LPN [facility] Work Phone: 06-02-2017 16:25-0400 Height 162.56 cm Laura Palafox LPN [facility] Work Phone: 06-02-2017 16:25-0400 Pulse (Heart Rate) 75 /min Laura Palafox LPN [facility] Work Phone: 06-02-2017 16:25-0400 Respiratory Rate 12 /min Laura Palafox LPN [facility] Work Phone: 06-02-2017 16:25-0400 Weight 54.61 kg Laura Palafox LPN [facility] Work Phone: Encounters Encounter Date Encounter Type Care Provider Facility Start: 09-27-2025 ambulatory Karo Heath Facility :[facility] Start: 09-07-2025 ambulatory Christian Franklin Facility:[facility] Start: 08-21-2025 End: 08-21-2025 ambulatory CHRISTIAN FRANKLIN Facility:[facility] Start: 08-05-2025 End: 08-05-2025 ambulatory Christian Franklin Facility:[facility] Start: 07-19-2025 End: 07-19-[address] Christian Franklin MD Work Phone: -Physical Therapy Start: 07-19-2025 End: 07-19-2025 Discharged Recurring Karo RIVERA -Physical Therapy Work Phone: Start: 05-01-2025 End: 05-01-[address] Christian Franklin MD Work Phone: -Laboratory Specimen Start: 05-01-2025 End: 05-01-2025 Patient encounter procedure Karo RIVERA -Laboratory Specimen Work Phone: Start: 05-01-2025 End: 05-01-2025 Patient encounter procedure Karo Heath SOUND INSTALLATION WORKER-C -[facility] Work Phone: Start: 05-01-2025 End: 05-01-2025 Patient encounter status Karo Heath SOUND INSTALLATION WORKER-C [facility] Start: 05-01-2025 End: 05-01-[address] Christian Franklin MD Work Phone: [facility] Start: 05-01-2025 End: 05-01-2025 ambulatory Karo Heath Facility:[facility] Start: 10-26-2024 End: 10-26-2024 ambulatory Christian Franklin Facility:[facility] Start: 09-26-2024 End: 09-26-2024 ambulatory Faviola Barahona NP Facility:[facility] Start: 08-03-2022 End: 08-03-[address] Christian Franklin Work Phone: [facility] Start: 08-02-2022 End: 08-02-[address] Christian Franklin Work Phone: [facility] Work Phone: Start: 08-02-2022 End: 08-02-[address] Christian Franklin Work Phone: [facility] Start: 07-28-2022 End: 07-28-[address] Christian Franklin Work Phone: [facility] Work Phone: Start: 07-28-2022 End: 07-28-[address] Christian Franklin Work Phone: [facility]-Laboratory, Specimen Start: 07-28-2022 End: 07-28-[address] Christian Franklin Work Phone: [facility] Start: 07-12-2022 End: 07-12-[address] Christian Franklin Work Phone: [facility] Start: 06-28-2022 End: 06-28-[address] Christian Franklin Work Phone: [facility] Start: 06-14-2022 End: 06-14-[address] Christian Franklin Work Phone: [facility] Start: 06-02-2022 End: 06-02-[address] Christian Franklin Work Phone: [facility] Start: 05-20-2022 End: 05-20-[address] Christian Franklin Work Phone: [facility] Start: 04-21-2022 End: 04-21-[address] Christian Franklin Work Phone: [facility] Start: 03-25-2022 End: 03-25-[address] Christian Franklin Work Phone: [facility] Start: 02-26-2022 End: 02-26-[address] Christian Franklin Work Phone: [facility] Start: 01-27-2022 End: 01-27-[address] Christian Franklin Work Phone: [facility] Start: 01-21-2022 End: 01-21-[address] Christian Franklin Work Phone: [facility]-Laboratory, Specimen Start: 01-11-2022 Non-patient / Non-visit Dr. Shayne Franklin Work Phone: [facility] Start: 01-06-2022 End: 01-06-[address] Christian Franklin Work Phone: [facility] Start: 01-06-2022 End: 01-06-[address] Christian Franklin Work Phone: [facility] Start: 11-19-2021 End: 11-19-[address] Christian Franklin Work Phone: [facility]Laboratory, Specimen Start: 11-19-2021 End: 11-19-[address] Christian Franklin Work Phone: [facility] Start: 11-17-2021 End: 11-17-[address] Christian Franklin Work Phone: [facility] Procedures Date Procedure Procedure Detail Performing Clinician Start: 05-01-2025 Liquid based cervica l cytology screening Dr. Christian Franklin MD Work Phone: Comment on above: NEGATIVE FOR INTRAEP ITHELIAL LESION OR MALIGNANCY. This liquid based Th inPrep(R) pap test was screened withthe use of an image guided system. Start: 08-02-2022 Ultrasound scan for growth Dr. Christian Franklin Work Phone: Start: 01-27-[address] Christian Franklin Work Phone: Start: 01-21-[address] Christian Franklin Work Phone: Start: 01-06-[address] Shayne Franklin Work Phone: Start: 01-06-[address] Christian Franklin Work Phone: Start: 11-19-2021 Cytopathology proced ure, preparation of smear, genital source Dr. Christian Franklin Work Phone: Start: 11-19-2021 Investigation of tra nsfusion reaction Dr. Christian Franklin Work Phone: Group B Streptococcu s Culture Dr. Christian Franklin Work Phone: Urine culture Dr. Christian Muro en Work Phone: Plan of Treatment Date Care Activity Detail Author Start: 01-27-2022 Bacteria identified in Urine by Culture Urine Culture [facility] Work Phone: Start: 06-02-2017 End: 06-02-2017 Appointment Appointment [facility] Work Phone: Liquid based cervica l cytology screening [facility] MG Breast - bilatera l Screening [facility] Ultrasound scan for growth [facility] Work Phone: [facility] Work Phone: Immunizations Immunization Date Immunization Notes Care Provider Fa cility 06-28-2022 tetanus toxoid, redu philippe diphtheria toxoid, and acellular pertussis vaccine, adsorbed Dr. Christian Franklin Work Phone: [facility] 07-01-2021 HPV, unspecified formulation Dr. Christian Franklin Work Phone: [facility] Work Phone: 01-15-2021 Covid (Pfizer) Dr. Christian petit MD Work Phone: [facility] 12-25-2020 Covid (Pfizer) Dr. Christian petit MD Work Phone: [facility] 04-13-2020 tetanus toxoid, redu philippe diphtheria toxoid, and acellular pertussis vaccine, adsorbed Dr. Christian Franklin Work Phone: [facility] Payers Date Payer Category Payer Self-pay [id number] 2024 Unknown [id number] Unknown [id number] Unknown [id number] 2.16.8 [id number] Unknown [id number] 2.16.8 [id number] Unknown [id number] 2.16.8 [id number] Unknown [id number] 2.16.8 [id number] Unknown [id number] 2.16.8 [id number] Unknown [id number] 2.16.8 [id number] Unknown [id number] 2.16.8 [id number] Unknown [id number] 2.16.8 [id number] Social History Date Type Detail Facility Start: 01-27-2022 End: 08-03-2022 Tobacco smoking status NHIS Unknown if ever smoked [facility] Work Phone: Start: 1985 Sex Assigned At Female W [facility] Start: 09-07-2022 Tobacco smoking stat us WIIS Never smoked tobacco (finding) [facility] Sex Female [facility] Clinical Notes 01-21-2022 to 08-21-2025 Note Date & Type Note Facility 08-21-2025 Note HNO ID: [id number] Author: EUGENIA MORAN Tech Service: ? Author Type: Technical Developer Type: Progress Notes Filed: 08/21/2025 13:27 Note Text: Radiology Service Progress Note PATIENT NAME: Sultana Navarrete DATE OF SERVICE: August 21, 2025 TIME: 1:27 PM PATIENT IDENTITY VERIFICATION COMPLETED USING TWO (2) IDENTIFIERS: Name and Date of confirmed by patient verbally. FALL SCREENING: Has the patient had 2 falls in the last year or 1 fall with injury or currently using an Ambulatory Assistive Device (Walker, Cane, Wheelchair, Crutches, etc.)? No PATIENT GENDER DATA: Assigned female at . status: : No status: NO. PATIENT RELEVANT IMPLANT DATA REVIEWED: Yes PATIENT PRESENTS WITH AN IMPLANTABLE OR ATTACHED YEAST PUMPER: No RADIOLOGY DEPARTMENT: General X-ray: Exam(s) Completed: Chest X-Ray PERIPHERAL IV DATA: Not applicable SIGNED BY: Osman Doyle August 21, 2025 1:27 PM [facility] 08-21-2025 Note HNO ID: [id number] Author: YASMINE KATZ PA Service: ? Author Type: Physician Interactive Web Developer Type: Progress Notes Filed: 08/21/2025 13:00 Note Text: URGENT CARE MARY Carmine Navarrete is a 40 year old female. Patient presents with: Cough: Chest congestion, fatigue, drainage, sore throat, sob(winded), mucus x 2.5 months on and off HPI The patient is a 40-year-old female presenting with persistent upper respiratory symptoms. 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 - Initial symptoms: sore throat, postnasal drip, congestion, laryngitis, and cough. - Symptoms subsided but never fully resolved; persistent congestion. - Recent exacerbation since mid-last week: sore throat, increased postnasal drip, congestion, cough, and raspy voice. - Describes cough as deep, with difficulty raising voice or laughing without triggering intense coughing fits. - Occasional production of yellow-green mucus; nasal discharge varies from clear to yellow-green. - Denies sinus headaches, sinus pressure, or fevers. - Reports fatigue by the end of the day. - No history of COPD or asthma. - Previous use of Tessalon Perles provided relief for cough. - Experiences dyspnea with activities that previously did not cause shortness of breath. - Difficulty taking deep breaths. - Reports ears feeling itchy and some facial pressure. PAST MEDICAL HISTORY Diagnosis Date PMH - PAST MEDICAL HISTORY OF Color Vision - Normal PMH - PAST MEDICAL HISTORY OF acne PAST SURGICAL HISTORY Procedure Laterality Date EXC CYST/ABERRANT BREAST TISSUE OPEN 1/> LESION 03-04-11 LEFT PAST SURGICAL HISTORY OF dental PAST SURGICAL HISTORY OF 04/06 left ankle repair ALLERGIES Latex and Rocephin [Ceftriaxone] MEDICATIONS meloxicam (MOBIC) 15 mg tablet Take 1 tablet by mouth once daily. sertraline (ZOLOFT) 25 mg tablet TAKE 1 TABLET AT BEDTIME FOR ANXIETY cyclobenzaprine (FLEXERIL) 5 mg tablet Take 5 mg by mouth three times a day as needed. doxycycline monohydrate 100 mg tablet Take 1 tablet by mouth two times a day for 5 days. predniSONE (DELTASONE) 20 mg tablet Take 2 tablets by mouth once daily for 5 days. benzonatate (TESSALON PERLE) 100 mg capsule Take 1 capsule by mouth three times a day as needed. albuterol HFA (PROVENTIL HFA, VENTOLIN HFA) 90 mcg/actuation inhaler Inhale 2 puffs as instructed every 4 hours as needed for wheezing/shortness of breath. FAMILY HISTORY Problem Relation Age of Onset Heart Paternal Grandfather Heart Paternal Grandmother benign tumor =left eye Allergies Mother Breast Cancer Maternal Grandmother Coronary Artery Disease Paternal Grandfather Hypertension Father Hypertension Paternal Grandfather Psychiatry Paternal Grandfather Stroke Paternal Grandmother SOCIAL HISTORY[1] Review of Systems Constitutional: (+) fatigue, (-) fever Head: (+) facial pain, (-) headache Ears/Nose/Mouth/Throat: (+) sore throat, (+) postnasal drip, (+) nasal congestion, (+) hoarseness, (+) ear pruritus, (-) sinus pressure Respiratory: (+) cough, (+) productive sputum, (+) dyspnea on exertion, (+) difficulty taking deep breath Objective BP 100/80 Pulse 73 Temp 36.7 ?C (98 ?F) Resp 19 Wt 71.1 kg (156 lb 12 oz) LMP 08/04/2025 SpO2 99% Physical Exam General: Not in acute distress, normal appearance, well-developed, not toxic-appearing HEENT - Eyes: Conjunctivae normal - Ears: Right ear: Tympanic membrane normal, ear canal normal; Left ear: Tympanic membrane normal, ear canal normal - Nose/Sinuses: Nasal mucosa inflamed , Maxillary sinus tenderness - Oropharynx: Mucous membranes moist, oropharynx clear, uvula midline Cardiovascular - Rate/Rhythm: Normal rate and regular rhythm - Heart Sounds: Normal heart sounds Pulmonary - Lung Sounds: Normal breath sounds - Respiratory Effort: Pulmonary effort normal Neurologic - Mental Status: Alert Skin: Skin warm and dry Lymphatic - Cervical: No cervical adenopathy { 1. Subacute cough (R05.2) 2. Sinobronchitis (J32.9) - Symptoms and exam findings consistent with ongoing upper respiratory infection vs back to back viral illnesses and bronchitis - Ordered chest X-ray to rule out pneumonia. - Start doxycycline for suspected sinobronchitis. - Start prednisone for airway inflammation. - Start Tessalon Perles for cough suppression. - Start albuterol inhaler for bronchospasm. - Will contact patient with chest X-ray results and adjust treatment if necessary. and Recording using [employer] software for draft documentation of the visit was discussed with the patient/authorized underwriting account representative; all questions welcomed and answered. Patient/authorized underwriting account representative agreed to proceed Diagnosis and treatment plan were discussed and questions were answered to the patient's satisfaction. Pt acknowledged understanding of concepts and follow up plan. Specific s (more content not included)... [facility] 07-19-2025 Discharge summary [facility] 05-01-2025 Evaluation note Diagnosis Onset Date Resolution ROHAN I (cervical intraepithelial neoplasia I) acute May 01, 2025 9:18am Lumbar back pain acute April 9:18am Weight gain acute May 01 9:18am Encounter for routine gynecological examination noneactive May 012024 9:18am [facility] Work Phone: 1(651) 835-280203-24-2022 NotePap Smear Specimen AdequacyMarch 2021 2:28pmCommentSatisfactory for evaluation. Endocervical and/or squamous metaplasticcells (endocervical component)are present.[facility] A#[id number] Work Phone: Comment on above:Satisfactory for evaluation. Endocervical and/or squamous metaplasticcells (endocervical component)are present.Discharge summary Author Che Higgins [facility] Note Date/Time July 19, 2025 9:01am [facility] Physical Therapy [facility] [address] [place] [address] [address] [place] [address] / REHABILITATION SERVICES DISCHARGE SUMMARY MR#: [id number] Acct: [id number] Name: SULTANA NAVARRETE Rep #: [id number] : 1985 40 From: Che Higgins PT, Cert. MDT Referring Dr.: MIGUEL Heath Status: REG RCR Insurance: [facility] SELF PAY INSURANCE Discharge Summary D/C [...] please feel free to call me at [phone]. Thank you for the referral of thispatient. Sincerely, Che Higgins, PT, Cert MDT Balance/Gait/Functional tests Balance/Special Test Scores Oswestry Low Back Score: 12 Improvement % Improvement: 20 <Electronically signed by Che Higgins PT, Cert. MDT> 07/19/25 09 CC: MIGUEL Heath; Dr. Christian Franklin MD ~ EDILMA Signed [facility] Work Phone: Evaluation note* Diagnosis Onset [...] Supervision of high risk , antepartum acute [facility] Work Phone: Evaluation note* Diagnosis Onset [...] Supervision of high risk , antepartum acute [facility] Work Phone: Evaluation note* Diagnosis Onset [...] Supervision of high risk , antepartum acute [facility] Work Phone: Evaluation note* Diagnosis Onset [...] Supervision of high risk , antepartum acute [facility] Work Phone: Evaluation note* Diagnosis Onset [...] Supervision of high risk , antepartum acute [facility] Work Phone: Evaluation note* Diagnosis Onset Date Resolution Status Admit Date Encounter for routine gynecological examination noneactive May 012024 9:18am [facility] Work Phone: Hospital Discharge instructionsAmbulatory Orders* Physical Therapy Referral Location: None Selected [facility] Work Phone: Chief Complaint and Reason for Visit Chief Complaint Admit Date 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) May 01, 2025 9:18a m LBP RX HERE July 19, 2025 7:00am Reason for Visit Admit Date ROHAN I (cervical intraepithelial neoplasi a I) May 01, 2025 9:18am Lumbar back pain May 01, 2025 9:18a m Weight gain May 01, 2025 9:18a m Encounter for routine gynecological exam ination May 01, 2025 9:18am Chief Complaint Admit Date 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) May 01, 2025 9:18a m Chief Complaint STD screening dysuria, lower back [...] gynecological exam ination May 01, 2025 9:18am Family History No Family History Records Found Relationship Condition Age at Onset Recorded Date/T r[place] grandmother Diabetes mellitus Unknown Cerebrovascular accident (CVA) Unknown Malignant neoplasm of breast Unknown grandfather Myocardial infarction Unknown aunt Malignant neoplasm of ovary Unknown Malignant neoplasm of skin Unknown father Diabetes mellitus Unknown Advance Directives No Advanced Directives Records Found Advance Directive Response Recorded Date/ Time Living Will No April 13, 2020 4:50pm Power of Rehab Consultant No April 13 0 4:50pm Summary Purpose Additional Source Comments Goals (unrecognized section and content) Type Care Experience svdLabor Preferences -labor support person: mom- Brittany, and FOB Bill will be there unless he is difficultlabor intervention preferences: prefers epiduralpain management options preferred: prefer epiduralcut cord/dad catch: NObreastfeeding: yes PP control planned: []discussed possible routes of delivery and associated risks: []special requests: [] Care Teams (unrecognized sec tion and content) Team Status: Active Member Role/Relationship Status Dates Dr. Christian Franklin MD Family Provider Active Dr. Christian Franklin MD Primary Care Provider Active Team Status: Inactive Member Role/Relationship Status Dates Dr. Christian Franklin MD Primary Care Provider Active Start: May 01, 2025 End: May 01, 2025 Dr. Christian Franklin MD Referring Provider Active Start: May 01, 2025 End: May 01, 2025 MIGUEL Murguia Attending Provider Active Start: May 01, 2025 End: May 01, 2025 Team Status: Active Member Role/Relationship Status Dates Dr. Christian Franklin MD Primary Care Provider Active Team Status: Inactive Member Role/Relationship Status Dates Dr. Christian Franklin MD Primary Care Provider Active Start: May 01, 2025 End: May 01, 2025 MIGUEL Murguia Attending Provider Active Start: May 01, 2025 End: May 01, 2025 Team Status: Active Member Role/Relationship Status Dates Dr. Christian Franklin MD Primary care physician Active Team Status: Inactive Member Role/Relationship Status Dates Dr. Christian Franklin MD Primary care physician Active Start: May 01, 2025 End: May 01, 2025 Dr. Christian Franklin MD Referring Provider Active Start: May 01, 2025 End: May 01, 2025 MIGUEL Murguia Attending physician Active Start: May 01, 2025 End: May 01, 2025 Team Status: Inactive Member Role/Relationship Status Dates Dr. Christian Franklin MD Primary care physician Active Start: May 01, 2025 End: May 01, 2025 MIGUEL Murguia Attending physician Active Start: May 01, 2025 End: May 01, 2025 Team Status: Inactive Member Role/Relationship Status Dates Dr. Christian Franklin MD Primary care physician Active Start: July 19, 2025 End: July 19, 2025 MIGUEL Murguia Attending physician Active Start: July 19, 2025 End: July 19, 2025 MIGUEL Murguia Referring Provider Active Start: July 19, 2025 End: July 19, 2025 INFORMATION SOURCE (unrecogn ized section and content) DATE CREATED AUTHOR 08/23/2025 [facility] DATE CREATED AUTHOR AUTHOR'S ORGANIZ ATION 09/06/2025 [facility] FOR RECORDS PERTAINING TO PATIENTS WHO ARE [...] BE BASED ON THE PRIMARY CLINICAL RECORDS. [employer] [facility]. provides no warranty or guarantee of the accuracy or completeness of information in this document.
== END | disposition home or self-care (01) ==
LOC: OPBI 08:47
PROVIDERS: PCP Family Medicine; Referring Provider Nurse Practitioner Family; Visit Provider Nurse Practitioner Family
DX: Z12.31 Encounter for screening mammogram for malignant neoplasm of breast (principal)
CPT/HCPCS: 77063; 77067